=== PATIENT | male | born 1940 | race Caucasian/White ===

== ENCOUNTER 2019-11-19 06:51 | Outpatient (CLI) | payer MEDICARE, SELFPAY ==
--- NOTE | ~2019-11-19 | NM_ITS ---
EXAMINATION: NM hepatobiliary w pharm DATE: 11/19/2019 09:06 INDICATION: Right upper quadrant abdominal pain. COMPARISON: Hepatobiliary scintigraphy 11/27/2017, ultrasound 11/06/2019 TECHNIQUE: 5.5 mCi Tc-99m mebrofenin (Choletec) was administered intravenously. Scintigraphic images of the abdomen were obtained for one hour. Then, 2.6 mcg sincalide (Kinevac) IV was administered, an d imaging was continued for 30 minutes. FINDINGS: There is normal clearance of radiotracer from the blood pool. There is homogeneous tracer u ptake by the liver. Activity progresses to the bowel and gallbladder. Gallbladder ejection fraction (GBEF) was 30%. Note that most patients with gallbladder dysfunction have GBEF < 35%, which overlaps with the broad normal range of 10-90%. IMPRESSION: 1. Gallbladder ejection fraction in the lower range of normal. Note that this value overlaps with th e range of values that may be seen with gallbladder dysfunction and/or chronic cholecystitis if there is appropriate clinical correlation. Reviewed, dictated and finalized at location A. GAGE BRANCH MANAGER IMPRESSION: 1. Gallbladder ejection fraction in the lower range of normal. Note that this value overlaps with the range of values that may be seen with gallbladder dysfu nction and/or chronic cholecystitis if there is appropriate clinical correlatio nVenkatesh
== END 2019-11-19 06:52 | disposition home or self-care (01) ==
LOC: ANHIMG 06:52
PROVIDERS: PCP Family Medicine; Visit Provider Internal Medicine Gastroenterology
DX: R10.11 Right upper quadrant pain (principal)
CPT/HCPCS: 78227; A9537; J2805

== ENCOUNTER 2019-11-27 01:28 | Day surgery (SDC) | payer MEDICARE, SELFPAY ==
[2019-11-24 14:09] VITALS: BMI 33.5
[2019-11-27] MEDS: LACTATED RINGERS 1,000 ML 150 ML IV CONT (07:48)
[2019-11-27 07:50] LABS: INR 1.1; Prothrombin Time 13.5 Seconds (11.1-14.7)
[2019-11-27 07:53] VITALS: BP 163/87; PULSE 100; RESP 16; TEMP 36.3; O2SAT 98
--- NOTE | 2019-11-27 07:53 | WPDGICN ---
Assessment and Plan Additional Plan This is an 79-year-old white male patient I am asked to see because of abdominal pain. Patient has a prior history of colon polyps. Patient states bloating gas and nausea began in late September 2019. Patient states abdominal bloating is improved after eating. He describes regular bowel movements with no blood in his stools. Does have a history of colon polyps identified by endoscopy in 2014. Past medical history is significant for atrial fibrillation. He has a history of right inguinal hernia followed by Dr. Meadows. Current medications include warfarin. Aspirin. Atorvastatin. Finasteride. Metoprolol. Fish oil. Pantoprazole Patient reports an allergy to tetanus injection. Family history is noncontributory. Physical exam reveals him to be alert. Oriented x3. HEENT exam unremarkable. Lungs are clear to auscultation and percussion. Heart is without murmur or extra sounds. Abdominal exam bowel sounds are present soft nontender with no organomegaly. He has a right inguinal hernia. Ultrasound of the abdomen is unremarkable. Impression 1. Gas and diffuse abdominal pain. 2. Personal history of colon polyps. 3. Right inguinal hernia. Followed by Dr. Meadows. Plan is for high-fiber diet. Gas-X will be tried to alleviate his excess gas. HIDA scan to evaluate for gallbladder dysfunction is in progress. Colonoscopy will be performed because of colon polyps and abdominal discomfort. GI Consult Note Consult date/time: 11/27/19 07:53 HPI: Antony Reveles is a 79 year old male [facility] Past Medical History Medical History A-fib GERD (gastroesophageal reflux disease) High cholesterol History of blood transfusion HTN (hypertension) DOMINICK on CPAP RUQ abdominal pain Surgical History Surgical History GI bleed S/P arthroscopy of right knee S/P carpal tunnel release S/P cataract surgery Family History Family History Father Family history of respiratory disorder Pneumonia Sibling Acute myocardial infarction Heart attack Mother Patient's mother is , Onset Age: 85 Sibling Heart disease Other Family history of cardiovascular disease Hypertension Social History Social History Smoking status: Current every day smoker Alcohol intake: current Substance use: never Gender identity (if verbalized by the patient): Male Meds Home Medications and Allergies Home Medications Medication Instructions Recorded Confirmed Type aspirin 81 mg chewable tablet 81 mg PO DAILY 11/02/19 11/24/19 History atorvastatin 20 mg tablet 20 mg PO DAILY 11/02/19 11/24/19 History azelastine 137 mcg (0.1 %) nasal 2 spray NASAL Q12H ml 11/02/19 11/24/19 History spray aerosol finasteride 5 mg tablet 5 mg PO DAILY 11/02/19 11/24/19 History metoprolol succinate 25 mg 25 mg PO DAILY 11/02/19 11/24/19 History tablet,extended release 24 hr omega-3 fatty acids 1,000 mg 1,000 mg PO DAILY 11/02/19 11/24/19 History capsule pantoprazole 40 mg tablet,delayed 40 mg PO QAM 11/02/19 11/24/19 History release quinapril 5 mg tablet 5 mg PO DAILY 11/02/19 11/24/19 History sotalol 80 mg tablet 80 mg PO .COMPLEX 11/02/19 11/24/19 History umeclidinium 62.5 mcg-vilanterol 1 inhalation INHALATION DAILY 11/02/19 11/24/19 History 25 mcg/actuation powdr for inhalation warfarin 4 mg tablet 4 mg PO .COMPLEX 11/02/19 11/24/19 History Allergies Allergy/AdvReac Type Severity Reaction Status Date / Time tetanus immune globulin Allergy Mild SORE Verified 11/27/19 07:17 ARM-REDDENED INTO SHOULDER tetanus toxoid, adsorbed Allergy Unknown sore arm Verified 11/27/19 07:17 reddened into shoulder Tetanus Vaccines and Toxoi
--- NOTE | 2019-11-27 07:54 | WPDANESEPPF ---
Anes - Initial Pre Proc Eval Procedure: Operation Date: 11/27/19 08:30 Proposed Procedures p Screening Colonoscopy - Kendall Garcia MD Date/Time: 11/27/19 07:54 Surgeon: Kendall Garcia MD Pre Op Diagnosis: Hx of Colon Polyps Patient Data Age: 79 Gender: M Height: 6 ft 4 in Weight: 125 kg Allergies Allergy/AdvReac Type Severity Reaction Status Date / Time tetanus immune globulin Allergy Mild SORE Verified 11/27/19 07:17 ARM-REDDENED INTO SHOULDER tetanus toxoid, adsorbed Allergy Unknown sore arm Verified 11/27/19 07:17 reddened into shoulder Tetanus Vaccines and Toxoid Allergy Unknown sore Verified 11/27/19 07:17 arm-reddened into shoulder Home Medications Medication Instructions Recorded Confirmed Type aspirin 81 mg chewable tablet 81 mg PO DAILY 11/02/19 11/24/19 History atorvastatin 20 mg tablet 20 mg PO DAILY 11/02/19 11/24/19 History azelastine 137 mcg (0.1 %) nasal 2 spray NASAL Q12H ml 11/02/19 11/24/19 History spray aerosol finasteride 5 mg tablet 5 mg PO DAILY 11/02/19 11/24/19 History metoprolol succinate 25 mg 25 mg PO DAILY 11/02/19 11/24/19 History tablet,extended release 24 hr omega-3 fatty acids 1,000 mg 1,000 mg PO DAILY 11/02/19 11/24/19 History capsule pantoprazole 40 mg tablet,delayed 40 mg PO QAM 11/02/19 11/24/19 History release quinapril 5 mg tablet 5 mg PO DAILY 11/02/19 11/24/19 History sotalol 80 mg tablet 80 mg PO .COMPLEX 11/02/19 11/24/19 History umeclidinium 62.5 mcg-vilanterol 1 inhalation INHALATION DAILY 11/02/19 11/24/19 History 25 mcg/actuation powdr for inhalation warfarin 4 mg tablet 4 mg PO .COMPLEX 11/02/19 11/24/19 History Laboratory Tests 11/27/19 07:29 PT 13.5 Seconds Seconds (11.1-14.7) INR 1.1 Patient hx anesthesia problems: none Family hx anesthesia problems: none PMFSH Past Medical History Medical History A-fib GERD (gastroesophageal reflux disease) High cholesterol History of blood transfusion HTN (hypertension) DOMINICK on CPAP RUQ abdominal pain Surgical History Surgical History GI bleed S/P arthroscopy of right knee S/P carpal tunnel release S/P cataract surgery Family History Family History Father Family history of respiratory disorder Pneumonia Sibling Acute myocardial infarction Heart attack Mother Patient's mother is , Onset Age: 85 Sibling Heart disease Other Family history of cardiovascular disease Hypertension Social History Social History Smoking status: Current every day smoker Alcohol intake: current Substance use: never Gender identity (if verbalized by the patient): Male Anes - Eval Final PreProcedure Day of Procedure 11/27/19 07:54 Patient weight: obese Heart: regular rate and rhythm Lungs: clear to auscultation Airway: Mallampati scale class II Neurological: alert and oriented Last oral intake: >/= 8 hours ASA classification: IV Anesthetic plan: proceed Anesthesia type and monitoring: general GIVS and standard monitoring Informed Consent: The patient's anesthetic plan and its attendant risks and benefits were discussed with the patient/family/POA. Questions were solicited and answers provided to the satisfaction of the patient/family/POA.
[2019-11-27 08:58] VITALS: BP 97/60; PULSE 75; RESP 20; O2SAT 94
[2019-11-27 09:08] VITALS: BP 98/56; PULSE 70; RESP 17; O2SAT 100
[2019-11-27 09:18] VITALS: BP 120/81; PULSE 72; RESP 18; O2SAT 100
[2019-11-27 09:28] VITALS: BP 124/78; PULSE 73; RESP 15; O2SAT 100
== END 2019-11-27 10:04 | disposition home or self-care (01) ==
PROVIDERS: PCP Family Medicine; Visit Provider Internal Medicine Gastroenterology
PROC: 0DJD8ZZ Inspection of Lower Intestinal Tract, Via Natural or Artificial Opening Endoscopic (ICD-10-PCS; CPT 45378; principal; 2019-11-27 08:30)
DX: Z12.11 Encounter for screening for malignant neoplasm of colon (principal); K64.8 Other hemorrhoids; Z86.010 Personal history of colon polyps; I48.91 Unspecified atrial fibrillation; I10 Essential (primary) hypertension; E78.00 Pure hypercholesterolemia, unspecified; K21.9 Gastro-esophageal reflux disease without esophagitis; G47.33 Obstructive sleep apnea (adult) (pediatric); F17.210 Nicotine dependence, cigarettes, uncomplicated; Z79.82 Long term (current) use of aspirin; Z79.01 Long term (current) use of anticoagulants
CPT/HCPCS: G0105; 36415; 85610; J2704; J7120

== ENCOUNTER 2020-03-17 14:18 | Outpatient (CLI) | payer MEDICARE, SELFPAY ==
--- NOTE | 2020-03-17 14:23 | ECG_ITS ---
Measurements Intervals [place] Rate: 74 P: 150 AK: 199 QRS: -64 QRSD: 118 T: 3 QT: 386 QTc: 430 Interpretive Statements ELECTRONIC ATRIAL PACEMAKER LEFT ANTERIOR FASCICULAR BLOCK BORDERLINE T WAVE ABNORMALITY- INFERIOR LEADS ABNORMAL ECG Electronically Signed On 03-17-2020 15:02:49 CDT by Virgilio Grullon D.O.
[2020-03-17 14:45] LABS: Hematocrit 46.8 % (42.0-52.0); Hemoglobin 15.3 g/dL (14.0-18.0); Mean Corpuscular HGB Conc 32.7 g/dl (32-36); Mean Corpuscular Hemoglobin 28.6 pg (26-34); Mean Corpuscular Volume 87.5 fl (80-100); Mean Platelet Volume 10.6 fl (7.4-10.4); Platelet Count Result 211 k/mm3 (150-375); Red Blood Count 5.35 M/mm3 (4.6-6.20); Red Cell Distribution Width 15.1 % (11.5-14.5); White Blood Count 10.9 K/mm3 (4.5-10.0)
[2020-03-17 14:56] LABS: Alanine Aminotransferase 18 U/L (4-50); Albumin Level 4.1 g/dL (3.5-5.1); Alkaline Phosphatase 93 U/L (38-126); Aspartate Amino Transferase 22 U/L (17-59); Bilirubin,Total 0.5 mg/dL (0.2-1.3); Blood Urea Nitrogen 17 mg/dL (9-20); Calcium 8.9 mg/dL (8.4-10.2); Carbon Dioxide 28 mmol/L (22-30); Chloride 104 mmol/L (98-107); Estimated Glomerular Filt Rate > 60; Glucose 95 mg/dL (75-110); Potassium 4.2 mmol/L (3.4-5.0); Sodium 138 mmol/L (137-145)
[2020-03-17 15:58] LABS: INR 2.2; Prothrombin Time 24.1 Seconds (11.1-14.7)
[2020-03-17 16:00] LABS: Partial Thromboplastin Time 36.9 SECONDS (22.3-36.8)
== END 2020-03-17 14:19 | disposition home or self-care (01) ==
LOC: ANHSURGERY 14:20
PROVIDERS: Anesthesiology; PCP Family Medicine; Visit Provider Surgery
DX: Z01.818 Encounter for other preprocedural examination (principal); I10 Essential (primary) hypertension; K40.90 Unilateral inguinal hernia, without obstruction or gangrene, not specified as recurrent; Z51.81 Encounter for therapeutic drug level monitoring
CPT/HCPCS: 36415; 80053; 85027; 85610; 85730; 93005

== ENCOUNTER 2020-03-18 00:03 | Outpatient (CLI) | payer MEDICARE, SELFPAY ==
[2020-03-18 15:54] LABS: SARS-CoV-2 RNA PCR Negative
== END 2020-03-18 00:04 | disposition home or self-care (01) ==
LOC: ANHCOVIDDT 00:04
PROVIDERS: PCP Family Medicine; Visit Provider Surgery
DX: Z01.818 Encounter for other preprocedural examination (principal); Z11.59 Encounter for screening for other viral diseases
CPT/HCPCS: 87635; C9803; U0003

== ENCOUNTER 2020-03-21 03:38 | Day surgery (SDC) | payer MEDICARE, SELFPAY ==
[2020-03-16 14:37] VITALS: BMI 33.2
[2020-03-21] VITALS (11 sets, daily range): BP systolic 95–146; BP diastolic 57–91; PULSE 82–96; RESP 16–24; TEMP 36.1; O2SAT 95–100
--- NOTE | 2020-03-21 07:39 | PM.HPGS ---
History of Present Illness History of Present Illness Consent: Risks, benefits, and alternatives have been discussed and questions answered. Patient agrees to proceed with procedure. Chief complaint: Right Inguinal Hernia Narrative: Antony Reveles is a 79 year old male who was seen several months go in the office and at that time first diagnosed with a right inguinal hernia. Antony returns to re-evaluate a right groin bulge. He states the bulge reduces after laying down for an hour or so. He reports the bulge is painful at times but especially when he coughs. He reports the bulge comes and goes and appears to be out more when standing vs when sitting or laying down. He did have a cold months ago where he was coughing a lot. He had a colonoscopy a couple of months ago which showed hemorrhoids. Review of Systems Constitutional: Constitutional: Reports no additional constitutional complaints and Denies frequent falls Eyes: Eyes: Reports as per HPI ENT: Reports Normal hearing present, Denies dizziness and Reports other (Mucous membranes moist.) Cardiovascular: Cardiovascular: Denies chest pain, Denies palpitations, Denies dyspnea and Denies dyspnea on exertion Respiratory: Respiratory: Denies hemoptysis, Denies dyspnea, Denies dyspnea on exertion and Denies wheezing Gastrointestinal: Gastrointestinal: Reports no additional gastrointestinal complaints, Reports bloating and Reports other Comments: Occasional bulging in the right groin which is more discomfort a with cough Genitourinary: Genitourinary: Denies hematuria, Denies nocturia and Denies urinary frequency Musculoskeletal: Musculoskeletal: Denies deformity and Reports other ( no clubbing,cyanosis, or edema) Integumentary/Breasts: Skin/Breast: Denies new lesions, Denies rash and Denies unusual bruising Neurologic: Reports Normal hearing present, Denies dizziness, Denies frequent falls, Denies memory loss and Denies seizure-like activity Psychiatric: Psychiatric: Denies memory loss and Reports other ( normal mood and mental status) Endocrine: Endocrine: Denies cold intolerance and Denies palpitations Hematologic/Lymphatic: Hematologic/Lymphatic: Denies easy bleeding and Denies easy bruising Allergic/Immunologic: Allergic/Immunologic: Denies wheezing and Reports other ( no lymphadenopathy) [facility] Social History Social History Smoking status: Current every day smoker Alcohol intake: current Substance use: never Gender identity (if verbalized by the patient): Male Meds Home Medications and Allergies Home Medications Medication Instructions Recorded Confirmed Type aspirin 81 mg chewable tablet 81 mg PO DAILY 11/02/19 03/16/20 History atorvastatin 20 mg tablet 20 mg PO DAILY 11/02/19 03/16/20 History finasteride 5 mg tablet 5 mg PO DAILY 11/02/19 03/16/20 History metoprolol succinate 25 mg 25 mg PO DAILY 11/02/19 03/16/20 History tablet,extended release 24 hr omega-3 fatty acids 1,000 mg 1,000 mg PO DAILY 11/02/19 03/16/20 History capsule pantoprazole 40 mg tablet,delayed 40 mg PO QAM 11/02/19 03/16/20 History release quinapril 5 mg tablet 5 mg PO DAILY 11/02/19 03/16/20 History sotalol 80 mg tablet 80 mg PO BID 11/02/19 03/16/20 History umeclidinium 62.5 mcg-vilanterol 1 inhalation INHALATION QPM 11/02/19 03/16/20 History 25 mcg/actuation powdr for inhalation warfarin 4 mg tablet 4 mg PO .COMPLEX 11/02/19 03/16/20 History fluticasone propionate 1 spray INTRANASAL BID 03/16/20 03/16/20 History Allergies Allergy/AdvReac Type Severity Reaction Status Date / Time tetanus immune globulin Allergy Mild SORE Verified 03/16/20 14:33 ARM-REDDENED INTO SHOULDER tetanus toxoid, adsorbed Allergy Unknown sore arm Verified 03/16/20 14:33 reddened into shoulder Tetanus Vaccines and Toxoid Allergy Unknown sore Verified 03/16/20 14:33 arm-reddened into
--- NOTE | 2020-03-21 09:32 | P.PNAN_ITS ---
Anes - Initial Pre Proc Eval Procedure: Operation Date: 03/21/20 11:00 Proposed Procedures p Open Right Inguinal Hernia Repair - Sky Meadows MD Date/Time: 03/21/20 09:32 Surgeon: Sky Meadows MD Pre Op Diagnosis: Right Inguinal Hernia Patient Data Age: 79 Gender: M Height: 6 ft 4 in Weight: 123.5 kg Last Vital Signs Temp 96.9 F L 03/21/20 09:03 Pulse 87 03/21/20 09:03 Resp 20 03/21/20 09:03 BP 144/85 H 03/21/20 09:03 Pulse Ox 100 03/21/20 09:03 Allergies Allergy/AdvReac Type Severity Reaction Status Date / Time tetanus immune globulin Allergy Mild SORE Verified 03/16/20 14:33 ARM-REDDENED INTO SHOULDER tetanus toxoid, adsorbed Allergy Unknown sore arm Verified 03/16/20 14:33 reddened into shoulder Tetanus Vaccines and Toxoid Allergy Unknown sore Verified 03/16/20 14:33 arm-reddened into shoulder Home Medications Medication Instructions Recorded Confirmed Type aspirin 81 mg chewable tablet 81 mg PO DAILY 11/02/19 03/16/20 History atorvastatin 20 mg tablet 20 mg PO DAILY 11/02/19 03/16/20 History finasteride 5 mg tablet 5 mg PO DAILY 11/02/19 03/16/20 History metoprolol succinate 25 mg 25 mg PO DAILY 11/02/19 03/16/20 History tablet,extended release 24 hr omega-3 fatty acids 1,000 mg 1,000 mg PO DAILY 11/02/19 03/16/20 History capsule pantoprazole 40 mg tablet,delayed 40 mg PO QAM 11/02/19 03/16/20 History release quinapril 5 mg tablet 5 mg PO DAILY 11/02/19 03/16/20 History sotalol 80 mg tablet 80 mg PO BID 11/02/19 03/16/20 History umeclidinium 62.5 mcg-vilanterol 1 inhalation INHALATION QPM 11/02/19 03/16/20 History 25 mcg/actuation powdr for inhalation warfarin 4 mg tablet 4 mg PO .COMPLEX 11/02/19 03/16/20 History fluticasone propionate 1 spray INTRANASAL BID 03/16/20 03/16/20 History Patient hx anesthesia problems: none Family hx anesthesia problems: none [facility] Social History Social History Smoking status: Current every day smoker Alcohol intake: current Substance use: never Gender identity (if verbalized by the patient): Male Anes - Eval Final PreProcedure Day of Procedure 03/21/20 09:32 Patient weight: obese Heart: regular rate and rhythm Lungs: clear to auscultation Airway: Mallampati scale class II Neurological: alert and oriented Last oral intake: >/= 8 hours Emergent: no Anesthetic plan: proceed Anesthesia type and monitoring: general (may use LMA if needed) GIVS and standard monitoring Informed Consent: The patient's anesthetic plan and its attendant risks and benefits were discussed with the patient/family/POA. Questions were solicited and answers provided to the satisfaction of the patient/family/POA.
[2020-03-21] MEDS: LACTATED RINGERS 1,000 ML 30 ML IV CONT ×3 (09:35→13:18)
[2020-03-21 09:56] LABS: INR 1.1; Prothrombin Time 13.9 Seconds (11.1-14.7)
[2020-03-21 09:57] LABS: Partial Thromboplastin Time 28.6 SECONDS (22.3-36.8)
[2020-03-21] MEDS: ceFAZolin 3 GM/D5W 100 ML 100 ML IVPB (10:06)
--- NOTE | 2020-03-21 13:36 | PM.PROC ---
Procedure Note - Detailed Date of procedure: 03/21/20 Pre-op diagnosis: Right Inguinal Hernia Rt. Inguinal hernia Post-op diagnosis: other (Direct and large indirect Right inguinal hernia) Procedure performed: Open Rt.inguinal hernia repair with mesh Description of procedure: The patient was placed in the supine position on the operating room table. After induction of adequate GIVS with an LMA anesthesia by [facility] Anesthesia staff, we carefully prepped the entire abdomen and scrotum with chlorhexidine. One sterile towel was placed underneath the scrotum. Four towels were placed around the right lower quadrant. Following this, a time-out was performed with the surgical team and the patient's surgical procedure and site was confirmed. We then carefully outlined a curvilinear incision in the right groin area and a curvilinear incision was made after introducing a mixture of local anesthetic, using 0.5% Marcaine with epinephrine and 1% Xylocaine plain as both an ilioinguinal nerve block and at the incision site with a 25 gauge needle. Following this, I carefully made the incision, and carried it down through the subcutaneous tissue. Oleg's fascia was incised and then we identified the external oblique aponeurosis and the external ring. Following this, the same mixture of local anesthetic was infiltrated underneath the external oblique aponeurosis and this was split in the direction of it's fibers with a #15 blade initially and then using metzenbaum scissors. I then opened the external oblique through the external ring and incised this somewhat posteriorly and superiorly exposing the the underlying soft tissue. Because of the tissue stretching and the large size of the indirect hernia I never did identify the ilioinguinal nerve. I then surrounded these structures at the level of pubic tubercle and placed a [place] drain around them. At one point there was a tributary to the femoral vein that began bleeding as I dissected along the shelving edge of the inguinal ligament superiorly. This was suture ligated with a double armed 3 0 Prolene suture and nicely achieved hemostasis at that site. I then carefully dissected the hernia sac up and off of the cord tissues, and brought it up and out of the incision. We carefully dissected the layers and cremasteric tissues off the hernia sac and then eventually opened the hernia sac. Holding this up with 4 hemostats, I carefully dissected it off the cord structures, being careful to avoid injury to the Pampiniform plexus veins, the spermatic artery and the vas. Once the hernia sac was carefully dissected back to the level of the internal ring, a suture ligation pursestring suture of 2-0 silk was used to close circumferentially the base of the hernia sac. Following this, a 2 - 0 silk tie was placed just below this, tied tight, and then distally the hernia sac was amputated with scissors. It was then passed off the field for pathologic evaluation. Following this, we took care to recreate an appropriate inguinal canal. This was done by carefully dissecting from the internal ring down to the pubic bone, dissecting away any cremasteric tissue. A running suture of 0 Prolene was placed in the pubic tubercle and run up to the internal ring, approximating the Transversalis fascia to the ilioinguinal ligament. Once this was done, we then opened the rectangular piece of Prolene mesh and it was then cut into a 13 x 5 cm elliptical sheet with a keyhole in it and I then positioned it nicely over Hesselbach's triangle. One suture of 2-0 Ethibond was used to anchor it against the pubic tubercle. Following this, an 0 Prolene was used to suture the lateral edge of this mesh to the edge of the ilioinguinal ligament and the medial edge was sutured on top of the internal oblique aponeurosis. Above, the cord structures came through the keyhole and in doing so the mesh nicely covered the stump of the hernia sac but had al
[2020-03-21] MEDS: ONDANSETRON INJ 4 MG/2 ML VIAL IV PUSH (14:02)
--- NOTE | 2020-03-21 14:37 | SUR.PHASEI ---
1437; PT AWAKE AND ALERT AND ORIENTED. STATES PAIN 01/21. DENIES NEED FOR PAIN MEDICINE AT THIS TIME. READY FOR A DRINK
== END 2020-03-21 16:31 | disposition home or self-care (01) ==
PROVIDERS: Anesthesiology; PCP Family Medicine; Visit Provider Surgery
PROC: (CPT 49505; principal; 2020-03-21 11:00)
DX: K40.90 Unilateral inguinal hernia, without obstruction or gangrene, not specified as recurrent (principal); I71.2 Thoracic aortic aneurysm, without rupture; I11.9 Hypertensive heart disease without heart failure; K21.9 Gastro-esophageal reflux disease without esophagitis; E78.5 Hyperlipidemia, unspecified; G47.33 Obstructive sleep apnea (adult) (pediatric); Z95.0 Presence of cardiac pacemaker; F17.210 Nicotine dependence, cigarettes, uncomplicated; Z79.01 Long term (current) use of anticoagulants; Z79.82 Long term (current) use of aspirin; E66.9 Obesity, unspecified; Z68.33 Body mass index [BMI] 33.0-33.9, adult
CPT/HCPCS: 49505; 36415; 80053; 85027; 85610; 85730; 87635; 88302; 88304; 93005; A9270; C1781; C9803; J0131; J0690; J1100; J2405; J2704; J3010; J7120; U0003

== ENCOUNTER 2020-09-30 11:06 | Outpatient (NON) | payer MEDICARE, SELFPAY ==
[2020-09-30 14:32] LABS: Influenza Control Positive
[2020-10-01 01:18] LABS: SARS-CoV-2 RNA PCR Positive
== END 2020-09-30 11:07 ==
LOC: ANHCOVIDDT 11:07
PROVIDERS: PCP Family Medicine; Visit Provider Family Medicine
DX: R05 Cough (principal); U07.1 COVID-19
CPT/HCPCS: 87635; 87804; C9803; U0003

== ENCOUNTER 2020-11-09 14:11 | Outpatient (CLI) | payer MEDICARE, SELFPAY ==
--- NOTE | ~2020-11-09 | XR_ITS ---
XR lumbar spine 2-3V DATE: 11/09/2020 14:36 INDICATION: Low back pain. No injury. TECHNIQUE: AP, lateral, coned lateral lumbosacral views COMPARISON: 06/12/2005 lumbar spine FINDINGS: There is prominent degenerative spurring of the lower thoracic spine and throughout the lum bar spine. There is moderate loss of interspace height at L3-4 and L4-5, with mild retrolisthesis at L4-5. No fracture or bone destruction is evident. The included lower thoracic and lumbar pedicles are intac t. The sacroiliac joints are intact. There is extensive calcification of the abdominal aorta, without aneurysm. Iliac arterial calcificati ons. IMPRESSION: Multilevel degenerative disc disease, most pronounced at L3-4 and L4-5, with associated m ild retrolisthesis at L4-5 Reviewed, dictated and finalized at location A. NO ASSISTANT MANAGER IMPRESSION: Multilevel degenerative disc disease, most pronounced at L3-4 and L 4-5, with associated mild retrolisthesis at L4-5
== END 2020-11-09 14:12 | disposition home or self-care (01) ==
LOC: ANHIMG 14:19
PROVIDERS: PCP Family Medicine; Visit Provider Family Medicine
DX: M51.36 Other intervertebral disc degeneration, lumbar region (principal)
CPT/HCPCS: 72100

== ENCOUNTER → 2020-12-27 09:16 | Outpatient (CLI) | payer MEDICARE, SELFPAY ==
--- NOTE | ~2020-12-27 | CT_ITS ---
EXAMINATION: CT lumbar spine wo [facility] EXAM DATE: 12/27/2020 09:31 INDICATION: M51.36 - Other intervertebral disc degeneration, lumbar region . Low back pain. Bilateral leg weakness. TECHNIQUE: Spiral CT of the lumbar spine was performed without contrast. Axial, coronal and sagittal images were reviewed. The dose-length product (DLP) for this examination was 987.22 mGy-cm. The e xposure was tailored according to patient size (auto mA exposure control), and iterative reconstructi on (ASIR) was used as additional dose reduction technique. There is no prior study for comparison. FINDINGS: There are no acute fractures identified. There is no spondylolysis. There is 2-3 mm retroli sthesis L4 on L5. Straightening of normal lumbar curvature. Small to moderate size endplate osteophyt es. Moderate disc disease at L3-4 and L4-5, mild to moderate at L2-3 and L5-S1. Sacroiliac joints are intact, no evidence of sacral fracture. Level by level evaluation: T12-L1: There is a mild diffuse disc bulge. Facet arthropathy: Mild. Neural foraminal stenosis: No stenosis. Central canal stenosis: No stenosis. L1-L2: There is a mild to moderate diffuse disc bulge. Facet arthropathy: Mild to moderate. Neural foraminal stenosis: Mild bilateral. Central canal stenosis: Mild to moderate. L2-L3: There is a moderate diffuse disc bulge. Facet arthropathy: Moderate. Neural foraminal stenosis: Mild to moderate bilateral. Central canal stenosis: Moderate. L3-L4: There is a large diffuse disc bulge. Facet arthropathy: Moderate to severe. Neural foraminal stenosis: Moderate bilateral. Central canal stenosis: Severe. L4-L5: There is a large diffuse disc bulge. Facet arthropathy: Moderate to severe. Neural foraminal stenosis: Moderate to severe bilateral. Central canal stenosis: Severe. L5-S1: There is a moderate diffuse disc bulge. Facet arthropathy: Severe. Neural foraminal stenosis: Moderate to severe right, moderate left. Central canal stenosis: Mild to moderate. IMPRESSION: 1. 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 2. No acute findings. Reviewed, dictated and finalized at location A.
== END ==
PROVIDERS: PCP Family Medicine; Visit Provider Nurse Practitioner Family
DX: M51.36 Other intervertebral disc degeneration, lumbar region (principal)
CPT/HCPCS: 72131

== ENCOUNTER 2021-07-31 09:25 | Outpatient (CLI) | payer MEDICARE, SELFPAY ==
--- NOTE | 2021-07-31 15:30 | WPDPFTINT ---
PFT Procedure Performed PFT Procedure Performed Plethysmography (Lung Vol) Diffusing Cap (DLCO) Flow Vol Loop Spirometry w/o Bronchodil PFT Interpretation This is a pulmonary function test with spirometry, plethysmography and diffusing capacity. The test was performed and results interpreted in accordance with the 2019 and 2005 ATS/ERS Task Force guidelines respectively using the Global Lung Function Initiative-2012 reference equations. Patient demonstrated good effort and cooperation. Reproducibility criteria were met. The quality of the spirometry maneuver was Grade A. Findings: Spirometry: The contour the inspiratory and expiratory flow tracing are normal. The FVC is 4.01 L, 86% predicted. The FEV1 is 2.91 L, 86% predicted. The FEV1: FVC ratio 73%. Plethysmography: The total lung capacity is 7.68 L, 93% predicted. The functional residual capacity is 4.64 L, 102% predicted. The residual volume is 3.42 L, 113% predicted. Diffusing capacity: The absolute diffusion capacity is 11.8, 45% predicted. The diffusing capacity corrected for alveolar volume is 2.13, 66% predicted. Impression: The spirometry is normal without evidence of an obstructive abnormality. The lung volumes are normal. The absolute diffusing capacity is moderately decreased and normalizes when corrected for alveolar volume. There are no prior studies for comparison
== END 2021-07-31 09:26 | disposition home or self-care (01) ==
LOC: ANHPFT 09:27
PROVIDERS: PCP Family Medicine
DX: I48.0 Paroxysmal atrial fibrillation (principal); I35.0 Nonrheumatic aortic (valve) stenosis; I71.2 Thoracic aortic aneurysm, without rupture; Z95.0 Presence of cardiac pacemaker
CPT/HCPCS: 94375; 94726; 94729

== ENCOUNTER 2021-12-14 15:25 | Emergency (ER) | payer MEDICARE, SELFPAY ==
[2021-12-14] VITALS (11 sets, daily range): BP systolic 121–180; BP diastolic 78–104; PULSE 70–95; RESP 12–20; TEMP 36.6; O2SAT 98–100
--- NOTE | ~2021-12-14 | CT_ITS ---
EXAMINATION: CT brain wo con DATE: 12/14/2021 16:14 INDICATION: Dizziness, nausea and shortness of breath TECHNIQUE: Computed tomography (CT) of the head was performed without intravenous contrast. The dose- length product was 681.00 mGy-cm. Automated exposure control and iterative reconstruction technique w ere employed. COMPARISON: None FINDINGS: No acute intracranial hemorrhage, infarction, mass or mass effect. No ventriculomegaly or m idline shift. Basilar cisterns are patent. Mild generalized atrophy. There are scattered mild periven tricular and subcortical white matter changes, most likely related to small vessel ischemic disease ( microangiopathy). There is mild mucosal thickening of the ethmoid air cells. Mastoids are pneumatized . No depressed skull fractures. There is intracranial atherosclerosis. IMPRESSION: 1. No acute intracranial abnormality. 2: Chronic age-related findings. Reviewed, dictated and finalized at location A. ENING UNIT REGISTERED NURSE
--- NOTE | 2021-12-14 15:35 | ECG_ITS ---
Measurements Intervals [place] Rate: 90 P: 133 MS: 221 QRS: -48 QRSD: 116 T: 65 QT: 358 QTc: 439 Interpretive Statements ELECTRONIC ATRIAL PACEMAKER ELECTRONIC VENTRICULAR PACEMAKER ATYPICAL ECG COMPARED TO ECG 03/17/2020 14:51:28 NO SIGNIFICANT CHANGES Electronically Signed On 12-15-2021 10:21:07 [employer] S[employer]OL NURSE by Deep Mcgee M.D.
[2021-12-14 15:42] LABS: Basophils Absolute Auto 0.1 K/mm3 (0.0-0.1); Basophils Percent Auto 0.9 % (0.2-1.2); Eosinophils Absolute Auto 0.2 K/mm3 (0-0.3); Eosinophils Percent Auto 2.1 % (0-4.4); Hematocrit 47.7 % (42.0-52.0); Hemoglobin 15.8 g/dL (14.0-18.0); Immature Granulocyte Absolute 0.03 K/mm3 (0.00-0.031); Immature Granulocyte Percent A 0.3 % (0-0.5); Lymphocytes Absolute Auto 2.81 K/mm3 (0.9-3.2); Lymphocytes Percent Auto 26.7 % (18.3-44.2); Mean Corpuscular HGB Conc 33.1 g/dl (32-36); Mean Corpuscular Volume 90.7 fl (80-100); Mean Platelet Volume 10.6 fl (7.4-10.4); Monocytes Absolute Auto 0.7 K/mm3 (0.1-0.6); Monocytes Percent Auto 6.3 % (2.6-8.5); Neutrophils Absolute Auto 6.7 K/mm3 (1.3-6.7); Neutrophils Percent Auto 63.7 % (45.5-73.1); Platelet Count Result 195 k/mm3 (150-375); Red Blood Count 5.26 M/mm3 (4.6-6.20); Red Cell Distribution Width 14.6 % (11.5-14.5); White Blood Count 10.5 K/mm3 (4.5-10.0)
--- NOTE | 2021-12-14 15:42 | PC.NURSE ---
Spoke to patient's son, Shaggy, to give update per patient's request.
[2021-12-14 15:54] LABS: Alanine Aminotransferase 20 U/L (4-50); Albumin Level 4.2 g/dL (3.5-5.1); Alkaline Phosphatase 88 U/L (38-126); Anion Gap 5 mmol/L (8-16); Aspartate Amino Transferase 24 U/L (17-59); Bilirubin,Total 0.8 mg/dL (0.2-1.3); Blood Urea Nitrogen 16 mg/dL (9-20); Calcium 8.9 mg/dL (8.4-10.2); Carbon Dioxide 27 mmol/L (22-30); Chloride 106 mmol/L (98-107); Estimated CRCL calculation 77 ml/min; Estimated Glomerular Filt Rate > 60; Glucose 113 mg/dL (65-110); Sodium 138 mmol/L (137-145)
[2021-12-14] MEDS: ONDANSETRON HCL ODT 4 MG TABLET PO (16:28)
[2021-12-14] MEDS: MECLIZINE HCL 25 MG TABLET PO (16:28)
[2021-12-14] MEDS: diazePAM (*CRX) 5 MG TABLET 2.5 MG PO (16:28)
--- NOTE | 2021-12-14 16:29 | PC.NURSE ---
Per JAZMIN Mckinney, no orthostatic blood pressures needed.
--- NOTE | 2021-12-14 17:02 | ED.DIZZY ---
HPI - Dizziness General Chief Complaint: Dizziness Stated Complaint: dizzy Time Seen by Provider: 12/14/21 15:29 Source: patient and EMS Mode of arrival: EMS Limitations: no limitations History of Present Illness HPI Narrative: Patient is 81 years old white male lives alone, woke up this morning feeling a little bit woozy, then started moving around subsequently developed dizziness, spinning, the whole ceiling going around on the ground. Associated with nausea. Patient had similar symptoms years ago secondary to vertigo. Patient denies any focal neuro deficit. Also denies any fever, chills, nausea, vomiting, chest pain, shortness of breath, headache. patient also complaining of itching of the ear canals for months, he can stop using Q-tips. He denies any discharge Related Data Home Medications Medication Instructions Recorded Confirmed aspirin 81 mg chewable tablet 81 mg PO DAILY 11/02/19 11/14/21 atorvastatin 20 mg tablet 20 mg PO DAILY 11/02/19 11/14/21 finasteride 5 mg tablet 5 mg PO DAILY 11/02/19 11/14/21 metoprolol succinate 25 mg 25 mg PO DAILY 11/02/19 11/14/21 tablet,extended release 24 hr omega-3 fatty acids 1,000 mg 1,000 mg PO DAILY 11/02/19 11/14/21 capsule quinapril 5 mg tablet 5 mg PO DAILY 11/02/19 11/14/21 sotalol 80 mg tablet 80 mg PO BID 11/02/19 11/14/21 warfarin 4 mg tablet 4 mg PO .COMPLEX 09/06/20 11/14/21 gabapentin 100 mg capsule 100 mg PO BID 07/04/21 11/14/21 Allergies Allergy/AdvReac Type Severity Reaction Status Date / Time Tetanus Vaccines and Toxoid Allergy Severe DIFFICULTY Verified 12/14/21 15:34 BREATHING/REDNESS/EXTREME SWELLING OF ARM Review of Systems Review of Systems: CONSTITUTIONAL: Denies fever, chills, or sweats. EYES: Denies visual changes, redness, or discharge. ENT: Denies rhinorrhea, congestion, sore throat, or otalgia. CARDIOVASCULAR: Denies chest pain, palpitations, or edema. RESPIRATORY: Denies cough or dyspnea. GASTROINTESTINAL: Denies abdominal pain, nausea, vomiting, or diarrhea. GENITOURINARY: Denies dysuria or hematuria. SKIN: Denies rash or itching. MUSCULOSKELETAL: Denies back pain, joint pain, or myalgia. NEUROLOGIC: Denies headache, numbness, or weakness. PSYCHIATRIC: Denies anxiety or depression. 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 (current) use of anticoagulants Lumbar spinal stenosis DOMINICK on CPAP RUQ abdominal pain Surgical History Surgical History GI bleed H/O hernia repair S/P arthroscopy of right knee S/P carpal tunnel release S/P cataract surgery Family History Family History Father Family history of respiratory disorder Pneumonia Sibling Acute myocardial infarction Heart attack Mother Patient's mother is , Onset Age: 85 Sibling Heart disease Other Family history of cardiovascular disease Hypertension Social History Social History Smoking packs per day: 0.75 Smoking cigarettes per day: 15.0 Years smoked: 65 Smoking pack-years: 48.75 Smoking status: Current every day smoker Tobacco type: cigarettes Second hand tobacco smoke exposure: No Alcohol intake: current Alcohol use details: rare Substance use: never Substance use type: does not use Gender identity (if verbalized by the patient): Male Sexual Orientation (if Verbalized by the Patient): Straight or Heterosexual Exam Narrative: General appearance: Well-developed, well-nourished Skin: Normal color Head: Normocephalic, nontraumatic Eyes: Clear conjunctiva ENT: Oropharynx normal, dry skin of the ear canal bilaterally, slightly erythematous , nose normal N
--- NOTE | 2021-12-14 17:07 | PC.NURSE ---
Patient able to ambulate with walker with no difficulty. Patient denied feeling dizzy while walking.
== END 2021-12-14 18:28 | disposition home or self-care (01) ==
PROVIDERS: Emergency Provider Emergency Medicine; PCP Family Medicine
DX: H81.10 Benign paroxysmal vertigo, unspecified ear (principal); H60.93 Unspecified otitis externa, bilateral; I48.91 Unspecified atrial fibrillation; E78.00 Pure hypercholesterolemia, unspecified; I10 Essential (primary) hypertension; K21.9 Gastro-esophageal reflux disease without esophagitis; G47.33 Obstructive sleep apnea (adult) (pediatric); Z79.01 Long term (current) use of anticoagulants; Z79.82 Long term (current) use of aspirin; Z98.49 Cataract extraction status, unspecified eye; F17.210 Nicotine dependence, cigarettes, uncomplicated; Z95.0 Presence of cardiac pacemaker
CPT/HCPCS: 36415; 70450; 80053; 85025; 93005; 99284; A9270

== ENCOUNTER 2022-05-01 07:18 | Outpatient (CLI) | payer MEDICARE, SELFPAY ==
--- NOTE | 2022-05-15 13:20 | WPDHOMESLEEP ---
Sleep Study - Home Unattended Date of Study: 05/01/22 Ordering Provider: BENEDICTO Shah Interpreting Provider: Justine Freeman, DO Home Sleep Study Type: Apnea Link Air Height: 1.93 m Weight: 114.759 kg Body Mass Index: 30.8 Neck Circumference (inches): 17 [place]: 5 Reason for Sleep Study Patient is currently on CPAP. Wants to switch DME companies but they require an updated study. Sleep History The patient is an 81-year-old male with hypertension, hyperlipidemia, GERD, interstitial lung disease, atrial fibrillation, pacemaker, lumbar spinal stenosis, thoracic aorta aneurysm, tobacco use disorder and known DOMINICK that had a sleep study ordered by the pulmonary office. the patient is currently retired. The patient occasionally awakens from sleep short of breath. He frequently awakens at night with heartburn, belching or cough. He occasionally has trouble sleeping when he has a cold. He rarely wakes up gasping for air throughout the night. He rarely has breathing problems at night observed by himself or others. He rarely sweats excessively at night. He rarely has heart palpitations or irregular heartbeats during the night. He will take naps occasionally throughout the day. He denies falling asleep while driving. He rarely experiences loss of muscle tone when extremely emotional. He denies sleep paralysis and hypnagogic/ hypnopompic hallucinations. He denies having trouble at school or work due to sleepiness. He denies having nightmares. He rarely remembers his dreams. He frequently has thoughts racing through his mind. He denies feeling sad or depressed. He occasionally has anxiety. He rarely has muscular tension. He rarely notices parts of his body jerk. He rarely kicks during the night. He occasionally has crawling and aching feelings in his legs and frequently has leg pain during the night. He denies grinding his teeth during sleep and denies awakening with morning jaw pain. He is constantly bothered by pain during the day and frequently awakened by pain during the night. He frequently wakes up feeling stiff in the morning. He frequently wakes up with sore or achy muscles. He constantly wakes up with pain in the neck, spine or other joints. He goes to bed between 830-9 p.m. on both weekdays and weekends. It takes him 15-20 minutes to fall asleep. He wakes up 4-5 times throughout the night to urinate. He is able to fall back asleep within 3-4 minutes. He wakes up between 5-530 a.m. on both weekdays and weekends. He typically gets 7-10 hours of sleep per night. He will stay in bed for a few minutes after waking up in the morning. He currently lives alone. He does not consume any caffeinated beverages within 2 hours of bedtime. He does not engage in physical exercise before bedtime. He will watch television before falling asleep. He will take naps during the afternoon or the evening but they are not refreshing. He currently smokes 3/4 of a pack of cigarettes per day. He denies caffeine, alcohol and recreational drug use. 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
[2022-05-15 13:51] VITALS: BMI 30.8
== END 2022-05-02 11:54 | disposition home or self-care (01) ==
PROVIDERS: PCP Family Medicine; Visit Provider Physician Assistant
DX: G47.33 Obstructive sleep apnea (adult) (pediatric) (principal)
CPT/HCPCS: 95806

== ENCOUNTER 2022-05-25 07:34 | Outpatient (CLI) | payer MEDICARE, SELFPAY ==
--- NOTE | 2022-06-25 11:17 | WPDSLEEPSTUD ---
Sleep Study Date of Study: 05/25/22 Ordering Provider: BENEDICTO Shah Interpreting Physician: Justine Freeman DO Sleep Study Type: CPAP Titration Height: 1.93 m Weight: 113.852 kg Body Mass Index: 30.5 Neck Circumference (inches): 19 [place]: 5 Reason for Sleep Study The patient had a home sleep test on 05/01/2022 that showed an overall AHI of 13.8 with desaturation down to 88%. He had 45 minutes of probable Jorge-Nguyen respirations. Sleep History The patient is an 81-year-old male with hypertension, hyperlipidemia, GERD, interstitial lung disease, atrial fibrillation, pacemaker, lumbar spinal stenosis, thoracic aorta aneurysm, tobacco use disorder and known DOMINICK that had a sleep study ordered by the pulmonary office. the patient is currently retired.? The patient occasionally awakens from sleep short of breath.? He frequently awakens at night with heartburn, belching or cough.? He occasionally has trouble sleeping when he has a cold.? He rarely wakes up gasping for air throughout the night.? He rarely has breathing problems at night observed by himself or others.? He rarely sweats excessively at night.? He rarely has heart palpitations or irregular heartbeats during the night.? He will take naps occasionally throughout the day.? He denies falling asleep while driving.? He rarely experiences loss of muscle tone when extremely emotional.? He denies sleep paralysis and hypnagogic/ hypnopompic hallucinations.? He denies having trouble at school or work due to sleepiness.? He denies having nightmares.? He rarely remembers his dreams.? He frequently has thoughts racing through his mind.? He denies feeling sad or depressed.? He occasionally has anxiety.? He rarely has muscular tension.? He rarely notices parts of his body jerk.? He rarely kicks during the night.? He occasionally has crawling and aching feelings in his legs and frequently has leg pain during the night.? He denies grinding his teeth during sleep and denies awakening with morning jaw pain.? He is constantly bothered by pain during the day and frequently awakened by pain during the night.? He frequently wakes up feeling stiff in the morning.? He frequently wakes up with sore or achy muscles.? He constantly wakes up with pain in the neck, spine or other joints.? He goes to bed between 830-9 p.m. on both weekdays and weekends.? It takes him 15-20 minutes to fall asleep.? He wakes up 4-5 times throughout the night to urinate.? He is able to fall back asleep within 3-4 minutes.? He wakes up between 5-530 a.m. on both weekdays and weekends.? He typically gets 7-10 hours of sleep per night.? He will stay in bed for a few minutes after waking up in the morning.? He currently lives alone.? He does not consume any caffeinated beverages within 2 hours of bedtime.? He does not engage in physical exercise before bedtime.? He will watch television before falling asleep.? He will take naps during the afternoon or the evening but they are not refreshing.? He currently smokes 3/4 of a pack of cigarettes per day.? He denies caffeine, alcohol and recreational drug use. [facility] Past Medical History Medical History A-fib GERD (gastroesophageal reflux disease) High cholesterol History of blood transfusion HTN (hypertension) intermediate (current) use of anticoagulants Lumbar spinal stenosis DOMINICK on CPAP RUQ abdominal pain Surgical History Surgical History GI bleed H/O hernia repair S/P arthroscopy of right knee S/P carpal tunnel release S/P cataract surgery Family History Family History Father Family history of respiratory disorder Pneumonia Sibling Acute myocardial infarction Heart attack Mother Patient's mother is , Onset Age: 85 Sibling Heart disease Other Family history of cardiovascu
[2022-06-25 14:09] VITALS: BMI 30.5
== END 2022-05-26 07:00 | disposition home or self-care (01) ==
LOC: ANHCSM 05-28 07:34
PROVIDERS: PCP Family Medicine; Visit Provider Physician Assistant
DX: G47.33 Obstructive sleep apnea (adult) (pediatric) (principal); G47.61 Periodic limb movement disorder
CPT/HCPCS: 95811

== ENCOUNTER → 2022-09-13 10:39 | Outpatient (CLI) | payer MEDICARE, SELFPAY ==
--- NOTE | ~2022-09-13 | XR_ITS ---
XR shoulder LT min 2V DATE: 09/13/2022 10:50 INDICATION: Limited range of motion for 5 days. Pain. No known injury. TECHNIQUE: 4 views COMPARISON: 04/04/2016 left shoulder FINDINGS: There is prominent joint space narrowing and spurring at the left glenohumeral joint consis tent with prominent osteoarthritis. There is mild inferior glenohumeral subluxation. There is degenerative spurring of the left acromioclavicular joint. Subtle calcification is noted in the region of the rotator cuff suggesting calcific tendinitis. No fracture or dislocation, periosteal reaction or bone destruction. Osteopenia. Left-sided pacemaker device. Status post sternotomy. Aortic arch calcification, descending thoracic a ortic calcification. IMPRESSION: Severe left glenohumeral osteoarthritis and mild inferior subluxation of the humeral head at the glenohumeral joint Degenerative change at the left acromion clavicular joint Subtle calcification of rotator cuff suggesting calcific tendinitis Reviewed, dictated and finalized at location B. GATHERER IMPRESSION: Severe left glenohumeral osteoarthritis and mild inferior subluxati on of the humeral head at the glenohumeral joint Degenerative change at the left acromion clavicular joint Subtle calcification of rotator cuff suggesting calcific tendinitis
== END ==
PROVIDERS: PCP Family Medicine; Visit Provider Physician Assistant
DX: M19.012 Primary osteoarthritis, left shoulder (principal)
CPT/HCPCS: 73030

== ENCOUNTER → 2022-11-20 09:42 | Outpatient (CLI) | payer MEDICARE, SELFPAY ==
--- NOTE | ~2022-11-20 | XR_ITS ---
Clinical Indication: Hemoptysis PA and lateral views of the chest: Comparison: 02/12/2018 Findings: The lungs are clear, without evidence of focal consolidation or pleural effusion. Cardiome diastinal silhouette is stable, status post median sternotomy with pacemaker device. Bones and soft t issues are unremarkable. Impression: Clear lungs. Reviewed, dictated and finalized at location . NATAL COORDINATOR Impression: Clear lungs.
== END ==
PROVIDERS: PCP Family Medicine; Visit Provider Family Medicine
DX: R04.2 Hemoptysis (principal)
CPT/HCPCS: 71046

== ENCOUNTER → 2023-05-14 09:24 | Outpatient (CLI) | payer MEDICARE, SELFPAY ==
--- NOTE | ~2023-05-14 | XR_ITS ---
EXAMINATION: XR lumbar spine 2-3V DATE: 05/14/2023 09:45 INDICATION: Low back pain. TECHNIQUE: 3 views of lumbar spine were obtained. COMPARISON: Lumbar spine radiograph 11/09/2020, CT lumbar spine 12/27/2020 FINDINGS: There is 4 mm retrolisthesis of L4 on L5 and 3 mm retrolisthesis of L3 on L4. There is mild chronic anterior wedging of L1 and L2 vertebral bodies. There is moderately decreased disc height at L3-L4, severely decreased disc height at L4-L5, and moderately decreased disc height at L5-S1. There is multilevel severe facet joint osteoarthritis. IMPRESSION: 1. Severe lumbar spondylosis, stable from 12/27/2020. Reviewed, dictated and finalized at location A.
== END ==
PROVIDERS: PCP Nurse Practitioner Family; Visit Provider Nurse Practitioner Family
DX: M47.896 Other spondylosis, lumbar region (principal)
CPT/HCPCS: 72100

== ENCOUNTER 2023-09-21 15:31 | Emergency (ER) | payer MEDICARE, SELFPAY ==
[2023-09-21] VITALS (7 sets, daily range): BP systolic 130–152; BP diastolic 73–105; PULSE 46–86; RESP 16–21; TEMP 36.8; O2SAT 98–100
--- NOTE | ~2023-09-21 | XR_ITS ---
EXAMINATION: XR chest 2V Exam Date/Time: 09/21/2023 16:20 SENIOR CONTROLLER HISTORY: shortness of breath Comparison: 11/20/2022. RESULT: Lines, tubes, and devices: Left chest pacer with intact leads. Fractured sternotomy wire, in stable position. Lungs and pleura: Moderate diffuse reticular opacities. Streaky bibasilar opacities. Mild bilateral costophrenic angle blunting. Cardiomediastinal silhouette: Stable. Other: No acute osseous or upper abdominal finding. IMPRESSION: Moderate interstitial edema. Small bilateral effusions. Reviewed, dictated and finalized at location K. OR CONTROLLER
--- NOTE | 2023-09-21 15:38 | ECG_ITS ---
Measurements Intervals [place] Rate: 79 P: 115 TN: 174 QRS: 41 QRSD: 201 T: 55 QT: 471 QTc: 542 Interpretive Statements ELECTRONIC ATRIAL PACEMAKER ELECTRONIC VENTRICULAR PACEMAKER Electronically Signed On 09-22-2023 10:25:21 ENVELOPE PATTERNMAKER by Shashi Arechiga M.D.
[2023-09-21 16:02] LABS: Basophils Absolute Auto 0.1 K/mm3 (0.0-0.1); Basophils Percent Auto 0.8 % (0.2-1.2); Eosinophils Absolute Auto 0.2 K/mm3 (0-0.3); Eosinophils Percent Auto 1.5 % (0-4.4); Hematocrit 50.6 % (42.0-52.0); Hemoglobin 16.1 g/dL (14.0-18.0); Immature Granulocyte Absolute 0.03 K/mm3 (0.00-0.031); Immature Granulocyte Percent A 0.3 % (0-0.5); Lymphocytes Absolute Auto 2.67 K/mm3 (0.9-3.2); Lymphocytes Percent Auto 25.5 % (18.3-44.2); Mean Corpuscular HGB Conc 31.8 g/dl (32-36); Mean Corpuscular Hemoglobin 29.7 pg (26-34); Mean Corpuscular Volume 93.2 fl (80-100); Mean Platelet Volume 10.9 fl (7.4-10.4); Monocytes Absolute Auto 0.7 K/mm3 (0.1-0.6); Monocytes Percent Auto 7.1 % (2.6-8.5); Neutrophils Absolute Auto 6.8 K/mm3 (1.3-6.7); Neutrophils Percent Auto 64.8 % (45.5-73.1); Platelet Count Result 187 k/mm3 (150-375); Red Blood Count 5.43 M/mm3 (4.6-6.20); Red Cell Distribution Width 14.7 % (11.5-14.5); White Blood Count 10.5 K/mm3 (4.5-10.0)
--- NOTE | 2023-09-21 16:05 | ED.SOB ---
HPI - SOB/Dyspnea General Chief Complaint: Shortness of Breath/Dyspnea Stated Complaint: SOB, Irregular heartbeat Time Seen by Provider: 09/21/23 16:04 History of Present Illness HPI Narrative: Patient is an 83-year-old male with history of HTN, pacemaker placement, thoracic aorta aneurysm, here with multiple symptoms including fatigue, lightheadedness, shortness of breath and nausea. he notes that the symptoms seem to have begun 2 days ago and are progressively worsening. He denies any fever or chills. He has had a cough which has been nonproductive. He has been checking his blood pressures at home and he has been getting many error messages which has been concerning for him. He also notes that he has had erratic heart rates which include low heart rates and high heart rates at home. He does have a pacemaker in place, he did transmit a report to the company but has not heard back about this. he notes that his current pacemaker battery is set to in the next 6 months. All of his symptoms feel very similar to when he had his pacemaker battery has run out in the past. 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. He has had no chest pain. Related Data Home Medications Medication Instructions Recorded Confirmed atorvastatin 20 mg tablet 20 mg PO HS 11/02/19 09/18/23 finasteride 5 mg tablet (Proscar) 5 mg PO HS 11/02/19 09/18/23 metoprolol succinate 25 mg 25 mg PO QAM 11/02/19 09/18/23 tablet,extended release 24 hr omega-3 fatty acids 1,000 mg 1,000 mg PO DAILY 11/02/19 09/18/23 capsule (Fish Oil Concentrate) sotalol 80 mg tablet 80 mg PO BID 11/02/19 09/18/23 warfarin 4 mg tablet (Coumadin) 4 mg PO .COMPLEX 09/06/20 09/18/23 gabapentin 100 mg capsule 100 mg PO BID 07/04/21 09/18/23 aspirin 81 mg tablet 81 mg PO DAILY 01/03/23 09/18/23 lisinopril 5 mg tablet 5 mg PO QAM 01/03/23 09/18/23 omeprazole 40 mg capsule,delayed 40 mg PO DAILY 09/18/23 09/18/23 release Allergies Allergy/AdvReac Type Severity Reaction Status Date / Time Tetanus Vaccines and Toxoid Allergy Severe DIFFICULTY Verified 09/18/23 13:04 BREATHING/REDNESS/EXTREME SWELLING OF ARM Review of Systems Review of Systems: All systems reviewed & are unremarkable except as noted in HPI and below PMFSH Past Medical History Medical History A-fib Biliary dyskinesia Enteritis GERD (gastroesophageal reflux disease) High cholesterol History of blood transfusion HTN (hypertension) 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 (current) use of anticoagulants Lumbar spinal stenosis DOMINICK on CPAP RUQ abdominal pain Surgical History Surgical History GI bleed H/O hernia repair S/P arthroscopy of right knee S/P carpal tunnel release S/P cataract surgery Family History Family History Father Family history of respiratory disorder Pneumonia Sibling Acute myocardial infarction Heart attack Mother Patient's mother is , Onset Age: 85 Sibling Heart disease Other Family history of cardiovascular disease Hypertension Social History Social History Smoking packs per day: 1 Smoking cigarettes per day: 20.0 Years smoked: 65 Smoking pack-years: 65.00 Smoking status: Current every day smoker Tobacco type: cigarettes Second hand tobacco smoke exposure: Yes Alcohol intake: current Alcohol use details: rare Substance use: never Substance use type: does not use Living arrangements: alone Occupation/Education: retired Gender identity (if verbalized by the patient): Male Sexual Orientation (if Verbalized by the Patient): Straight or Heterosexual Spiritual care concerns: No Exam Narrative: GENERAL: Well-appearing, well-nourished, and in no acute
[2023-09-21 16:13] LABS: Alanine Aminotransferase 27 U/L (6-50); Albumin Level 4.2 g/dL (3.5-5.1); Alkaline Phosphatase 100 U/L (38-126); Anion Gap 9 mmol/L (8-16); Aspartate Amino Transferase 29 U/L (17-59); Bilirubin,Total 1.2 mg/dL (0.2-1.3); Blood Urea Nitrogen 19 mg/dL (9-20); Calcium 9.3 mg/dL (8.4-10.2); Carbon Dioxide 24 mmol/L (22-30); Chloride 106 mmol/L (98-107); Estimated CRCL calculation 55 ml/min; Estimated Glomerular Filt Rate > 60; Glucose 112 mg/dL (65-110); Potassium 4.3 mmol/L (3.4-5.0); Sodium 139 mmol/L (137-145)
[2023-09-21 16:52] LABS: Influenza A QL RT-PCR Negative (Negative); Influenza B QL RT-PCR Negative (Negative); RSV RNA, RT-PCR Negative (Negative); SARS-CoV-2 RNA PCR Negative (Negative)
[2023-09-21 17:10] LABS: NT Pro B Type Natriuretic Pept 2290 pg/mL (19.9-100); Troponin I 0.018 ng/mL (0.000-0.034)
[2023-09-21] MEDS: SODIUM CHLORIDE 0.9% IV 500 ML 999 ML IV CONT (17:20)
--- NOTE | 2023-09-21 19:24 | PC.NURSE ---
This RN assumed care of patient. This RN took patient report from NERI [place].
--- NOTE | 2023-09-21 20:07 | ECG_ITS ---
Measurements Intervals [place] Rate: 71 P: 0 HI: 243 QRS: 61 QRSD: 203 T: 18 QT: 445 QTc: 484 Interpretive Statements ELECTRONIC ATRIAL PACEMAKER ELECTRONIC VENTRICULAR PACEMAKER Electronically Signed On 09-22-2023 10:27:48 BLOW MOLD MACHINE OPERATOR by Shashi Arechiga M.D.
[2023-09-21 20:17] LABS: Troponin I 0.017 ng/mL (0.000-0.034)
[2023-09-21] MEDS: FUROSEMIDE INJ 40 MG/4 ML VIAL IV PUSH (20:26)
== END 2023-09-21 20:57 | disposition home or self-care (01) ==
PROVIDERS: Preventive Medicine Aerospace Medicine; Emergency Provider Student in an Organized Health Care Education/Training Program; PCP Family Medicine
DX: R79.89 Other specified abnormal findings of blood chemistry (principal); T82.9XXA Unspecified complication of cardiac and vascular prosthetic device, implant and graft, initial encounter; J81.0 Acute pulmonary edema; I10 Essential (primary) hypertension; I48.91 Unspecified atrial fibrillation; F17.210 Nicotine dependence, cigarettes, uncomplicated; Z79.01 Long term (current) use of anticoagulants; Z20.822 Contact with and (suspected) exposure to COVID-19
CPT/HCPCS: 36415; 71046; 80053; 83735; 83880; 84484; 85025; 87637; 93005; 96361; 96374; 99284; J1940; J7040

== ENCOUNTER 2023-10-10 13:31 | Outpatient (CLI) | payer MEDICARE, SELFPAY ==
--- NOTE | ~2023-10-10 | CT_ITS ---
EXAMINATION: CT chest high resolution wo co DATE: 10/10/2023 13:48 INDICATION: Interstitial lung disease TECHNIQUE: Computed tomography (CT) of the chest was performed without intravenous contrast. The dose -length product (DLP) was 613.71 mGy-cm. Automated exposure control and iterative reconstruction tech edoque were employed. COMPARISON: 05/16/2018 FINDINGS: There are small pleural effusions. Stable right upper lobe nodules measure up to 5 mm. Ther e is mild smooth interlobular septal thickening. 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 Calcified pulmonary nodules and calcified right hilar and mediastinal lymph nodes are consistent with old granulomatous disease. There are chronic subpleural groundglass opacities with a lower lung zone predominance. There is no pneumothorax. No pathologically enlarged t horacic lymph nodes are identified. The heart size is normal. Calcified coronary artery atheroscleros is is noted. There is a stable 4.4 cm fusiform aneurysm of the ascending aorta. Cholelithiasis is not ed. There is mild wall thickening of the gallbladder. 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 IMPRESSION: 1. Mild pulmonary edema. 2. Chronic interstitial lung disease in a pattern of nonspecific interstitial pneumonia (NSIP). 3. Small pleural effusions. 4. Stable fusiform aneurysm of the ascending aorta. 5. Cholelithiasis and gallbladder wall thickening, consistent with acute versus chronic cholecystitis . Recommend correlation for right upper quadrant pain. Reviewed, dictated and finalized at location B. TAL WATCH ASSEMBLER IMPRESSION: 1. Mild pulmonary edema. 2. Chronic interstitial lung disease in a pattern of nonspecific interstitial p neumonia (NSIP). 3. Small pleural effusions. 4. Stable fusiform aneurysm of the ascending aorta. 5. Cholelithiasis and gallbladder wall thickening, consistent with acute versus chronic cholecystitis. Recommend correlation for right upper quadrant pain.
== END 2023-10-10 13:32 | disposition home or self-care (01) ==
PROVIDERS: PCP Family Medicine; Visit Provider Physician Assistant
DX: J84.9 Interstitial pulmonary disease, unspecified (principal); I71.40 Abdominal aortic aneurysm, without rupture, unspecified
CPT/HCPCS: 71250

== ENCOUNTER 2023-12-03 08:59 | Outpatient (CLI) | payer MEDICARE, SELFPAY ==
--- NOTE | ~2023-12-03 | US_ITS ---
Limited Abdominal Sonogram: Real-time sonographic imaging of the right upper quadrant was performed. Clinical History: Gallbladder wall thickening Findings: The liver appears normal with no evidence of mass lesion or bile duct dilatation. Main por duong vein demonstrates normal direction of flow. The gallbladder is well distended, with probable gall stone. No definite gallbladder wall thickening. The common bile duct measures 5 mm. The visualized p ancreas, aorta, and IVC are unremarkable. Impression: Cholelithiasis. No definite gallbladder wall thickening. Reviewed, dictated and finalized at location M. LAYER MACHINE OPERATOR Impression: Cholelithiasis. No definite gallbladder wall thickening.
== END 2023-12-03 09:00 | disposition home or self-care (01) ==
PROVIDERS: PCP Family Medicine; Visit Provider Nurse Practitioner
DX: K82.8 Other specified diseases of gallbladder (principal)
CPT/HCPCS: 76705

== ENCOUNTER → 2024-04-20 10:03 | Outpatient (REF) | payer MEDICARE, SELFPAY | LOC: ANHLAB 10:03 | PROVIDERS: PCP Family Medicine; Visit Provider Plastic Surgery | DX: C44.92 Squamous cell carcinoma of skin, unspecified (principal) | CPT/HCPCS: 88305 ==

== ENCOUNTER → 2024-05-05 09:37 | Outpatient (REF) | payer MEDICARE, SELFPAY | LOC: ANHLAB 09:37 | PROVIDERS: PCP Family Medicine; Visit Provider Plastic Surgery | DX: C44.92 Squamous cell carcinoma of skin, unspecified (principal) | CPT/HCPCS: 88305 ==

== ENCOUNTER 2024-05-27 08:06 | Outpatient (CLI) | payer MEDICARE, SELFPAY ==
--- NOTE | ~2024-05-27 | XR_ITS ---
EXAMINATION: XR UGI wo kub DATE: 05/27/2024 08:58 INDICATION: Gastroesophageal reflux disease without esophagitis. TECHNIQUE: The patient drank thick barium and thin barium. Fluoroscopy of the esophagus, stomach, and proximal small bowel was performed. Fluoroscopy exposure time was 0.8 minutes. The total number of i mages was 281. Total dose-area product was 4.606 Gy-cm^2. COMPARISON: Chest CT 10/10/2023 FINDINGS: Sensitivity is decreased by the patient's poor mobility. There is no mass or stricture of t he esophagus. There is an aberrant right subclavian artery. Esophageal motility is normal. There is n o hiatal hernia. The stomach and proximal small bowel show normal folding patterns. Median sternotomy wires are noted. Pacer wires are noted. IMPRESSION: 1. Normal upper gastrointestinal series. Reviewed, dictated and finalized at location A.
== END 2024-05-27 08:07 | disposition home or self-care (01) ==
PROVIDERS: PCP Family Medicine; Visit Provider Nurse Practitioner
DX: K21.9 Gastro-esophageal reflux disease without esophagitis (principal)
CPT/HCPCS: 74240

== ENCOUNTER 2024-06-02 09:00 | Outpatient (CLI) | payer MEDICARE, SELFPAY ==
[2024-06-03 13:32] LABS: H pylori Ag Stool RESULT: Not Detected
== END 2024-06-02 09:01 | disposition home or self-care (01) ==
LOC: ANHLAB 09:03
PROVIDERS: PCP Family Medicine; Visit Provider Nurse Practitioner
DX: K21.9 Gastro-esophageal reflux disease without esophagitis (principal)
CPT/HCPCS: 87338

== ENCOUNTER 2024-10-26 13:34 | Outpatient (CLI) | payer MEDICARE, SELFPAY ==
--- NOTE | ~2024-10-26 | CT_ITS ---
CT Scan of the Chest without Contrast: Clinical Indication: Interstitial pulmonary disease Technique: Contiguous sections were acquired throughout the chest without intravenous contrast. Dose reduction technique was used on this scan by utilizing automated exposure control and iterative recon struction technique. The dose-length product (DLP) was 387.79 mGy-cm. COMPARISON: 10/10/2023 Findings: There is no evidence of any significant mediastinal, hilar or axillary lymphadenopathy. Aberrant righ t subclavian artery noted. There are atherosclerotic calcifications of the aorta and coronary arterie s. Status post aortic valve replacement. Ascending aorta measures 4.8 cm in diameter. There is no evidence of pleural or pericardial effusion. Calcified pleural plaque at the anterior upper lobe is present. Stable subcentimeter right upper lobe pulmonary nodules (axial images 40 and 49). Stable additional 4 mm right upper lobe pulmonary nodule more inferiorly (axial image 69). There is mild peripheral chronic interstitial change of the lung b ases with interstitial thickening and subpleural reticulation. Minimal emphysema. Images through the upper abdomen reveal no abnormalities. Impression: Mild bibasilar chronic interstitial disease. Stable subcentimeter pulmonary nodules, as above. 4.8 cm ascending aortic aneurysm. Calcified pleural plaque. Mild emphysema. Reviewed, dictated and finalized at location . 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 Stable subcentimeter pulmonary nodules, as above. 4.8 cm ascending aortic aneurysm. Calcified pleural plaque. Mild emphysema.
== END 2024-10-26 13:35 | disposition home or self-care (01) ==
PROVIDERS: PCP Family Medicine; Visit Provider Physician Assistant
DX: J84.9 Interstitial pulmonary disease, unspecified (principal); I71.40 Abdominal aortic aneurysm, without rupture, unspecified; R91.8 Other nonspecific abnormal finding of lung field; J43.9 Emphysema, unspecified
CPT/HCPCS: 71250

== ENCOUNTER 2025-01-04 13:15 | Outpatient (RCR) | payer MEDICARE, SELFPAY | END 2025-01-04 23:59 | disposition home or self-care (01) | LOC: ANHCPREHAB 13:15 | PROVIDERS: PCP Family Medicine | DX: Z95.2 Presence of prosthetic heart valve (principal) | CPT/HCPCS: 93798 ==

== ENCOUNTER 2025-07-06 11:15 | Outpatient (CLI) | payer MEDICARE, SELFPAY ==
--- NOTE | ~2025-07-06 | XR_ITS ---
EXAMINATION: XR_KNEE1-2VRT_CR, 07/06/2025 11:37 CDT HISTORY: Right/left knee pain COMPARISON: No comparisons available. Findings: No acute fracture or malalignment. Moderate to severe tricompartmental degenerative changes with small effusion Soft tissues unremarkable. Impression: No acute fracture or malalignment. Reviewed, dictated and finalized at location A. Impression: No acute fracture or malalignment.
--- NOTE | ~2025-07-06 | CT_ITS ---
EXAMINATION: CT lumbar spine wo con COMPARISON: None HISTORY: Lumbar radiculopathy TECHNIQUE: Axial images were obtained through the spine without IV contrast. Coronal, sagittal reconstruction images were obtained from the axial views. CT scan performed using dose optimization techniques including the following automated exposure control; adjustment of mA and/or kV; use of iterative reconstruction technique. Automatic exposure control was used to reduce radiation dose. Permanent radiation dose record is archived to PACS. FINDINGS: Moderate loss of vertebral height throughout with grade 1 retrolisthesis of L3 on L4 and L4 on L5, no acute fracture is identified. There is severe loss of disc height at L3-4, L4-5 and L5-S1 with disc osteophyte complex and facet hypertrophy producing severe canal and foraminal stenosis. Soft tissues unremarkable. Impression: 1. Severe degenerative changes. MRI suggested to further evaluate Reviewed, dictated and finalized at location A. Impression: 1. Severe degenerative changes. MRI suggested to further evaluate
--- NOTE | ~2025-07-06 | XR_ITS ---
EXAMINATION: XR_KNEE1-2VLT_CR, 07/06/2025 11:37 CDT HISTORY: Right/left knee pain COMPARISON: No comparisons available. Findings: No acute fracture or malalignment. Moderate to severe tricompartmental degenerative changes, small effusion Soft tissues unremarkable. Impression: No acute fracture or malalignment. Reviewed, dictated and finalized at location A. Impression: No acute fracture or malalignment.
== END 2025-07-06 11:16 | disposition home or self-care (01) ==
PROVIDERS: PCP Family Medicine; Visit Provider Nurse Practitioner Family
DX: M25.561 Pain in right knee (principal); M25.562 Pain in left knee; M51.369 Other intervertebral disc degeneration, lumbar region without mention of lumbar back pain or lower extremity pain
CPT/HCPCS: 72131; 73560

== ENCOUNTER 2025-07-13 16:38 | Inpatient (IN) | payer MEDICARE, SELFPAY ==
[2025-07-13] VITALS (27 sets, daily range): BP systolic 102–146; BP diastolic 40–102; PULSE 67–87; RESP 11–23; TEMP 36.3–36.6; O2SAT 94–100
--- NOTE | ~2025-07-13 | CT_ITS ---
EXAMINATION: CTA brain carotid DATE: 07/13/2025 20:23 INDICATION: Left foot drop. TECHNIQUE: Computed tomographic angiography (CTA) of the head was performed with 100 mL Omnipaque-350 intravenous contrast. CTA of the neck was performed with intravenous contrast. Automated exposure control and iterative reconstruction technique were employed. The dose-length product was 1262.76 mGy-cm. Maximum intensity projection and volume rendered 3D-reconstructions were created by the technologist on a separate workstation. COMPARISON: Head CT 07/13/2025 FINDINGS: HEAD CTA: There are scattered areas of low attenuation in the cerebral white matter. There is no intracranial hemorrhage, acute infarction, or abnormal intracranial mass lesion. The ventricles are normal in size. There is mild mucosal thickening in the ethmoid sinuses. There are likely changes of ocular lens replacement surgeries. The mastoid air cells are normal. Left vertebral artery is dominant. There is no significant stenosis of basilar artery or the posterior cerebral arteries. The posterior communicating arteries are normal. There is no significant stenosis of the intracranial internal carotid arteries or anterior or middle cerebral arteries. Anterior communicating artery is normal. There is no aneurysm. NECK CTA: There is mild emphysema. There is a 4 mm nodule in right upper lobe, likely benign. There are no dilated loops of bowel. There is an aberrant right subclavian artery. There is moderate stenosis of proximal left vertebral artery. There is plaque in the proximal internal carotid arteries. There is 0% stenosis of the proximal right internal carotid artery relative to normal distal artery lumen diameter (NASCET criteria). There is 27% stenosis of the proximal left internal carotid artery relative to normal distal artery lumen diameter. There is severe cervical spondylosis. IMPRESSION: 1. Mild nonspecific cerebral white matter disease, which likely represents chronic small vessel ischemic disease. 2. No aneurysm or significant intracranial internal stenosis. 3. 0% stenosis of the proximal right internal carotid artery relative to normal distal artery lumen diameter (NASCET criteria). 4. 27% stenosis of the proximal left internal carotid artery relative to normal distal artery lumen diameter. 5. Moderate stenosis of proximal left vertebral artery. Reviewed, dictated and finalized at location E. IMPRESSION: 1. Mild nonspecific cerebral white matter disease, which likely represents chromium plater leslie small vessel ischemic disease. 2. No aneurysm or significant intracranial internal stenosis. 3. 0% stenosis of the proximal right internal carotid artery relative to normal distal artery lumen diameter (NASCET criteria). 4. 27% stenosis of the proximal left internal carotid artery relative to normal distal artery lumen diameter. 5. Moderate stenosis of proximal left vertebral artery.
--- NOTE | ~2025-07-13 | CT_ITS ---
EXAMINATION: CT lumbar spine wo con COMPARISON: None HISTORY: LLE numbness/tingling TECHNIQUE: Axial images were obtained through the spine without IV contrast. Coronal, sagittal reconstruction images were obtained from the axial views. CT scan performed using dose optimization techniques including the following automated exposure control; adjustment of mA and/or kV; use of iterative reconstruction technique. Automatic exposure control was used to reduce radiation dose. Permanent radiation dose record is archived to PACS. FINDINGS: Grade 1 retrolisthesis of L2 on L3 L3 on L4 and L4 on L5, no fracture. Severe loss of disc height at L3-4, L4-5 and L5-S1 with severe canal and foraminal stenosis, outpatient MRI is recommended Soft tissues unremarkable. Impression: No acute abnormality. Reviewed, dictated and finalized at location P. Impression: No acute abnormality.
--- NOTE | ~2025-07-13 | CT_ITS ---
EXAMINATION: CT brain wo con DATE: 07/13/2025 17:38 INDICATION: Left lower extremity numbness and tingling. TECHNIQUE: Computed tomography (CT) of the head was performed without intravenous contrast. The dose-length product was 1603.46 mGy-cm. COMPARISON: None FINDINGS: No acute intracranial hemorrhage. No mass effect. No midline shift. No hydrocephalus. No skull fracture. Visualized mastoid air cells are clear. Minimal opacification of the paranasal sinuses. There are several low density regions scattered throughout the periventricular and deep white matter which are favored to represent chronic ischemic white matter change. IMPRESSION: 1. No acute intracranial hemorrhage. No mass effect. 2. Probable chronic ischemic white matter change. Reviewed, dictated and finalized at location Q.
--- NOTE | ~2025-07-13 | US_ITS ---
EXAMINATION: US venous doppler LE LT, 07/13/2025 17:00 CDT HISTORY: L LE swelling, pain Comparison: None Technique: [place]ipton-scale and color Doppler images were attempted of the lower saphenofemoral junction, common femoral vein,superficial femoral vein, proximal deep femoral vein, proximal deep femoral vein, popliteal vein and posterior tibial veins. Findings: Deep Venous System:Normal flow, augmentation and compressibility. No echogenic thrombus identified. The contralateral saphenofemoral junction appears unremarkable. Superficial Venous SystemNo superficial thrombophlebitis. Soft tissues: Soft tissues are unremarkable. Impression: Negative for DVT. Reviewed, dictated and finalized at location P. Impression: Negative for DVT.
--- NOTE | ~2025-07-13 | CT_ITS ---
CT abdomen pelvis w con Clinical History: downtrending H/H, asses for bleed . Comparison: None Technique: Axial images lung bases to symphysis pubis IV contrast information not listed in PACS Coronal, sagittal reformats CT images acquired with automatic exposure control for dose reduction DLP: 1060 mGy-cm Findings: Lung bases: Mild fibrosis and/or interstitial lung disease. Visualized heart and pericardium: Mild cardiomegaly. Liver: A few tiny hypodense foci too small to characterize. Gallbladder: Stone. Spleen: Unremarkable. Pancreas: Unremarkable. Adrenal glands: Unremarkable. Kidneys: Right kidney- No hydronephrosis. No renal stones. Small cyst. Left kidney- No hydronephrosis. No renal stones. A few cysts Distal esophagus/stomach: Unremarkable. Small bowel loops: Normal caliber and wall thickness. Colon: Normal caliber and wall thickness. Normal RLQ appendix. Nodes: No enlarged nodes. Peritoneum: No ascites. No free air. Urinary bladder: Distended. Prostate: Unremarkable. Bones: No acute bony abnormality. Soft tissues: Unremarkable. Aorta: No aneurysm or dissection. Atherosclerotic disease. IVC: Unremarkable. Main portal vein/SMV/splenic vein: Patent. IMPRESSION: 1. No acute findings. Reviewed, dictated and finalized at location R. IMPRESSION: 1. No acute findings.
--- NOTE | ~2025-07-13 | XR_ITS ---
EXAMINATION: XR knee LT min 4V, 07/13/2025 17:36 CDT HISTORY: L knee pain, swelling COMPARISON: No comparisons available. Findings: No acute fracture or malalignment. Severe tricompartmental degenerative changes with chondrocalcinosis and small effusion Soft tissues unremarkable. Impression: No acute fracture or malalignment. Reviewed, dictated and finalized at location P. Impression: No acute fracture or malalignment.
--- OUTSIDE RECORDS SUMMARY | 2025-07-13 16:41 | XMS_ITS | Encounter Summary ---
Author Organization [facility] Address [address] [place] [address] Care Team Providers Care Transportation Refrigeration Technician Name Role Phone Jose Eduardo Baugh MD Primary Care Provider [phone] Encounter Details Date Type Department Care Team (Late st Contact Info) Description 07/12/2025 Anti-coag visit [facility] At [address] [place] [phone] Maribel Araujo MD [address] [place] [address] [address] [place], [place] [id number] Social History Tobacco Use Types Packs/Day Years Used Date Smoking Tobacco: Every Day Cigarettes 1 55 Smokeless Tobacco: Never Alcohol Use Standard Drinks/Week Comments No 0 (1 standard drink = 0.6 oz pur e alcohol) Feeling Safe Answer Date Recorded Are you in a relationship wi th someone who hurts you emotionally and/or physically? No 08/04/2024 Food Insecurity Answer Date Recorded Patient needs follow up regardin 02/08/2025 Transportation Needs Answer Date Record ed Patient needs follow up regardin 02/08/2025 Housing Stability Answer Date Recorded Social/Environmental Concerns No concerns Utility Needs Answer Date Recorded Patient needs follow up regardin 02/08/2025 Sex and Gender Information Value Date Recorded Sex Assigned at Not on file Legal Sex Male 5:[address] RUNNER Gender Identity Not on file Sexual Orientation Not on file documented as of this encounter Progress Notes * Modesta Dominguez RN - 07/12/2025 11:57 AM CDT INR 2.1. Continue Warfarin 2mg Saturday , Saturday, Saturday and 4mg all other days of the week. Recheck INR 2 weeks. Modesta 07/12/25. documented in this encounter Plan of Treatment Upcoming Encounters Date Type Department Care Team (Late st Contact Info) Description 07/15/2025 7:00 AM CDT Procedure visit [facility] AT [address] [place] [address] 08/06/2025 11:00 AM CDT Office Visit [facility] At [address] [place] [address] Yuval Hsieh MD [address] [place] [address] [address] [place] [address] 11/08/2025 9:[address] Office Visit [facility] - [facility] [address] [address] [facility] [address] [place] [phone] Maribel rAaujo MD [address] [place] [address] [address] [place] [address] 04/12/2026 10:30 AM CDT Procedure visit [facility] AT [address] [place] [address] 04/12/2026 11:00 AM CDT Office Visit [facility] AT [address] [place] [address] Anhsul Guerrier DNP [address] [place] [address] [address] [place] [address] documented as of this encounter Procedures Procedure Name Priority Date/Time Associated Diagnosis Comments POC PROTIME/INR Routine 07/12/2025 9:52 AM CDT documented in this encounter Results * POC PROTIME/INR (07/12/2025 9:52 AM CDT) ABSTRACTED INR 2.1 Blood, capillary 07/12/2025 9:52 AM CDT us Historical Provider POINT OF CARE TESTING Final Result documented in this encounter Visit Diagnoses Not on filedocumented in this encounter Care Teams Transportation Refrigeration Technician Relationship Specialty Start Date End Date Jose Eduardo Baugh MD PCP - General Family Practice 11/10/15 documented as of this encounter
--- OUTSIDE RECORDS SUMMARY | 2025-07-13 16:41 | XMS_ITS | Encounter Summary ---
Author Organization [facility] Address [address] [facility] [place] [address] Care Team Providers Care Filenet Admin Name Role Phone Jose D Wyatt MD Primary Care Provider Encounter Details Date Type Department Care Team (Late st Contact Info) Description 08/26/2023 Lab Requisition [facility] - DermPath Lab [address] [facility] [place] [phone] Edward Gaming MD [address] [place] [address] Social History Tobacco Use Types Packs/Day Years Used Date Smoking Tobacco: Never Assessed Sex and Gender Information Value Date Recorded Sex Assigned at Not on file 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 Gender Identity Not on file Sexual Orientation Not on file documented as of this encounter Plan of Treatment Not on file documented as of this encounter Procedures Procedure Name Priority Date/Time Associated Diagnosis Comments DERMATOPATHOLOGY Routine 08/21/2023 12:0 0 AM BULK COOLERS INSTALLER documented in this encounter Results * DERMATOPATHOLOGY (08/21/2023 12:00 AM BULK COOLERS INSTALLER) Case Report Dermatopathology Report Case: [id number] Authorizing Provider: dEward Gaming MD Collected: 08/21/2023 12:00 AM Ordering Location: [facility] DermPath Lab Received: 08/26/2023 10:45 AM Pathologist: Ralph Jackson MD Specimen: Skin, dorsal left ulnar hand 3 3:58 PM [facility] DERMATOPATHOLOGY LABORATORY Final Diagnosis Specimen A. SKIN, dorsal left ulnar hand: NEUROFIBROMA (D36.10) 3 3:58 PM [facility] DERMATOPATHOLOGY LABORATORY at 1558 BULK COOLERS INSTALLER Clinical History R/O BCC vs. Nevus 3 3:58 PM [facility] DERMATOPATHOLOGY LABORATORY Gross Description Specimen A: Received is one formalin filled container labeled with the patient's name and designated dorsal left ulnar hand. The specimen consists of a shave biopsy measuring 7x6x1 mm. Jar 0. 3 3:58 PM [facility] DERMATOPATHOLOGY LABORATORY Microscopic Description Specimen A. SKIN, dorsal left ulnar hand: Sections show a proliferation of spindled and S-shaped cells within the dermis. The stromal collagen is delicate and pale. 3 3:58 PM [facility] DERMATOPATHOLOGY LABORATORY Disclaimer An external and internal positive and negative controls are appropriate for the histochemical, immunohistochemical and immunofluorescence stain(s) in this case (if any), except where stated explicitly. The performance characteristics of the stain(s) cited in this report were developed and its performance characteristic determined by the Dermatopathology Laboratory at [facility], directed by Dr. Malik Jackson. These tests need not be, and therefore are not, approved by the [place] Food and Drug Administration. The tests are used for clinical purposes. Billing Codes Specimen Charges Stain Charges 55046 1 3 3:58 PM [facility] DERMATOPATHOLOGY LABORATORY Embedded Images 3 3:58 PM [facility] DERMATOPATHOLOGY LABORATORY Pathology/Cytolog y TISSUE SPECIMEN FROM SKIN / Unknown 08/21/2023 08/26/2023 10:45 AM BULK COOLERS INSTALLER Edward Gaming MD LAB - PATHOLOGY/CYTOLOGY ORD ERABLES Final Result DERMATOPATHOLOGY LABORATORY [facility] - Department of Dermatology [facility] Medicine [address] [place] [address], [address] [place] [address], [facility] [phone] documented in this encounter Visit Diagnoses Not on filedocumented in this encounter Care Teams Filenet Admin Relationship Specialty Start Date End Date Jose D Wyatt MD [address] [place] [address] PCP - General 06/27/18 documented as of this encounter
--- OUTSIDE RECORDS SUMMARY | 2025-07-13 16:41 | XMS_ITS | Encounter Summary ---
Author Organization [facility] Address [address] [facility] [place] [address] Care Team Providers Care Hammerer Name Role Phone Jose D Wyatt MD Primary Care Provider Encounter Details Date Type Department Care Team (Late st Contact Info) Description 06/27/2018 Lab Requisition [facility] Care DermPath Lab [address] [facility] [place] [phone] Edward Gaming MD [address] [place] [address] Social History Tobacco Use Types Packs/Day Years Used Date Smoking Tobacco: Never Assessed Sex and Gender Information Value Date Recorded Sex Assigned at Not on file 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 Gender Identity Not on file Sexual Orientation Not on file documented as of this encounter Plan of Treatment Not on file documented as of this encounter Procedures Procedure Name Priority Date/Time Associated Diagnosis Comments DERMATOPATHOLOGY Routine 06/26/2018 12:0 0 AM CDT documented in this encounter Results * DERMATOPATHOLOGY (06/26/2018 12:00 AM CDT) Case Report Dermatopathology Report Case: [id number] Authorizing Provider: Edward Gaming MD Collected: 06/26/2018 12:00 AM Pathologist: Jayashree Maher MD Received: 06/27/2018 11:57 AM Specimen: Skin, right mid extensor forearm 8 3:52 PM CDT DERMATOPATHOLOGY LABORATORY Final Diagnosis Specimen A. SKIN, right mid extensor forearm: LICHEN PLANUS-LIKE KERATOSIS (BENIGN LICHENOID KERATOSIS) (L82.1) 8 3:52 PM CDT DERMATOPATHOLOGY LABORATORY at 1552 CDT Clinical History R/O SCC, BCC, ISK. 3:52 PM CDT DERMATOPATHOLOGY LABORATORY Gross Description Specimen A: Received is one formalin filled container labeled with the patient's name and designated right mid extensor forearm. The specimen consists of a shave biopsy measuring [id number]. Jar 0. 3:52 PM CDT DERMATOPATHOLOGY LABORATORY Microscopic Description Specimen A. SKIN, right mid extensor forearm: The epidermis is mildly acanthotic. There is a lichenoid infiltrate with vacuolar changes of basilar keratinocytes and scattered necrotic keratinocytes. 3:52 PM CDT DERMATOPATHOLOGY LABORATORY Disclaimer An external and internal positive and negative controls are appropriate for the histochemical, immunohistochemical and immunofluorescence stain(s) in this case (if any), except where stated explicitly. The performance characteristics of the stain(s) cited in this report were developed and its performance characteristic determined by the Dermatopathology Laboratory at [facility]. These tests need not be, and therefore are not, approved by the [place] Food and Drug Administration. The tests are used for clinical purposes. Billing Codes Specimen Charges Stain Charges 81803 1 3:52 PM CDT DERMATOPATHOLOGY LABORATORY Embedded Images 3:52 PM CDT DERMATOPATHOLOGY LABORATORY Pathology/Cytolog y TISSUE SPECIMEN FROM SKIN / Unknown 06/26/2018 06/27/2018 11:57 AM CDT us Edward Gaming MD LAB - PATHOLOGY/CYTOLOGY ORD ERABLES Final Result DERMATOPATHOLOGY LABORATORY [facility] - Department of Dermatology [address] [facility], 5th [place] [address], [facility] [phone] documented in this encounter Visit Diagnoses Not on filedocumented in this encounter Care Teams Hammerer Relationship Specialty Start Date End Date Jose D Wyatt MD [address] [place] [address] PCP - General 06/27/18 documented as of this encounter
--- OUTSIDE RECORDS SUMMARY | 2025-07-13 16:41 | XMS_ITS | Clinical Summary ---
Author Organization [facility] Address [address] [facility] [place] [address] Care Team Providers Care Sexual Health Physician Name Role Phone Jose D Wyatt MD Primary Care Provider Source Comments [facility],non-[facility] Affiliates and Associated Physician Practices is amultiple site organization consisting of ambulatory clinics and hospital sitesin [place], [place], [place] and [place]. This disclosure is being madepursuant to the Care Everywhere program and may not contain all information available regarding this patient. Last updated 18.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 Gender Identity Not on file Sexual Orientation Not on file Plan of Treatment Health Maintenance Due Date Last Done Comments DTAP/TDAP/TD VACCINES (1 - Tdap) 1958 PNEUMOCOCCAL VACCINE 50+ (1 of 1 - PCV) 1989 ZOSTER VACCINE (1 of 2) 1989 Respiratory Syncytial Virus (RSV) Vaccine Pt: or over 60 yrs (1 - 1-dose 75+ series) 2014 DEPRESSION SCREENING 10/14/2024 MEDICARE AWV CALENDAR YEAR 2024 COVID-19 VACCINE (1 - 2023-2 5 season) 2025 INFLUENZA VACCINE (#1) 2025 HEPATITIS B VACCINE Aged Out No longe r eligible based on patient's age to complete this topic HIB VACCINE Aged Out No longer eligi ble based on patient's age to complete this topic HPV VACCINE Aged Out No longer eligi ble based on patient's age to complete this topic MENINGOCOCCAL (Group B) VACC INE SHARED DECISION-MAKING Aged Out No longer eligibl e based on patient's age to complete this topic MENINGOCOCCAL GROUPS A/C/Y/W VACCINE Aged Out No longer eligible b ased on patient's age to complete this topic Insurance MANAGED MEDICARE ADV MANAGED MEDICARE ADV * Guarantor: SCARLETT REVELES Account Type Relation to Patient Date of Phone Billing Address Personal/Family [address] [place] [address] SELF PAY NO INSURANCE Member Subscriber Plan / Payer (Ef fective for All Dates) Name:Scarlett Reveles Member ID:Not on file Relation to Subscriber:Not on file Name:SCARLETT REVELES Subscriber ID:Not on file (Home) Address: [address] [place] [address] Payer ID:Not on file Group ID:Not on file Type:Self Pay Address: [facility] MANAGED MEDICARE ADV * Guarantor: SCARLETT REVELES Account Type Relation to Patient Date of Phone Billing Address Personal/Family [address] [place] [address] SELF PAY NO INSURANCE Member Subscriber Plan / Payer (Ef fective for All Dates) Name:Scarlett Reveles Member ID:Not on file Relation to Subscriber:Not on file Name:SCARLETT REVELES Subscriber ID:Not on file (Home) Address: [address] [place] [address] Payer ID:Not on file Group ID:Not on file Type:Self Pay Address: [facility] MANAGED MEDICARE ADV * Guarantor: SCARLETT REVELES Account Type Relation to Patient Date of Phone Billing Address Personal/Family [address] [place] [address] SELF PAY NO INSURANCE Member Subscriber Plan / Payer (Ef fective for All Dates) Name:Scarlett Reveles Member ID:Not on file Relation to Subscriber:Not on file Name:SCARLETT REVELES Subscriber ID:Not on file (Home) Address: [address] [place] [address] Payer ID:Not on file Group ID:Not on file Type:Self Pay Address: [facility] MANAGED MEDICARE ADV Member Subscriber Plan / Payer (Ef fective 2024-Present) Name:Scarlett Reveles Relation to Subscriber:Self Name:Scarlett Reveles Payer ID:[id number] (NAIC) Type:Medicare-Managed Care Address: [address] * Guarantor: SCARLETT REVELES Account Type Relation to Patient Date of Phone Billing Address Personal/Family [address] [place] [address] SELF PAY NO INSURANCE Member Subscriber Plan / Payer (Ef fective for All Dates) Name:Scarlett Reveles Member ID:Not on file Relation to Subscriber:Not on file Name:SCARLETT REVELES Subscriber ID:Not on file (Home) Address: [address] [place] [address] Payer ID:Not on file Group ID:Not on file Type:Self Pay Address: [facility] MANAGED MEDICARE ADV Member Subscriber Plan / Payer (Ef fective 2024-Present) Name:Scarlett Reveles Relation to Subscriber:Self Name:Scarlett Reveles Payer ID:[id number] (NAIC) Type:Medicare-Managed Care Address: [address] * Guarantor: SCARLETT REVELES Account Type Relation to Patient Date of Phone Billing Address Personal/Family [address] [place] [address] SELF PAY NO INSURANCE Member Subscriber Plan / Payer (Ef fective for All Dates) Name:Scarlett Reveles Member ID:Not on file Relation to Subscriber:Not on file Name:SCARLETT REVELES Subscriber ID:Not on file (Home) Address: [address] [place] [address] Payer ID:Not on file Group ID:Not on file Type:Self Pay Address: [facility] MANAGED MEDICARE ADV * Guarantor: SCARLETT REVELES Account Type Relation to Patient Date of Phone Billing Address Personal/Family [address] [place] [address] SELF PAY NO INSURANCE Member Subscriber Plan / Payer (Ef fective for All Dates) Name:Scarlett Reveles Member ID:Not on file Relation to Subscriber:Not on file Name:SCARLETT REVELES Subscriber ID:Not on file (Home) Address: [address] [place] [address] Payer ID:Not on file Group ID:Not on file Type:Self Pay Address: [facility] MANAGED MEDICARE ADV Care Teams Sexual Health Physician Relationship Specialty Start Date End Date Jose D Wyatt MD [address] [place] [address] PCP - General 06/27/18
--- OUTSIDE RECORDS SUMMARY | 2025-07-13 16:41 | XMS_ITS | Encounter Summary ---
Author Organization [facility] Address [address] [facility] [place] [address] Care Team Providers Care Fire Safety Director Name Role Phone Jose D Wyatt MD Primary Care Provider [phone] Encounter Details Date Type Department Care Team (Late st Contact Info) Description 06/17/2024 Lab Requisition [facility] - DermPath Lab [address] [facility] [place] [id number] Edward Gaming MD [address] [place] [address] Social History Tobacco Use Types Packs/Day Years Used Date Smoking Tobacco: Never Assessed Sex and Gender Information Value Date Recorded Sex Assigned at Not on file 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 Gender Identity Not on file Sexual Orientation Not on file documented as of this encounter Plan of Treatment Not on file documented as of this encounter Procedures Procedure Name Priority Date/Time Associated Diagnosis Comments DERMATOPATHOLOGY Routine 06/16/2024 12:0 0 AM CDT documented in this encounter Results * DERMATOPATHOLOGY (06/16/2024 12:00 AM CDT) Case Report Dermatopathology Report Case: [id number] Authorizing Provider: Edward Gaming MD Collected: 06/16/2024 12:00 AM Ordering Location: [facility] - Received: 06/18/2024 06:43 AM DermPath Lab Pathologist: Siri Buenrostro MD Specimen: Skin, left mid upper lateral arm 4:00 PM T DERMATOPATHOLOGY LABORATORY Final Diagnosis Specimen A. 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 The specimen consists of a non-oriented ellipse of skin measuring 8x8x8 mm. The epidermal surface is unremarkable. The margin is inked green. The 12 o'clock and 6 o'clock tips are submitted in cassette 1. The remainder of the ellipse is serially sectioned and submitted in cassette 2. Jar 0. 4:00 PM T DERMATOPATHOLOGY LABORATORY Microscopic Description Specimen A. SKIN, left mid upper lateral arm: The epidermis shows parakeratosis, full thickness disorderly maturation of keratinocytes, mitoses at different levels, and dyskeratotic cells. This lesion is not present at the margin of the specimen. 4:00 PM T DERMATOPATHOLOGY LABORATORY Disclaimer An external and internal positive and negative controls are appropriate for the histochemical, immunohistochemical and immunofluorescence stain(s) in this case (if any), except where stated explicitly. The performance characteristics of the stain(s) cited in this report were developed and its performance characteristic determined by the Dermatopathology Laboratory at [facility], directed by Dr. Malik Jackson. These tests need not be, and therefore are not, approved by the [place] Food and Drug Administration. The tests are used for clinical purposes. Billing Codes Specimen Charges Stain Charges 63128 1 4:00 PM CDT DERMATOPATHOLOGY LABORATORY Embedded Images 4:00 PM CDT DERMATOPATHOLOGY LABORATORY Pathology/Cytolog y TISSUE SPECIMEN FROM SKIN / Unknown 06/16/2024 06/18/2024 6:43 AM CDT Edward Gaming MD LAB - PATHOLOGY/CYTOLOGY ORD ERABLES Final Result DERMATOPATHOLOGY LABORATORY [facility] - Department of Dermatology [facility] Medicine [address] [place] [address], [address] [phone] documented in this encounter Visit Diagnoses Not on filedocumented in this encounter Care Teams Fire Safety Director Relationship Specialty Start Date End Date Jose D Wyatt MD [address] [id number] PCP - General 06/27/18 documented as of this encounter
--- OUTSIDE RECORDS SUMMARY | 2025-07-13 16:41 | XMS_ITS | Encounter Summary ---
Author Organization [facility] Address [address] [place] [address] Care Team Providers Care Printing Press Operator Apprentice Name Role Phone Jose D Wyatt MD Primary Care Provider Encounter Details Date Type Department Care Team (Late st Contact Info) Description 03/16/2024 Lab Requisition [facility] - DermPath Lab [address] [place] [phone] Edward Gaming MD [address] [place] [address] Social History Tobacco Use Types Packs/Day Years Used Date Smoking Tobacco: Never Assessed Sex and Gender Information Value Date Recorded Sex Assigned at Not on file Legal Sex Male 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 Gender Identity Not on file Sexual Orientation Not on file documented as of this encounter Plan of Treatment Not on file documented as of this encounter Procedures Procedure Name Priority Date/Time Associated Diagnosis Comments DERMATOPATHOLOGY Routine 03/11/2024 3:33 AM CDT documented in this encounter Results * DERMATOPATHOLOGY (03/11/2024 3:33 AM CDT) Case Report Dermatopathology Report Case: [id number] Authorizing Provider: Edward Gaming MD Collected: 03/11/2024 03:33 AM Ordering Location: [facility] - Received: 03/16/2024 10:06 AM DermPath Lab Pathologist: Hina Buenrostro MD Specimens: A) - Skin, right proximal radial forearm B) - Skin, right ear helix mid rim C) - Skin, left radial distal forearm 1:51 PM CDT DERMATOPATHOLOGY LABORATORY Final Diagnosis Specimen A. SKIN, right proximal radial forearm: SQUAMOUS CELL CARCINOMA, WELL DIFFERENTIATED (C44.622) Specimen B. SKIN, right ear helix mid rim: ACTINIC KERATOSIS (L57.0) EPIDERMAL NECROSIS SUGGESTIVE OF EXCORIATION (L98.499) Specimen C. 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 KA B: r/o HAK vs. SCC C: r/o HAK vs. SCC 1:51 PM CDT DERMATOPATHOLOGY LABORATORY Gross Description Specimen A: Received is one formalin filled container labeled with the patient's name and designated right proximal radial forearm. The specimen consists of a curettage and desiccation biopsy measuring [id number] mm. Jar 0. Specimen B: Received is one formalin filled container labeled with the patient's name and designated right ear helix mid rim. The specimen consists of a shave biopsy measuring 8x7x2 mm. Jar 0. Specimen C: Received is one formalin filled container labeled with the patient's name and designated left radial distal forearm. The specimen consists of a shave biopsy measuring [id number] mm. Jar 0. 1:51 PM CDT DERMATOPATHOLOGY LABORATORY Microscopic Description Specimen A. SKIN, right proximal radial forearm: Arising in the epidermis and extending into the dermis there are irregularly shaped aggregates of keratinocytes showing evidence of premature cornification. Specimen B. SKIN, right ear helix mid rim: There is focal parakeratosis. The lower half of the epidermis shows disorderly maturation of keratinocytes with nuclear pleomorphism. The epidermis is focally necrotic and covered with a scale-crust. There is fibrin at the base. Specimen C. SKIN, left radial distal forearm: The epidermis shows parakeratosis, full thickness disorderly maturation of keratinocytes, mitoses at different levels, and dyskeratotic cells. 1:51 PM CDT DERMATOPATHOLOGY LABORATORY Disclaimer An external and internal positive and negative controls are appropriate for the histochemical, immunohistochemical and immunofluorescence stain(s) in this case (if any), except where stated explicitly. The performance characteristics of the stain(s) cited in this report were developed and its performance characteristic determined by the Dermatopathology Laboratory at [facility], directed by Dr. Malik Jackson. These tests need not be, and therefore are not, approved by the [place] Food and Drug Administration. The tests are used for clinical purposes. Billing Codes Specimen Charges Stain Charges 41376 89547 29516 1 1 1 4 1:51 PM CDT DERMATOPATHOLOGY LABORATORY Embedded Images 4 1:51 PM CDT DERMATOPATHOLOGY LABORATORY Pathology/Cytology TISSUE SPECIMEN FROM SKIN / Unknown 03/11/2024 3:33 AM CDT 03/16/2024 10:06 AM CDT Miscellaneous samples (specimen) TISSUE SPECIMEN FROM SKIN / Unknown 03/11/2024 3:33 AM CDT 03/16/2024 10:06 AM CDT Miscellaneous samples (specimen) TISSUE SPECIMEN FROM SKIN / Unknown 03/11/2024 3:33 AM CDT 03/16/2024 10:06 AM CDT Edward Gaming MD LAB - PATHOLOGY/CYTOLOGY ORD ERABLES Final Result DERMATOPATHOLOGY LABORATORY [facility] - Department of Dermatology [facility] Medicine [address] [place] [address], [address] [phone] documented in this encounter Visit Diagnoses Not on filedocumented in this encounter Care Teams Printing Press Operator Apprentice Relationship Specialty Start Date End Date Jose D Wyatt MD [address] [place] [address] PCP - General 06/27/18 documented as of this encounter
--- OUTSIDE RECORDS SUMMARY | 2025-07-13 16:42 | XMS_ITS | Clinical Summary ---
Author Organization [facility] [address] Address [address] [place] [address] Care Team Providers Care Take Out Waiter/Waitress Name Role Phone Jose Eduardo Baugh MD Primary Care Provider Allergies Active Allergy Reactions Criticality Noted Date Comments Tetanus Vaccines And Toxoid Swelling Medium 01/31/20 12 Medications aspirin 81 mg enteric coated tablet Take 81 mg by mouth daily Active atorvastatin (LIPITOR) 20 mg tablet 08/10/2022 Active FeroSuL 325 mg (65 mg iron) tablet Take 1 tablet by mouth daily 10/08/2022 Active finasteride (PROSCAR) 5 mg tablet 08/10/2022 Active fluticasone propionate (FLONASE) 50 mcg/actuation nasal spray 08/16/2022 Active gabapentin (NEURONTIN) 100 mg capsule Take 100 mg by mouth 2 (two) times a day 07/30/2022 Active levothyroxine (SYNTHROID) 50 mcg tablet Take 50 mcg by mouth daily 10/08/2022 Active metoprolol XL (TOPROL-XL) 25 mg extended release tablet 08/10/[address] (PROTONIX) 40 mg EC tablet 10/12/2022 Active quinapriL (ACCUPRIL) 5 mg tablet 08/10/2022 Active sotaloL (BETAPACE) 80 mg tablet 08/10/2022 Active warfarin (COUMADIN) 4 mg tablet 08/16/2022 Active warfarin (COUMADIN) 5 mg tablet Take 5 mg by mouth 04/21/2020 Active Active Problems No known active problems Surgical History Surgery Date Site/Laterality Comments HERNIA REPAIR CARDIAC PACEMAKER PLACEMENT BOWEL RESECTION Medical History Medical History Date Comments Hypertension Hypercholesteremia GERD (gastroesophageal reflux disease) Osteoarthritis Family History Medical History Relation Name Comments Hypertension Other Lung disease Other Relation Name Status Comments Other Social History Tobacco Use Types Packs/Day Years Used Date Smoking Tobacco: Every Day Cigarettes Tobacco Cessation:Ready to Q uit: Not Asked; Counseling Given: Not Answered Personal Safety Answer Date Recorded Getting School Help Needed Not on file 10/16 Sex and Gender Information Value Date Recorded Sex Assigned at Not on file 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 Gender Identity Not on file Sexual Orientation Not on file Obstetrics History Last Filed Vital Signs Vital Sign Reading Time Taken Comments Blood Pressure 123/80 10/17/2022 11:06 AM 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 Pulse 95 10/17/2022 11:06 AM 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 Temperature - - Respiratory Rate - - Oxygen Saturation - - Inhaled Oxygen Concentration - - Weight 120.7 kg (266 lb) 10/17/2022 11:06 AM 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 Height - - Body Mass Index - - Plan of Treatment Health Maintenance Due Date Last Done Comments Depression Screening 1940 Fall Risk Assessment 1940 DTaP/Tdap/Td Vaccine (1 - Tdap) 1950 Hepatitis B Screening 1958 Well Visit 65+ 2004 Pneumococcal vaccine 65+ (2 of 2 - PPSV23, PCV20, or PCV21) 10/18/2015 08/23/2015, 07/31/2007 Zoster Vaccine (3 of 3) 08/26/2020 07/01/2020, 05/31 Covid-19 Vaccine (4 - 2024-2 6 season) 2025 07/05/2022, 02/08/2022, 07/14/2021 Influenza Vaccine (#1) 2025 2, 06/21/2021, 06/17/2020, Additional history exists Insurance [facility] MEDICARE ADVANTAGE Care Teams Take Out Waiter/Waitress Relationship Specialty Start Date End Date Jose Eduardo Baugh MD [address] [facility] [address] [place] [address] PCP - General Family Medicine 09/25/22
--- OUTSIDE RECORDS SUMMARY | 2025-07-13 16:42 | XMS_ITS | Clinical Summary ---
Author Organization [facility] Address [address] [place] [address] Phone Care Team Providers Care Cryptologic Technician Technical Name Role Phone Jose Eduardo Baugh MD Primary Care Provider [phone] Allergies Active Allergy Reactions Criticality Noted Date Comments Tetanus Vaccines And Toxoid Swelling Low 01/31/20 12 Medications finasteride (PROSCAR) 5 mg tablet Take 5 mg by mouth daily. Caution: When administering finasteride, women should not handle crushed or bro Active aspirin (JUSTIN) 81 mg Oral Tab Take 81 mg by mouth daily Took 4 tabs this am 01/09. Active OMEGA-3 FATTY ACIDS (FISH OIL PO) Take by mouth. Activ e gabapentin (NEURONTIN) 100 mg capsule Take 1 Capsule by mouth 2 times daily. 1 Active levothyroxine 50 mcg tablet Take 50 mcg by mouth daily. 2 Active esomeprazole (NexIUM) 20 mg Capsule, Delayed Release(E.C.) Take 40 mg by mouth daily before breakfast. Active potassium chloride (KLOR-CON M20) 20 mEq Extended Release tablet Take 1 Tablet (20 mEq) by mouth daily. 90 Tablet 3 4 Active amoxicillin (AMOXIL) 500 mg Tablet TAKE 4 TABLETS BY MOUTH 1 HOUR BEFORE PROCEDURE 4 Active warfarin (COUMADIN) 4 mg tablet TAKE ONE-HALF TABLET BY MOUTH ONE DAY A WEEK AND 1 TABLET SIX DAYS A WEEK OR DIRECTED 85 Tablet 3 4 Active sotaloL (BETAPACE) 80 mg tablet TAKE 1 TABLET BY MOUTH TWICE DAILY 180 Tablet 3 5 Active metoprolol succinate (TOPROL XL) 25 mg Extended Release 24 hour tablet TAKE 1 TABLET BY MOUTH ONCE DAILY 90 Tablet 3 5 Active atorvastatin (LIPITOR) 20 mg tablet TAKE 1 TABLET BY MOUTH DAILY AT BEDTIME 90 Tablet 3 5 Active lisinopriL (PRINIVIL) 5 mg tablet TAKE 1 TABLET BY MOUTH DAILY 90 Tablet 3 5 Active furosemide (LASIX) 20 mg tablet TAKE 1 TABLET BY MOUTH TWICE DAILY 180 Tablet 3 5 Active dilTIAZem (CARDIZEM CD, CARTIA XT) 120 mg Controlled Delivery 24 hour capsule TAKE 1 CAPSULE BY MOUTH DAILY 90 Capsule 3 5 Active Active Problems Patient Care Coordination No te Formatting of this note migh t be different from the original. Plumbing Inspector - Dr. Maribel Araujo ([facility]) Yuval Hsieh MD--Plumbing Inspector ([facility] ) [facility]ses [employer] in [place] [phone] Problem Noted Date Diagnosed Date Acute on chronic diastolic heart failure 024 Acute CHF 10/13/2023 COPD (chronic obstructive pulmonary disease) Pacemaker lead failure, initial encounter 2022 Congestive heart failure 10/13/2023 Pulse generator of cardiac p kiaramaker has elective replacement indication 10/13/2023 Fractured atrial pacemaker lead wire 10/13/2023 Nonrheumatic aortic valve stenosis 06/27/2020 History of sick sinus syndrome 11/21/2017 Tobacco use 11/10/2015 Ascending aortic aneurysm 11/04/2014 High triglycerides 07/19/2011 HTN (hypertension) 11/28/2009 Sleep apnea 11/28/2009 Lower GI bleeding 11/28/2009 Pacemaker 11/28/2009 Overview (01/10/2011): Medtronic DDD Adapta pacemaker implanted 12/29/2010, leads chronic from 11/21/2005 for SSS, RV lead revised s/p perforation 12/06/2005 SSS (sick sinus syndrome) 11/28/2009 Paroxysmal atrial fibrillation 08/11/2009 Resolved Problems Problem Noted Date Diagnosed Date Resolved Date Class 2 severe obesity due t o excess calories with serious comorbidity and body mass index (BMI) of 35.0 to 35.9 in adult 11/21/2017 0 Encounters Date Type Department Care Team Description 07/12/2025 Anti-coag visit [facility] [address] [place] [address] Maribel Araujo MD 07/05/2025 Anti-coag visit [facility] [address] [place] [address] Maribel Araujo MD 06/28/2025 Anti-coag visit [facility] [address] [place] [address] Maribel Araujo MD 06/15/2025 Anti-coag visit [facility] At [address] [place] [address] Maribel Araujo MD 06/07/2025 Anti-coag visit [facility] [address] [place] [address] Maribel Araujo MD 06/02/2025 Results Follow-Up [facility] [address] [place] [address] Ying Lynn RN ECHO COMPLETE - CONTRAST AND STRAIN IF INDICATED 06/01/2025 8:41 AM CDT - 06/01/2025 11:59 PM CDT Hospital Encounter [facility] Jaden [place] [address] [place] [address] Maribel Araujo MD Discharge Disposition: Home or Self Care 05/31/2025 Anti-coag visit [facility] [address] [place] [address] Maribel Araujo MD 05/24/2025 Anti-coag visit [facility] At [address] [place] [address] Maribel Araujo MD 05/17/2025 Anti-coag visit [facility] At [address] [place] [address] Maribel Araujo MD 05/10/2025 Anti-coag visit [facility] At [address] [place] [address] Maribel Araujo MD 05/04/2025 Anti-coag visit [facility] At [address] [place] [address] Maribel Araujo MD 05/03/2025 9:15 AM CDT Office Visit [facility] - [facility] [phone] [address] [address] [address] [place] [phone] Maribel Araujo MD Chronic diastolic congestive heart failure (CMS/HCC) (Primary Dx); S/P TAVR (transcatheter aortic valve replacement); Paroxysmal atrial fibrillation (CMS/HCC); Pacemaker; Benign hypertension; Aneurysm of ascending aorta without rupture 04/26/2025 Anti-coag visit [facility] At [address] [place] [address] Maribel Araujo MD 04/20/2025 Anti-coag visit [facility] At [address] [place] [address] Maribel Araujo MD 04/12/2025 Anti-coag visit [facility] At [address] [place] [address] Maribel Araujo MD from Last 3 Months Immunizations Immunization Administration Dates Next Due Influenza Seasonal Unspecified Formulation IM Pneumococcal conjugate, unspecified formulation 07/31/2007 Zoster Vaccine Live SQ 05/31/2010 Family History Medical History Relation Name Comments Heart Disease Sister 2 Relation Name Status Comments Brother (Age 56) Father (Age 76) Mother Sister 1 Sister 2 Social History Tobacco Use Types Packs/Day Years [...] on file Legal Sex 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 Gender Identity Not on file Sexual Orientation Not on file Last Filed Vital Signs Vital Sign Reading Time Taken Comments Blood Pressure 140/80 05/03/2025 9:06 AM CDT Pulse 70 05/03/2025 9:06 AM CDT Temperature 36.7 C (98.1 F) 08/05/2024 4:55 AM CDT Respiratory Rate 15 08/05/2024 9:30 AM CDT Oxygen Saturation 100% 05/03/2025 9:06 AM CDT Inhaled Oxygen Concentration - - Weight 107 kg (236 lb) 05/03/2025 9:06 AM CDT Height 193 cm (6' 4) 05/03/2025 9:06 AM CDT Body Mass Index 28.73 05/03/2025 9:06 AM CDT Plan of Treatment Upcoming Encounters Date Type Department Care Team (Late st Contact Info) Description 07/15/2025 7:00 AM CDT Procedure visit [facility] AT [address] [place] [address] 08/06/2025 11:00 AM CDT Office Visit [facility] At [address] [place] [address] Yuval Hsieh MD [address] [place] [address] [address] [place] [address] 11/08/2025 9:00 AM 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 Office Visit [facility] - [place] [address] [place] [phone] Maribel Araujo MD [address] [address] [place] [address] 04/12/2026 10:30 AM CDT Procedure visit [facility] AT [address] [place] [address] 04/12/2026 11:00 AM CDT Office Visit [facility] AT [address] [place] [address] Anshul Guerrier DNP [address] [place] [address] Health Maintenance Due Date Last Done Comments DTAP/TDAP/TD VACCINES (1 - Tdap) 1959 PNEUMOCOCCAL VACCINE 50+ YEARS (1 of 2 - PCV) 07/28/19 58 07/31/2007 ZOSTER VACCINE (2 of 3) 07/26/2010 05/31/2010 RSV VACCINE (60+ or ) (1 - 1-dose 75+ series) 2014 INFLUENZA VACCINE (#1) 2025 07/31/2010 COLORECTAL SCREENING Discontinued 11/24/2014 Colorectal Cancer Screening Discontinued FIT-DNA Q 3 years Discontinued FIT/FOBT Q 1 year Discontinued Flex Sig/CT Colonography Q 5 years Discontinued Medical Devices Implanted Type Area Inspector Returned Materials Device Identifier Shelf Expiration Date Model / Serial / Lot Closure Perclose Prostyle Sut Mediate 24017-59 - [id number] Implanted:Qty: 1 on 08/04/2024 by Yuval Hsieh MD at [facility] Closure Device N/A: Groin KEE- VASC DEVICE [id number] 05/13/2026 [id number] / / [id number] Sealant Mynx Vasc Closure 5fr Vcd [id number] - [id number] Implanted:Qty: 1 on 08/04/2024 by Yuval Hsieh MD at [facility] Closure Device N/A: Steven ALEXANDER [id number] 06/26/2026 [id number] / / [id number] Lead Capsurefix Novus Mri 52cm Endocardial Pacing 5076-52 - [id number] Implanted:Qty: 1 on 10/16/2023 at [facility] Lead Right: Heart [employer]- CRM - BULK BUY 06/07/2025 5076-52 / [id number] / Dev Solara Mri Crtp [id number] - [id number] Implanted:Qty: 1 on 10/16/2023 at [facility] Pacemaker Left: Chest [employer]- CRM - BULK BUY 01/25/2025 [id number] / [id number] 1S / [id number] Aortic Thv 29mm [id number] - [id number] Implanted:Qty: 1 on 08/04/2024 by Yuval Hsieh MD at [facility] Valve N/A: Heart [employer] [id number] 02/04/2027 [id number] / [id number] / Procedures Procedure Name Priority Date/Time Associated Diagnosis Comments POC PROTIME/INR Routine 07/12/2025 9:52 AM CDT POC PROTIME/INR Routine 07/05/2025 10:36 AM CDT PROTIME-INR Routine 06/28/2025 PROTIME-INR Routine 06/15/2025 PROTIME-INR Routine 06/07/2025 ECHO COMPLETE Routine 06/01/2025 9:44 AM CDT Chronic diastolic congestive heart failure (CMS/HCC) S/P TAVR (transcatheter aortic valve replacement) Paroxysmal atrial fibrillation (CMS/HCC) Pacemaker Benign hypertension Aneurysm of ascending aorta without rupture PROTIME-INR Routine 05/31/2025 PROTIME-INR Routine 05/24/2025 PROTIME-INR Routine 05/17/2025 PROTIME-INR Routine 05/10/2025 PROTIME-INR Routine 05/03/2025 PROTIME-INR Routine 04/26/2025 PROTIME-INR Routine 04/19/2025 PROTIME-INR Routine 04/12/2025 from Last 3 Months Results * POC PROTIME/INR (07/12/2025 9:52 AM CDT) Only the most recent of2 resultswithin the time period is included. ABSTRACTED INR 2.1 Blood, capillary 07/12/2025 9:52 AM CDT Historical Provider POINT OF CARE TESTING Final Result * PROTIME-INR (06/28/2025) Only the most recent of11 resultswithin the time period is included. ABSTRACTED PROTIME EXTERNAL LAB ABSTRACTED INR 2.1 EXTERNAL LAB Blood 06/28/2025 Historical Provider HEMATOLOGY ORDERABLES Final Result EXTERNAL LAB * ECHO COMPLETE - CONTRAST AND STRAIN IF INDICATED (06/01/2025 9:44 AM CDT) EJECTION FRACTION 60 INTERFACE SYSTEM 06/01/2025 9:03 AM CDT Narrative INTERFACE SYSTEM - 06/01/2025 4:21 PM CDT [address] [place] [address] [email or web address] Transthoracic Echocardiogram Patient: Antony Reveles Study ID: [id number] Gender: M : 1940 Age: 84 Race: [facility] Height 193cm Study Date: 06/01/2025 Weight: 107kg Access. #: [id number] BP: *Referring Physician:* Maribel Araujo Denise L *Ordering Physician:* Maribel Araujo precision machining instructor: Nurse: STUDY CONCLUSIONS: SUMMARY: - Left ventricle: The cavity size was normal. Wall thickness was increased in a pattern of mild LVH. Global systolic function is normal. For Epic reporting: the left ventricular ejection fraction is 60% . Left ventricular diastolic function is indeterminate. - Aortic valve: A bioprosthetic valve is present and functioning normally. Mild regurgitation. The mean systolic gradient is 7mm Hg. - Left atrium: The atrium is dilated. - Right ventricle: The cavity size is normal. Systolic function is normal. - Right atrium: The atrium was dilated. - Pulmonary arteries: Systolic pressure was within the normal range. Cardiac Anatomy: LEFT VENTRICLE: The cavity size was normal. Wall thickness was increased in a pattern of mild LVH. Global systolic function is normal. For Epic reporting: the left ventricular ejection fraction is 60% . Although no diagnostic regional wall motion abnormality is identified, this possibility cannot be completely excluded on the basis of this study. Left ventricular diastolic function is indeterminate. AORTIC VALVE: A bioprosthetic valve is present and functioning normally. Mild regurgitation. The mean systolic gradient is 7mm Hg. The peak systolic gradient is 11mm Hg. The LVOT to aortic valve VTI ratio is 0.58. The valve area is 2.4cm^2. The ratio of LVOT to aortic valve peak velocity is 0.47. AORTA: Aortic root: The root is normal-sized. MITRAL VALVE: Structurally normal valve. There is no evidence for stenosis. Trace regurgitation. The mean diastolic gradient is 3mm Hg. The peak diastolic gradient is 7mm Hg. LEFT ATRIUM: The atrium is dilated. RIGHT VENTRICLE: The cavity size is normal. Systolic function is normal. PULMONIC VALVE: Structurally normal valve. No significant regurgitation. TRICUSPID VALVE: Structurally normal valve. Mild regurgitation. PULMONARY ARTERY: Systolic pressure was within the normal range. RIGHT ATRIUM: The atrium was dilated. SYSTEMIC VEINS: Inferior vena cava: The IVC is normal-sized. PERICARDIUM: There is no pericardial effusion. Measurements Left ventricle Value Ref 08/05/2024 IVS, ED, LAX (H) 1.2 cm 0.6 - 1.0 GINGER, LAX (L) 3.7 cm 4.2 - 5.8 GINGER/bsa, LAX (L) 1.6 cm/m^2 2.2 - 3.0 GINGER, LAX chord (N) 5.5 cm 4.2 - 5.8 ESD, LAX chord (N) 3.7 cm 2.5 - 4.0 GINGER/bsa, LAX chord (N) 2.3 cm/m^2 2.2 - 3.0 ESD/bsa, LAX chord (N) 1.6 cm/m^2 1.3 - 2.1 FS, LAX chord (N) 33 % 25 - 43 IVS, ED (H) 1.2 cm 0.6 - 1.0 PW, ED (H) 1.2 cm 0.6 - 1.0 EDV, 2-p (N) 80 ml 62 - 150 ESV, 2-p (N) 32 ml 21 - 61 EF, 2-p (N) 60 % 52 - 72 SV, 2-p 48 ml --------- SV/bsa, 2-p 20.2 ml/m^2 --------- E', lat zafar, TDI (N) 18.3 cm/sec >=10.0 E/e', lat zafar, TDI (N) 6 <=13 E', med zafar, TDI (N) 9.9 cm/sec >=7.0 E/e', med zafar, TDI 12 --------- E', avg, TDI 14.1 cm/sec --------- E/e', avg, TDI (N) 8 <=14 LVOT Value Ref 08/05/2024 Diam, S 2.3 cm --------- 2.0 Area 4.2 cm^2 --------- 3.1 Peak rea, S 0.8 m/sec --------- 0.96 VTI, S 19.4 cm --------- 21.2 Right ventricle Value Ref 08/05/2024 Pressure, S 37 mm Hg --------- Left atrium Value Ref 08/05/2024 AP dim, ES (H) 4.6 cm 3.0 - 4.0 AP dim index, ES (N) 1.9 cm/m^2 1.5 - 2.3 SI dim, A4C 7.0 cm --------- Area ES, A4C (H) 31 cm^2 <=20 Area/bsa ES, A4C 12.94 cm^2/m^2 --------- SI dim, A2C 5.0 cm --------- SI dim, shorter 5.0 cm --------- Vol, ES, 1-p A2C (H) 64 ml 18 - 58 Vol/bsa, ES, 1-p A2C (N) 27 ml/m^2 11 - 43 LA/Ao root ratio 1.21 --------- Aortic valve Value Ref 08/05/2024 Peak v, S 1.7 m/sec --------- 1.8 Mean v, S 1.21 m/sec --------- 1.19 VTI, S 33.7 cm --------- 37.7 Mean grad, S 7 mm Hg --------- 7 Peak grad, S 11 mm Hg --------- 13 LVOT/AV, VTI ratio 0.58 --------- 0.56 GOLDEN, VTI 2.4 cm^2 --------- 1.8 GOLDEN/bsa, VTI 1 cm^2/m^2 --------- 0.75 LVOT/AV, Vpeak ratio 0.47 --------- 0.53 GOLDEN, Vmax 2.0 cm^2 --------- 1.7 GOLDEN/bsa, Vmax 0.82 cm^2/m^2 --------- 0.7 Mitral valve Value Ref 08/05/2024 Mean v, D 0.75 m/sec --------- Peak E 1.15 m/sec --------- Peak A 0.79 m/sec --------- Decel time 320 ms --------- Mean grad, D 3 mm Hg --------- Peak grad, D 7 mm Hg --------- Peak E/A ratio 1.5 --------- A-VTI 40.6 cm --------- Max MR v 2.08 m/sec --------- Peak LV-LA grad S 17 mm Hg --------- Pulmonic valve Value Ref 08/05/2024 Peak v, S 0.98 m/sec --------- Peak grad, S 4 mm Hg --------- Tricuspid valve Value Ref 08/05/2024 TR peak v (N) 2.8 m/sec <=2.8 Peak RV-RA grad, S 32 mm Hg --------- Aortic root Value Ref 08/05/2024 Root diam, 3.8 cm --------- Pulmonary artery Value Ref 08/05/2024 Pressure, S 33 mm Hg --------- Systemic veins Value Ref 08/05/2024 Estimated RA pressure 5 mm Hg --------- Legend: (L) and (H) monica values outside specified reference range. (N) zamora values inside specified reference range. Procedure data: Procedure information: A transthoracic echocardiogram was performed. Scanning was performed from the parasternal, apical, and subcostal acoustic windows. Transthoracic echocardiogram. Complete 2D, complete spectral Doppler, and color Doppler. Birthdate: Patient birthdate: 1940. Age: Patient is 84year(s) old. Sex: gender: male. Height: 193cm. 76in. Weight: 107kg. 236lb. Body mass index: 28.7kg/m^2. Body surface area: 2.38m^2. Study date: Study date: 06/01/2025. Study time: 09:03 AM. Prepared and Electronically Authenticated Tony Boo MD [id number]:21:24 Procedure Note Tony Boo MD - 06/01/[address] [address] [email or web address] Transthoracic Echocardiogram Patient: Antony Reveles Study ID: [id number] Gender: M : 1940 Age: 84 Race: BEBO Height 193cm Study Date: 06/01/2025 Weight: 107kg Access. #: [id number] BP: *Referring Physician:* Maribel Araujo Denise L *Ordering Physician:* Maribel Araujo precision machining instructor: Nurse: STUDY CONCLUSIONS: SUMMARY: - Left ventricle: The cavity size was normal. Wall thickness was increasedin a pattern of mild LVH. Global systolic function is normal. For Epic reporting: the left ventricular ejection fraction is 60% . Leftventricular diastolic function is indeterminate. - Aortic valve: A bioprosthetic valve is present and functioningnormally. Mild regurgitation. The mean systolic gradient is 7mm Hg. - Left atrium: The atrium is dilated. - Right ventricle: The cavity size is normal. Systolic function isnormal. - Right atrium: The atrium was dilated. - Pulmonary arteries: Systolic pressure was within the normal range. Cardiac Anatomy: LEFT VENTRICLE: The cavity size was normal. Wall thickness was increasedin a pattern of mild LVH. Global systolic function is normal. For Epicreporting: the left ventricular ejection fraction is 60% . Although no diagnostic regional wall motion abnormality is identified, this possibility cannotbe completely excluded on the basis of this study. Left ventriculardiastolic function is indeterminate. AORTIC VALVE: A bioprosthetic valve is present and functioningnormally. Mild regurgitation. The mean systolic gradient is 7mm Hg. The peaksystolic gradient is 11mm Hg. The LVOT to aortic valve VTI ratio is 0.58. Thevalve area is 2.4cm^2. The ratio of LVOT to aortic valve peak velocity is0.47. AORTA: Aortic root: The root is normal-sized. MITRAL VALVE: Structurally normal valve. There is no evidence for stenosis. Trace regurgitation. The mean diastolic gradient is 3mm Hg.The peak diastolic gradient is 7mm Hg. LEFT ATRIUM: The atrium is dilated. RIGHT VENTRICLE: The cavity size is normal. Systolic function isnormal. PULMONIC VALVE: Structurally normal valve. No significantregurgitation. TRICUSPID VALVE: Structurally normal valve. Mild regurgitation. PULMONARY ARTERY: Systolic pressure was within the normal range. RIGHT ATRIUM: The atrium was dilated. SYSTEMIC VEINS: Inferior vena cava: The IVC is normal-sized. PERICARDIUM: There is no pericardial effusion. Measurements Left ventricle Value Ref 08/05/2024 IVS, ED, LAX (H) 1.2 cm 0.6 - 1.0 GINGER, LAX (L) 3.7 cm 4.2 - 5.8 GINGER/bsa, LAX (L) 1.6 cm/m^2 2.2 - 3.0 GINGER, LAX chord (N) 5.5 cm 4.2 - 5.8 ESD, LAX chord (N) 3.7 cm 2.5 - 4.0 GINGER/bsa, LAX chord (N) 2.3 cm/m^2 2.2 - 3.0 ESD/bsa, LAX chord (N) 1.6 cm/m^2 1.3 - 2.1 FS, LAX chord (N) 33 % 25 - 43 IVS, ED (H) 1.2 cm 0.6 - 1.0 PW, ED (H) 1.2 cm 0.6 - 1.0 EDV, 2-p (N) 80 ml 62 - 150 ESV, 2-p (N) 32 ml 21 - 61 EF, 2-p (N) 60 % 52 - 72 SV, 2-p 48 ml --------- SV/bsa, 2-p 20.2 ml/m^2 --------- E', lat zafar, TDI (N) 18.3 cm/sec >=10.0 E/e', lat zafar, TDI (N) 6 <=13 E', med zafar, TDI (N) 9.9 cm/sec >=7.0 E/e', med zafar, TDI 12 --------- E', avg, TDI 14.1 cm/sec --------- E/e', avg, TDI (N) 8 <=14 LVOT Value Ref 08/05/2024 Diam, S 2.3 cm --------- 2.0 Area 4.2 cm^2 --------- 3.1 Peak rea, S 0.8 m/sec --------- 0.96 VTI, S 19.4 cm --------- 21.2 Right ventricle Value Ref 08/05/2024 Pressure, S 37 mm Hg --------- Left atrium Value Ref 08/05/2024 AP dim, ES (H) 4.6 cm 3.0 - 4.0 AP dim index, ES (N) 1.9 cm/m^2 1.5 - 2.3 SI dim, A4C 7.0 cm --------- Area ES, A4C (H) 31 cm^2 <=20 Area/bsa ES, A4C 12.94 cm^2/m^2 --------- SI dim, A2C 5.0 cm --------- SI dim, shorter 5.0 cm --------- Vol, ES, 1-p A2C (H) 64 ml 18 - 58 Vol/bsa, ES, 1-p A2C (N) 27 ml/m^2 11 - 43 LA/Ao root ratio 1.21 --------- Aortic valve Value Ref 08/05/2024 Peak v, S 1.7 m/sec --------- 1.8 Mean v, S 1.21 m/sec --------- 1.19 VTI, S 33.7 cm --------- 37.7 Mean grad, S 7 mm Hg --------- 7 Peak grad, S 11 mm Hg --------- 13 LVOT/AV, VTI ratio 0.58 --------- 0.56 GOLDEN, VTI 2.4 cm^2 --------- 1.8 GOLDEN/bsa, VTI 1 cm^2/m^2 --------- 0.75 LVOT/AV, Vpeak ratio 0.47 --------- 0.53 GOLDEN, Vmax 2.0 cm^2 --------- 1.7 GOLDEN/bsa, Vmax 0.82 cm^2/m^2 --------- 0.7 Mitral valve Value Ref 08/05/2024 Mean v, D 0.75 m/sec --------- Peak E 1.15 m/sec --------- Peak A 0.79 m/sec --------- Decel time 320 ms --------- Mean grad, D 3 mm Hg --------- Peak grad, D 7 mm Hg --------- Peak E/A ratio 1.5 --------- A-VTI 40.6 cm --------- Max MR v 2.08 m/sec --------- Peak LV-LA grad S 17 mm Hg --------- Pulmonic valve Value Ref 08/05/2024 Peak v, S 0.98 m/sec --------- Peak grad, S 4 mm Hg --------- Tricuspid valve Value Ref 08/05/2024 TR peak v (N) 2.8 m/sec <=2.8 Peak RV-RA grad, S 32 mm Hg --------- Aortic root Value Ref 08/05/2024 Root diam, 3.8 cm --------- Pulmonary artery Value Ref 08/05/2024 Pressure, S 33 mm Hg --------- Systemic veins Value Ref 08/05/2024 Estimated RA pressure 5 mm Hg --------- Legend: (L) and (H) monica values outside specified reference range. (N) zamora values inside specified reference range. Procedure data: Procedure information: A transthoracic echocardiogram was performed.Scanning was performed from the parasternal, apical, and subcostal acousticwindows. Transthoracic echocardiogram. Complete 2D, complete spectralDoppler, and color Doppler. Birthdate: Patient birthdate: 1940. Age:Patient is 84year(s) old. Sex: gender: male. Height: 193cm. 76in.Weight: 107kg. 236lb. Body mass index: 28.7kg/m^2. Body surface area:2.38m^2. Study date: Study date: 06/01/2025. Study time: 09:03 AM. Preparedand Electronically Authenticated Tony Boo MD [id number]:21:24 us Maribel Araujo MD US ORDERABLES Final Result INTERFACE SYSTEM Refer to clinic/hospital department from Last 3 Months Insurance [facility] [id number] Advance Directives For more information, please contact: [phone] Documents on File Type Date Recorded Patient [employer]ified [employer] Specialist Expl anation Advance Directive Living Will 08/04/2024 7:51 AM * Full Code (Latest Code Status on File) Date Activated Date Inactivated Comments 10/13/2023 10:52 AM 10/17/2023 6:18 PM * Full Code Date Activated Date Inactivated Comments 04/23/2023 12:28 PM 04/23/2023 9:16 PM * Full Code Date Activated Date Inactivated Comments 01/09/2019 7:41 AM 01/09/2019 4:18 PM * Full Code Date Activated Date Inactivated Comments 12/29/2010 3:24 PM 12/29/2010 8:39 PM * Full Code Date Activated Date Inactivated Comments 12/29/2010 11:55 AM 12/29/2010 3:24 PM Care Teams Cryptologic Technician Technical Relationship Specialty Start Date End Date Jose Eduardo Baugh MD PCP - General Family Practice 11/10/15
--- NOTE | 2025-07-13 16:54 | ED.WEAKNESS ---
HPI - Weakness General Chief complaint: Weakness <Sofi Womack APRN - Last Filed: 07/13/25 16:56> Stated complaint: L leg weakness started 1300 <Sofi Womack APRN - Last Filed: 07/13/25 16:56> Time Seen by Provider: 07/13/25 16:54 <Sofi Womack APRN - Last Filed: 07/13/25 16:56> Focused HPI: Patient is an 84-year-old male presents to the ER with complaints of left lower extremity numbness. He reports he laid down for a nap around 11:20, woke up around 11:50 and noticed feelings of weakness his left lower extremity, although he reports he was dragging his foot with ambulation earlier in the day. Patient endorses left knee pain, which has been a chronic problem, but reports the numbness goes down from there. He endorses a history of an aortic valve repair, hernia repair, pacemaker, atrial fibrillation, and is on Coumadin. Patient denies any recent fevers, calf pain, or injury to the site. GENERAL: Well-appearing, well-nourished, and in no acute distress. HEAD: Normocephalic, atraumatic. CHEST: Clear to auscultation. ?No respiratory distress. HEART: Regular rate and rhythm.? NEURO: ?Alert and oriented x3. Patient screened in triage and initial orders placed.? ?Additional care and disposition to be based upon?diagnostic testing and treatment. <Sofi Womack APRN - Last Filed: 07/13/25 16:56> History of Present Illness HPI Narrative: Agree with HPI <Jasbir Novoa MD - Last Filed: 07/13/25 22:49> Related Data Home medications: Home Medications ?Medication ?Instructions ?Recorded ?Confirmed ?Last Taken ?Type atorvastatin 20 mg tablet 20 mg PO HS 11/02/19 07/13/25 03/20/20 History finasteride 5 mg tablet (Proscar) 5 mg PO HS 11/02/19 07/13/25 03/20/20 History metoprolol succinate 25 mg 12.5 mg PO [facility] 11/02/19 07/13/25 03/21/20 06:00 History tablet,extended release 24 hr omega-3 fatty acids 1,000 mg 1,000 mg PO DAILY 11/02/19 07/13/25 03/17/20 History capsule (Fish Oil Concentrate) sotalol 80 mg tablet 80 mg PO BID 11/02/19 07/13/25 11/27/19 06:00 History warfarin 4 mg tablet (Coumadin) 4 mg PO .COMPLEX 09/06/20 07/13/25 Unknown History gabapentin 100 mg capsule 100 mg PO TID 07/04/21 07/13/25 Unknown History aspirin 81 mg tablet 81 mg PO DAILY 01/03/23 07/13/25 Unknown History lisinopril 5 mg tablet 5 mg PO QAM 01/03/23 07/13/25 Unknown History diltiazem HCl 120 mg capsule,24 120 mg PO HS 11/26/23 07/13/25 Unknown History hr,extended release furosemide 20 mg tablet (Lasix) 20 mg PO DAILY 11/26/23 07/13/25 Unknown History potassium chloride 20 mEq 20 meq PO DAILY 11/26/23 07/13/25 Unknown History tablet,extended release <Sofi Womack [employer] - Last Filed: 07/13/25 16:56> Allergies/Adverse reactions: Allergies Allergy/AdvReac Type Severity Reaction Status Date / Time Tetanus Vaccines and Toxoid Allergy Severe DIFFICULTY Verified 07/13/25 21:15 BREATHING/REDNESS/EXTREME SWELLING OF ARM <Sofi Womack, [employer]GER - Last Filed: 07/13/25 16:56> Review of Systems Review of Systems: Gen.: Denies fevers or chills Eyes: Denies eye pain or visual change ENT: Denies congestion Respiratory: Denies shortness of breath or cough CV: Denies chest pain or palpitations GI: Denies abdominal pain nausea, emesis or diarrhea denies burning, urgency, frequency or hematuria Musculoskeletal: Denies back pain or muscle pain Neuro: Denies numbness, tingling, weakness or focal weakness Skin: Denies rash Except as documented, all other systems reviewed and negative <Jasbir Novoa MD - Last Filed: 07/13/25 22:49> [facility] Past Medical History Medical History: Medical History Aortic stenosis Skin cancer Cholelithiasis Thickening of wall of gallbladder Biliary dyskinesia Enteritis Lumbar spinal stenosis group home (current) use of anticoagulants GERD (gastroesophageal reflux disease) HTN (hypertension) High cholesterol DOMINICK on CPAP A-fib History of blood transfusion RUQ abdominal pain <Sofi Womack APRN - Last Filed: 07/13/25 16:56> Surgical History Surgical History: Surgical History History of transcatheter aortic valve replacement (TAVR) Status post surgical removal of malignant neoplasm of skin H/O hernia repair GI bleed S/P carpal tunnel release S/P cataract surgery S/P arthroscopy of right knee <Sofi Womack, [employer] - Last Filed: 07/13/25 16:56> Family History Family History: Family History Father Family history of respiratory disorder Pneumonia Black lung disease Sibling Acute myocardial infarction Heart attack Mother Patient's mother is , Onset Age: 85 Sibling Heart disease Other Family history of cardiovascular disease Hypertension <Sofi Womack, [employer]GER - Last Filed: 07/13/25 16:56> Social History Social History: Social History Smoking packs per day: 1 Smoking cigarettes per day: 20.0 Years smoked: 70 Smoking pack-years: 70.00 Smoking status: Current every day smoker Tobacco type: cigarettes Second hand tobacco smoke exposure: Yes Alcohol intake: current Alcohol use details: rare Substance use: never Substance use type: does not use Living arrangements: alone Occupation/Education: retired Gender identity (if verbalized by the patient): Male Sexual Orientation (if Verbalized by the Patient): Straight or Heterosexual Spiritual care concerns: No <Sofi Womack APRN - Last Filed: 07/13/25 16:56> Exam Narrative: APPEARANCE: No acute distress, nontoxic, resting in bed EYES: EOMI HEENT: Normocephalic, atraumatic, OMM RESPIRATORY: No respiratory distress Clear to auscultation bilaterally with no rhonchi wheezing or rales. CARDIOVASCULAR: Regular rate and rhythm without murmurs rubs or gallops. Pacemaker in place. ABDOMINAL: Soft, nontender, nondistended, no rebound or guarding MUSCULOSKELETAl: 1+ pitting edema to the bilateral lower extremities up to the ankles. 1/5 strength to plantar flexion of the left foot. 5/5 strength to remaining extremities NEURO: Awake and alert. Following commands, speech normal, no focal deficits SKIN:: Warm, dry. No rashes lesions or abrasions PSYCHIATRIC: Normal affect/mood, <Jasbir Novoa MD - Last Filed: 07/13/25 22:49> Course Vital Signs Vital signs: Vital Signs Temperature 97.4 F L 07/13/25 16:53 Pulse Rate 70 07/13/25 16:53 Respiratory Rate 20 07/13/25 16:53 Blood Pressure 125/56 L 07/13/25 16:53 Pulse Oximetry 100 07/13/25 16:53 Oxygen Delivery Room Air 07/13/25 16:53 Temperature 97.4 F L 07/13/25 16:53 Pulse Rate 70 07/13/25 21:01 Respiratory Rate 18 07/13/25 21:01 Blood Pressure 133/65 07/13/25 21:01 Pulse Oximetry 97 07/13/25 21:01 Oxygen Delivery Room Air 07/13/25 16:53 <Sofi Womack APRN - Last Filed: 07/13/25 16:56> Vital Signs Temperature 97.4 F L 07/13/25 16:53 Pulse Rate 70 07/13/25 16:53 Respiratory Rate 20 07/13/25 16:53 Blood Pressure 125/56 L 07/13/25 16:53 Pulse Oximetry 100 07/13/25 16:53 Oxygen Delivery Room Air 07/13/25 16:53 Temperature 97.4 F L 07/13/25 16:53 Pulse Rate 70 07/13/25 21:01 Respiratory Rate 18 07/13/25 21:01 Blood Pressure 133/65 07/13/25 21:01 Pulse Oximetry 97 07/13/25 21:01 Oxygen Delivery Room Air 07/13/25 16:53 <Jasbir Novoa MD - Last Filed: 07/13/25 22:49> MDM - Weakness MDM Narrative Medical decision making narrative: 84-year-old male presenting for left leg weakness. On initial evaluation, patient was in no acute distress, afebrile, hemodynamically stable. He did noted weakness to left foot dorsiflexion which was new for patient. He was anemic to 8.4 from baseline of 14 last in November. INR 1.8 which was subtherapeutic. CMP without significant abnormalities. UA clear. CT head showed chronic ischemic changes. CTA head/neck showed no acute changes. Lumbar CT showed no acute abnormalities. Venous Doppler of left lower extremity showed no evidence of DVT. 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 I discussed the case with Neurology, Dr. Orr, will see the patient as consult. Patient does have a pacemaker in place, I discussed with radiology who report that they are unable to perform an MRI. I discussed the risks and benefits of admission here versus transfer her she is discharged home, family and patient do wish to be admitted here for further evaluation and are okay with foregoing the MRI at this time. I discussed the case with hospitalist who will admit the patient. <Jasbir Novoa MD - Last Filed: 07/13/25 22:49> Differential Diagnosis Differential diagnosis: Likely other (CVA, anemia, electrolyte abnormality, compressive neuropathy) <Jasbir Novoa MD - Last Filed: 07/13/25 22:49> Medical Records Attestation: I reviewed the patient's medical records. <Jasbir Novoa MD - Last Filed: 07/13/25 22:49> Lab Data Attestation: I reviewed the patient's lab results. <Jasbir Novoa MD - Last Filed: 07/13/25 22:49> Result diagrams: 07/13/25 17:03 07/13/25 17:03 <Sofi Womack APRN - Last Filed: 07/13/25 16:56> Labs: Lab Results 07/13/25 07/13/25 Range/Units 17:03 19:24 WBC 9.4 (4.5-10.0) K/mm3 RBC 3.79 L (4.6-6.20) M/mm3 Hgb 8.4 L D (14.0-18.0) g/dL Hct 29.7 L (42.0-52.0) % MCV 78.4 L (80-100) fl MCH 22.2 L (26-34) pg MCHC 28.3 L (32-36) g/dl RDW 17.0 H (11.5-14.5) % Plt Count 236 (150-375) k/mm3 MPV 10.9 H (7.4-10.4) fl Immature Gran % (Auto) 0.7 H (0-0.5) % Neut % (Auto) 66.9 (45.5-73.1) % Lymph % (Auto) 21.9 (18.3-44.2) % Nelson % (Auto) 7.9 (2.6-8.5) % Eos % (Auto) 1.7 (0-4.4) % Baso % (Auto) 0.9 (0.2-1.2) % Lymph # (Auto) 2.05 (0.9-3.2) K/mm3 Nelson # (Auto) 0.7 H (0.1-0.6) K/mm3 Eos # (Auto) 0.2 (0-0.3) K/mm3 Baso # (Auto) 0.1 (0.0-0.1) K/mm3 Abs Immat Gran (auto) 0.07 H (0.00-0.031) K/mm3 Absolute Neuts (auto) 6.3 (1.3-6.7) K/mm3 Absolute Nucleated RBC 0.000 (0.0-0.012) K/mm3 Band Neutrophils % Not Reportable Nucleated RBC % 0.0 (0.0-0.2) % Platelet Estimate Adequate (Adequate) Hypochromasia 1+ Poikilocytosis Occasional Anisocytosis 1+ Ovalocytes 1+ Schistocytes None seen PT 20.7 H (11.1-14.7) Seconds INR 1.8 APTT 35.5 (22.3-36.8) Seconds Sodium 135 L (137-145) mmol/L Potassium 4.5 (3.4-5.0) mmol/L Chloride 105 (98-107) mmol/L Carbon Dioxide 22 (22-30) mmol/L Anion Gap 8 (4-12) mmol/L BUN 21 H (9-20) mg/dL Creatinine 1.11 (0.7-1.3) mg/dL Estim Creat Clear Calc 53 ml/min Estimated GFR > 60 (59 - ) Glucose 117 H (65-110) mg/dL Calcium 8.9 (8.4-10.2) mg/dL Total Bilirubin 0.5 (0.2-1.3) mg/dL AST 24 (17-59) U/L ALT 15 (6-50) U/L Alkaline Phosphatase 76 (38-126) U/L Total Protein 7.4 (6.3-8.2) g/dL Albumin 4.2 (3.5-5.1) g/dL Urine Color Yellow (Yellow) Urine Appearance Clear (Clear) Urine pH 5.5 (5.0-9.0) Ur Specific Ding[place] 1.007 (1.001-1.035) Urine Protein Negative (Negative) mg/dL Urine Glucose (UA) Negative (Negative) mg/dL Urine Ketones Negative (Negative) mg/dL Ur Blood (Man) Negative (Negative) Urine Nitrate Negative (Negative) Urine Bilirubin Negative (Negative) Urine Urobilinogen 0.2 (<2.0) mg/dL Leukocyte Esterase Rfl Negative (Negative) BURAK/UL <Sofi Womack, [employer] - Last Filed: 07/13/25 16:56> Lab Results 07/13/25 07/13/25 Range/Units 17:03 19:24 WBC 9.4 (4.5-10.0) K/mm3 RBC 3.79 L (4.6-6.20) M/mm3 Hgb 8.4 L D (14.0-18.0) g/dL Hct 29.7 L (42.0-52.0) % MCV 78.4 L (80-100) fl MCH 22.2 L (26-34) pg MCHC 28.3 L (32-36) g/dl RDW 17.0 H (11.5-14.5) % Plt Count 236 (150-375) k/mm3 MPV 10.9 H (7.4-10.4) fl Immature Gran % (Auto) 0.7 H (0-0.5) % Neut % (Auto) 66.9 (45.5-73.1) % Lymph % (Auto) 21.9 (18.3-44.2) % Nelson % (Auto) 7.9 (2.6-8.5) % Eos % (Auto) 1.7 (0-4.4) % Baso % (Auto) 0.9 (0.2-1.2) % Lymph # (Auto) 2.05 (0.9-3.2) K/mm3 Nelson # (Auto) 0.7 H (0.1-0.6) K/mm3 Eos # (Auto) 0.2 (0-0.3) K/mm3 Baso # (Auto) 0.1 (0.0-0.1) K/mm3 Abs Immat Gran (auto) 0.07 H (0.00-0.031) K/mm3 Absolute Neuts (auto) 6.3 (1.3-6.7) K/mm3 Absolute Nucleated RBC 0.000 (0.0-0.012) K/mm3 Band Neutrophils % Not Reportable Nucleated RBC % 0.0 (0.0-0.2) % Platelet Estimate Adequate (Adequate) Hypochromasia 1+ Poikilocytosis Occasional Anisocytosis 1+ Ovalocytes 1+ Schistocytes None seen PT 20.7 H (11.1-14.7) Seconds INR 1.8 APTT 35.5 (22.3-36.8) Seconds Sodium 135 L (137-145) mmol/L Potassium 4.5 (3.4-5.0) mmol/L Chloride 105 (98-107) mmol/L Carbon Dioxide 22 (22-30) mmol/L Anion Gap 8 (4-12) mmol/L BUN 21 H (9-20) mg/dL Creatinine 1.11 (0.7-1.3) mg/dL Estim Creat Clear Calc 53 ml/min Estimated GFR > 60 (59 - ) Glucose 117 H (65-110) mg/dL Calcium 8.9 (8.4-10.2) mg/dL Total Bilirubin 0.5 (0.2-1.3) mg/dL AST 24 (17-59) U/L ALT 15 (6-50) U/L Alkaline Phosphatase 76 (38-126) U/L Total Protein 7.4 (6.3-8.2) g/dL Albumin 4.2 (3.5-5.1) g/dL Urine Color Yellow (Yellow) Urine Appearance Clear (Clear) Urine pH 5.5 (5.0-9.0) Ur Specific Ding[place] 1.007 (1.001-1.035) Urine Protein Negative (Negative) mg/dL Urine Glucose (UA) Negative (Negative) mg/dL Urine Ketones Negative (Negative) mg/dL Ur Blood (Man) Negative (Negative) Urine Nitrate Negative (Negative) Urine Bilirubin Negative (Negative) Urine Urobilinogen 0.2 (<2.0) mg/dL Leukocyte Esterase Rfl Negative (Negative) BURAK/UL <Jasbir Novoa MD - Last Filed: 07/13/25 22:49> Imaging Data Attestation: I personally reviewed and interpreted this imaging study as follows: <Jasbir Novoa MD - Last Filed: 07/13/25 22:49> Radiologist's impression: Impressions Venous Doppler Study 07/13/25 17:31 Impression: Negative for DVT. Head CT 07/13/25 17:39 IMPRESSION: 1. No acute intracranial hemorrhage. No mass effect. 2. Probable chronic ischemic white matter change. Lumbar Spine CT 07/13/25 17:46 Impression: No acute abnormality. Knee X-Ray 07/13/25 17:48 Impression: No acute fracture or malalignment. Head/Neck CTA 07/13/25 20:27 IMPRESSION: 1. Mild nonspecific cerebral white matter disease, which likely represents chronic small vessel ischemic disease. 2. No aneurysm or significant intracranial internal stenosis. 3. 0% stenosis of the proximal right internal carotid artery relative to normal distal artery lumen diameter (NASCET criteria). 4. 27% stenosis of the proximal left internal carotid artery relative to normal distal artery lumen diameter. 5. Moderate stenosis of proximal left vertebral artery. <Jasbir Novoa MD - Last Filed: 07/13/25 22:49> Discharge Plan Discharge Clinical Impression: Acquired left foot drop, Tobacco dependence due to cigarettes, Warfarin anticoagulation Anemia Qualifiers: Anemia type: unspecified type Qualified Code(s): D64.9 - Anemia, unspecified <Sofi Womack APRN - Last Filed: 07/13/25 16:56> Patient Disposition: Still a Patient <Sofi Womack APRN - Last Filed: 07/13/25 16:56> Condition: Stable <Sofi Womack APRN - Last Filed: 07/13/25 16:56> Patient Language: Tajik <Sofi Womack APRN - Last Filed: 07/13/25 16:56> Prescriptions: No Action furosemide [Lasix] 20 mg tablet 20 mg PO DAILY diltiazem HCl 120 mg capsule,extended release 24 hr 120 mg PO HS potassium chloride 20 mEq tablet extended release 20 meq PO DAILY sotalol 80 mg tablet 80 mg PO BID Rx Instructions: 80 mg PO take 1 tab by oral route 2 times every day; finasteride [Proscar] 5 mg tablet 5 mg PO HS metoprolol succinate 25 mg tablet extended release 24 hr 12.5 mg PO QAM omega-3 fatty acids [Fish Oil Concentrate] 1,000 mg capsule 1,000 mg PO DAILY atorvastatin 20 mg tablet 20 mg PO HS warfarin [Coumadin] 4 mg tablet 4 mg PO .COMPLEX Rx Instructions: 4 mg PO 5 DAYS/WEEK, and an additional 2mg 3 days per week(Saturday, Saturday, Saturday) gabapentin 100 mg capsule 100 mg PO TID esomeprazole magnesium 40 mg capsule,delayed release(DR/EC) 40 mg PO BID 90 Days Qty: 180 3RF aspirin [Adult Aspirin] 81 mg Tablet 81 mg PO DAILY lisinopril 5 mg tablet 5 mg PO QAM levothyroxine 75 mcg tablet 75 mcg PO DAILY Qty: 90 0RF <Sofi Womack APRN - Last Filed: 07/13/25 16:56> Follow-up/Referrals: Jose Eduardo Baugh MD [Primary Care Provider, Family Practice] <Sofi Womack APRN - Last Filed: 07/13/25 16:56>
[2025-07-13 17:13] LABS: Hematocrit 29.7 % (42.0-52.0); Hemoglobin 8.4 g/dL (14.0-18.0); Immature Granulocyte Percent A 0.7 % (0-0.5); Lymphocytes Absolute Auto 2.05 K/mm3 (0.9-3.2); Mean Corpuscular HGB Conc 28.3 g/dl (32-36); Mean Corpuscular Hemoglobin 22.2 pg (26-34); Mean Corpuscular Volume 78.4 fl (80-100); Nucleated Red Blood Cells Absolute Auto 0.000 K/mm3 (0.0-0.012); Nucleated Red Blood Cells Perc 0.0 % (0.0-0.2); Platelet Count Result 236 k/mm3 (150-375); Red Blood Count 3.79 M/mm3 (4.6-6.20); White Blood Count 9.4 K/mm3 (4.5-10.0)
[2025-07-13 17:25] LABS: Alanine Aminotransferase 15 U/L (6-50); Albumin Level 4.2 g/dL (3.5-5.1); Alkaline Phosphatase 76 U/L (38-126); Anion Gap 8 mmol/L (4-12); Aspartate Amino Transferase 24 U/L (17-59); Bilirubin,Total 0.5 mg/dL (0.2-1.3); Blood Urea Nitrogen 21 mg/dL (9-20); Calcium 8.9 mg/dL (8.4-10.2); Carbon Dioxide 22 mmol/L (22-30); Chloride 105 mmol/L (98-107); Estimated CRCL calculation 53 ml/min; Estimated Glomerular Filt Rate > 60; Glucose 117 mg/dL (65-110); Potassium 4.5 mmol/L (3.4-5.0); Sodium 135 mmol/L (137-145); Total Protein 7.4 g/dL (6.3-8.2)
[2025-07-13 17:27] LABS: INR 1.8; Prothrombin Time 20.7 Seconds (11.1-14.7)
[2025-07-13 17:28] LABS: Partial Thromboplastin Time 35.5 Seconds (22.3-36.8)
[2025-07-13 17:34] LABS: Anisocytosis 1+; Hypochromasia 1+; Schistocytes None Seen
[2025-07-13 17:36] LABS: Ovalocytes 1+
[2025-07-13 17:37] LABS: Poikilocytosis Occasional
[2025-07-13 19:32] LABS: Add Urine Microscopic? NO; Appearance Urine Clear (Clear); Glucose Urine UA Negative (Negative); Leukocyte Esterase Ur Negative LEU/UL (Negative); Nitrate Urine Negative (Negative); Specific Grav Ur 1.007 (1.001-1.035)
--- NOTE | 2025-07-13 20:17 | PC.NURSE ---
Per Radiology - if pacemaker card says mri safe, pt allowed to be scanned here.
--- NOTE | 2025-07-13 21:36 | PC.NURSE ---
radiology notified this rn/md [facility] that they do not do pacemaker MRI here per policy tech.
--- NOTE | 2025-07-13 22:16 | PC.NURSE ---
karyn crockett pt to have a sandwich and take home night time medications.
--- NOTE | 2025-07-13 23:23 | PC.NURSE ---
pt on home cpap machine
--- NOTE | 2025-07-13 23:23 | PC.NURSE ---
Daughter In Law
[2025-07-13 23:38] LABS: Hematocrit 27.8 % (42.0-52.0); Hemoglobin 8.0 g/dL (14.0-18.0)
[2025-07-14] VITALS (13 sets, daily range): BP systolic 102–132; BP diastolic 50–66; PULSE 68–75; RESP 16–18; TEMP 36.2–36.9; O2SAT 94–100; BMI 28.8
--- NOTE | 2025-07-14 | ECHO_ITS ---
Patient Info Name: Antony Reveles Age: 84 years : 1940 Gender: Male Ht: 76 in Wt: 236 lbs BSA: 2.41 m2 HR: 70 bpm BP: 125 / 66 mmHg Technical Quality: Good Exam Date: 07/14/2025 11:43 AM Patient Status: I Admit Date: 07/13/2025 Exam Type: CA echo doppler w bubble study Complete two-dimensional, color flow and Doppler transthoracic echocardiogram is performed with agitated saline. Staff Referring Physician: Asya Faust NP Insecticide Supervisor: Lidia Patterson Attending Provider: Jas Hobbs Contrast/Agitated Saline Contrast/Ag. Saline: Agitated Saline Amount: 20.00 ml Summary 1. Left ventricular chamber dimension is normal. 2. Left ventricular systolic function is normal, estimated at 60-65. 3. There is mild concentric increased left ventricular wall thickness. 4. The left ventricular diastolic function is grade III diastolic dysfunction. 5. E/e' 15 is elevated. 6. Left atrial chamber dimension is moderately enlarged. 7. Right atrial chamber dimension is moderately enlarged. 8. The aortic valve is not well visualized. Cannot determine number of aortic valve leaflets. 9. There is mild aortic valve regurgitation. 10. The mitral valve has a mildly calcified annulus. 11. There is mild mitral valve regurgitation. 12. There is severe tricuspid valve regurgitation. 13. Severe pulmonary hypertension, estimated pulmonary arterial systolic pressure is 64 mmHg. 14. There is trace pulmonic regurgitation. Left Ventricle Left ventricular chamber dimension is normal. Left ventricular systolic function is normal, estimated at 60-65. There is mild concentric increased left ventricular wall thickness. The left ventricular diastolic function is grade III diastolic dysfunction. E/e' 15 is elevated. Right Ventricle Right ventricular chamber dimension is normal. Right ventricular systolic function is normal and with normal TAPSE 2.2 cm. Left Atria Left atrial chamber dimension is moderately enlarged. Right Atria Right atrial chamber dimension is moderately enlarged. Atrial Septum Intact interatrial septum visualized by 2D and agitated saline imaging. Agitated saline injection with and without valsalva maneuver opacified right side cardiac chambers without shunt to left side cardiac chambers. Aortic Valve The aortic valve is not well visualized. Cannot determine number of aortic valve leaflets. There is no aortic valve stenosis. There is mild aortic valve regurgitation. Pulmonic Valve There is trace pulmonic regurgitation. Mitral Valve The mitral valve has a mildly calcified annulus. There is no mitral valve stenosis. There is mild mitral valve regurgitation. Tricuspid Valve There is severe tricuspid valve regurgitation. Severe pulmonary hypertension, estimated pulmonary arterial systolic pressure is 64 mmHg. Pericardium/Pleural There is no pericardial effusion. Inferior Vena Cava Normal inferior vena cava with >50% collapse upon inspiration consistent with normal right atrial pressure, 5 mmHg. Aorta The aortic root size at the sinus of Valsalva is normal. Left Ventricular Outflow Tract Name Value Normal LVOT 2D LVOT Diameter 2.0 cm LVOT Doppler LVOT Peak Velocity 124 cm/s LVOT Peak Gradient 6 mmHg LVOT Mean Gradient 4 mmHg LVOT VTI 31 cm LVOT Stroke Volume 99 ml LVOT CO 6.9 l/min LVOT CI 2.9 l/min/m2 Pulmonic Valve Name Value Normal RVOT Doppler RVOT Peak Velocity 76 cm/s RVOT Peak Gradient 2 mmHg PV Doppler PV Peak Velocity 98 cm/s PV Peak Gradient 4 mmHg Mitral Valve Name Value Normal MV Diastolic Function MV E Peak Velocity 134 cm/s MV A Peak Velocity 63 cm/s MV E/A 2.1 MV Decel Time (PW) 188 ms MV Annular TDI MV E/e' (Septal) 21.5 MV E/e' (Lateral) 12.1 MV E/e' (Average) 16.8 Tricuspid Valve Name Value Normal TV Regurgitation Doppler TR Peak Velocity 385 cm/s TR Peak Gradient 52 mmHg Estimated PAP/RSVP RA Pressure 5 mmHg <=5 PA Systolic Pressure 64 mmHg <36 RV Systolic Pressure 64 mmHg <36 Aortic Valve Name Value Normal AV Regurgitation 2D LVOT Area 3.2 cm2 Ventricles Name Value Normal LV Dimensions 2D/MM IVS Diastolic Thickness (2D) 1.1 cm 0.6-1.0 LVID Diastole (2D) 5.1 cm 4.2-5.8 LVIW Diastolic Thickness (2D) 1.3 cm 0.6-1.0 LVID Systole (2D) 3.1 cm 2.5-4.0 LVOT Diameter 2.0 cm LV Mass (2D Cubed) 239.80 g 88.00-224.00 LV Mass Index (2D Cubed) 99 g/m2 49-115 Relative Wall Thickness (2D) 0.53 <=0.42 LV Fractional Shortening/Ejection Fraction 2D/MM LV Fractional Shortening (2D) 38 % 25-43 LV EF (2D Teichholz) 68 % LV Diastolic Volume (4C MOD) 152 ml LV EF (4C MOD) 61 % LV Diastolic Volume (2C MOD) 103 ml LV EF (2C MOD) 64 % LV Diastolic Volume (BP MOD) 128 ml 62-150 LV Diastolic Volume Index (BP MOD) 53 ml/m2 34-74 LV Systolic Volume (BP MOD) 50 ml 21-61 LV Systolic Volume Index (BP MOD) 21 ml/m2 11-31 LV EF (BP MOD) 61 % 52-72 LV Diastolic Length (4C) 8.2 cm LV Systolic Length (4C) 7.8 cm LV Stroke Volume (4C MOD) 93 ml Atria Name Value Normal LA Dimensions LA Volume (4C A-L) 50 ml LA Volume (BP A-L) 48 ml RA Dimensions RA Systolic [place] Length (4C) 6.6 cm 2.1-2.7 RA Area (4C) 24.9 cm2 <=18.0 Report Signatures
--- NOTE | 2025-07-14 00:17 | ADMGEN ---
This patient, Antony Reveles, was admitted to Medical Room 343-01. Patient/family oriented to hospital policies and general routines including ID bracelet, bed and alarms, visiting hours, pain management, procedures, bathroom and other care routines, personal items, smoking policy, room service/diet, and visiting hours. Information on how to activate the Rapid Response Team has been discussed. Patient/Family are encouraged to report perceived risks to care and to ask questions if they do not understand what they are told or what they should do.
--- NOTE | 2025-07-14 05:37 | PM.IMHP ---
H&P: HPI History of Present Illness Date/Time: 07/14/25 05:37 Chief Complaint: Weakness Narrative: This is an 84-year-old male patient who has a history of hyperlipidemia, aortic valve repair, hernia repair, pacemaker, atrial fibrillation (on chronic anticoagulation) And obstructive sleep apnea. The patient is been complaining of left knee pain. Patient stated that he took a nap around 11 20 yesterday and he woke up around 11 15 he noticed that he had some weakness in the left lower extremity. The patient was dragging his foot with ambulation earlier that day. The patient has no upper extremity weakness. His H&H is 8.4 and 29.7 with a previous normal. head and neck cta MPRESSION: 1. Mild nonspecific cerebral white matter disease, which likely represents chronic small vessel ischemic disease. 2. No aneurysm or significant intracranial internal stenosis. 3. 0% stenosis of the proximal right internal carotid artery relative to normal distal artery lumen diameter (NASCET criteria). 4. 27% stenosis of the proximal left internal carotid artery relative to normal distal artery lumen diameter. 5. Moderate stenosis of proximal left vertebral artery. THE PATIENT IS BEING ADMITTED TO INPATIENT STATUS ON THE DATE OF SERVICE OF 07/14/2025. Review of Systems Constitutional: Constitutional: Reports as per HPI and Reports no additional constitutional complaints Eyes: Eyes: Reports as per HPI and Reports no additional eye complaints ENT: Reports system reviewed and no additional complaints, except as documented and Reports Normal hearing present Cardiovascular: Cardiovascular: Reports no additional cardiovascular complaints Respiratory: Respiratory: Reports as per HPI and Reports no additional respiratory complaints Gastrointestinal: Gastrointestinal: Reports as per HPI and Reports no additional gastrointestinal complaints Musculoskeletal: Musculoskeletal: Reports no additional musculoskeletal complaints Integumentary/Breasts: Skin/Breast: Reports system reviewed and no additional complaints, except as docu Neurologic: Reports system reviewed and no additional complaints, except as documented and Reports Normal hearing present Psychiatric: Psychiatric: Reports no additional psychiatric complaints and Reports as per HPI Hematologic/Lymphatic: Hematologic/Lymphatic: Reports no additional hematologic/lymphatic complaints Allergic/Immunologic: Allergic/Immunologic: Reports no additional allergic/immunologic complaints [facility] Past Medical History Medical History Aortic stenosis Skin cancer Cholelithiasis Thickening of wall of gallbladder Biliary dyskinesia Enteritis 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 GERD (gastroesophageal reflux disease) HTN (hypertension) High cholesterol DOMINICK on CPAP A-fib History of blood transfusion RUQ abdominal pain Surgical History Surgical History History of transcatheter aortic valve replacement (TAVR) Status post surgical removal of malignant neoplasm of skin H/O hernia repair GI bleed S/P carpal tunnel release S/P cataract surgery S/P arthroscopy of right knee Family History Family History Father Family history of respiratory disorder Pneumonia Black lung disease Sibling Acute myocardial infarction Heart attack Mother Patient's mother is , Onset Age: 85 Sibling Heart disease Other Family history of cardiovascular disease Hypertension Social History Social History Smoking packs per day: 1 Smoking cigarettes per day: 20.0 Years smoked: 70 Smoking pack-years: 70.00 Smoking status: Current every day smoker Tobacco type: cigarettes Second hand tobacco smoke exposure: Yes Alcohol intake: current Alcohol use details: rare Substance use: never Substance use type: does not use Lack of Transportation: No Lack of Food: Never True Current Housing: I Have Housing Concerned About Future Housing: No Difficulty Paying Gas/Electric Bills: No Difficulty Paying for Meds: No Currently Unemployed: No Education: High School Diploma/GED Difficulty w/ Childcare or Family Care: No Living arrangements: alone Occupation/Education: retired Gender identity (if verbalized by the patient): Male Sexual Orientation (if Verbalized by the Patient): Straight or Heterosexual Spiritual care concerns: No Meds Home Medications and Allergies Home Medications ?Medication ?Instructions ?Recorded ?Confirmed ?Type atorvastatin 20 mg tablet 20 mg PO HS 11/02/19 07/13/25 History finasteride 5 mg tablet (Proscar) 5 mg PO HS 11/02/19 07/13/25 History metoprolol succinate 25 mg 12.5 mg PO QAM 11/02/19 07/13/25 History tablet,extended release 24 hr omega-3 fatty acids 1,000 mg 1,000 mg PO DAILY 11/02/19 07/13/25 History capsule (Fish Oil Concentrate) sotalol 80 mg tablet 80 mg PO BID 11/02/19 07/13/25 History warfarin 4 mg tablet (Coumadin) 4 mg PO .COMPLEX 09/06/20 07/13/25 History gabapentin 100 mg capsule 100 mg PO TID 07/04/21 07/13/25 History aspirin 81 mg tablet 81 mg PO DAILY 01/03/23 07/13/25 History lisinopril 5 mg tablet 5 mg PO QAM 01/03/23 07/13/25 History diltiazem HCl 120 mg capsule,24 120 mg PO HS 11/26/23 07/13/25 History hr,extended release furosemide 20 mg tablet (Lasix) 20 mg PO DAILY 11/26/23 07/13/25 History potassium chloride 20 mEq 20 meq PO DAILY 11/26/23 07/13/25 History tablet,extended release esomeprazole magnesium 40 mg 40 mg PO BID 90 days #180 caps 09/17/24 07/13/25 Rx capsule,delayed release levothyroxine 75 mcg tablet 75 mcg PO DAILY #90 tabs 04/15/25 07/13/25 Rx Allergies Allergy/AdvReac Type Severity Reaction Status Date / Time Tetanus Vaccines and Toxoid Allergy Severe DIFFICULTY Verified 07/13/25 21:15 BREATHING/REDNESS/EXTREME SWELLING OF ARM Vital Signs Vital Signs - 24 hr 07/13/25 16:53 07/13/25 19:21 07/13/25 19:22 Temperature 97.4 F L Pulse Rate 70 70 70 Respiratory Rate 20 23 H 12 Blood Pressure 125/56 L 128/60 Pulse Oximetry 100 Oxygen Delivery Room Air 07/13/25 19:30 07/13/25 19:31 07/13/25 19:45 Temperature Pulse Rate 70 70 70 Respiratory Rate 23 H 18 19 Blood Pressure 102/68 Pulse Oximetry Oxygen Delivery 07/13/25 19:46 07/13/25 20:00 07/13/25 20:01 Temperature Pulse Rate 70 70 70 Respiratory Rate 15 15 16 Blood Pressure 122/55 L 120/67 Pulse Oximetry Oxygen Delivery 07/13/25 20:23 07/13/25 20:24 07/13/25 20:58 Temperature Pulse Rate 70 70 70 Respiratory Rate 20 16 Blood Pressure 146/74 H Pulse Oximetry 100 Oxygen Delivery 07/13/25 21:00 07/13/25 21:01 07/13/25 21:02 Temperature Pulse Rate 70 70 70 Respiratory Rate 16 18 18 Blood Pressure 133/65 Pulse Oximetry 97 97 94 Oxygen Delivery 07/13/25 21:15 07/13/25 21:16 07/13/25 21:30 Temperature Pulse Rate 70 70 70 Respiratory Rate 16 11 L 21 H Blood Pressure 144/91 H Pulse Oximetry 100 100 Oxygen Delivery 07/13/25 21:31 07/13/25 21:45 07/13/25 21:46 Temperature Pulse Rate 70 70 70 Respiratory Rate 15 16 20 Blood Pressure 124/57 L 140/102 H Pulse Oximetry 100 100 Oxygen Delivery 07/13/25 22:00 07/13/25 22:02 07/13/25 22:15 Temperature Pulse Rate 70 87 70 Respiratory Rate 18 20 18 Blood Pressure 115/40 L Pulse Oximetry 100 97 Oxygen Delivery 07/13/25 22:16 07/13/25 22:30 07/13/25 23:45 Temperature 97.9 F Pulse Rate 70 70 67 Respiratory Rate 22 H 14 16 Blood Pressure 120/57 L Pulse Oximetry 98 Oxygen Delivery 07/14/25 00:15 07/14/25 01:30 07/14/25 03:56 Temperature 97.2 F L Pulse Rate 69 71 70 Respiratory Rate 17 Blood Pressure 132/61 Pulse Oximetry 100 97 94 Oxygen Delivery Autopap Autopap 07/14/25 05:20 Temperature 97.2 F L Pulse Rate 70 Respiratory Rate 16 Blood Pressure 125/66 Pulse Oximetry 100 Oxygen Delivery Exam Const: General: cooperative, healthy appearing, comfortable, no acute distress, well developed, awake, Physically active, average body habitus and well nourished Nutritional Appearance: average body habitus and well nourished Orientation/consciousness: oriented to person, oriented to place, oriented to time and patient oriented x3 Limitations: no limitations HENMT: Head: normal to inspection Ears: hearing grossly impaired Face/Nose/Sinus: Normal external nose present Eyes: General: appearance normal, both eyes and all related structures Alignment and Position: alignment normal Periorbital: periorbital findings normal Eyelids: eyelids normal Conjunctivae: conjunctivae normal Sclera: sclerae normal Cornea: corneas normal Pupils: Equal, round and reactive pupils present and Pupil accommodation reflex normal EOM: EOMs intact bilaterally Neck: Neck: normal visual inspection, full ROM, no lymphadenopathy, trachea midline and supple Chest: Chest palpation & inspection: normal inspection of the chest Resp: Effort & Inspection: normal respiratory effort Auscultation: clear to auscultation bilaterally Cardio: Palpation: normal PMI Rate: regular rate Rhythm: regular rhythm Heart sounds: S1 normal heart sound present and S2 normal heart sound present Peripheral pulses: Peripheral pulses 2+ throughout GI: Inspection: normal to inspection Percussion: Yes normal to percussion Auscultation: normal bowel sounds Rectal Exam: deferred Back/Spine/Pelvis: Back: no CVA tenderness Cervical Spine: cervical ROM normal Skin: General skin exam: normal color Lesions: no lesions Rashes: no rashes Trauma: no lacerations or abrasions Wounds: no wounds Hair: normal Nails: normal Neuro: General: oriented to person, oriented to place, oriented to time and patient oriented x3 Cranial nerves: Yes Equal, round and reactive pupils present and Yes Normal hearing present Cognition (Neuro): normal cognition Speech: normal speech Motor exam (neuro): Pronator motor function not present, No tremor noted, Motor fasciculations not present, Abnormal motor strength present and Other motor observations present (WEAK PEDAL PUSHES TO THE LEFT FOOT) Sensory Exam: normal sensation Extrem: General: normal to inspection Right upper extremity: normal to inspection and shoulder/upper arm Left upper extremity: normal to inspection and shoulder/upper arm Right lower extremity: normal to inspection Other: FOOTDROP TO LEFT FOOT Psych: Appearance: grossly normal Mental Status: mental status grossly normal Speech and movement: Normal speech and movement present Affect: normal affect Attitude: cooperative Thought process: Normal thought process present Thought content: Yes Normal thought content present Insight: Good insight present (Psych) Judgement: Good judgement present (Psych) H&P: Results Labs Labs: Short CBC 07/13/25 07/13/25 Range/Units 17:03 23:33 WBC 9.4 (4.5-10.0) K/mm3 Hgb 8.4 L D 8.0 L (14.0-18.0) g/dL Hct 29.7 L 27.8 L (42.0-52.0) % Plt Count 236 (150-375) k/mm3 BMP 07/13/25 17:03 Sodium 135 L Potassium 4.5 Chloride 105 Carbon Dioxide 22 BUN 21 H Creatinine 1.11 Glucose 117 H Calcium 8.9 Liver Function 07/13/25 Range/Units 17:03 Total Bilirubin 0.5 (0.2-1.3) mg/dL AST 24 (17-59) U/L ALT 15 (6-50) U/L Alkaline Phosphatase 76 (38-126) U/L Albumin 4.2 (3.5-5.1) g/dL Urine 07/13/25 Range/Units 19:24 Urine Color Yellow (Yellow) Urine Appearance Clear (Clear) Urine pH 5.5 (5.0-9.0) Ur Specific [place] 1.007 (1.001-1.035) Urine Protein Negative (Negative) mg/dL Urine Glucose (UA) Negative (Negative) mg/dL Imaging CT scan - head: Radiologist's impression: Impressions Venous Doppler Study 07/13/25 17:31 Impression: Negative for DVT. Head CT 07/13/25 17:39 IMPRESSION: 1. No acute intracranial hemorrhage. No mass effect. 2. Probable chronic ischemic white matter change. Lumbar Spine CT 07/13/25 17:46 Impression: No acute abnormality. Knee X-Ray 07/13/25 17:48 Impression: No acute fracture or malalignment. Head/Neck CTA 07/13/25 20:27 IMPRESSION: 1. Mild nonspecific cerebral white matter disease, which likely represents chronic small vessel ischemic disease. 2. No aneurysm or significant intracranial internal stenosis. 3. 0% stenosis of the proximal right internal carotid artery relative to normal distal artery lumen diameter (NASCET criteria). 4. 27% stenosis of the proximal left internal carotid artery relative to normal distal artery lumen diameter. 5. Moderate stenosis of proximal left vertebral artery. Assessment and Plan Assessment and plan (1) Footdrop: Code(s): M21.379 - Foot drop, unspecified foot Status: Acute Assessment and Plan: -CT of the brain. 1. No acute intracranial hemorrhage. No mass effect. 2. Probable chronic ischemic white matter change. -CTA -1. Mild nonspecific cerebral white matter disease, which likely represents chronic small vessel ischemic disease. 2. No aneurysm or significant intracranial internal stenosis. 3. 0% stenosis of the proximal right internal carotid artery relative to normal distal artery lumen diameter (NASCET criteria). 4. 27% stenosis of the proximal left internal carotid artery relative to normal distal artery lumen diameter. 5. Moderate stenosis of proximal left vertebral artery. -neurology to consult for further evaluation. -MRI of the brain if tolerable. -PT OT evaluation would be greatly appreciate -the patient has weak pedal pushes to the left foot -the patient also complained of left knee pain therefore get an x-ray of the left knee as well. -venous Dopplers have been ordered as well. -check magnesium level -check B12 level -telemetry monitoring -patient is on aspirin -continue atorvastatin (2) PAF (paroxysmal atrial fibrillation): Code(s): I48.0 - Paroxysmal atrial fibrillation Status: Acute Assessment and Plan: -continue with Cardizem. -continue with current Coumadin if INR is within normal limits. 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 (5) Hypothyroidism: Code(s): E03.9 - Hypothyroidism, unspecified Status: Acute Assessment and Plan: -check thyroid level -continue with levothyroxine (6) DOMINICK (obstructive sleep apnea): Code(s): G47.33 - Obstructive sleep apnea (adult) (pediatric) Status: Acute Assessment and Plan: Continue with home settings for CPAP. (7) Hypertensive heart disease without congestive heart failure: Code(s): I11.9 - Hypertensive heart disease without heart failure Status: Acute Assessment and Plan: -continue with sotalol if blood pressure allows. Blood pressure 125/66. -continue lisinopril -continue with Lasix. (8) Anemia: Qualifiers: Anemia type: unspecified type Qualified Code(s): D64.9 - Anemia, unspecified Code(s): D64.9 - Anemia, unspecified Status: Acute Assessment and Plan: -H and H is 7.7 and 27.2. His baseline hemoglobin on 12/09/2024 was normal. Check H&H every 6 hours and stool for occult blood. May consult GI. Anemia panel Plan BPH continue with finasteride Quality VTE Prophylaxis VTE prophylaxis: pharmacologic ordered
[2025-07-14 05:44] LABS: Hematocrit 27.2 % (42.0-52.0); Hemoglobin 7.7 g/dL (14.0-18.0)
[2025-07-14 06:35] LABS: INR 1.9; Prothrombin Time 20.9 Seconds (11.1-14.7)
[2025-07-14] MEDS: LEVOTHYROXINE SODIUM 75 MCG TABLET PO (06:43)
[2025-07-14 08:13] LABS: Bilirubin,Total 0.5 mg/dL (0.2-1.3); Magnesium 2.1 mg/dL (1.6-2.3)
[2025-07-14 08:13] LABS: Immature Reticulocyte Fraction 38.9 % (3.0-15.9); Reticulocyte Hemoglobin Conten 21.3 pg (28.2-36.6); Reticulocytes Absolute 0.06 10^6/uL (0.02-0.10)
[2025-07-14 08:14] LABS: Iron 20 ug/dL (49-181)
[2025-07-14 08:21] LABS: Transferrin 261 mg/dL (206-381)
[2025-07-14 08:24] LABS: Percent Iron Saturation 5 % (20-50)
[2025-07-14] MEDS: OMEGA 3 POLYUNSAT FATTY ACIDS 1 GM CAP PO (08:33)
[2025-07-14] MEDS: POTASSIUM CHLORIDE 20 MEQ ER TABLET PO (08:33)
[2025-07-14] MEDS: SOTALOL HCL 80 MG TABLET PO ×2 (08:34→20:31)
[2025-07-14] MEDS: NICOTINE (*PBKC) 21 MG PATCH 1 PATCH TRANSDERM (08:34)
[2025-07-14] MEDS: METOPROLOL SUCCINATE EXT REL 12.5 MG TABCR PO (08:34)
[2025-07-14] MEDS: PANTOPRAZOLE 40 MG TABLET PO (08:34)
[2025-07-14] MEDS: ASPIRIN 81 MG ENTERIC TABLET PO (08:34)
[2025-07-14] MEDS: FUROSEMIDE 20 MG TABLET PO (08:34)
[2025-07-14] MEDS: GABAPENTIN 100 MG CAPSULE PO ×3 (08:34→16:37)
[2025-07-14 08:51] LABS: Thyroid Stimulating Hormone Reflex 2.490 uIU/mL (0.465-4.68)
[2025-07-14 08:55] LABS: Ferritin 5.87 ng/mL (11.1-264)
--- NOTE | 2025-07-14 09:00 | P.PNIM_ITS ---
Progress Note: A&P Assessment and Plan (1) Footdrop: Code(s): M21.379 - Foot drop, unspecified foot Status: Acute Assessment and Plan: Patient notes he has been having ongoing left knee pain for 20-30 years. States pain has worsened and he has developed foot drop which prompted him to come to the hospital. He states he has been having increased sciatica flares which have caused foot drop in the past. Patient reports he was seen by [facility] and a surgeon in [place] for surgical intervention few years ago and decided not to proceed - Mag and B12 WNL - Head CT: no acute intracranial hemorrhage, mass effect. probable chronic ischemic white matter change - Head/neck CTA: Mild nonspecific cerebral white matter disease, which likely represents chronic small vessel ischemic disease. No aneurysm or significant intracranial internal stenosis. No significant stenosis to the bilateral ICAs. Moderate stenosis of proximal left vertebral artery. - MRI unable to be obtained as patient has a pacemaker - Given complaints of knee pain and foot drop obtained doppler, lumbar spine ct, and knee xr, all were unremarkable again unable to get further imaging with MRI to evaluate foot drop given pacemaker - Echo: LVEF 60-65% with grade III diastolic dysfunction, severe tricuspid regurg and severe pulmonary HTN possible tricuspid regurg secondary to pulmonary htn patient to follow up with primary assistant hall director as not currently in acute exacerbation - Increased atorvastatin dose to 40 mg daily - Continue aspirin 81 mg - Monitor CBC, CMP, magnesium, troponin, and lipid profile - Monitor blood pressure - Telemetry monitoring - PT/OT eval and treat - Neurology consulted, appreciate assistance and recommendations (2) Anemia: Qualifiers: Anemia type: unspecified type Qualified Code(s): D64.9 - Anemia, unspecified Code(s): D64.9 - Anemia, unspecified Status: Acute Assessment and Plan: H and H is 7.7/ 27.2 on admission, hemoglobin on 12/09/2024 was normal. Check H&H every 6 hours Obtain stool for occult blood Denies bloody bowel movements Iron panel: Iron 20, TIBC 378, % sat 5. Ferritin 5.87. Consistent with iron deficiency. IV iron 200 mg x3 doses, then start oral supplementation B12 and folate WNL (3) PAF (paroxysmal atrial fibrillation): Code(s): I48.0 - Paroxysmal atrial fibrillation Status: Acute Assessment and Plan: Chronic, continue home medications s/p pacemaker - diltiazem 120 mg daily - sotalol 80mg BID - metoprolol 12.5 mg daily - continue with current Coumadin if INR is within normal limits. (4) Hypertensive heart disease without congestive heart failure: Code(s): I11.9 - Hypertensive heart disease without heart failure Status: Acute Assessment and Plan: Chronic continue home medications - diltiazem 120 mg daily - sotalol 80mg BID - lisinopril 5 mg daily - metoprolol 12.5 mg daily - Lasix 20 mg daily - blood pressures reviwed and remain stable, continue to monitor (5) Pure hypercholesterolemia: Code(s): E78.00 - Pure hypercholesterolemia, unspecified Status: Acute Assessment and Plan: -continue with atorvastatin (6) Hypothyroidism: Code(s): E03.9 - Hypothyroidism, unspecified Status: Acute Assessment and Plan: - TSH WNL -continue with levothyroxine 75 mcg daily (7) DOMINICK (obstructive sleep apnea): Code(s): G47.33 - Obstructive sleep apnea (adult) (pediatric) Status: Acute Assessment and Plan: Continue with home settings for CPAP. Time Spent With Patient Time with patient: 25 - 35 minutes Subjective Date/time seen: 07/14/25 09:00 Interval history: 84 year old male with past medical history of aortic stenosis, skin cancer, lumbar spinal stenosis, gerd, htn, hyperlipidemia, dominick on cpap, and afib presents to the hospital for lower extremity pain and weakness. Patient is pleasant sitting up comfortably in bed. Patient notes he has been hav ing ongoing left knee pain for 20-30 years. States pain has worsened and he has developed foot drop which prompted him to come to the hospital. He states he has been having increased sciatica flares which have caused foot drop in the past. Patient reports he was seen by [facility] and a surgeon in [place] for surgical intervention years ago and decided not to proceed. He denies any tingling/numbness or shooting pain to the lower extremity today. Patient has no other complaints denying chest pain, shortness a breath, palpitations, nausea/vomiting abdominal pain, dizziness/lightheadedness, slurred speech and weakness/numbness to the extremities. Review of Systems Review of Systems: All systems reviewed & are unremarkable except as noted in HPI and below Exam Narrative: AF HR 69 RR 16 Spo2 97 BP 102/50 General: male in no acute respiratory distress who is nontoxic appearing, lying semi recumbent in bed. HEENT: Normocephalic. Atraumatic. Extraocular movement intact. Sclera clear and anicteric. No facial asymmetry. Chest: Lungs are clear to auscultation bilaterally. No wheezes or crackles. CV: Heart was regular rate and rhythm. Abd: Abdomen was soft. Nontender. Nondistended. Positive bowel sounds. Ext: No clubbing, cyanosis, or edema. DP pulses bilaterally. Neuro: Patient is alert and oriented x4. Strength is 5/5 in both upper extremities. Decreased plantar/dorsal flexion and extension to left foot. Unable to curl left toes. Cranial nerves 2-12 are intact. Speech is clear. Objective Data Vital Signs Vital Signs: Vital Signs - 24 hr 07/13/25 16:53 07/13/25 19:21 07/13/25 19:22 Temperature 97.4 F L Pulse Rate 70 70 70 Respiratory Rate 20 23 H 12 Blood Pressure 125/56 L 128/60 Pulse Oximetry 100 Oxygen Delivery Room Air 07/13/25 19:30 07/13/25 19:31 07/13/25 19:45 Temperature Pulse Rate 70 70 70 Respiratory Rate 23 H 18 19 Blood Pressure 102/68 Pulse Oximetry Oxygen Delivery 07/13/25 19:46 07/13/25 20:00 07/13/25 20:01 Temperature Pulse Rate 70 70 70 Respiratory Rate 15 15 16 Blood Pressure 122/55 L 120/67 Pulse Oximetry Oxygen Delivery 07/13/25 20:23 07/13/25 20:24 07/13/25 20:58 Temperature Pulse Rate 70 70 70 Respiratory Rate 20 16 Blood Pressure 146/74 H Pulse Oximetry 100 Oxygen Delivery 07/13/25 21:00 07/13/25 21:01 07/13/25 21:02 Temperature Pulse Rate 70 70 70 Respiratory Rate 16 18 18 Blood Pressure 133/65 Pulse Oximetry 97 97 94 Oxygen Delivery 07/13/25 21:15 07/13/25 21:16 07/13/25 21:30 Temperature Pulse Rate 70 70 70 Respiratory Rate 16 11 L 21 H Blood Pressure 144/91 H Pulse Oximetry 100 100 Oxygen Delivery 07/13/25 21:31 07/13/25 21:45 07/13/25 21:46 Temperature Pulse Rate 70 70 70 Respiratory Rate 15 16 20 Blood Pressure 124/57 L 140/102 H Pulse Oximetry 100 100 Oxygen Delivery 07/13/25 22:00 07/13/25 22:02 07/13/25 22:15 Temperature Pulse Rate 70 87 70 Respiratory Rate 18 20 18 Blood Pressure 115/40 L Pulse Oximetry 100 97 Oxygen Delivery 07/13/25 22:16 07/13/25 22:30 07/13/25 23:45 Temperature 97.9 F Pulse Rate 70 70 67 Respiratory Rate 22 H 14 16 Blood Pressure 120/57 L Pulse Oximetry 98 Oxygen Delivery 07/14/25 00:15 07/14/25 01:30 07/14/25 03:56 Temperature 97.2 F L Pulse Rate 69 71 70 Respiratory Rate 17 Blood Pressure 132/61 Pulse Oximetry 100 97 94 Oxygen Delivery Autopap Autopap 07/14/25 04:00 07/14/25 05:20 07/14/25 08:34 Temperature 97.2 F L Pulse Rate 70 70 70 Respiratory Rate 16 Blood Pressure 125/66 Pulse Oximetry 100 Oxygen Delivery 07/14/25 08:34 Temperature Pulse Rate 70 Respiratory Rate Blood Pressure Pulse Oximetry Oxygen Delivery Intake/Output Intake/Output: Intake & Output 07/11/25 07/12/25 07/13/25 07/14/25 23:59 23:59 23:59 23:59 Intake Total 540 Output Total 300 400 Balance -300 140 Meds/Results Medications: Active Medications Generic Name Dose Route Start Last Admin Trade Name Freq PRN Reason Stop Dose Admin Aspirin 81 mg 07/14/25 09:00 07/14/25 08:34 Aspirin 81 Mg Enteric Tablet PO 81 mg QAM CARL Administration Atorvastatin Calcium 20 mg 07/14/25 21:00 Atorvastatin 20 Mg Tablet PO HS CARL Diltiazem HCl 120 mg 07/14/25 21:00 Diltiazem Hcl Cd 120 Mg Cap.24hr PO HS CARL Finasteride 5 mg 07/14/25 21:00 Finasteride 5 Mg Tablet PO HS CARL Fish Oil 1 gm 07/14/25 09:00 07/14/25 08:33 [place] 3 Polyunsat Fatty Acids 1 Gm Cap PO 1 gm DAILY CARL Administration Furosemide 20 mg 07/14/25 09:00 07/14/25 08:34 Furosemide 20 Mg Tablet PO 20 mg DAILY CARL Administration Gabapentin 100 mg 07/14/25 09:00 07/14/25 08:34 Gabapentin 100 Mg Capsule PO 100 mg TID [facility] Administration Levothyroxine Sodium 75 mcg 07/14/25 06:30 07/14/25 06:43 Levothyroxine Sodium 75 Mcg Tablet PO 75 mcg DAILY@0630 [facility] Administration Lisinopril 5 mg 07/14/25 09:00 07/14/25 08:36 Lisinopril 5 Mg Tablet PO 5 mg QAM [facility] Administration Metoprolol Succinate 12.5 mg 07/14/25 09:00 07/14/25 08:34 Metoprolol Succinate Ext Rel 12.5 Mg Tabcr PO 12.5 mg QAM [facility] Administration Nicotine 1 patch 07/14/25 09:00 07/14/25 08:34 Nicotine (*Pbkc) 21 Mg Patch TRANSDERM 1 patch DAILY [facility] Administration Pantoprazole Sodium 40 mg 07/14/25 09:00 07/14/25 08:34 Pantoprazole 40 Mg Tablet PO 40 mg QAM [facility] Administration Potassium Chloride 20 meq 07/14/25 09:00 07/14/25 08:33 Potassium Chloride 20 Meq Er Tablet PO 20 meq DAILY [facility] Administration Sotalol HCl 80 mg 07/14/25 09:00 07/14/25 08:34 Sotalol Hcl 80 Mg Tablet PO 80 mg Q12HR [facility] Administration Warfarin Sodium 4 mg 07/15/25 17:00 Warfarin (*Pbkc) 4 Mg Tablet PO SuTuThSa@1700 CARL Warfarin Sodium 6 mg 07/14/25 17:00 Warfarin (*Pbkc) 3 Mg Tablet PO MoWeFr@1700 [facility] Radiology Results: ITS Impressions Venous Doppler Study 07/13/25 17:31 Impression: Negative for DVT. ADDENDUM: 07/14/2515 There is a small thrombus within the left posterior tibial vein with diminished flow and compression Head CT 07/13/25 17:39 IMPRESSION: 1. No acute intracranial hemorrhage. No mass effect. 2. Probable chronic ischemic white matter change. Lumbar Spine CT 07/13/25 17:46 Impression: No acute abnormality. Knee X-Ray 07/13/25 17:48 Impression: No acute fracture or malalignment. Head/Neck CTA 07/13/25 20:27 IMPRESSION: 1. Mild nonspecific cerebral white matter disease, which likely represents chronic small vessel ischemic disease. 2. No aneurysm or significant intracranial internal stenosis. 3. 0% stenosis of the proximal right internal carotid artery relative to normal distal artery lumen diameter (NASCET criteria). 4. 27% stenosis of the proximal left internal carotid artery relative to normal distal artery lumen diameter. 5. Moderate stenosis of proximal left vertebral artery. Labs Labs: Laboratory Results - last 24 hr 07/13/25 07/13/25 07/13/25 17:03 19:24 23:33 WBC 9.4 RBC 3.79 L Hgb 8.4 L D 8.0 L Hct 29.7 L 27.8 L MCV 78.4 L MCH 22.2 L MCHC 28.3 L RDW 17.0 H Plt Count 236 MPV 10.9 H Immature Gran % (Auto) 0.7 H Neut % (Auto) 66.9 Lymph % (Auto) 21.9 Howard % (Auto) 7.9 Eos % (Auto) 1.7 Baso % (Auto) 0.9 Lymph # (Auto) 2.05 Howard # (Auto) 0.7 H Eos # (Auto) 0.2 Baso # (Auto) 0.1 Abs Immat Gran (auto) 0.07 H Absolute Neuts (auto) 6.3 Absolute Nucleated RBC 0.000 Band Neutrophils % Not Reportable Nucleated RBC % 0.0 Platelet Estimate Adequate Hypochromasia 1+ Poikilocytosis Occasional Anisocytosis 1+ Ovalocytes 1+ Schistocytes None seen Absolute Retic Percent Retic Immature Retic Fraction Retic Hgb Content PT 20.7 H INR 1.8 APTT 35.5 Sodium 135 L Potassium 4.5 Chloride 105 Carbon Dioxide 22 Anion Gap 8 BUN 21 H Creatinine 1.11 Estim Creat Clear Calc 53 Estimated GFR > 60 Glucose 117 H Calcium 8.9 Magnesium Iron TIBC % Saturation Transferrin Ferritin Total Bilirubin 0.5 Direct Bilirubin AST 24 ALT 15 Alkaline Phosphatase 76 Lactate Dehydrogenase Total Protein 7.4 Albumin 4.2 TSH (Reflex) Urine Color Yellow Urine Appearance Clear Urine pH 5.5 Ur Specific [place] 1.007 Urine Protein Negative Urine Glucose (UA) Negative Urine Ketones Negative Ur Blood (Man) Negative Urine Nitrate Negative Urine Bilirubin Negative Urine Urobilinogen 0.2 Leukocyte Esterase Rfl Negative 07/14/25 07/14/25 07/14/25 05:26 05:28 06:18 WBC RBC Hgb 7.7 L Hct 27.2 L MCV MCH MCHC RDW Plt Count MPV Immature Gran % (Auto) Neut % (Auto) Lymph % (Auto) Howard % (Auto) Eos % (Auto) Baso % (Auto) Lymph # (Auto) Howard # (Auto) Eos # (Auto) Baso # (Auto) Abs Immat Gran (auto) Absolute Neuts (auto) Absolute Nucleated RBC Band Neutrophils % Nucleated RBC % Platelet Estimate Hypochromasia Poikilocytosis Anisocytosis Ovalocytes Schistocytes Absolute Retic 0.06 Percent Retic 1.64 Immature Retic Fraction 38.9 H Retic Hgb Content 21.3 L PT 20.9 H INR 1.9 APTT Sodium Potassium Chloride Carbon Dioxide Anion Gap BUN Creatinine Estim Creat Clear Calc Estimated GFR Glucose Calcium Magnesium 2.1 Iron 20 L TIBC 378 % Saturation 5 L Transferrin 261 Ferritin 5.87 L Total Bilirubin 0.5 Direct Bilirubin 0.0 AST ALT Alkaline Phosphatase Lactate Dehydrogenase 202 Total Protein Albumin TSH (Reflex) 2.490 Urine Color Urine Appearance Urine pH Ur Specific [place] Urine Protein Urine Glucose (UA) Urine Ketones Ur Blood (Man) Urine Nitrate Urine Bilirubin Urine Urobilinogen Leukocyte Esterase Rfl Quality VTE Prophylaxis VTE prophylaxis: pharmacologic ordered
[2025-07-14 09:25] LABS: Vitamin B12 669.0 pg/mL (239-931)
--- NOTE | 2025-07-14 09:54 | WPDNEURCNPN ---
Assessment and Plan Assessment and plan (1) Footdrop: Code(s): M21.379 - Foot drop, unspecified foot Status: Acute (2) Warfarin anticoagulation: Code(s): Z79.01 - skilled nursing (current) use of anticoagulants Status: Acute Plan Number complaint of left lower extremity numbness with negative CTA in the emergency room except the 27% stenosis of the proximal left internal carotid artery and negative x-rays of the knee except the severe tricompartmental degenerative changes with chondrocalcinosis and small effusion and also history of dragging left foot raising the possibility of the peronei and neuropathy for which patient can have the EMG nerve conduction study at later date as an outpatient And MRI of the brain if can be done during this hospitalization the rule out the possibility of a stroke superimposed on the pre-existing problem. His echocardiogram as noted is abnormal and he is receiving the aspirin 81mg daily in addition to Coumadin. He does have questionable positive Babinski in addition to history of aortic valve repair we can consider the MRI of his spine if can be done with all the pre-existing conditions, in the meantime medications can be continued as such Consult date: 07/14/25 HPI: Antony Reveles is a 84 year old male Admitted to the hospital through the emergency room for the complaints of left lower extremity numbness with the information that he was dragging his foot ambulation earlier in the day. Additionally complained of left knee pain but that problem is chronic in nature at the same time he mentioned numbness goes down from the knee to his foot, He does have ongoing history of 1. Aortic valve repair 2. Atrial fibrillation with pacemaker 3. Ongoing anticoagulation therapy. He is allergic to tetanus vaccine and toxoid. His medications include atorvastatin, finasteride, metoprolol, sotalol, Coumadin 4mg daily, gabapentin, aspirin 81mg daily, lisinopril 5mg daily, diltiazem 120mg daily, furosemide 20mg daily, and potassium chloride supplement 20mEq daily. As mentioned above he does have ongoing history of aortic stenosis, lumbar spinal stenosis, and has undergone transcatheter aortic valve replacement, in addition to the carpal tunnel release, cataract surgery, and arthroscopy of the right knee. He has history of years smokes 70, currently everyday smoker, and currently alcohol intaker though it is rare. Initial evaluation in the emergency room revealed normal vital signs, head and neck CTA without aneurysm or intracranial arterial involvement but 27% stenosis of the proximal left internal carotid artery and moderate stenosis of the proximal left vertebral artery as well. Review of Systems Review of Systems: All systems reviewed & are unremarkable except as noted in HPI and below [facility] Past Medical History Medical History Aortic stenosis Skin cancer Cholelithiasis Thickening of wall of gallbladder Biliary dyskinesia Enteritis Lumbar spinal stenosis skilled nursing (current) use of anticoagulants GERD (gastroesophageal reflux disease) HTN (hypertension) High cholesterol DOMINICK on CPAP A-fib History of blood transfusion RUQ abdominal pain Surgical History Surgical History History of transcatheter aortic valve replacement (TAVR) Status post surgical removal of malignant neoplasm of skin H/O hernia repair GI bleed S/P carpal tunnel release S/P cataract surgery S/P arthroscopy of right knee Family History Family History Father Family history of respiratory disorder Pneumonia Black lung disease Sibling Acute myocardial infarction Heart attack Mother Patient's mother is , Onset Age: 85 Sibling Heart disease Other Family history of cardiovascular disease Hypertension Social History Social History Smoking packs per day: 1 Smoking cigarettes per day: 20.0 Years smoked: 70 Smoking pack-years: 70.00 Smoking status: Current every day smoker Tobacco type: cigarettes Second hand tobacco smoke exposure: Yes Alcohol intake: current Alcohol use details: rare Substance use: never Substance use type: does not use Lack of Transportation: No Lack of Food: Never True Current Housing: I Have Housing Concerned About Future Housing: No Difficulty Paying Gas/Electric Bills: No Difficulty Paying for Meds: No Currently Unemployed: No Education: High School Diploma/GED Difficulty w/ Childcare or Family Care: No Living arrangements: alone Occupation/Education: retired Gender identity (if verbalized by the patient): Male Sexual Orientation (if Verbalized by the Patient): Straight or Heterosexual Spiritual care concerns: No Meds Home Medications and Allergies Home Medications ?Medication ?Instructions ?Recorded ?Confirmed ?Type atorvastatin 20 mg tablet 20 mg PO HS 11/02/19 07/13/25 History finasteride 5 mg tablet (Proscar) 5 mg PO HS 11/02/19 07/13/25 History metoprolol succinate 25 mg 12.5 mg PO QAM 11/02/19 07/13/25 History tablet,extended release 24 hr omega-3 fatty acids 1,000 mg 1,000 mg PO DAILY 11/02/19 07/13/25 History capsule (Fish Oil Concentrate) sotalol 80 mg tablet 80 mg PO BID 11/02/19 07/13/25 History warfarin 4 mg tablet (Coumadin) 4 mg PO .COMPLEX 09/06/20 07/13/25 History gabapentin 100 mg capsule 100 mg PO TID 07/04/21 07/13/25 History aspirin 81 mg tablet 81 mg PO DAILY 01/03/23 07/13/25 History lisinopril 5 mg tablet 5 mg PO QAM 01/03/23 07/13/25 History diltiazem HCl 120 mg capsule,24 120 mg PO HS 11/26/23 07/13/25 History hr,extended release furosemide 20 mg tablet (Lasix) 20 mg PO DAILY 11/26/23 07/13/25 History potassium chloride 20 mEq 20 meq PO DAILY 11/26/23 07/13/25 History tablet,extended release esomeprazole magnesium 40 mg 40 mg PO BID 90 days #180 caps 09/17/24 07/13/25 Rx capsule,delayed release levothyroxine 75 mcg tablet 75 mcg PO DAILY #90 tabs 04/15/25 07/13/25 Rx Allergies Allergy/AdvReac Type Severity Reaction Status Date / Time Tetanus Vaccines and Toxoid Allergy Severe DIFFICULTY Verified 07/13/25 21:15 BREATHING/REDNESS/EXTREME SWELLING OF ARM Vital Signs Vital Signs - 24 hr 07/13/25 16:53 07/13/25 19:21 07/13/25 19:22 Temperature 36.3 C L Pulse Rate 70 70 70 Respiratory Rate 20 23 H 12 Blood Pressure 125/56 L 128/60 Pulse Oximetry 100 Oxygen Delivery Room Air 07/13/25 19:30 07/13/25 19:31 07/13/25 19:45 Temperature Pulse Rate 70 70 70 Respiratory Rate 23 H 18 19 Blood Pressure 102/68 Pulse Oximetry Oxygen Delivery 07/13/25 19:46 07/13/25 20:00 07/13/25 20:01 Temperature Pulse Rate 70 70 70 Respiratory Rate 15 15 16 Blood Pressure 122/55 L 120/67 Pulse Oximetry Oxygen Delivery 07/13/25 20:23 07/13/25 20:24 07/13/25 20:58 Temperature Pulse Rate 70 70 70 Respiratory Rate 20 16 Blood Pressure 146/74 H Pulse Oximetry 100 Oxygen Delivery 07/13/25 21:00 07/13/25 21:01 07/13/25 21:02 Temperature Pulse Rate 70 70 70 Respiratory Rate 16 18 18 Blood Pressure 133/65 Pulse Oximetry 97 97 94 Oxygen Delivery 07/13/25 21:15 07/13/25 21:16 07/13/25 21:30 Temperature Pulse Rate 70 70 70 Respiratory Rate 16 11 L 21 H Blood Pressure 144/91 H Pulse Oximetry 100 100 Oxygen Delivery 07/13/25 21:31 07/13/25 21:45 07/13/25 21:46 Temperature Pulse Rate 70 70 70 Respiratory Rate 15 16 20 Blood Pressure 124/57 L 140/102 H Pulse Oximetry 100 100 Oxygen Delivery 07/13/25 22:00 07/13/25 22:02 07/13/25 22:15 Temperature Pulse Rate 70 87 70 Respiratory Rate 18 20 18 Blood Pressure 115/40 L Pulse Oximetry 100 97 Oxygen Delivery 07/13/25 22:16 07/13/25 22:30 07/13/25 23:45 Temperature 36.6 C Pulse Rate 70 70 67 Respiratory Rate 22 H 14 16 Blood Pressure 120/57 L Pulse Oximetry 98 Oxygen Delivery 07/14/25 00:15 07/14/25 01:30 07/14/25 03:56 Temperature 36.2 C L Pulse Rate 69 71 70 Respiratory Rate 17 Blood Pressure 132/61 Pulse Oximetry 100 97 94 Oxygen Delivery Autopap Autopap 07/14/25 04:00 07/14/25 05:20 07/14/25 08:34 Temperature 36.2 C L Pulse Rate 70 70 70 Respiratory Rate 16 Blood Pressure 125/66 Pulse Oximetry 100 Oxygen Delivery 07/14/25 08:34 Temperature Pulse Rate 70 Respiratory Rate Blood Pressure Pulse Oximetry Oxygen Delivery Exam Narrative: today revealed him to be awake alert cooperative in no obvious acute distress, head normocephalic with no cranial bruit neck supple with no cervical bruit, no thyromegaly no lymphadenopathy, heart regular with no murmur, lungs clear to auscultation with no rhonchi or crepitations, abdomen is soft nontender with normal bowel sounds, neurologically he was awake alert knew that he was in the hospital and was able to follow instructions very well without any dysphasic or dysarthric speech, pupils were round regular reacting to light equally, extraocular movements are full with no nystagmus, facial sensation intact face symmetrical , tongue was in the oral cavity with no fasciculation uvula in midline, motor examination revealed him to have no drift of the upper extremities against gravity with eyes closed, motor examination of the lower extremity revealed him to have decreased strength in the right foot dorsiflexion and right plantar response was only questionable though the left plantar responses were downgoing, there was no evidence of ataxia or dysmetria on [id number]. Results Labs 07/14/25 11:08 07/14/25 11:08 Labs: Short CBC 07/13/25 07/13/25 07/14/25 Range/Units 17:03 23:33 05:28 WBC 9.4 (4.5-10.0) K/mm3 Hgb 8.4 L D 8.0 L 7.7 L (14.0-18.0) g/dL Hct 29.7 L 27.8 L 27.2 L (42.0-52.0) % Plt Count 236 (150-375) k/mm3 BMP 07/13/25 17:03 Sodium 135 L Potassium 4.5 Chloride 105 Carbon Dioxide 22 BUN 21 H Creatinine 1.11 Glucose 117 H Calcium 8.9 Liver Function 07/13/25 07/14/25 Range/Units 17:03 05:26 Total Bilirubin 0.5 0.5 (0.2-1.3) mg/dL Direct Bilirubin 0.0 (0-0.3) mg/dL AST 24 (17-59) U/L ALT 15 (6-50) U/L Alkaline Phosphatase 76 (38-126) U/L Albumin 4.2 (3.5-5.1) g/dL Urine 07/13/25 Range/Units 19:24 Urine Color Yellow (Yellow) Urine Appearance Clear (Clear) Urine pH 5.5 (5.0-9.0) Ur Specific [place] 1.007 (1.001-1.035) Urine Protein Negative (Negative) mg/dL Urine Glucose (UA) Negative (Negative) mg/dL
[2025-07-14 11:12] LABS: Hematocrit 27.3 % (42.0-52.0); Hemoglobin 7.8 g/dL (14.0-18.0)
[2025-07-14 11:34] LABS: Alanine Aminotransferase 13 U/L (6-50); Albumin Level 3.6 g/dL (3.5-5.1); Alkaline Phosphatase 68 U/L (38-126); Anion Gap 5 mmol/L (4-12); Aspartate Amino Transferase 18 U/L (17-59); Bilirubin,Total 0.6 mg/dL (0.2-1.3); Blood Urea Nitrogen 20 mg/dL (9-20); Calcium 8.8 mg/dL (8.4-10.2); Carbon Dioxide 27 mmol/L (22-30); Chloride 104 mmol/L (98-107); Estimated CRCL calculation 53 ml/min; Estimated Glomerular Filt Rate > 60; Glucose 111 mg/dL (65-110); Potassium 4.2 mmol/L (3.4-5.0); Sodium 136 mmol/L (137-145); Total Protein 6.4 g/dL (6.3-8.2)
[2025-07-14] MEDS: IRON SUCROSE COMPLEX 200 MG in SODIUM CHLORIDE 0.9% IV 100 ML 220 MG IVPB (12:17)
[2025-07-14] MEDS: PROMETHAZINE HCL 6.25 MG TABLET PO (16:11)
[2025-07-14] MEDS: ACETAMINOPHEN 325 MG TABLET 650 MG PO ×2 (16:37→22:33)
[2025-07-14] MEDS: WARFARIN (*PBKC) 3 MG TABLET 6 MG PO (16:41)
[2025-07-14 17:23] LABS: Hematocrit 28.6 % (42.0-52.0); Hemoglobin 8.2 g/dL (14.0-18.0)
[2025-07-14] MEDS: ATORVASTATIN 40 MG TABLET PO (20:31)
[2025-07-14] MEDS: FINASTERIDE 5 MG TABLET PO (20:32)
[2025-07-14] MEDS: dilTIAZem HCL CD 120 MG CAP.24HR PO (20:33)
[2025-07-14 23:36] LABS: Hematocrit 24.4 % (42.0-52.0); Hemoglobin 7.2 g/dL (14.0-18.0)
[2025-07-15] VITALS (12 sets, daily range): BP systolic 90–112; BP diastolic 40–54; PULSE 68–72; RESP 18–20; TEMP 36.3–36.8; O2SAT 93–98
[2025-07-15 05:36] LABS: Hematocrit 25.4 % (42.0-52.0); Hemoglobin 7.1 g/dL (14.0-18.0); Immature Granulocyte Percent A 0.5 % (0-0.5); Lymphocytes Absolute Auto 1.65 K/mm3 (0.9-3.2); Mean Corpuscular HGB Conc 28.0 g/dl (32-36); Mean Corpuscular Hemoglobin 22.8 pg (26-34); Mean Corpuscular Volume 81.4 fl (80-100); Nucleated Red Blood Cells Absolute Auto 0.000 K/mm3 (0.0-0.012); Nucleated Red Blood Cells Perc 0.0 % (0.0-0.2); Platelet Count Result 211 k/mm3 (150-375); Red Blood Count 3.12 M/mm3 (4.6-6.20); White Blood Count 11.3 K/mm3 (4.5-10.0)
[2025-07-15] MEDS: LEVOTHYROXINE SODIUM 75 MCG TABLET PO (05:47)
[2025-07-15 06:03] LABS: Alanine Aminotransferase 15 U/L (6-50); Albumin Level 3.5 g/dL (3.5-5.1); Alkaline Phosphatase 59 U/L (38-126); Anion Gap 5 mmol/L (4-12); Aspartate Amino Transferase 24 U/L (17-59); Bilirubin,Total 1.0 mg/dL (0.2-1.3); Blood Urea Nitrogen 26 mg/dL (9-20); Calcium 8.2 mg/dL (8.4-10.2); Carbon Dioxide 24 mmol/L (22-30); Chloride 104 mmol/L (98-107); Estimated CRCL calculation 40 ml/min; Estimated Glomerular Filt Rate 44; Glucose 109 mg/dL (65-110); Potassium 4.2 mmol/L (3.4-5.0); Sodium 133 mmol/L (137-145); Total Protein 6.2 g/dL (6.3-8.2)
[2025-07-15 06:53] LABS: Anisocytosis 1+; Burr Cells 1+; Hypochromasia 1+; Ovalocytes 1+; Polychromasia 1+; Schistocytes None Seen; Target Cells Occasional
--- NOTE | 2025-07-15 08:22 | P.PNIM_ITS ---
Progress Note: A&P Assessment and Plan (1) Footdrop: Code(s): M21.379 - Foot drop, unspecified foot Status: Acute Assessment and Plan: Patient notes he has been having ongoing left knee pain for 20-30 years. States pain has worsened and he has developed foot drop which prompted him to come to the hospital. He states he has been having increased sciatica flares which have caused foot drop in the past. Patient reports he was seen by [facility] and a surgeon in [place] for surgical intervention few years ago and decided not to proceed - Mag and B12 WNL - Head CT: no acute intracranial hemorrhage, mass effect. probable chronic ischemic white matter change - Head/neck CTA: Mild nonspecific cerebral white matter disease, which likely represents chronic small vessel ischemic disease. No aneurysm or significant intracranial internal stenosis. No significant stenosis to the bilateral ICAs. Moderate stenosis of proximal left vertebral artery. - MRI unable to be obtained as patient has a pacemaker - Given complaints of knee pain and foot drop obtained doppler, lumbar spine ct, and knee xr, all were unremarkable again unable to get further imaging with MRI to evaluate foot drop given pacemaker - Echo: LVEF 60-65% with grade III diastolic dysfunction, severe tricuspid regurg and severe pulmonary HTN possible tricuspid regurg secondary to pulmonary htn patient to follow up with primary registered pharmacy technician as not currently in acute exacerbation - Increased atorvastatin dose to 40 mg daily and Continue aspirin 81 mg - Telemetry monitoring - PT/OT eval and treat - Neurology consulted, appreciate assistance and recommendations EMG nerve conduction study as an outpatient MRI of the brain and spine, unable to obtain during hospitalization 2/2 pacemaker. Can be obtained outpatient. Patient states knee pain has significantly improved today. (2) Anemia: Qualifiers: Anemia type: unspecified type Qualified Code(s): D64.9 - Anemia, unspecified Code(s): D64.9 - Anemia, unspecified Status: Acute Assessment and Plan: H and H is 7.7/ 27.2 on admission, hemoglobin on 12/09/2024 was normal. EGD and colonoscopy in 2018 were normal. H/H remains low but stable. Obtain stool for occult blood Denies bloody bowel movements Iron panel: Iron 20, TIBC 378, % sat 5. Ferritin 5.87. Consistent with iron deficiency. IV iron 200 mg x3 doses, then start oral supplementation B12 and folate WNL GI consulted EGD tomorrow If EGD is unremarkable consider outpatient colonoscopy plus or minus capsule endoscopy to further evaluate for GI source of blood loss (3) PAF (paroxysmal atrial fibrillation): Code(s): I48.0 - Paroxysmal atrial fibrillation Status: Acute Assessment and Plan: Chronic, continue home medications s/p pacemaker - diltiazem 120 mg daily - sotalol 80mg BID - metoprolol 12.5 mg daily - continue with current Coumadin as patient has no signs of active GI bleeding (4) Hypertensive heart disease without congestive heart failure: Code(s): I11.9 - Hypertensive heart disease without heart failure Status: Acute Assessment and Plan: Chronic continue home medications - diltiazem 120 mg daily - sotalol 80mg BID - lisinopril 5 mg daily - metoprolol 12.5 mg daily - Lasix 20 mg daily - blood pressures reviwed and remain stable, continue to monitor (5) Pure hypercholesterolemia: Code(s): E78.00 - Pure hypercholesterolemia, unspecified Status: Acute Assessment and Plan: -continue with atorvastatin and monitor liver enzymes (6) Hypothyroidism: Code(s): E03.9 - Hypothyroidism, unspecified Status: Acute Assessment and Plan: - TSH WNL -continue with levothyroxine 75 mcg daily (7) DOMINICK (obstructive sleep apnea): Code(s): G47.33 - Obstructive sleep apnea (adult) (pediatric) Status: Acute Assessment and Plan: Continue with home settings for CPAP. Time Spent With Patient Time with patient: 25 - 35 minutes Subjective Date/time seen: 07/15/25 08:22 Interval history: 84 year old male with past medical history of aortic stenosis, skin cancer, lumbar spinal stenosis, gerd, htn, hyperlipidemia, dominick on cpap, and afib presents to the hospital for lower extremity pain and weakness. Patient is pleasant lying comfortably in bed with family at bedside. She states his knee pain is greatly improved today. He denies any tingling/numbness to the extremities. He has no other complaints denying chest pain, palpitations, shortness of breath, nauesa/vomiting and abdominal pain. Patient has not had a BM since admission but denies any dark/tarry stools or bloody stools prior to hospitlization. Review of Systems Review of Systems: All systems reviewed & are unremarkable except as noted in HPI and below Exam Narrative: AF HR 68 RR 18 SpO2 93 BP 100/54 General: male in no acute respiratory distress who is nontoxic appearing, lying semi recumbent in bed. HEENT: Normocephalic. Atraumatic. Extraocular movement intact. Sclera clear and anicteric. No facial asymmetry. Chest: Lungs are clear to auscultation bilaterally. No wheezes or crackles. CV: Heart was regular rate and rhythm. Abd: Abdomen was soft. Nontender. Nondistended. Positive bowel sounds. Ext: No clubbing, cyanosis, or edema. DP pulses bilaterally. Neuro: Patient is alert and oriented x4. Strength is 5/5 in both upper extremi ties. Decreased plantar/dorsal flexion and extension to left foot. Unable to curl left toes. Cranial nerves 2-12 are intact. Speech is clear. Objective Data Vital Signs Vital Signs: Vital Signs - 24 hr 07/14/25 08:34 07/14/25 08:34 07/14/25 11:23 Temperature 98.4 F Pulse Rate 70 70 69 Respiratory Rate 16 Blood Pressure 102/50 L Pulse Oximetry 97 Oxygen Delivery 07/14/25 12:06 07/14/25 16:00 07/14/25 16:00 Temperature 98.2 F Pulse Rate 70 68 70 Respiratory Rate 18 Blood Pressure 125/63 Pulse Oximetry 99 Oxygen Delivery 07/14/25 20:00 07/14/25 20:00 07/14/25 20:31 Temperature 98 F Pulse Rate 70 70 70 Respiratory Rate 18 Blood Pressure 102/55 L Pulse Oximetry 100 Oxygen Delivery 07/14/25 23:05 07/15/25 00:00 07/15/25 01:45 Temperature Pulse Rate 75 70 72 Respiratory Rate Blood Pressure Pulse Oximetry 96 95 Oxygen Delivery Autopap Autopap 07/15/25 06:05 Temperature 98.2 F Pulse Rate 68 Respiratory Rate 18 Blood Pressure 100/54 L Pulse Oximetry 93 Oxygen Delivery Intake/Output Intake/Output: Intake & Output 07/12/25 07/13/25 07/14/25 07/15/25 23:59 23:59 23:59 23:59 Intake Total 870 250 Output Total 300 1450 150 Balance -300 -580 100 Meds/Results Medications: Active Medications Generic Name Dose Route Start Last Admin Trade Name Freq PRN Reason Stop Dose Admin Acetaminophen 650 mg 07/14/25 16:13 07/14/25 22:33 Acetaminophen 325 Mg Tablet PO 650 mg Q6H PRN Administration Mild Pain (1-3) or Fever Aspirin 81 mg 07/14/25 09:00 07/14/25 08:34 Aspirin 81 Mg Enteric Tablet PO 81 mg QAM CARL Administration Atorvastatin Calcium 40 mg 07/14/25 21:00 07/14/25 20:31 Atorvastatin 40 Mg Tablet PO 40 mg HS CARL Administration Diltiazem HCl 120 mg 07/14/25 21:00 07/14/25 20:33 Diltiazem Hcl Cd 120 Mg Cap.24hr PO 120 mg HS CARL Administration Ferrous Sulfate 325 mg 07/17/25 09:00 Ferrous Sulfate 325 Mg Tablet PO BID CARL Finasteride 5 mg 07/14/25 21:00 07/14/25 20:32 Finasteride 5 Mg Tablet PO 5 mg HS CARL Administration Fish Oil 1 gm 07/14/25 09:00 07/14/25 08:33 [place] 3 Polyunsat Fatty Acids 1 Gm Cap PO 1 gm DAILY CARL Administration Furosemide 20 mg 07/14/25 09:00 07/14/25 08:34 Furosemide 20 Mg Tablet PO 20 mg DAILY CARL Administration Gabapentin 100 mg 07/14/25 09:00 07/14/25 16:37 Gabapentin 100 Mg Capsule PO 100 mg TID CARL Administration Iron Sucrose 200 mg/ Sodium 110 mls @ 220 mls/hr 07/14/25 09:30 07/14/25 12:17 Chloride IVPB 07/16/25 09:29 220 mls/hr DAILY CARL Administration Levothyroxine Sodium 75 mcg 07/14/25 06:30 07/15/25 05:47 Levothyroxine Sodium 75 Mcg Tablet PO 75 mcg DAILY@0630 CARL Administration Lisinopril 5 mg 07/14/25 09:00 07/14/25 08:36 Lisinopril 5 Mg Tablet PO 5 mg QAM CARL Administration Metoprolol Succinate 12.5 mg 07/14/25 09:00 07/14/25 08:34 Metoprolol Succinate Ext Rel 12.5 Mg Tabcr PO 12.5 mg QAM CARL Administration Nicotine 1 patch 07/14/25 09:00 07/14/25 08:34 Nicotine (*Pbkc) 21 Mg Patch TRANSDERM 1 patch DAILY CARL Administration Pantoprazole Sodium 40 mg 07/14/25 09:00 07/14/25 08:34 Pantoprazole 40 Mg Tablet PO 40 mg QAM CARL Administration Perflutren Lipid Microsphere 0 ml 07/14/25 09:22 Perflutren Lipid Microspheres 1.5 Ml Vial Diluted To 10 Ml Total Volume IV PUSH 07/17/25 09:22 ONCE PRN adequate visualization Protocol Potassium Chloride 20 meq 07/14/25 09:00 07/14/25 08:33 Potassium Chloride 20 Meq Er Tablet PO 20 meq DAILY CARL Administration Promethazine HCl 6.25 mg 07/14/25 15:38 07/14/25 16:11 Promethazine Hcl 6.25 Mg Tablet PO 6.25 mg Q4H PRN Administration Nausea And Vomiting Sotalol HCl 80 mg 07/14/25 09:00 07/14/25 20:31 Sotalol Hcl 80 Mg Tablet PO 80 mg Q12HR CARL Administration Warfarin Sodium 4 mg 07/15/25 17:00 Warfarin (*Pbkc) 4 Mg Tablet PO [id number]@1700 CARL Warfarin Sodium 6 mg 07/14/25 17:00 07/14/25 16:41 Warfarin (*Pbkc) 3 Mg Tablet PO 6 mg [id number]@1700 [facility] Administration Radiology Results: ITS Impressions Venous Doppler Study 07/13/25 17:31 Impression: Negative for DVT. ADDENDUM: 07/14/25 0815 There is a small thrombus within the left posterior tibial vein with diminished flow and compression Head CT 07/13/25 17:39 IMPRESSION: 1. No acute intracranial hemorrhage. No mass effect. 2. Probable chronic ischemic white matter change. Lumbar Spine CT 07/13/25 17:46 Impression: No acute abnormality. Knee X-Ray 07/13/25 17:48 Impression: No acute fracture or malalignment. Head/Neck CTA 07/13/25 20:27 IMPRESSION: 1. Mild nonspecific cerebral white matter disease, which likely represents chronic small vessel ischemic disease. 2. No aneurysm or significant intracranial internal stenosis. 3. 0% stenosis of the proximal right internal carotid artery relative to normal distal artery lumen diameter (NASCET criteria). 4. 27% stenosis of the proximal left internal carotid artery relative to normal distal artery lumen diameter. 5. Moderate stenosis of proximal left vertebral artery. Labs Labs: Laboratory Results - last 24 hr 07/14/25 07/14/25 07/14/25 05:26 11:08 17:15 WBC RBC Hgb 7.8 L 8.2 L Hct 27.3 L 28.6 L MCV MCH MCHC RDW Plt Count MPV Immature Gran % (Auto) Neut % (Auto) Lymph % (Auto) [place] % (Auto) Eos % (Auto) Baso % (Auto) Lymph # (Auto) [place] # (Auto) Eos # (Auto) Baso # (Auto) Abs Immat Gran (auto) Absolute Neuts (auto) Absolute Nucleated RBC Band Neutrophils % Nucleated RBC % Platelet Estimate Polychromasia Hypochromasia Anisocytosis Target Cells Ovalocytes [place] Cells Schistocytes Sodium 136 L Potassium 4.2 Chloride 104 Carbon Dioxide 27 Anion Gap 5 BUN 20 Creatinine 1.11 Estim Creat Clear Calc 53 Estimated GFR > 60 Glucose 111 H Calcium 8.8 TIBC 378 % Saturation 5 L Ferritin 5.87 L Total Bilirubin 0.6 AST 18 ALT 13 Alkaline Phosphatase 68 Total Protein 6.4 Albumin 3.6 Vitamin B12 669.0 Folate 12.7 TSH (Reflex) 2.490 LOLIS, IgG Interpret Negative LOLIS, Poly Interpret Neg Indirect Antiglob Test Negative 07/14/25 07/15/25 23:18 05:22 WBC 11.3 H RBC 3.12 L Hgb 7.2 L 7.1 L Hct 24.4 L 25.4 L MCV 81.4 MCH 22.8 L MCHC 28.0 L RDW 17.6 H Plt Count 211 MPV 11.6 H Immature Gran % (Auto) 0.5 Neut % (Auto) 68.1 Lymph % (Auto) 14.6 L [place] % (Auto) 15.5 H Eos % (Auto) 0.4 Baso % (Auto) 0.9 Lymph # (Auto) 1.65 [place] # (Auto) 1.8 H Eos # (Auto) 0.0 Baso # (Auto) 0.1 Abs Immat Gran (auto) 0.06 H Absolute Neuts (auto) 7.7 H Absolute Nucleated RBC 0.000 Band Neutrophils % Not Reportable Nucleated RBC % 0.0 Platelet Estimate Adequate Polychromasia 1+ Hypochromasia 1+ Anisocytosis 1+ Target Cells Occasional Ovalocytes 1+ [place] Cells 1+ Schistocytes None seen Sodium 133 L Potassium 4.2 Chloride 104 Carbon Dioxide 24 Anion Gap 5 BUN 26 H Creatinine 1.51 H Estim Creat Clear Calc 40 Estimated GFR 44 L Glucose 109 Calcium 8.2 L TIBC % Saturation Ferritin Total Bilirubin 1.0 AST 24 ALT 15 Alkaline Phosphatase 59 Total Protein 6.2 L Albumin 3.5 Vitamin B12 Folate TSH (Reflex) LOLIS, IgG Interpret LOLIS, Poly Interpret Indirect Antiglob Test Quality VTE Prophylaxis VTE prophylaxis: pharmacologic ordered
[2025-07-15] MEDS: OMEGA 3 POLYUNSAT FATTY ACIDS 1 GM CAP PO (08:26)
[2025-07-15] MEDS: METOPROLOL SUCCINATE EXT REL 12.5 MG TABCR PO (08:26)
[2025-07-15] MEDS: ACETAMINOPHEN 325 MG TABLET 650 MG PO ×3 (08:27→17:36)
[2025-07-15] MEDS: SOTALOL HCL 80 MG TABLET PO (08:28)
[2025-07-15] MEDS: PANTOPRAZOLE 40 MG TABLET PO (08:28)
[2025-07-15] MEDS: IRON SUCROSE COMPLEX 200 MG in SODIUM CHLORIDE 0.9% IV 100 ML 220 MG IVPB (08:28)
[2025-07-15] MEDS: NICOTINE (*PBKC) 21 MG PATCH 1 PATCH TRANSDERM (08:28)
[2025-07-15] MEDS: GABAPENTIN 100 MG CAPSULE PO ×3 (08:28→17:36)
[2025-07-15] MEDS: FUROSEMIDE 20 MG TABLET PO (08:28)
[2025-07-15] MEDS: ASPIRIN 81 MG ENTERIC TABLET PO (08:28)
[2025-07-15] MEDS: POTASSIUM CHLORIDE 20 MEQ ER TABLET PO (08:28)
[2025-07-15 08:58] LABS: INR 2.1; Prothrombin Time 23.2 Seconds (11.1-14.7)
--- NOTE | 2025-07-15 09:40 | P.CONGI_ITS ---
Assessment and Plan Assessment and plan (1) TANIYA (iron deficiency anemia): Qualifiers: Iron deficiency anemia type: unspecified iron deficiency Q ualified Code(s): D50.9 - Iron deficiency anemia, unspecified <Gabrielle D. Darcie LAWN CARE SPECIALIST - Last Filed: 07/15/25 12:30> Code(s): D50.9 - Iron deficiency anemia, unspecified <Gabrielle D. Darcie LAWN CARE SPECIALIST - Last Filed: 07/15/25 12:30> Status: Acute <Gabrielle D. Darcie LAWN CARE SPECIALIST - Last Filed: 07/15/25 12:30> (2) Chronic GERD: Code(s): K21.9 - Gastro-esophageal reflux disease without esophagitis <Gabrielle D. Cecitita LAWN CARE SPECIALIST - Last Filed: 07/15/25 12:30> Status: Acute <Gabrielle DVenkatesh Sprague LAWN CARE SPECIALIST - Last Filed: 07/15/25 12:30> (3) Dysphagia: Qualifiers: Dysphagia type: esophageal phase Qualified Code(s): R13.19 - Other dysphagia <Gabrielle Munguia. Darcie LAWN CARE SPECIALIST - Last Filed: 07/15/25 12:30> Code(s): R13.10 - Dysphagia, unspecified <Gabrielle Munguia. Cecitita LAWN CARE SPECIALIST - Last Filed: 07/15/25 12:30> Status: Acute <Gabrielle D. Darcie LAWN CARE SPECIALIST - Last Filed: 07/15/25 12:30> (4) Constipation: Qualifiers: Constipation type: unspecified constipation type Qualified Code(s): K59.00 - Constipation, unspecified <Gabrielle D. Darcie LAWN CARE SPECIALIST - Last Filed: 07/15/25 12:30> Code(s): K59.00 - Constipation, unspecified <Gabrielle D. Kristachuck LAWN CARE SPECIALIST - Last Filed: 07/15/25 12:30> Status: Acute <Gabrielle D. Darcie, LAWN CARE SPECIALIST - Last Filed: 07/15/25 12:30> (5) Personal history of colon polyps, unspecified: Code(s): Z86.0100 - Personal history of colon polyps, unspecified <Gabrielle D. Cecitita LAWN CARE SPECIALIST - Last Filed: 07/15/25 12:30> Status: Acute <Gabrielle Sprague APRN - Last Filed: 07/15/25 12:30> Assessment and Plan: 1. TANIYA: EGD and colonoscopy in 2018 were normal. In November 2024 patient had a normal H&H with HGB at 14 but since admission his blood counts have remained between 8 and 7. Patient with history of aortic valve replacement, pacemaker and AFib on Coumadin. There is no signs of active GI bleeding. He has received 2 iron infusions along oral iron supplement. We discussed EGD and colonoscopy evaluate possible GI source of blood loss, but given the patient's numbness and weakness in his legs he does not feel comfortable performing a bowel prep and would like to hold off on colonoscopy. Patient is agreeable to EGD. * EGD tomorrow * Primary care team to continue monitoring H&H and transfuse as needed to keep HGB > 7 2. Dysphagia/globus sensation/nausea/GERD: Patient admits to occasional episodes dysphagia with solid foods along with occasional globus sensation. He denies any difficulty swallowing pills or liquids. He admits to occasional nausea and vomiting. He states that his reflux has been more frequent and problematic recently and has been taking Tums ?a lot?. According to his med list at some point he was on esomeprazole 40 mg b.i.d., patient unable to verify if he has been taking this. * Patient currently on pantoprazole 40 mg daily, continue * Will schedule EGD with possible dilation * If EGD is unremarkable may consider outpatient colonoscopy plus or minus capsule endoscopy to further evaluate for GI source of blood loss * Further recommendations to follow endoscopy 3. Constipation/personal Hx of colon polyps: Last colonoscopy in 2018 was normal. He has a prior history of colon polyps removed. Patient states that he typically has a bowel movement every 2-3 days that varies from normal in color to very light brown. Stools are typically softer liquid he admits to occasional constipation and states that currently it has been 4 days since his last bowel movement. * Start MiraLax once daily and we can a dose dosing frequency according to symptoms and response Thank you very much for allowing me to share in the care of this very nice patient. This report may have been done utilizing a voice recognition system. Attempts have been made to correct errors. However, there may be uncorrected grammatical, spelling, and recognition errors present. <Gabrielle Sprague APRN - Last Filed: 07/15/25 12:30> GI Consult Note Consult date/time: 07/15/25 09:40 <Gabrielle Sprague APRN - Last Filed: 07/15/25 12:30> Reason for consult: TANIYA <Gabrielle Sprague APRN - Last Filed: 07/15/25 12:30> HPI: Antony Reveles is a 84 year old male with past medical surgical history of aortic valve replacement, hernia repair, pacemaker, AFib on Coumadin, GERD, HTN, DOMINICK, and history of GI bleed. He presented to the ER 07/13/2025 with complaints of lower leg numbness and foot drop. GI has been consulted for iron deficiency and worsening anemia. Patient was seen with his son/SAMUEL Coon throughout the entire visit. Patient's initial symptoms that prompted his ER visit were leg numbness and footdrop of the left foot. He was noted to have anemia and iron deficiency that has not improved after 2 IV iron infusions. His labs in November of this year showed a normal HGB at 14 and today HGB 7. He denies any signs of active GI bleeding to include hematochezia, hematemesis or melena. He admits to occasional nausea and vomiting that is typically self-limited. He has occasional episodes swallowing difficulty with solid foods and occasional globus sensation. He denies any difficulty swallowing liquids or pills. He has been experiencing more frequent reflux and has been taking Tums ?a lot?. According to the patient's chart he was previously prescribed Nexium 40 mg b.i.d. but patient was unable to say if he has been taking this. Patient has had explained weight loss over the past 7 years with diet and exercise. Patient states that he is having bowel movement every 2-3 days that varies from soft to liquid and varies from normal stool color to very light brown. She denies abdominal pain, bloating, odynophagia, regurgitation, early satiety, appetite loss. He states that his last bowel movement was 4 days ago. Patient smokes 1 pack per day but denies alcohol or marijuana use. Family history negative for CRC or IBD. ENDOSCOPY HISTORY: EGD: 01/02/[address] Garcia for nausea and epigastric pain Findings: The esophagus was examined no abnormalities were seen The GE junction was located 40 cm from the incisors. Stomach was normal Duodenum normal COLONOSCOPY: 11/24/[address] Garcia for history of colon polyps Findings: Colonoscopy was normal other than a few small size uncomplicated internal hemorrhoids seen that were not actively bleeding Five year repeat colonoscopy recommended LABS AND STOOL STUDIES: Labs 07/15/2025: WBC 11, Hgb 7, Hct 25, MCV 81, platelets 211, INR 2.1 Sodium 133, potassium 4.2, BUN 26, creatinine 1.51, GFR 44, calcium 8.2 Total bilirubin 1.0, AST 24, ALT 15, Alkaline Phos 59, albumin 3.5 Labs 07/14/2025: HGB 8, HCT 27, Percent retic 1.64, immature retic 38.9, INR 1.9 Total iron 20, TIBC 378, iron saturation 5%, ferritin 5.87 LD 202, B12 669, folate 12.7, TSH 2.490 Labs 07/13/2025: WBC 9, Hgb 8, Hct 30, MCV 78, platelets 236, INR 1.8 Sodium 135, potassium 4.5, BUN 21, creatinine 1.11, GFR >60, calcium 8.9 Total bilirubin 0.5, AST 24, ALT 15, Alkaline Phos 76, albumin 4.2 IMAGING: *No GI imaging this admission* Upper GI series 05/27/2024: Impression: Normal upper gastrointestinal series Abdominal Ultrasound 12/03/2023: Impression: Cholelithiasis. No definite gallbladder wall thickening. <Gabrielle Sprague APRN - Last Filed: 07/15/25 12:30> Review of Systems 2 Constitutional: Constitutional: Reports as per HPI <Gabrielle Sprague APRN - Last Filed: 07/15/25 12:30> ENT: Reports as per HPI <Gabrielle Sprague APRN - Last Filed: 07/15/25 12:30> Cardiovascular: Cardiovascular: Reports as per HPI, Denies chest pain and Denies dyspnea <Gabriellenick Sprague APRN - Last Filed: 07/15/25 12:30> Respiratory: Respiratory: Denies cough and Denies dyspnea <Gabrielle Aureliano Sprague APRN Last Filed: 07/15/25 12:30> Gastrointestinal: Gastrointestinal: Reports as per HPI <Gabriellenick Sprague APRN Last Filed: 07/15/25 12:30> Musculoskeletal: Musculoskeletal: Reports as per HPI <Gabriellenick Sprague APRN - Last Filed: 07/15/25 12:30> Integumentary/Breasts: Skin/Breast: Reports as per HPI <Gabrielle Aureliano Sprague APRN - Last Filed: 07/15/25 12:30> Neurologic: Reports abnormal gait and Reports numbness <Gabriellenick Sprague APRN Last Filed: 07/15/25 12:30> Comments: left foot drop <Gabriellenick Sprague APRN Last Filed: 07/15/25 12:30> Psychiatric: Psychiatric: Reports as per HPI <Gabriellenick Sprague APRN Last Filed: 07/15/25 12:30> Endocrine: Endocrine: Reports no additional endocrine complaints <Gabrielle Aureliano Sprague APRN Last Filed: 07/15/25 12:30> Hematologic/Lymphatic: Hematologic/Lymphatic: Reports no additional hematologic/lymphatic complaints <Gabriellenick Sprague APRN Last Filed: 07/15/25 12:30> [facility] Past Medical History Medical History: Medical History Aortic stenosis Skin cancer Cholelithiasis Thickening of wall of gallbladder Biliary dyskinesia Enteritis 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 GERD (gastroesophageal reflux disease) HTN (hypertension) High cholesterol DOMINICK on CPAP A-fib History of blood transfusion RUQ abdominal pain <Gabriellenick Sprague APRN Last Filed: 07/15/25 12:30> Surgical History Surgical History: Surgical History History of transcatheter aortic valve replacement (TAVR) Status post surgical removal of malignant neoplasm of skin H/O hernia repair GI bleed S/P carpal tunnel release S/P cataract surgery S/P arthroscopy of right knee <Gabrielle Sprague APRN - Last Filed: 07/15/25 12:30> Family History Family History: Family History Father Family history of respiratory disorder Pneumonia Black lung disease Sibling Acute myocardial infarction Heart attack Mother Patient's mother is , Onset Age: 85 Sibling Heart disease Other Family history of cardiovascular disease Hypertension <Gabrielle Sprague APRN - Last Filed: 07/15/25 12:30> Social History Social History: Social History Smoking packs per day: 1 Smoking cigarettes per day: 20.0 Years smoked: 70 Smoking pack-years: 70.00 Smoking status: Current every day smoker Tobacco type: cigarettes Second hand tobacco smoke exposure: Yes Alcohol intake: current Alcohol use details: rare Substance use: never Substance use type: does not use Lack of Transportation: No Lack of Food: Never True Current Housing: I Have Housing Concerned About Future Housing: No Difficulty Paying Gas/Electric Bills: No Difficulty Paying for Meds: No Currently Unemployed: No Education: High School Diploma/GED Difficulty w/ Childcare or Family Care: No Living arrangements: alone Occupation/Education: retired Gender identity (if verbalized by the patient): Male Sexual Orientation (if Verbalized by the Patient): Straight or Heterosexual Spiritual care concerns: No <Gabrielle Sprague APRN - Last Filed: 07/15/25 12:30> Meds Home Medications and Allergies Home medications: Home Medications ?Medication ?Instructions ?Recorded ?Confirmed ?Type atorvastatin 20 mg tablet 20 mg PO HS 11/02/19 5 History finasteride 5 mg tablet (Proscar) 5 mg PO HS 11/02/19 07/13/25 History metoprolol succinate 25 mg 12.5 mg PO QAM 11/02/19 History tablet,extended release 24 hr omega-3 fatty acids 1,000 mg 1,000 mg PO DAILY 0 07/13/25 History capsule (Fish Oil Concentrate) sotalol 80 mg tablet 80 mg PO BID 11/02/19 History warfarin 4 mg tablet (Coumadin) 4 mg PO .COMPLEX 09/0607/15/25 History gabapentin 100 mg capsule 100 mg PO TID 07/04/2107/13 History aspirin 81 mg tablet 81 mg PO DAILY 01/03/23 09/ History lisinopril 5 mg tablet 5 mg PO QAM 01/03/23 5 History diltiazem HCl 120 mg capsule,24 120 mg PO HS 11/26/23 07/13/25 History hr,extended release furosemide 20 mg tablet (Lasix) 20 mg PO DAILY 4 07/13/25 History potassium chloride 20 mEq 20 meq PO DAILY 11/26/23 History tablet,extended release esomeprazole magnesium 40 mg 40 mg PO BID 90 days #180 caps 09/17/24 07/13/25 Rx capsule,delayed release levothyroxine 75 mcg tablet 75 mcg PO DAILY #90 tabs 0 04/15/25 07/13/25 Rx <Gabrielle Sprague APRN - Last Filed: 07/15/25 12:30> Allergies/Adverse reactions: Allergies Allergy/AdvReac Type Severity Reaction Status Date / Time Tetanus Vaccines and Toxoid Allergy Severe DIFFICULTY Verified 07/13/25 21:15 BREATHING/REDNESS/EXTREME SWELLING OF ARM <Gabrielle Sprague APRN - Last Filed: 07/15/25 12:30> Vital Signs Vital Signs - 24 hr 07/14/25 11:23 07/14/25 12:06 07/14/25 16:00 Temperature 98.4 F 98.2 F Pulse Rate 69 70 68 Respiratory Rate 16 18 Blood Pressure 102/50 L 125/63 Pulse Oximetry 97 99 Oxygen Delivery 07/14/25 16:00 07/14/25 20:00 07/14/25 20:00 Temperature 98 F Pulse Rate 70 70 70 Respiratory Rate 18 Blood Pressure 102/55 L Pulse Oximetry 100 Oxygen Delivery 07/14/25 20:31 07/14/25 23:05 07/15/25 00:00 Temperature Pulse Rate 70 75 70 Respiratory Rate Blood Pressure Pulse Oximetry 96 Oxygen Delivery Autopap 07/15/25 01:45 07/15/25 06:05 07/15/25 08:26 Temperature 98.2 F Pulse Rate 72 68 70 Respiratory Rate 18 Blood Pressure 100/54 L Pulse Oximetry 95 93 Oxygen Delivery Autopap 07/15/25 08:28 Temperature Pulse Rate 70 Respiratory Rate Blood Pressure Pulse Oximetry Oxygen Delivery <Gabrielle Sprague APRN - Last Filed: 07/15/25 12:30> Exam 2 Const: General: cooperative, healthy appearing, comfortable, no acute distress and well developed <Gabrielle Sprague APRN - Last Filed: 07/15/25 12:30> Orientation/consciousness: oriented to person, oriented to place, oriented to time and patient oriented x3 <Gabrielle Sprague APRN - Last Filed: 07/15/25 12:30> HENMT: Head: normal to inspection, normocephalic and atraumatic <Gabrielle Sprague APRN - Last Filed: 07/15/25 12:30> Mouth: Yes Normal oral and palatal mucosa present and Yes moist mucous membranes <Gabrielle Sprague APRN - Last Filed: 07/15/25 12:30> Eyes: General: appearance normal, both eyes and all related structures < Gabriellenick Sprague APRN - Last Filed: 07/15/25 12:30> Conjunctivae: conjunctivae normal <Gabrielle Sprague APRN - Last Filed: 07/15/25 12:30> Sclera: sclerae normal <Gabrielle Sprague APRN - Last Filed: 07/15/25 12:30> Pupils: Equal, round and reactive pupils present <Gabrielle Sprague APRN - Last Filed: 07/15/25 12:30> Neck: Neck: normal visual inspection <Gabrielle Sprague APRN - Last Filed: 07/15/25 12:30> Chest: Chest palpation & inspection: normal inspection of the chest < Gabrielle Sprague APRN - Last Filed: 07/15/25 12:30> Resp: Effort & Inspection: normal respiratory effort and able to speak in complete sentences <Gabrielle Sprague APRN - Last Filed: 07/15/25 12:30> Auscultation: clear to auscultation bilaterally <Gabrielle Ornelastita LAWN CARE SPECIALIST Last Filed: 07/15/25 12:30> Cardio: Jugular venous distension: no JVD <Gabrielle OrnelastitaDURANN Last Filed: 07/15/25 12:30> Rate: regular rate <Gabrielle VelascochuckDURANN Last Filed: 07/15/25 12:30> Rhythm: regular rhythm <Gabrielle OrnelastitaDURANFormerly [facility] Last Filed: 07/15/25 12:30> Heart sounds: S1 normal heart sound present and S2 normal heart sound present <Gabrielle Sprague APRFormerly [facility] Last Filed: 07/15/25 12:30> GI: Inspection: normal to inspection <Gabrielle OrnelastitaDURANN Last Filed: 07/15/25 12:30> GI Palp: Yes Soft to palpation and Yes No hepatosplenomegaly present <Gabrielle Ornelastita LAWN CARE SPECIALIST Last Filed: 07/15/25 12:30> Auscultation: normal bowel sounds <Gabrielle Sprague APRN Last Filed: 07/15/25 12:30> Rectal Exam: deferred <Gabrielle Ornelastita LAWN CARE SPECIALIST Last Filed: 07/15/25 12:30> Skin: General skin exam: normal color and no rashes or lesions noted < Gabrielle Ornelastita LAWN CARE SPECIALIST Last Filed: 07/15/25 12:30> Neuro: General: oriented to person, oriented to place, oriented to time and patient oriented x3 <Gabrielle Ornelastita LAWN CARE SPECIALIST Last Filed: 07/15/25 12:30> Cranial nerves: Yes Equal, round and reactive pupils present <Gabrielle OrnelasFE rivers Last Filed: 07/15/25 12:30> Speech: normal speech <Gabrielle Ornelastita LAWN CARE SPECIALIST Last Filed: 07/15/25 12:30> Extrem: General: no clubbing, cyanosis or edema <Gabrielle Bedoya FE Sprague Last Filed: 07/15/25 12:30> Other: left foot drop and mild numbness to bilateral legs <Gabriellenick Sprague APRN - Last Filed: 07/15/25 12:30> Psych: Appearance: grossly normal and well kempt <Gabrielle Sprague APRN - Last Filed: 07/15/25 12:30> Affect: normal affect <Gabrielle Sprague APRN - Last Filed: 07/15/25 12:30> Results Labs CBC & Chem 7: 07/15/25 05:22 07/15/25 05:22 <Garbielle Sprague APRN - Last Filed: 07/15/25 12:30> Labs: Short CBC 07/14/25 07/14/25 07/14/25 Range/Units 11:08 17:15 23:18 WBC (4.5-10.0) K/mm3 Hgb 7.8 L 8.2 L 7.2 L (14.0-18.0) g/dL Hct 27.3 L 28.6 L 24.4 L (42.0-52.0) % Plt Count (150-375) k/mm3 07/15/25 Range/Units 05:22 WBC 11.3 H (4.5-10.0) K/mm3 Hgb 7.1 L (14.0-18.0) g/dL Hct 25.4 L (42.0-52.0) % Plt Count 211 (150-375) k/mm3 BMP 07/14/25 07/15/25 11:08 05:22 Sodium 136 L 133 L Potassium 4.2 4.2 Chloride 104 104 Carbon Dioxide 27 24 BUN 20 26 H Creatinine 1.11 1.51 H Glucose 111 H 109 Calcium 8.8 8.2 L Liver Function 07/14/25 07/15/25 Range/Units 11:08 05:22 Total Bilirubin 0.6 1.0 (0.2-1.3) mg/dL AST 18 24 (17-59) U/L ALT 13 15 (6-50) U/L Alkaline Phosphatase 68 59 (38-126) U/L Albumin 3.6 3.5 (3.5-5.1) g/dL <Gabrielle Sprague APRN - Last Filed: 07/15/25 12:30> Attestation Supervising Provider Attestation I, Tre Quintero MD, have provided a substantive portion of the care of this patient and discussed the patient with my Nurse Practitioner. I have reviewed any new relevant radiographic and laboratory results including medications. I agree with her documentation as noted below.?I personally performed the medical decision making and much of the history and exam for this encounter. briefly, he has afib still taking coumadin, admitted for left foot drop but also noted anemia with low iron, given iron infusion. He has some dysphagia and chronic constipation, last colonoscopy 2014. egd 2018. He is agreeable to have both scopes however he is still on coumadin with inr 2.1, I spoke with hospitalist and we would like to have inr ~ 1.5 before we can do elective procedure, this is not urgent or evidence of active bleeding for which coumadin always can be reversed with ffp +/- vit K. If he stays over weekend possibility is to do scopes Saturday as long as coumadin is on hold or the other option as outpatient. <Tre Quintero MD - Last Filed: 07/15/25 16:17>
--- NOTE | 2025-07-15 17:05 | P.PNNEUR_ITS ---
Progress Note: A&P Assessment and Plan (1) Acquired left foot drop: Code(s): M21.372 - Foot drop, left foot Status: Acute (2) Warfarin anticoagulation: Code(s): Z79.01 - [facility] (current) use of anticoagulants Status: Acute (3) Lumbar degenerative disc disease: Code(s): M51.36 - Other intervertebral disc degeneration, lumbar region Status: Acute (4) Pacemaker: Code(s): Z95.0 - Presence of cardiac pacemaker Status: Acute (5) PAF (paroxysmal atrial fibrillation): Code(s): I48.0 - Paroxysmal atrial fibrillation Status: Acute (6) Anemia: Qualifiers: Anemia type: unspecified type Qualified Code(s): D64.9 - Anemia, unspecified Code(s): D64.9 - Anemia, unspecified Status: Acute Plan I advised the patient to avoid crossing his left leg gone to the right side. He has lost some weight in the last year since he had aortic valve repair. In this setting footdrop can occur due to common peroneal neuropathy however the differential diagnosis will include possibly L5 radiculopathy. EMG nerve can study in 3-4 weeks time may be helpful to make a firm diagnosis and in the meanwhile a should be given an ankle-foot arthrosis or AFO to prevent a fall. His [id number] is a nurse practitioner she voices understanding of discussion. She will help assist in the care. I also spoke to the nursing staff on the floor and placed an order for OT to see if they can help with the AFO. Subjective Date/time seen: 07/15/25 17:05 Interval history: The patient 84-year-old white male with history of weakness of the left foot. Patient states that this has happened gradually. He has lost about 10 12 lb in weight over the past year adjusted to cross his left leg onto the right side. He has had some pain in the lower back per at this time he is not having any problem. No pain in the buttock area. He denies any symptoms in the upper limb. I noted that he has had a CT scan of brain and CT angiogram head and neck which did not show any significant abnormality. He is unable to undergo MRI because of pacemaker. His daughter is a nurse practitioner she was present the time. His son is also present the time of this evaluation. No difficulties with speech or swallowing. Patient has history of aortic valve repair and atrial fibrillation and is on chronic anticoagulation. Review of Systems Review of Systems: All systems reviewed & are unremarkable except as noted in HPI and below Exam Narrative: Examination mental status memory and speech were within normal limits. Cranial nerves you testing intact. Visual fry were normal to confrontation. No facial asymmetry. Tongue was midline. Motor system normal power in both upper and right lower limb. He has weakness of dorsiflexion and eversion of the left foot. The could be possible weakness of inversion however does difficult to than from however plantar flexion appears to be fair on both sides. No weakness in the right foot. Some sensory loss noted on the lateral side of the left foot. No other significant findings were noted. Deep tendon reflexes the decreased at both knee and ankle at this time. Some arthritic swelling of the left knee was noted. Objective Data Vital Signs Vital Signs: Vital Signs - 24 hr 07/14/25 20:00 07/14/25 20:00 07/14/25 20:31 Temperature 98 F Pulse Rate 70 70 70 Respiratory Rate 18 Blood Pressure 102/55 L Pulse Oximetry 100 Oxygen Delivery 07/14/25 23:05 07/15/25 00:00 07/15/25 01:45 Temperature Pulse Rate 75 70 72 Respiratory Rate Blood Pressure Pulse Oximetry 96 95 Oxygen Delivery Autopap Autopap 07/15/25 06:05 07/15/25 08:05 07/15/25 08:26 Temperature 98.2 F Pulse Rate 68 70 70 Respiratory Rate 18 Blood Pressure 100/54 L Pulse Oximetry 93 Oxygen Delivery 07/15/25 08:28 07/15/25 10:48 07/15/25 11:20 Temperature Pulse Rate 70 Respiratory Rate Blood Pressure Pulse Oximetry Oxygen Delivery Room Air Room Air 07/15/25 12:06 07/15/25 15:28 Temperature 97.3 F L Pulse Rate 70 70 Respiratory Rate 20 Blood Pressure 93/49 L Pulse Oximetry 98 Oxygen Delivery Intake/Output Intake/Output: Intake & Output 07/12/25 07/13/25 07/14/25 07/15/25 23:59 23:59 23:59 23:59 Intake Total 980 730 Output Total 300 1450 550 Balance -300 -470 180 Meds/Results Medications: Active Medications Generic Name Dose Route Start Last Admin Trade Name Freq PRN Reason Stop Dose Admin Acetaminophen 650 mg 07/15/25 11:13 07/15/25 12:48 Acetaminophen 325 Mg Tablet PO 650 mg Q4HR PRN Administration Pain or Fever Aspirin 81 mg 07/14/25 09:00 07/15/25 08:28 Aspirin 81 Mg Enteric Tablet PO 81 mg QAM CARL Administration Atorvastatin Calcium 40 mg 07/14/25 21:00 07/14/25 20:31 Atorvastatin 40 Mg Tablet PO 40 mg HS CARL Administration Diltiazem HCl 120 mg 07/14/25 21:00 07/14/25 20:33 Diltiazem Hcl Cd 120 Mg Cap.24hr PO 120 mg HS CARL Administration Ferrous Sulfate 325 mg 07/17/25 09:00 Ferrous Sulfate 325 Mg Tablet PO BID CARL Finasteride 5 mg 07/14/25 21:00 07/14/25 20:32 Finasteride 5 Mg Tablet PO 5 mg HS CARL Administration Fish Oil 1 gm 07/14/25 09:00 07/15/25 08:26 [place] 3 Polyunsat Fatty Acids 1 Gm Cap PO 1 gm DAILY CARL Administration Furosemide 20 mg 07/14/25 09:00 07/15/25 08:28 Furosemide 20 Mg Tablet PO 20 mg DAILY CARL Administration Gabapentin 100 mg 07/14/25 09:00 07/15/25 12:47 Gabapentin 100 Mg Capsule PO 100 mg TID CARL Administration Iron Sucrose 200 mg/ Sodium 110 mls @ 220 mls/hr 07/14/25 09:30 07/15/25 08:28 Chloride IVPB 07/16/25 09:29 220 mls/hr DAILY CARL Administration Levothyroxine Sodium 75 mcg 07/14/25 06:30 07/15/25 05:47 Levothyroxine Sodium 75 Mcg Tablet PO 75 mcg DAILY@0630 CARL Administration Lisinopril 5 mg 07/14/25 09:00 07/15/25 08:28 Lisinopril 5 Mg Tablet PO 5 mg QAM CARL Administration Metoprolol Succinate 12.5 mg 07/14/25 09:00 07/15/25 08:26 Metoprolol Succinate Ext Rel 12.5 Mg Tabcr PO 12.5 mg QAM CARL Administration Nicotine 1 patch 07/14/25 09:00 07/15/25 08:28 Nicotine (*Pbkc) 21 Mg Patch TRANSDERM 1 patch DAILY CARL Administration Pantoprazole Sodium 40 mg 07/14/25 09:00 07/15/25 08:28 Pantoprazole 40 Mg Tablet PO 40 mg QAM CARL Administration Perflutren Lipid Microsphere 0 ml 07/14/25 09:22 Perflutren Lipid Microspheres 1.5 Ml Vial Diluted To 10 Ml Total Volume IV PUSH 07/17/25 09:22 ONCE PRN adequate visualization Protocol Polyethylene Glycol 17 gm 07/16/25 09:00 Polyethylene Glycol 3350 17 Gm Powd.Pack PO QAM CARL Potassium Chloride 20 meq 07/14/25 09:00 07/15/25 08:28 Potassium Chloride 20 Meq Er Tablet PO 20 meq DAILY CARL Administration Promethazine HCl 6.25 mg 07/14/25 15:38 07/14/25 16:11 Promethazine Hcl 6.25 Mg Tablet PO 6.25 mg Q4H PRN Administration Nausea And Vomiting Sotalol HCl 80 mg 07/14/25 09:00 07/15/25 08:28 Sotalol Hcl 80 Mg Tablet PO 80 mg Q12HR CARL Administration Warfarin Sodium 4 mg 07/15/25 17:00 Warfarin (*Pbkc) 4 Mg Tablet PO SuTuThSa@1700 [facility] Warfarin Sodium 2 mg 07/16/25 17:00 Warfarin (*Pbkc) 2 Mg Tablet PO MoWeFr@1700 [facility] Radiology Results: ITS Impressions Venous Doppler Study 07/13/25 17:31 Impression: Negative for DVT. ADDENDUM: 07/14/25 0815 There is a small thrombus within the left posterior tibial vein with diminished flow and compression Head CT 07/13/25 17:39 IMPRESSION: 1. No acute intracranial hemorrhage. No mass effect. 2. Probable chronic ischemic white matter change. Lumbar Spine CT 07/13/25 17:46 Impression: No acute abnormality. Knee X-Ray 07/13/25 17:48 Impression: No acute fracture or malalignment. Head/Neck CTA 07/13/25 20:27 IMPRESSION: 1. Mild nonspecific cerebral white matter disease, which likely represents chronic small vessel ischemic disease. 2. No aneurysm or significant intracranial internal stenosis. 3. 0% stenosis of the proximal right internal carotid artery relative to normal distal artery lumen diameter (NASCET criteria). 4. 27% stenosis of the proximal left internal carotid artery relative to normal distal artery lumen diameter. 5. Moderate stenosis of proximal left vertebral artery. Labs Labs: Laboratory Results - last 24 hr 07/14/25 07/14/25 07/14/25 11:08 17:15 23:18 WBC RBC Hgb 8.2 L 7.2 L Hct 28.6 L 24.4 L MCV MCH MCHC RDW Plt Count MPV Immature Gran % (Auto) Neut % (Auto) Lymph % (Auto) [place] % (Auto) Eos % (Auto) Baso % (Auto) Lymph # (Auto) [place] # (Auto) Eos # (Auto) Baso # (Auto) Abs Immat Gran (auto) Absolute Neuts (auto) Absolute Nucleated RBC Band Neutrophils % Nucleated RBC % Platelet Estimate Polychromasia Hypochromasia Anisocytosis Target Cells Ovalocytes [place] Cells Schistocytes Haptoglobin 212 PT INR Sodium Potassium Chloride Carbon Dioxide Anion Gap BUN Creatinine Estim Creat Clear Calc Estimated GFR Glucose Calcium Total Bilirubin AST ALT Alkaline Phosphatase Total Protein Albumin 07/15/25 07/15/25 05:22 08:39 WBC 11.3 H RBC 3.12 L Hgb 7.1 L Hct 25.4 L MCV 81.4 MCH 22.8 L MCHC 28.0 L RDW 17.6 H Plt Count 211 MPV 11.6 H Immature Gran % (Auto) 0.5 Neut % (Auto) 68.1 Lymph % (Auto) 14.6 L [place] % (Auto) 15.5 H Eos % (Auto) 0.4 Baso % (Auto) 0.9 Lymph # (Auto) 1.65 [place] # (Auto) 1.8 H Eos # (Auto) 0.0 Baso # (Auto) 0.1 Abs Immat Gran (auto) 0.06 H Absolute Neuts (auto) 7.7 H Absolute Nucleated RBC 0.000 Band Neutrophils % Not Reportable Nucleated RBC % 0.0 Platelet Estimate Adequate Polychromasia 1+ Hypochromasia 1+ Anisocytosis 1+ Target Cells Occasional Ovalocytes 1+ [place] Cells 1+ Schistocytes None seen Haptoglobin PT 23.2 H INR 2.1 Sodium 133 L Potassium 4.2 Chloride 104 Carbon Dioxide 24 Anion Gap 5 BUN 26 H Creatinine 1.51 H Estim Creat Clear Calc 40 Estimated GFR 44 L Glucose 109 Calcium 8.2 L Total Bilirubin 1.0 AST 24 ALT 15 Alkaline Phosphatase 59 Total Protein 6.2 L Albumin 3.5
[2025-07-15] MEDS: WARFARIN (*PBKC) 4 MG TABLET PO (17:39)
[2025-07-15] MEDS: FINASTERIDE 5 MG TABLET PO (20:40)
[2025-07-15] MEDS: ATORVASTATIN 40 MG TABLET PO (20:40)
--- NOTE | 2025-07-15 23:42 | PC.NURSE ---
Notified Asya Faust of soft BPs of 90/40s. We held his sotalol and cardizem
[2025-07-16] VITALS (10 sets, daily range): BP systolic 100–110; BP diastolic 53–62; PULSE 64–72; RESP 16–20; TEMP 36.1–36.8; O2SAT 98–100
[2025-07-16] MEDS: LEVOTHYROXINE SODIUM 75 MCG TABLET PO (05:18)
[2025-07-16 05:25] LABS: Hematocrit 24.5 % (42.0-52.0); Hemoglobin 7.1 g/dL (14.0-18.0); Mean Corpuscular HGB Conc 29.0 g/dl (32-36); Mean Corpuscular Hemoglobin 22.3 pg (26-34); Mean Corpuscular Volume 76.8 fl (80-100); Platelet Count Result 182 k/mm3 (150-375); Red Blood Count 3.19 M/mm3 (4.6-6.20); White Blood Count 8.9 K/mm3 (4.5-10.0)
[2025-07-16 05:36] LABS: INR 2.7; Prothrombin Time 27.9 Seconds (11.1-14.7)
[2025-07-16 05:39] LABS: Alanine Aminotransferase 13 U/L (6-50); Albumin Level 3.3 g/dL (3.5-5.1); Alkaline Phosphatase 67 U/L (38-126); Anion Gap 6 mmol/L (4-12); Aspartate Amino Transferase 23 U/L (17-59); Bilirubin,Total 0.5 mg/dL (0.2-1.3); Blood Urea Nitrogen 23 mg/dL (9-20); Calcium 8.6 mg/dL (8.4-10.2); Carbon Dioxide 25 mmol/L (22-30); Chloride 105 mmol/L (98-107); Estimated CRCL calculation 43 ml/min; Estimated Glomerular Filt Rate 49; Glucose 98 mg/dL (65-110); Potassium 3.8 mmol/L (3.4-5.0); Sodium 136 mmol/L (137-145); Total Protein 6.3 g/dL (6.3-8.2)
--- NOTE | 2025-07-16 08:09 | P.PNIM_ITS ---
Progress Note: A&P Assessment and Plan (1) Footdrop: Code(s): M21.379 - Foot drop, unspecified foot Status: Acute Assessment and Plan: Patient notes he has been having ongoing left knee pain for 20-30 years. States pain has worsened and he has developed foot drop which prompted him to come to the hospital. He states he has been having increased sciatica flares which have caused foot drop in the past. Patient reports he was seen by [facility] and a surgeon in [place] for surgical intervention few years ago and decided not to proceed - Mag and B12 WNL - Head CT: no acute intracranial hemorrhage, mass effect. probable chronic ischemic white matter change - Head/neck CTA: Mild nonspecific cerebral white matter disease, which likely represents chronic small vessel ischemic disease. No aneurysm or significant intracranial internal stenosis. No significant stenosis to the bilateral ICAs. Moderate stenosis of proximal left vertebral artery. - MRI unable to be obtained as patient has a pacemaker - Given complaints of knee pain and foot drop obtained doppler, lumbar spine ct, and knee xr, all were unremarkable again unable to get further imaging with MRI to evaluate foot drop given pacemaker Ordered ankle-foot arthrosis to prevent a fall - Echo: LVEF 60-65% with grade III diastolic dysfunction, severe tricuspid regurg and severe pulmonary HTN possible tricuspid regurg secondary to pulmonary htn patient to follow up with primary mobile health vehicle operator as not currently in acute exacerbation - Increased atorvastatin dose to 40 mg daily and Continue aspirin 81 mg - Telemetry monitoring - PT/OT eval and treat - Neurology consulted, appreciate assistance and recommendations EMG nerve conduction study as an outpatient MRI of the brain and spine, unable to obtain during hospitalization 2/2 pacemaker. Can be obtained outpatient. (2) Anemia: Qualifiers: Anemia type: unspecified type Qualified Code(s): D64.9 - Anemia, unspecified Code(s): D64.9 - Anemia, unspecified Status: Acute Assessment and Plan: H and H is 7.7/ 27.2 on admission, hemoglobin on 12/09/2024 was normal. EGD and colonoscopy in 2018 were normal. H/H remains low but stable. Obtain stool for occult blood Denies bloody bowel movements Iron panel: Iron 20, TIBC 378, % sat 5. Ferritin 5.87. Consistent with iron deficiency. IV iron 200 mg x3 doses, then start oral supplementation B12 and folate WNL GI consulted Discussed patient with GI Dr. Unger. Since patient is on warfarin unable to obtain scopes during this admission as INR will need to be around 1.5 which can take several days. Per Dr. Unger the scopes can be performed outpatient and the patient can hold the warfarin a few days prior. Discussed patient with Dr. Moreno. H/H remains stable but significantly lower than baseline. Currently 7.1 on am labs. Will hold warfarin at this time as patient is currently in sinus rhythm and concern for possible bleed. Will reassess H/H in the am. He remains on iron infusions and will be transitioned to oral iron supplements tomorrow. CT abdomen/pelvis obtained to assess for other causes of anemia, unremarkable. Discussed patient with his mobile health vehicle operator Dr. Covarrubias nurse at [facility]. Per the RN Dr. Levin is aware we are holding the warfarin at this time given on going anemia and is in agreement with this plan. (3) PAF (paroxysmal atrial fibrillation): Code(s): I48.0 - Paroxysmal atrial fibrillation Status: Acute Assessment and Plan: Chronic, continue home medications s/p pacemaker - diltiazem 120 mg daily - sotalol 80mg BID - metoprolol 12.5 mg daily - holding Coumadin given ongoing anemia, patients primary mobile health vehicle operator Dr. Araujo aware (4) Dysphagia: Qualifiers: Dysphagia type: esophageal phase Qualified Code(s): R13.19 - Other dysphagia Code(s): R13.10 - Dysphagia, unspecified Status: Acute Assessment and Plan: Patient endorses intermittent nausea. Per family he has been having chronic nausea, belching and been unable to lay back after meals. Likely GERD. Continue protonix Patient to get outpatient egd per gi which will further assess (5) Hypertensive heart disease without congestive heart failure: Code(s): I11.9 - Hypertensive heart disease without heart failure Status: Acute Assessment and Plan: Chronic continue home medications - diltiazem 120 mg daily - sotalol 80mg BID - lisinopril 5 mg daily - metoprolol 12.5 mg daily - Lasix 20 mg daily (6) Pure hypercholesterolemia: Code(s): E78.00 - Pure hypercholesterolemia, unspecified Status: Acute Assessment and Plan: -continue with atorvastatin and monitor liver enzymes (7) Hypothyroidism: Code(s): E03.9 - Hypothyroidism, unspecified Status: Acute Assessment and Plan: - TSH WNL -continue with levothyroxine 75 mcg daily (8) DOMINICK (obstructive sleep apnea): Code(s): G47.33 - Obstructive sleep apnea (adult) (pediatric) Status: Acute Assessment and Plan: Continue with home settings for CPAP. Time Spent With Patient Time with patient: 25 - 35 minutes Subjective Date/time seen: 07/16/25 08:09 Interval history: 84 year old male with past medical history of aortic stenosis, skin cancer, lumbar spinal stenosis, gerd, htn, hyperlipidemia, dominick on cpap, and afib presents to the hospital for lower extremity pain and weakness. Patient is pleasant sitting up comfortably in his chair with family at bedside. Patient continues to states that his knee pain is improving. He denies any tingling/numbness at this time notes that the plantar and dorsal flexion have improved slightly since admission. He has no other complaints denying chest pain, shortness a breath, palpitations, nausea/vomiting, and abdominal pain. Discussed patient's ongoing anemia and that we are holding his warfarin at this time. Patient was quite hesitant to hold his warfarin as he has been on this for his AFib per his mobile health vehicle operator. Updated patient that this was discussed with his mobile health vehicle operator. Review of Systems Review of Systems: All systems reviewed & are unremarkable except as noted in HPI and below Exam Narrative: AF HR General: male in no acute respiratory distress who is nontoxic appearing, lying semi recumbent in bed. HEENT: Normocephalic. Atraumatic. Extraocular movement intact. Sclera clear and anicteric. No facial asymmetry. Chest: Lungs are clear to auscultation bilaterally. No wheezes or crackles. CV: Heart was regular rate and rhythm. Abd: Abdomen was soft. Nontender. Nondistended. Positive bowel sounds. Ext: No clubbing, cyanosis, or edema. DP pulses bilaterally. Neuro: Patient is alert and oriented x4. Strength is 5/5 in both upper extrem ities. Decreased plantar/dorsal flexion and extension to left foot. Unable to curl left toes. Cranial nerves 2-12 are intact. Speech is clear. Objective Data Vital Signs Vital Signs: Vital Signs - 24 hr 07/15/25 08:26 07/15/25 08:28 07/15/25 10:48 Temperature Pulse Rate 70 70 Respiratory Rate Blood Pressure Pulse Oximetry Oxygen Delivery Room Air 07/15/25 11:20 07/15/25 12:06 07/15/25 15:28 Temperature 97.3 F L Pulse Rate 70 70 Respiratory Rate 20 Blood Pressure 93/49 L Pulse Oximetry 98 Oxygen Delivery Room Air 07/15/25 16:05 07/15/25 20:00 07/15/25 20:00 Temperature 97.7 F Pulse Rate 70 70 70 Respiratory Rate 20 Blood Pressure 90/54 L Pulse Oximetry 97 Oxygen Delivery 07/15/25 22:54 07/15/25 23:50 07/16/25 00:00 Temperature 97.6 F Pulse Rate 69 70 Respiratory Rate 20 Blood Pressure 90/40 L 112/53 L Pulse Oximetry 94 Oxygen Delivery 07/16/25 04:00 07/16/25 04:00 Temperature 97.6 F Pulse Rate 72 70 Respiratory Rate 20 Blood Pressure 109/61 Pulse Oximetry 100 Oxygen Delivery Intake/Output Intake/Output: Intake & Output 07/13/25 07/14/25 07/15/25 07/16/25 23:59 23:59 23:59 23:59 Intake Total 980 1400 290 Output Total 300 1450 1750 200 Balance -300 -470 -350 90 Meds/Results Medications: Active Medications Generic Name Dose Route Start Last Admin Trade Name Asael PRN Reason Stop Dose Admin Acetaminophen 650 mg 07/15/25 11:13 07/15/25 17:36 Acetaminophen 325 Mg Tablet PO 650 mg Q4HR PRN Administration Pain or Fever Aspirin 81 mg 07/14/25 09:00 07/15/25 08:28 Aspirin 81 Mg Enteric Tablet PO 81 mg QAM CARL Administration Atorvastatin Calcium 40 mg 07/14/25 21:00 07/15/25 20:40 Atorvastatin 40 Mg Tablet PO 40 mg HS CARL Administration Diltiazem HCl 120 mg 07/14/25 21:00 07/15/25 23:42 Diltiazem Hcl Cd 120 Mg Cap.24hr PO Not Given HS CARL Ferrous Sulfate 325 mg 07/17/25 09:00 Ferrous Sulfate 325 Mg Tablet PO BID CARL Finasteride 5 mg 07/14/25 21:00 07/15/25 20:40 Finasteride 5 Mg Tablet PO 5 mg HS CARL Administration Fish Oil 1 gm 07/14/25 09:00 07/15/25 08:26 [place] 3 Polyunsat Fatty Acids 1 Gm Cap PO 1 gm DAILY CARL Administration Furosemide 20 mg 07/14/25 09:00 07/15/25 08:28 Furosemide 20 Mg Tablet PO 20 mg DAILY CARL Administration Gabapentin 100 mg 07/14/25 09:00 07/15/25 17:36 Gabapentin 100 Mg Capsule PO 100 mg TID CARL Administration Iron Sucrose 200 mg/ Sodium 110 mls @ 220 mls/hr 07/14/25 09:30 07/15/25 08:28 Chloride IVPB 07/16/25 09:29 220 mls/hr DAILY CARL Administration Levothyroxine Sodium 75 mcg 07/14/25 06:30 07/16/25 05:18 Levothyroxine Sodium 75 Mcg Tablet PO 75 mcg DAILY@0630 CARL Administration Lisinopril 5 mg 07/14/25 09:00 07/15/25 08:28 Lisinopril 5 Mg Tablet PO 5 mg QAM CARL Administration Metoprolol Succinate 12.5 mg 07/14/25 09:00 07/15/25 08:26 Metoprolol Succinate Ext Rel 12.5 Mg Tabcr PO 12.5 mg QAM CARL Administration Nicotine 1 patch 07/14/25 09:00 07/15/25 08:28 Nicotine (*Pbkc) 21 Mg Patch TRANSDERM 1 patch DAILY CARL Administration Pantoprazole Sodium 40 mg 07/14/25 09:00 07/15/25 08:28 Pantoprazole 40 Mg Tablet PO 40 mg QAM CARL Administration Perflutren Lipid Microsphere 0 ml 07/14/25 09:22 Perflutren Lipid Microspheres 1.5 Ml Vial Diluted To 10 Ml Total Volume IV PUSH 07/17/25 09:22 ONCE PRN adequate visualization Protocol Polyethylene Glycol 17 gm 07/16/25 09:00 Polyethylene Glycol 3350 17 Gm Powd.Pack PO QAM CARL Potassium Chloride 20 meq 07/14/25 09:00 07/15/25 08:28 Potassium Chloride 20 Meq Er Tablet PO 20 meq DAILY CARL Administration Promethazine HCl 6.25 mg 07/14/25 15:38 07/14/25 16:11 Promethazine Hcl 6.25 Mg Tablet PO 6.25 mg Q4H PRN Administration Nausea And Vomiting Sotalol HCl 80 mg 07/14/25 09:00 07/15/25 23:42 Sotalol Hcl 80 Mg Tablet PO Not Given Q12HR CARL Warfarin Sodium 4 mg 07/15/25 17:00 07/15/25 17:39 Warfarin (*Pbkc) 4 Mg Tablet PO 4 mg SuTuThSa@1700 [facility] Administration Warfarin Sodium 2 mg 07/16/25 17:00 Warfarin (*Pbkc) 2 Mg Tablet PO MoWeFr@1700 [facility] Radiology Results: ITS Impressions Venous Doppler Study 07/13/25 17:31 Impression: Negative for DVT. ADDENDUM: 07/14/25 0815 There is a small thrombus within the left posterior tibial vein with diminished flow and compression Head CT 07/13/25 17:39 IMPRESSION: 1. No acute intracranial hemorrhage. No mass effect. 2. Probable chronic ischemic white matter change. Lumbar Spine CT 07/13/25 17:46 Impression: No acute abnormality. Knee X-Ray 07/13/25 17:48 Impression: No acute fracture or malalignment. Head/Neck CTA 07/13/25 20:27 IMPRESSION: 1. Mild nonspecific cerebral white matter disease, which likely represents chronic small vessel ischemic disease. 2. No aneurysm or significant intracranial internal stenosis. 3. 0% stenosis of the proximal right internal carotid artery relative to normal distal artery lumen diameter (NASCET criteria). 4. 27% stenosis of the proximal left internal carotid artery relative to normal distal artery lumen diameter. 5. Moderate stenosis of proximal left vertebral artery. Labs Labs: Laboratory Results - last 24 hr 07/14/25 07/15/25 07/16/25 11:08 08:39 05:15 WBC 8.9 RBC 3.19 L Hgb 7.1 L Hct 24.5 L MCV 76.8 L D MCH 22.3 L MCHC 29.0 L RDW 17.3 H Plt Count 182 MPV 10.4 Haptoglobin 212 PT 23.2 H 27.9 H D INR 2.1 2.7 Sodium 136 L Potassium 3.8 Chloride 105 Carbon Dioxide 25 Anion Gap 6 BUN 23 H Creatinine 1.39 H Estim Creat Clear Calc 43 Estimated GFR 49 L Glucose 98 Calcium 8.6 Total Bilirubin 0.5 AST 23 ALT 13 Alkaline Phosphatase 67 Total Protein 6.3 Albumin 3.3 L Quality VTE Prophylaxis VTE prophylaxis: pharmacologic ordered
[2025-07-16] MEDS: ASPIRIN 81 MG ENTERIC TABLET PO (10:04)
[2025-07-16] MEDS: ACETAMINOPHEN 325 MG TABLET 650 MG PO ×2 (10:04→14:04)
[2025-07-16] MEDS: POTASSIUM CHLORIDE 20 MEQ ER TABLET PO (10:04)
[2025-07-16] MEDS: FUROSEMIDE 20 MG TABLET PO (10:05)
[2025-07-16] MEDS: PANTOPRAZOLE 40 MG TABLET PO (10:05)
[2025-07-16] MEDS: NICOTINE (*PBKC) 21 MG PATCH 1 PATCH TRANSDERM (10:05)
[2025-07-16] MEDS: SOTALOL HCL 80 MG TABLET PO (10:05)
[2025-07-16] MEDS: GABAPENTIN 100 MG CAPSULE PO ×3 (10:05→17:03)
[2025-07-16] MEDS: OMEGA 3 POLYUNSAT FATTY ACIDS 1 GM CAP PO (10:05)
[2025-07-16] MEDS: IRON SUCROSE COMPLEX 200 MG in SODIUM CHLORIDE 0.9% IV 100 ML 220 MG IVPB (10:06)
--- NOTE | 2025-07-16 17:27 | P.PNGI_ITS ---
Progress Note: A&P Assessment and Plan (1) TANIYA (iron deficiency anemia): Qualifiers: Iron deficiency anemia type: unspecified iron deficiency Qualified Code(s): D50.9 - Iron deficiency anemia, unspecified Code(s): D50.9 - Iron deficiency anemia, unspecified Status: Acute Assessment and Plan: we can not perform scopes until inr<1.5, will take probably another 5 days or so plan is to do egd/colonoscopy as outpatient after safely to hold coumadin to allow inr <1.5, will set up for him no overt gib will follow only as needed (2) PAF (paroxysmal atrial fibrillation): Code(s): I48.0 - Paroxysmal atrial fibrillation Status: Acute (3) Warfarin anticoagulation: Code(s): Z79.01 - half-way (current) use of anticoagulants Status: Acute (4) Dysphagia: Qualifiers: Dysphagia type: esophageal phase Qualified Code(s): R13.19 - Other dysphagia Code(s): R13.10 - Dysphagia, unspecified Status: Acute Assessment and Plan: he is eating, no major issue (5) Footdrop: Code(s): M21.379 - Foot drop, unspecified foot Status: Acute Subjective Date/time seen: 07/16/25 17:27 Interval history: comfortable, he is eating, no overt gib he had coumadin yesterday Review of Systems Review of Systems: All systems reviewed & are unremarkable except as noted in HPI and below Exam Const: General: cooperative, comfortable, no acute distress and well developed Orientation/consciousness: patient oriented x3 HENMT: Head: normal to inspection, normocephalic and atraumatic Eyes: General: appearance normal, both eyes and all related structures Sclera: sclerae normal Neck: Neck: normal visual inspection Chest: Chest palpation & inspection: normal inspection of the chest Resp: Effort & Inspection: normal respiratory effort and able to speak in complete sentences Auscultation: clear to auscultation bilaterally Cardio: Rate: regular rate Rhythm: regular rhythm GI: Inspection: normal to inspection GI Palp: Yes Soft to palpation Skin: General skin exam: normal color Neuro: General: oriented to person, oriented to place, oriented to time and patient oriented x3 Cranial nerves: Yes Equal, round and reactive pupils present Speech: normal speech Extrem: General: no clubbing, cyanosis or edema Other: left foot drop and mild numbness to bilateral legs Psych: Appearance: grossly normal and well kempt Affect: normal affect Objective Data Vital Signs Vital Signs: Vital Signs - 24 hr 07/15/25 20:00 07/15/25 20:00 07/15/25 22:54 Temperature 97.7 F Pulse Rate 70 70 Respiratory Rate 20 Blood Pressure 90/54 L 90/40 L Pulse Oximetry 97 07/15/25 23:50 07/16/25 00:00 07/16/25 04:00 Temperature 97.6 F 97.6 F Pulse Rate 69 70 72 Respiratory Rate 20 20 Blood Pressure 112/53 L 109/61 Pulse Oximetry 94 100 07/16/25 04:00 07/16/25 08:00 07/16/25 08:05 Temperature 97.9 F Pulse Rate 70 70 70 Respiratory Rate 18 Blood Pressure 103/54 L Pulse Oximetry 100 07/16/25 10:05 07/16/25 12:00 07/16/25 12:06 Temperature 98.2 F Pulse Rate 70 64 70 Respiratory Rate 16 Blood Pressure 110/62 Pulse Oximetry 98 07/16/25 16:05 Temperature Pulse Rate 70 Respiratory Rate Blood Pressure Pulse Oximetry Intake/Output Intake/Output: Intake & Output 07/13/25 07/14/25 07/15/25 07/16/25 23:59 23:59 23:59 23:59 Intake Total 980 1510 770 Output Total 300 1450 1750 200 Balance -300 -470 -240 570 Meds/Results Medications: Active Medications Generic Name Dose Route Start Last Admin Trade Name Freq PRN Reason Stop Dose Admin Acetaminophen 650 mg 07/15/25 11:13 07/16/25 14:04 Acetaminophen 325 Mg Tablet PO 650 mg Q4HR PRN Administration Pain or Fever Aspirin 81 mg 07/14/25 09:00 07/16/25 10:04 Aspirin 81 Mg Enteric Tablet PO 81 mg QAM CARL Administration Atorvastatin Calcium 40 mg 07/14/25 21:00 07/15/25 20:40 Atorvastatin 40 Mg Tablet PO 40 mg HS CARL Administration Diltiazem HCl 120 mg 07/14/25 21:00 07/15/25 23:42 Diltiazem Hcl Cd 120 Mg Cap.24hr PO Not Given HS CARL Ferrous Sulfate 325 mg 07/17/25 09:00 Ferrous Sulfate 325 Mg Tablet PO BID CARL Finasteride 5 mg 07/14/25 21:00 07/15/25 20:40 Finasteride 5 Mg Tablet PO 5 mg HS CARL Administration Fish Oil 1 gm 07/14/25 09:00 07/16/25 10:05 [place] 3 Polyunsat Fatty Acids 1 Gm Cap PO 1 gm DAILY CARL Administration Furosemide 20 mg 07/14/25 09:00 07/16/25 10:05 Furosemide 20 Mg Tablet PO 20 mg DAILY CARL Administration Gabapentin 100 mg 07/14/25 09:00 07/16/25 17:03 Gabapentin 100 Mg Capsule PO 100 mg TID CARL Administration Levothyroxine Sodium 75 mcg 07/14/25 06:30 07/16/25 05:18 Levothyroxine Sodium 75 Mcg Tablet PO 75 mcg DAILY@0630 CARL Administration Lisinopril 5 mg 07/14/25 09:00 07/16/25 10:05 Lisinopril 5 Mg Tablet PO 5 mg QAM CARL Administration Metoprolol Succinate 12.5 mg 07/14/25 09:00 07/16/25 08:32 Metoprolol Succinate Ext Rel 12.5 Mg Tabcr PO Not Given QAM CARL Nicotine 1 patch 07/14/25 09:00 07/16/25 10:05 Nicotine (*Pbkc) 21 Mg Patch TRANSDERM 1 patch DAILY CARL Administration Pantoprazole Sodium 40 mg 07/14/25 09:00 07/16/25 10:05 Pantoprazole 40 Mg Tablet PO 40 mg QAM CARL Administration Perflutren Lipid Microsphere 0 ml 07/14/25 09:22 Perflutren Lipid Microspheres 1.5 Ml Vial Diluted To 10 Ml Total Volume IV PUSH 07/17/25 09:22 ONCE PRN adequate visualization Protocol Polyethylene Glycol 17 gm 07/16/25 09:00 07/16/25 10:05 Polyethylene Glycol 3350 17 Gm Powd.Pack PO 17 gm QAM CARL Administration Potassium Chloride 20 meq 07/14/25 09:00 07/16/25 10:04 Potassium Chloride 20 Meq Er Tablet PO 20 meq DAILY CARL Administration Promethazine HCl 6.25 mg 07/14/25 15:38 07/14/25 16:11 Promethazine Hcl 6.25 Mg Tablet PO 6.25 mg Q4H PRN Administration Nausea And Vomiting Sotalol HCl 80 mg 07/14/25 09:00 07/16/25 10:05 Sotalol Hcl 80 Mg Tablet PO 80 mg Q12HR [facility] Administration Warfarin Sodium 4 mg 07/15/25 17:00 07/15/25 17:39 Warfarin (*Pbkc) 4 Mg Tablet PO 4 mg On Hold: 07/16/25 08:14 [email or web address] [facility] Administration Warfarin Sodium 2 mg 07/16/25 17:00 07/16/25 17:07 Warfarin (*Pbkc) 2 Mg Tablet PO Not Given On Hold: 07/16/25 17:06 [email or web address] [facility] Radiology Results: ITS Impressions Venous Doppler Study 07/13/25 17:31 Impression: Negative for DVT. ADDENDUM: 07/14/25 0815 There is a small thrombus within the left posterior tibial vein with diminished flow and compression Head CT 07/13/25 17:39 IMPRESSION: 1. No acute intracranial hemorrhage. No mass effect. 2. Probable chronic ischemic white matter change. Lumbar Spine CT 07/13/25 17:46 Impression: No acute abnormality. Knee X-Ray 07/13/25 17:48 Impression: No acute fracture or malalignment. Head/Neck CTA 07/13/25 20:27 IMPRESSION: 1. Mild nonspecific cerebral white matter disease, which likely represents chronic small vessel ischemic disease. 2. No aneurysm or significant intracranial internal stenosis. 3. 0% stenosis of the proximal right internal carotid artery relative to normal distal artery lumen diameter (NASCET criteria). 4. 27% stenosis of the proximal left internal carotid artery relative to normal distal artery lumen diameter. 5. Moderate stenosis of proximal left vertebral artery. Abdomen/Pelvis CT 07/16/25 11:00 IMPRESSION: 1. No acute findings. Labs Labs: Laboratory Results - last 24 hr 07/14/25 07/16/25 11:08 05:15 WBC 8.9 RBC 3.19 L Hgb 7.1 L Hct 24.5 L MCV 76.8 L D MCH 22.3 L MCHC 29.0 L RDW 17.3 H Plt Count 182 MPV 10.4 PT 27.9 H D INR 2.7 Sodium 136 L Potassium 3.8 Chloride 105 Carbon Dioxide 25 Anion Gap 6 BUN 23 H Creatinine 1.39 H Estim Creat Clear Calc 43 Estimated GFR 49 L Glucose 98 Calcium 8.6 Jessica Transferrin Receptr 57.6 H Total Bilirubin 0.5 AST 23 ALT 13 Alkaline Phosphatase 67 Total Protein 6.3 Albumin 3.3 L
[2025-07-16] MEDS: FINASTERIDE 5 MG TABLET PO (21:16)
[2025-07-16] MEDS: ATORVASTATIN 40 MG TABLET PO (21:16)
[2025-07-17] VITALS (13 sets, daily range): BP systolic 98–115; BP diastolic 47–62; PULSE 68–100; RESP 18–20; TEMP 36.3–36.8; O2SAT 95–100
[2025-07-17] MEDS: LEVOTHYROXINE SODIUM 75 MCG TABLET PO (05:19)
[2025-07-17 05:34] LABS: Hematocrit 26.3 % (42.0-52.0); Hemoglobin 7.5 g/dL (14.0-18.0); Mean Corpuscular HGB Conc 28.5 g/dl (32-36); Mean Corpuscular Hemoglobin 22.1 pg (26-34); Mean Corpuscular Volume 77.6 fl (80-100); Platelet Count Result 202 k/mm3 (150-375); Red Blood Count 3.39 M/mm3 (4.6-6.20); White Blood Count 6.7 K/mm3 (4.5-10.0)
[2025-07-17 05:56] LABS: Alanine Aminotransferase 12 U/L (6-50); Albumin Level 3.3 g/dL (3.5-5.1); Alkaline Phosphatase 64 U/L (38-126); Anion Gap 3 mmol/L (4-12); Aspartate Amino Transferase 21 U/L (17-59); Bilirubin,Total 0.5 mg/dL (0.2-1.3); Blood Urea Nitrogen 21 mg/dL (9-20); Calcium 8.8 mg/dL (8.4-10.2); Carbon Dioxide 27 mmol/L (22-30); Chloride 106 mmol/L (98-107); Estimated CRCL calculation 46 ml/min; Estimated Glomerular Filt Rate 53; Glucose 99 mg/dL (65-110); Potassium 4.5 mmol/L (3.4-5.0); Sodium 136 mmol/L (137-145); Total Protein 6.2 g/dL (6.3-8.2)
[2025-07-17 06:06] LABS: INR 2.5; Prothrombin Time 26.1 Seconds (11.1-14.7)
--- NOTE | 2025-07-17 08:45 | P.PNIM_ITS ---
Progress Note: A&P Assessment and Plan (1) Footdrop: Code(s): M21.379 - Foot drop, unspecified foot Status: Acute Assessment and Plan: Patient notes he has been having ongoing left knee pain for 20-30 years. States pain has worsened and he has developed foot drop which prompted him to come to the hospital. He states he has been having increased sciatica flares which have caused foot drop in the past. Patient reports he was seen by [facility] and a surgeon in [place] for surgical intervention few years ago and decided not to proceed - Mag and B12 WNL - Head CT: no acute intracranial hemorrhage, mass effect. probable chronic ischemic white matter change - Head/neck CTA: Mild nonspecific cerebral white matter disease, which likely represents chronic small vessel ischemic disease. No aneurysm or significant intracranial internal stenosis. No significant stenosis to the bilateral ICAs. Moderate stenosis of proximal left vertebral artery. 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 Can be obtained outpatient. Patient endorsing improvement to the left foot mobility. Denies pain to the knee as well as tingling/numbness. (2) Anemia: Qualifiers: Anemia type: unspecified type Qualified Code(s): D64.9 - Anemia, unspecified Code(s): D64.9 - Anemia, unspecified Status: Acute Assessment and Plan: H and H is 7.7/ 27.2 on admission, hemoglobin on 12/09/2024 was normal. EGD and colonoscopy in 2018 were normal. H/H remains low but stable. Obtain stool for occult blood Denies bloody bowel movements Iron panel: Iron 20, TIBC 378, % sat 5. Ferritin 5.87. Consistent with iron deficiency. IV iron 200 mg x3 doses, then start oral supplementation B12 and folate WNL GI consulted Since patient is on warfarin unable to obtain scopes during this admission as INR will need to be around 1.5 which can take several days. Per Dr. Unger the scopes can be performed outpatient and the patient can hold the warfarin a few days prior. H/H remains lower than baseline but stable. H/H 7.5/26.[address] abdomen/pelvis obtained to assess for other causes of anemia, unremarkable. Continue to hold warfarin at this time as patient is currently in sinus rhythm and concern for possible bleed. Patient tnt line supervisor Dr. Covarrubias is aware we are holding the warfarin at this time given on going anemia and is in agreement with this plan. Continue to monitor H/H on am labs. (3) PAF (paroxysmal atrial fibrillation): Code(s): I48.0 - Paroxysmal atrial fibrillation Status: Acute Assessment and Plan: Chronic, continue home medications s/p pacemaker - diltiazem 120 mg daily - sotalol 80mg BID - metoprolol 12.5 mg daily - holding Coumadin given ongoing anemia, patients primary tnt line supervisor Dr. Araujo aware Tele reviewed remains in a paced rhythm. (4) Dysphagia: Qualifiers: Dysphagia type: esophageal phase Qualified Code(s): R13.19 - Other dysphagia Code(s): R13.10 - Dysphagia, unspecified Status: Acute Assessment and Plan: Patient endorses intermittent nausea. Per family he has been having chronic nausea, belching and been unable to lay back after meals. Likely GERD. Continue protonix Patient to get outpatient egd per gi which will further assess (5) Hypertensive heart disease without congestive heart failure: Code(s): I11.9 - Hypertensive heart disease without heart failure Status: Acute Assessment and Plan: Chronic continue home medications - diltiazem 120 mg daily - sotalol 80mg BID - lisinopril 5 mg daily - metoprolol 12.5 mg daily - Lasix 20 mg daily - Blood pressures reviewed and remain stable, continue to monitor. (6) Pure hypercholesterolemia: Code(s): E78.00 - Pure hypercholesterolemia, unspecified Status: Acute Assessment and Plan: -continue with atorvastatin and monitor liver enzymes (7) Hypothyroidism: Code(s): E03.9 - Hypothyroidism, unspecified Status: Acute Assessment and Plan: - TSH WNL -continue with levothyroxine 75 mcg daily (8) DOMINICK (obstructive sleep apnea): Code(s): G47.33 - Obstructive sleep apnea (adult) (pediatric) Status: Acute Assessment and Plan: Continue with home settings for CPAP. Time Spent With Patient Time with patient: 25 - 35 minutes Subjective Date/time seen: 07/17/25 08:45 Interval history: 84 year old male with past medical history of aortic stenosis, skin cancer, lumbar spinal stenosis, gerd, htn, hyperlipidemia, dominick on cpap, and afib presents to the hospital for lower extremity pain and weakness. Patient is pleasant sitting up comfortably in bed. Patient endorsing improvement to the left foot mobility. Denies pain to the knee as well as tingling/numbness. Patient states arthrosis is helping with ambulation. Patient has no other complaints denying chest pain, shortness a breath, palpitations, nausea/vomiting, abdominal pain, and dizziness/lightheadedness. Review of Systems Review of Systems: All systems reviewed & are unremarkable except as noted in HPI and below Exam Narrative: AF HR 72 RR 18 Spo2 98 BP 105/51 General: male in no acute respiratory distress who is nontoxic appearing, sitting up in bed. HEENT: Normocephalic. Atraumatic. Extraocular movement intact. Sclera clear and anicteric. No facial asymmetry. Chest: Lungs are clear to auscultation bilaterally. No wheezes or crackles. CV: Heart was regular rate and rhythm. Abd: Abdomen was soft. Nontender. Nondistended. Positive bowel sounds. Ext: No clubbing, cyanosis, or edema. DP pulses bilaterally. Neuro: Patient is alert. Strength is 5/5 in both upper extremities. Plantar flexion symmetrical bilaterally, weak dorsal flexion to the left. Speech is clear. Objective Data Vital Signs Vital Signs: Vital Signs - 24 hr 07/16/25 10:05 07/16/25 12:00 07/16/25 12:06 Temperature 98.2 F Pulse Rate 70 64 70 Respiratory Rate 16 Blood Pressure 110/62 Pulse Oximetry 98 07/16/25 16:00 07/16/25 16:05 07/16/25 20:00 Temperature 98.1 F 97.0 F L Pulse Rate 68 70 69 Respiratory Rate 20 18 Blood Pressure 110/62 100/53 L Pulse Oximetry 98 100 07/16/25 20:00 07/17/25 00:00 07/17/25 04:00 Temperature Pulse Rate 70 70 70 Respiratory Rate Blood Pressure Pulse Oximetry 07/17/25 06:00 Temperature 97.3 F L Pulse Rate 70 Respiratory Rate 18 Blood Pressure 105/54 L Pulse Oximetry 97 Intake/Output Intake/Output: Intake & Output 07/14/25 07/15/25 07/16/25 07/17/25 23:59 23:59 23:59 23:59 Intake Total 980 1510 2860 500 Output Total 1450 1750 500 900 Balance -470 -240 2360 -400 Meds/Results Medications: Active Medications Generic Name Dose Route Start Last Admin Trade Name Freq PRN Reason Stop Dose Admin Acetaminophen 650 mg 07/15/25 11:13 07/16/25 14:04 Acetaminophen 325 Mg Tablet PO 650 mg Q4HR PRN Administration Pain or Fever Aspirin 81 mg 07/14/25 09:00 07/16/25 10:04 Aspirin 81 Mg Enteric Tablet PO 81 mg QAM CARL Administration Atorvastatin Calcium 40 mg 07/14/25 21:00 07/16/25 21:16 Atorvastatin 40 Mg Tablet PO 40 mg HS CARL Administration Diltiazem HCl 120 mg 07/14/25 21:00 07/16/25 21:17 Diltiazem Hcl Cd 120 Mg Cap.24hr PO Not Given HS CARL Ferrous Sulfate 325 mg 07/17/25 09:00 Ferrous Sulfate 325 Mg Tablet PO BID CARL Finasteride 5 mg 07/14/25 21:00 07/16/25 21:16 Finasteride 5 Mg Tablet PO 5 mg HS CARL Administration Fish Oil 1 gm 07/14/25 09:00 07/16/25 10:05 [place] 3 Polyunsat Fatty Acids 1 Gm Cap PO 1 gm DAILY CARL Administration Furosemide 20 mg 07/14/25 09:00 07/16/25 10:05 Furosemide 20 Mg Tablet PO 20 mg DAILY CARL Administration Gabapentin 100 mg 07/14/25 09:00 07/16/25 17:03 Gabapentin 100 Mg Capsule PO 100 mg TID CARL Administration Levothyroxine Sodium 75 mcg 07/14/25 06:30 07/17/25 05:19 Levothyroxine Sodium 75 Mcg Tablet PO 75 mcg DAILY@0630 CARL Administration Lisinopril 5 mg 07/14/25 09:00 07/16/25 10:05 Lisinopril 5 Mg Tablet PO 5 mg QAM CARL Administration Metoprolol Succinate 12.5 mg 07/14/25 09:00 07/16/25 08:32 Metoprolol Succinate Ext Rel 12.5 Mg Tabcr PO Not Given QAM CARL Nicotine 1 patch 07/14/25 09:00 07/16/25 10:05 Nicotine (*Pbkc) 21 Mg Patch TRANSDERM 1 patch DAILY CARL Administration Pantoprazole Sodium 40 mg 07/14/25 09:00 07/16/25 10:05 Pantoprazole 40 Mg Tablet PO 40 mg QAM CARL Administration Perflutren Lipid Microsphere 0 ml 07/14/25 09:22 Perflutren Lipid Microspheres 1.5 Ml Vial Diluted To 10 Ml Total Volume IV PUSH 07/17/25 09:22 ONCE PRN adequate visualization Protocol Polyethylene Glycol 17 gm 07/16/25 09:00 07/16/25 10:05 Polyethylene Glycol 3350 17 Gm Powd.Pack PO 17 gm QAM [facility] Administration Potassium Chloride 20 meq 07/14/25 09:00 07/16/25 10:04 Potassium Chloride 20 Meq Er Tablet PO 20 meq DAILY [facility] Administration Promethazine HCl 6.25 mg 07/14/25 15:38 07/14/25 16:11 Promethazine Hcl 6.25 Mg Tablet PO 6.25 mg Q4H PRN Administration Nausea And Vomiting Sotalol HCl 80 mg 07/14/25 09:00 07/16/25 21:17 Sotalol Hcl 80 Mg Tablet PO Not Given Q12HR [facility] Warfarin Sodium 4 mg 07/15/25 17:00 07/15/25 17:39 Warfarin (*Pbkc) 4 Mg Tablet PO 4 mg On Hold: 07/16/25 08:14 [email or web address] [facility] Administration Warfarin Sodium 2 mg 07/16/25 17:00 07/16/25 17:07 Warfarin (*Pbkc) 2 Mg Tablet PO Not Given On Hold: 07/16/25 17:06 [email or web address] [facility] Radiology Results: ITS Impressions Venous Doppler Study 07/13/25 17:31 Impression: Negative for DVT. ADDENDUM: 07/14/25 0815 There is a small thrombus within the left posterior tibial vein with diminished flow and compression Head CT 07/13/25 17:39 IMPRESSION: 1. No acute intracranial hemorrhage. No mass effect. 2. Probable chronic ischemic white matter change. Lumbar Spine CT 07/13/25 17:46 Impression: No acute abnormality. Knee X-Ray 07/13/25 17:48 Impression: No acute fracture or malalignment. Head/Neck CTA 07/13/25 20:27 IMPRESSION: 1. Mild nonspecific cerebral white matter disease, which likely represents chronic small vessel ischemic disease. 2. No aneurysm or significant intracranial internal stenosis. 3. 0% stenosis of the proximal right internal carotid artery relative to normal distal artery lumen diameter (NASCET criteria). 4. 27% stenosis of the proximal left internal carotid artery relative to normal distal artery lumen diameter. 5. Moderate stenosis of proximal left vertebral artery. Abdomen/Pelvis CT 07/16/25 11:00 IMPRESSION: 1. No acute findings. Labs Labs: Laboratory Results - last 24 hr 07/17/25 05:11 WBC 6.7 RBC 3.39 L Hgb 7.5 L Hct 26.3 L MCV 77.6 L MCH 22.1 L MCHC 28.5 L RDW 17.5 H Plt Count 202 MPV 11.0 H PT 26.1 H INR 2.5 Sodium 136 L Potassium 4.5 Chloride 106 Carbon Dioxide 27 Anion Gap 3 L BUN 21 H Creatinine 1.28 Estim Creat Clear Calc 46 Estimated GFR 53 L Glucose 99 Calcium 8.8 Total Bilirubin 0.5 AST 21 ALT 12 Alkaline Phosphatase 64 Total Protein 6.2 L Albumin 3.3 L Quality VTE Prophylaxis VTE prophylaxis: pharmacologic ordered
[2025-07-17] MEDS: NICOTINE (*PBKC) 21 MG PATCH 1 PATCH TRANSDERM (09:12)
[2025-07-17] MEDS: OMEGA 3 POLYUNSAT FATTY ACIDS 1 GM CAP PO (09:12)
[2025-07-17] MEDS: GABAPENTIN 100 MG CAPSULE PO ×3 (09:12→17:39)
[2025-07-17] MEDS: ASPIRIN 81 MG ENTERIC TABLET PO (09:12)
[2025-07-17] MEDS: FERROUS SULFATE 325 MG TABLET PO ×2 (09:12→17:39)
[2025-07-17] MEDS: METOPROLOL SUCCINATE EXT REL 12.5 MG TABCR PO (09:12)
[2025-07-17] MEDS: PANTOPRAZOLE 40 MG TABLET PO (09:13)
[2025-07-17] MEDS: FUROSEMIDE 20 MG TABLET PO (09:13)
[2025-07-17] MEDS: PROMETHAZINE HCL 6.25 MG TABLET PO (09:13)
[2025-07-17] MEDS: SOTALOL HCL 80 MG TABLET PO ×2 (09:14→20:35)
[2025-07-17] MEDS: POTASSIUM CHLORIDE 20 MEQ ER TABLET PO (09:14)
[2025-07-17] MEDS: ACETAMINOPHEN 325 MG TABLET 650 MG PO ×2 (09:23→20:36)
[2025-07-17] MEDS: WATER FOR IRRIGATION, STERILE 1,000 ML BOTTLE 1000 ML (17:39)
[2025-07-17] MEDS: ATORVASTATIN 40 MG TABLET PO (20:35)
[2025-07-17] MEDS: FINASTERIDE 5 MG TABLET PO (20:36)
[2025-07-17] MEDS: dilTIAZem HCL CD 120 MG CAP.24HR PO (21:00)
[2025-07-18] VITALS (15 sets, daily range): BP systolic 104–129; BP diastolic 51–67; PULSE 68–85; RESP 18–20; TEMP 36.2–36.8; O2SAT 95–100
[2025-07-18] MEDS: LEVOTHYROXINE SODIUM 75 MCG TABLET PO (05:36)
[2025-07-18 05:50] LABS: Hematocrit 28.1 % (42.0-52.0); Hemoglobin 8.0 g/dL (14.0-18.0); Mean Corpuscular HGB Conc 28.5 g/dl (32-36); Mean Corpuscular Hemoglobin 22.2 pg (26-34); Mean Corpuscular Volume 77.8 fl (80-100); Platelet Count Result 220 k/mm3 (150-375); Red Blood Count 3.61 M/mm3 (4.6-6.20); White Blood Count 7.6 K/mm3 (4.5-10.0)
[2025-07-18 06:04] LABS: INR 2.1; Prothrombin Time 23.1 Seconds (11.1-14.7)
[2025-07-18 06:19] LABS: Alanine Aminotransferase 13 U/L (6-50); Albumin Level 3.4 g/dL (3.5-5.1); Alkaline Phosphatase 67 U/L (38-126); Anion Gap 4 mmol/L (4-12); Aspartate Amino Transferase 22 U/L (17-59); Bilirubin,Total 0.5 mg/dL (0.2-1.3); Blood Urea Nitrogen 17 mg/dL (9-20); Calcium 8.8 mg/dL (8.4-10.2); Carbon Dioxide 25 mmol/L (22-30); Chloride 106 mmol/L (98-107); Estimated CRCL calculation 47 ml/min; Estimated Glomerular Filt Rate 55; Glucose 101 mg/dL (65-110); Potassium 4.3 mmol/L (3.4-5.0); Sodium 135 mmol/L (137-145); Total Protein 6.4 g/dL (6.3-8.2)
--- NOTE | 2025-07-18 08:38 | P.PNIM_ITS ---
Progress Note: A&P Assessment and Plan (1) Footdrop: Code(s): M21.379 - Foot drop, unspecified foot Status: Acute Assessment and Plan: Patient notes he has been having ongoing left knee pain for 20-30 years. States pain has worsened and he has developed foot drop which prompted him to come to the hospital. He states he has been having increased sciatica flares which have caused foot drop in the past. Patient reports he was seen by [facility] and a surgeon in [place] for surgical intervention few years ago and decided not to proceed - Mag and B12 WNL - Head CT: no acute intracranial hemorrhage, mass effect. probable chronic ischemic white matter change - Head/neck CTA: Mild nonspecific cerebral white matter disease, which likely represents chronic small vessel ischemic disease. No aneurysm or significant intracranial internal stenosis. No significant stenosis to the bilateral ICAs. Moderate stenosis of proximal left vertebral artery. - MRI unable to be obtained as patient has a pacemaker - Given complaints of knee pain and foot drop obtained doppler, lumbar spine ct, and knee xr, all were unremarkable again unable to get further imaging with MRI to evaluate foot drop given pacemaker Ordered ankle-foot arthrosis to prevent a fall - Echo: LVEF 60-65% with grade III diastolic dysfunction, severe tricuspid regurg and severe pulmonary HTN possible tricuspid regurg secondary to pulmonary htn patient to follow up with primary gluing machine operator electronic as not currently in acute exacerbation - Increased atorvastatin dose to 40 mg daily and Continue aspirin 81 mg - PT/OT eval and treat, recommending acute inpatient rehab. Care coordination working on placement. - Neurology consulted, appreciate assistance and recommendations EMG nerve conduction study as an outpatient MRI of the brain and spine, unable to obtain during hospitalization 2/2 pacemaker. Can be obtained outpatient. Patient continues to endorse improvement to the left foot mobility. States knee mobility is improving as well. Denies pain/tingling/numbness to the lower extremities. (2) Anemia: Qualifiers: Anemia type: unspecified type Qualified Code(s): D64.9 - Anemia, unspecified Code(s): D64.9 - Anemia, unspecified Status: Acute Assessment and Plan: H and H is 7.7/ 27.2 on admission, hemoglobin on 12/09/2024 was normal. EGD and colonoscopy in 2018 were normal. H/H remains low but stable. Obtain stool for occult blood if possible Iron panel: Iron 20, TIBC 378, % sat 5. Ferritin 5.87. Consistent with iron deficiency. IV iron 200 mg x3 doses completed, remains on oral supplementation B12 and folate WNL GI consulted Since patient is on warfarin unable to obtain scopes during this admission as INR will need to be around 1.5 which can take several days. Per Dr. Unger the scopes can be performed outpatient and the patient can hold the warfarin a few days prior. H/H remains lower than baseline but stable. H/H 8/28.1 on am labs. INR 2.1. CT abdomen/pelvis obtained to assess for other causes of anemia, unremarkable. Continue to hold warfarin at this time as patient is currently in sinus rhythm and concern for possible bleed. Patient gluing machine operator electronic Dr. Covarrubias is aware we are holding the warfarin at this time given on going anemia and is in agreement with this plan. Continue to monitor H/H on am labs. (3) PAF (paroxysmal atrial fibrillation): Code(s): I48.0 - Paroxysmal atrial fibrillation Status: Acute Assessment and Plan: Chronic, continue home medications s/p pacemaker - diltiazem 120 mg daily - sotalol 80mg BID - metoprolol 12.5 mg daily - holding Coumadin given ongoing anemia, patients primary gluing machine operator electronic Dr. Araujo aware. SCD in place for DVT ppx. Tele again reviewed remains in a paced rhythm. (4) Dysphagia: Qualifiers: Dysphagia type: esophageal phase Qualified Code(s): R13.19 - Other dysphagia Code(s): R13.10 - Dysphagia, unspecified Status: Acute Assessment and Plan: Patient endorses intermittent nausea. Per family he has been having chronic nausea, belching and been unable to lay back after meals. Likely GERD. Continue protonix Patient to get outpatient egd per gi which will further assess (5) Hypertensive heart disease without congestive heart failure: Code(s): I11.9 - Hypertensive heart disease without heart failure Status: Acute Assessment and Plan: Chronic continue home medications - diltiazem 120 mg daily - sotalol 80mg BID - lisinopril 5 mg daily - metoprolol 12.5 mg daily - Lasix 20 mg daily - Blood pressures reviewed and remain stable, continue to monitor. (6) Pure hypercholesterolemia: Code(s): E78.00 - Pure hypercholesterolemia, unspecified Status: Acute Assessment and Plan: -continue with atorvastatin and monitor liver enzymes (7) Hypothyroidism: Code(s): E03.9 - Hypothyroidism, unspecified Status: Acute Assessment and Plan: - TSH WNL -continue with levothyroxine 75 mcg daily (8) DOMINICK (obstructive sleep apnea): Code(s): G47.33 - Obstructive sleep apnea (adult) (pediatric) Status: Acute Assessment and Plan: Continue with home settings for CPAP. Time Spent With Patient Time with patient: 25 - 35 minutes Subjective Date/time seen: 07/18/25 08:38 Interval history: 84 year old male with past medical history of aortic stenosis, skin cancer, lumbar spinal stenosis, gerd, htn, hyperlipidemia, dominick on cpap, and afib presents to the hospital for lower extremity pain and weakness. Patient is pleasant sitting up comfortably in bed. He states that he is having trouble with bowel movements since admission noting that they have been very small and hard. He is in no endorsing bloating. He denies any associated nausea/vomiting is still tolerating his diet well. He states that with every day his foot mobility continues to improve as well as the knee mobility. He has no other complaints denying chest pain, shortness a breath, palpitations, and shortness/lightheadedness with ambulation. Review of Systems Review of Systems: All systems reviewed & are unremarkable except as noted in HPI and below Exam Narrative: AF HR 68 RR 20 Spo2 100 BP 110/62 General: male in no acute respiratory distress who is nontoxic appearing, sitting up in bed. HEENT: Normocephalic. Atraumatic. Extraocular movement intact. Sclera clear and anicteric. Chest: Lungs are clear to auscultation bilaterally. CV: Heart was regular rate and rhythm. Abd: Abdomen was soft. Nontender. Nondistended. Positive bowel sounds. Ext: No clubbing, cyanosis, or edema. DP pulses bilaterally. Neuro: Patient is alert. Strength is 5/5 in both upper extremities. Plantar flexion symmetrical bilaterally, weak dorsal flexion to the left. Speech is clear. Objective Data Vital Signs Vital Signs: Vital Signs - 24 hr 07/17/25 09:10 07/17/25 09:10 07/17/25 09:12 Temperature Pulse Rate 72 73 Respiratory Rate Blood Pressure Pulse Oximetry 98 Oxygen Delivery Room Air Fraction of Inspired Oxygen 07/17/25 09:14 07/17/25 12:00 07/17/25 12:00 Temperature 98.2 F Pulse Rate 72 69 71 Respiratory Rate 20 Blood Pressure 98/62 L Pulse Oximetry 100 Oxygen Delivery Fraction of Inspired Oxygen 07/17/25 16:00 07/17/25 16:00 07/17/25 19:59 Temperature 97.9 F Pulse Rate 70 68 75 Respiratory Rate 18 20 Blood Pressure 110/56 L Pulse Oximetry 100 97 Oxygen Delivery Room Air Fraction of Inspired Oxygen 21 07/17/25 20:00 07/17/25 20:35 07/17/25 20:56 Temperature 97.4 F L Pulse Rate 72 72 100 Respiratory Rate 18 Blood Pressure 115/47 L Pulse Oximetry 98 95 Oxygen Delivery Autopap Fraction of Inspired Oxygen 07/18/25 00:00 07/18/25 00:45 07/18/25 04:00 Temperature 97.4 F L Pulse Rate 68 70 72 Respiratory Rate 18 Blood Pressure 110/58 L Pulse Oximetry 98 Oxygen Delivery Fraction of Inspired Oxygen 07/18/25 04:23 07/18/25 06:00 Temperature 97.2 F L Pulse Rate 85 70 Respiratory Rate 18 Blood Pressure 109/55 L Pulse Oximetry 95 99 Oxygen Delivery Autopap Fraction of Inspired Oxygen Intake/Output Intake/Output: Intake & Output 07/15/25 07/16/25 07/17/25 07/18/25 23:59 23:59 23:59 23:59 Intake Total 1510 2860 2800 600 Output Total 8753 161 7413 1400 Balance -240 2360 1597 -800 Meds/Results Medications: Active Medications Generic Name Dose Route Start Last Admin Trade Name Freq PRN Reason Stop Dose Admin Acetaminophen 650 mg 07/15/25 11:13 07/17/25 20:36 Acetaminophen 325 Mg Tablet PO 650 mg Q4HR PRN Administration Pain or Fever Aspirin 81 mg 07/14/25 09:00 07/17/25 09:12 Aspirin 81 Mg Enteric Tablet PO 81 mg QAM CARL Administration Atorvastatin Calcium 40 mg 07/14/25 21:00 07/17/25 20:35 Atorvastatin 40 Mg Tablet PO 40 mg HS CARL Administration Diltiazem HCl 120 mg 07/14/25 21:00 07/17/25 21:00 Diltiazem Hcl Cd 120 Mg Cap.24hr PO 120 mg HS CARL Administration Ferrous Sulfate 325 mg 07/17/25 09:00 07/17/25 17:39 Ferrous Sulfate 325 Mg Tablet PO 325 mg BID CARL Administration Finasteride 5 mg 07/14/25 21:00 07/17/25 20:36 Finasteride 5 Mg Tablet PO 5 mg HS CARL Administration Fish Oil 1 gm 07/14/25 09:00 07/17/25 09:12 [place] 3 Polyunsat Fatty Acids 1 Gm Cap PO 1 gm DAILY CARL Administration Furosemide 20 mg 07/14/25 09:00 07/17/25 09:13 Furosemide 20 Mg Tablet PO 20 mg DAILY CARL Administration Gabapentin 100 mg 07/14/25 09:00 07/17/25 17:39 Gabapentin 100 Mg Capsule PO 100 mg TID CARL Administration Levothyroxine Sodium 75 mcg 07/14/25 06:30 07/18/25 05:36 Levothyroxine Sodium 75 Mcg Tablet PO 75 mcg DAILY@0630 CARL Administration Lisinopril 5 mg 07/14/25 09:00 07/17/25 09:12 Lisinopril 5 Mg Tablet PO 5 mg QAM CARL Administration Metoprolol Succinate 12.5 mg 07/14/25 09:00 07/17/25 09:12 Metoprolol Succinate Ext Rel 12.5 Mg Tabcr PO 12.5 mg QAM CARL Administration Nicotine 1 patch 07/14/25 09:00 07/17/25 09:12 Nicotine (*Pbkc) 21 Mg Patch TRANSDERM 1 patch DAILY CARL Administration Pantoprazole Sodium 40 mg 07/14/25 09:00 07/17/25 09:13 Pantoprazole 40 Mg Tablet PO 40 mg QAM CARL Administration Polyethylene Glycol 17 gm 07/16/25 09:00 07/17/25 09:11 Polyethylene Glycol 3350 17 Gm Powd.Pack PO 17 gm QAM CARL Administration Potassium Chloride 20 meq 07/14/25 09:00 07/17/25 09:14 Potassium Chloride 20 Meq Er Tablet PO 20 meq DAILY CARL Administration Promethazine HCl 6.25 mg 07/14/25 15:38 07/17/25 09:13 Promethazine Hcl 6.25 Mg Tablet PO 6.25 mg Q4H PRN Administration Nausea And Vomiting Sotalol HCl 80 mg 07/14/25 09:00 07/17/25 20:35 Sotalol Hcl 80 Mg Tablet PO 80 mg Q12HR CARL Administration Warfarin Sodium 4 mg 07/15/25 17:00 07/15/25 17:39 Warfarin (*Pbkc) 4 Mg Tablet PO 4 mg On Hold: 07/16/25 08:14 [email or web address] [facility] Administration Warfarin Sodium 2 mg 07/16/25 17:00 07/16/25 17:07 Warfarin (*Pbkc) 2 Mg Tablet PO Not Given On Hold: 07/16/25 17:06 [email or web address] [facility] Radiology Results: ITS Impressions Venous Doppler Study 07/13/25 17:31 Impression: Negative for DVT. ADDENDUM: 07/14/25 0815 There is a small thrombus within the left posterior tibial vein with diminished flow and compression Head CT 07/13/25 17:39 IMPRESSION: 1. No acute intracranial hemorrhage. No mass effect. 2. Probable chronic ischemic white matter change. Lumbar Spine CT 07/13/25 17:46 Impression: No acute abnormality. Knee X-Ray 07/13/25 17:48 Impression: No acute fracture or malalignment. Head/Neck CTA 07/13/25 20:27 IMPRESSION: 1. Mild nonspecific cerebral white matter disease, which likely represents chronic small vessel ischemic disease. 2. No aneurysm or significant intracranial internal stenosis. 3. 0% stenosis of the proximal right internal carotid artery relative to normal distal artery lumen diameter (NASCET criteria). 4. 27% stenosis of the proximal left internal carotid artery relative to normal distal artery lumen diameter. 5. Moderate stenosis of proximal left vertebral artery. Abdomen/Pelvis CT 07/16/25 11:00 IMPRESSION: 1. No acute findings. Labs Labs: Laboratory Results - last 24 hr 07/18/25 05:28 WBC 7.6 RBC 3.61 L Hgb 8.0 L Hct 28.1 L MCV 77.8 L MCH 22.2 L MCHC 28.5 L RDW 17.8 H Plt Count 220 MPV 10.8 H PT 23.1 H INR 2.1 Sodium 135 L Potassium 4.3 Chloride 106 Carbon Dioxide 25 Anion Gap 4 BUN 17 Creatinine 1.25 Estim Creat Clear Calc 47 Estimated GFR 55 L Glucose 101 Calcium 8.8 Total Bilirubin 0.5 AST 22 ALT 13 Alkaline Phosphatase 67 Total Protein 6.4 Albumin 3.4 L Quality VTE Prophylaxis VTE prophylaxis: mechanical ordered
[2025-07-18] MEDS: NICOTINE (*PBKC) 21 MG PATCH 1 PATCH TRANSDERM (09:56)
[2025-07-18] MEDS: FERROUS SULFATE 325 MG TABLET PO ×2 (09:58→17:47)
[2025-07-18] MEDS: OMEGA 3 POLYUNSAT FATTY ACIDS 1 GM CAP PO (09:58)
[2025-07-18] MEDS: ASPIRIN 81 MG ENTERIC TABLET PO (09:58)
[2025-07-18] MEDS: SOTALOL HCL 80 MG TABLET PO ×2 (09:58→20:03)
[2025-07-18] MEDS: METOPROLOL SUCCINATE EXT REL 12.5 MG TABCR PO (09:59)
[2025-07-18] MEDS: PANTOPRAZOLE 40 MG TABLET PO (09:59)
[2025-07-18] MEDS: POTASSIUM CHLORIDE 20 MEQ ER TABLET PO (09:59)
[2025-07-18] MEDS: ACETAMINOPHEN 325 MG TABLET 650 MG PO ×2 (09:59→20:03)
[2025-07-18] MEDS: FUROSEMIDE 20 MG TABLET PO (09:59)
[2025-07-18] MEDS: GABAPENTIN 100 MG CAPSULE PO ×3 (09:59→17:47)
[2025-07-18] MEDS: dilTIAZem HCL CD 120 MG CAP.24HR PO (20:03)
[2025-07-18] MEDS: FINASTERIDE 5 MG TABLET PO (20:03)
[2025-07-18] MEDS: ATORVASTATIN 40 MG TABLET PO (20:04)
[2025-07-19] VITALS (12 sets, daily range): BP systolic 86–118; BP diastolic 54–63; PULSE 69–139; RESP 16–21; TEMP 36.2–36.9; O2SAT 91–100
[2025-07-19] MEDS: LEVOTHYROXINE SODIUM 75 MCG TABLET PO (05:29)
[2025-07-19 05:58] LABS: Hematocrit 28.1 % (42.0-52.0); Hemoglobin 7.9 g/dL (14.0-18.0); Mean Corpuscular HGB Conc 28.1 g/dl (32-36); Mean Corpuscular Hemoglobin 22.3 pg (26-34); Mean Corpuscular Volume 79.4 fl (80-100); Platelet Count Result 218 k/mm3 (150-375); Red Blood Count 3.54 M/mm3 (4.6-6.20); White Blood Count 8.4 K/mm3 (4.5-10.0)
[2025-07-19 06:11] LABS: INR 1.9; Prothrombin Time 21.6 Seconds (11.1-14.7)
[2025-07-19 06:20] LABS: Alanine Aminotransferase 13 U/L (6-50); Albumin Level 3.3 g/dL (3.5-5.1); Alkaline Phosphatase 67 U/L (38-126); Anion Gap 5 mmol/L (4-12); Aspartate Amino Transferase 20 U/L (17-59); Bilirubin,Total 0.6 mg/dL (0.2-1.3); Blood Urea Nitrogen 21 mg/dL (9-20); Calcium 8.6 mg/dL (8.4-10.2); Carbon Dioxide 26 mmol/L (22-30); Chloride 105 mmol/L (98-107); Estimated CRCL calculation 42 ml/min; Estimated Glomerular Filt Rate 47; Glucose 95 mg/dL (65-110); Potassium 4.3 mmol/L (3.4-5.0); Sodium 136 mmol/L (137-145); Total Protein 6.2 g/dL (6.3-8.2)
--- NOTE | 2025-07-19 09:12 | P.PNIM_ITS ---
Progress Note: A&P Assessment and Plan (1) Footdrop: Code(s): M21.379 - Foot drop, unspecified foot Status: Acute Assessment and Plan: Patient notes he has been having ongoing left knee pain for 20-30 years. States pain has worsened and he has developed foot drop which prompted him to come to the hospital. He states he has been having increased sciatica flares which have caused foot drop in the past. Patient reports he was seen by [facility] and a surgeon in [place] for surgical intervention few years ago and decided not to proceed - Mag and B12 WNL - Head CT: no acute intracranial hemorrhage, mass effect. probable chronic ischemic white matter change - Head/neck CTA: Mild nonspecific cerebral white matter disease, which likely represents chronic small vessel ischemic disease. No aneurysm or significant intracranial internal stenosis. No significant stenosis to the bilateral ICAs. Moderate stenosis of proximal left vertebral artery. 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 Care coordination working on placement. - Neurology consulted, appreciate assistance and recommendations EMG nerve conduction study as an outpatient MRI of the brain and spine, unable to obtain during hospitalization 2/2 pacemaker. Can be obtained outpatient. Continues to have weakened dorsal flexion with resistance but continues to have improvement with passive range of motion. Continue arthrosis. Awaiting placement per care coordination. (2) Anemia: Qualifiers: Anemia type: unspecified type Qualified Code(s): D64.9 - Anemia, unspecified Code(s): D64.9 - Anemia, unspecified Status: Acute Assessment and Plan: H and H is 7.7/ 27.2 on admission, hemoglobin on 12/09/2024 was normal. EGD and colonoscopy in 2018 were normal. H/H remains low but stable. Obtain stool for occult blood if possible Iron panel: Iron 20, TIBC 378, % sat 5. Ferritin 5.87. Consistent with iron deficiency. IV iron 200 mg x3 doses completed, remains on oral supplementation B12 and folate WNL GI consulted Since patient is on warfarin unable to obtain scopes during this admission as INR will need to be around 1.5 which can take several days. Per Dr. Unger the scopes can be performed outpatient and the patient can hold the warfarin a few days prior. H/H remains lower than baseline but stable. CT abdomen/pelvis obtained to assess for other causes of anemia, unremarkable. Continue to hold warfarin at this time as patient is currently in sinus rhythm and concern for possible bleed. Patient information assurance engineer Dr. Covarrubias is aware we are holding the warfarin at this time given on going anemia and is in agreement with this plan. Continue to monitor H/H on am labs. No signs of active bleeding. (3) PAF (paroxysmal atrial fibrillation): Code(s): I48.0 - Paroxysmal atrial fibrillation Status: Acute Assessment and Plan: Chronic, continue home medications s/p pacemaker - diltiazem 120 mg daily - sotalol 80mg BID - metoprolol 12.5 mg daily - holding Coumadin given ongoing anemia, patients primary information assurance engineer Dr. Araujo aware. SCD in place for DVT ppx. Tele again reviewed remains in a paced rhythm. (4) Dysphagia: Qualifiers: Dysphagia type: esophageal phase Qualified Code(s): R13.19 - Other dysphagia Code(s): R13.10 - Dysphagia, unspecified Status: Acute Assessment and Plan: Patient endorses intermittent nausea. Per family he has been having chronic nausea, belching and been unable to lay back after meals. Likely GERD. Continue protonix Patient to get outpatient egd per gi which will further assess Patient denies any nausea/vomiting. (5) Hypertensive heart disease without congestive heart failure: Code(s): I11.9 - Hypertensive heart disease without heart failure Status: Acute Assessment and Plan: Chronic continue home medications - diltiazem 120 mg daily - sotalol 80mg BID - lisinopril 5 mg daily - metoprolol 12.5 mg daily - Lasix 20 mg daily - Blood pressures reviewed and remain stable, continue to monitor. (6) Pure hypercholesterolemia: Code(s): E78.00 - Pure hypercholesterolemia, unspecified Status: Acute Assessment and Plan: -continue with atorvastatin and monitor liver enzymes (7) Hypothyroidism: Code(s): E03.9 - Hypothyroidism, unspecified Status: Acute Assessment and Plan: - TSH WNL -continue with levothyroxine 75 mcg daily (8) DOMINICK (obstructive sleep apnea): Code(s): G47.33 - Obstructive sleep apnea (adult) (pediatric) Status: Acute Assessment and Plan: Continue with home settings for CPAP. Time Spent With Patient Time with patient: 25 - 35 minutes Subjective Date/time seen: 07/19/25 09:12 Interval history: 84 year old male with past medical history of aortic stenosis, skin cancer, lumbar spinal stenosis, gerd, htn, hyperlipidemia, dominick on cpap, and afib presents to the hospital for lower extremity pain and weakness. Patient is pleasant sitting up on side of bed working with therapy. He states he had a bowel movement and denies any dark/tarry stools or noted blood. He continues to endorse knee pain but states this improves throughout the day. He notes increased mobility of his left foot. He has no other complaints denying chest pain, palpitations, shortness of breath, nausea/vomiting and abdominal pain. Review of Systems Review of Systems: All systems reviewed & are unremarkable except as noted in HPI and below Exam Narrative: AF HR 69 RR 21 SpO2 100 BP 106/63 General: male in no acute respiratory distress who is nontoxic appearing, sitting up in bed. HEENT: Normocephalic. Atraumatic. Extraocular movement intact. Sclera clear and anicteric. Chest: Lungs are clear to auscultation bilaterally. CV: Heart was regular rate and rhythm. Abd: Abdomen was soft. Nontender. Nondistended. Positive bowel sounds. Ext: No clubbing, cyanosis, or edema. DP pulses bilaterally. Neuro: Patient is alert. Strength is 5/5 in both upper extremities. Plantar flexion symmetrical bilaterally, weak dorsal flexion to the left with resistance. Increased passive dorsal flexion. Speech is clear. Objective Data Vital Signs Vital Signs: Vital Signs - 24 hr 07/18/25 09:58 07/18/25 09:59 07/18/25 10:00 Temperature Pulse Rate 70 78 68 Respiratory Rate 20 Blood Pressure Pulse Oximetry 100 Oxygen Delivery Room Air Fraction of Inspired Oxygen 07/18/25 12:00 07/18/25 12:00 07/18/25 16:00 Temperature 98.2 F Pulse Rate 68 73 70 Respiratory Rate 20 Blood Pressure 110/62 Pulse Oximetry 100 Oxygen Delivery Fraction of Inspired Oxygen 07/18/25 16:00 07/18/25 19:45 07/18/25 20:00 Temperature 97.9 F 97.4 F L Pulse Rate 72 69 Respiratory Rate 20 18 Blood Pressure 104/67 110/51 L Pulse Oximetry 98 97 96 Oxygen Delivery Room Air Fraction of Inspired Oxygen 21 07/18/25 20:00 07/18/25 20:03 07/18/25 21:27 Temperature Pulse Rate 70 70 80 Respiratory Rate Blood Pressure Pulse Oximetry 96 Oxygen Delivery Autopap Fraction of Inspired Oxygen 07/19/25 00:00 07/19/25 00:18 07/19/25 04:00 Temperature 97.2 F L 97.9 F Pulse Rate 70 81 75 Respiratory Rate 18 18 Blood Pressure 118/54 L 118/54 L Pulse Oximetry 99 94 99 Oxygen Delivery Autopap Fraction of Inspired Oxygen 07/19/25 08:00 Temperature 98.0 F Pulse Rate 69 Respiratory Rate 18 Blood Pressure 113/61 Pulse Oximetry 91 Oxygen Delivery Fraction of Inspired Oxygen Intake/Output Intake/Output: Intake & Output 07/16/25 07/17/25 07/18/25 07/19/25 23:59 23:59 23:59 23:59 Intake Total 2860 2800 2820 300 Output Total 500 1203 1400 Balance 2360 1597 1420 300 Meds/Results Medications: Active Medications Generic Name Dose Route Start Last Admin Trade Name Freq PRN Reason Stop Dose Admin Acetaminophen 650 mg 07/15/25 11:13 07/18/25 20:03 Acetaminophen 325 Mg Tablet PO 650 mg Q4HR PRN Administration Pain or Fever Aspirin 81 mg 07/14/25 09:00 07/18/25 09:58 Aspirin 81 Mg Enteric Tablet PO 81 mg QAM CARL Administration Atorvastatin Calcium 40 mg 07/14/25 21:00 07/18/25 20:04 Atorvastatin 40 Mg Tablet PO 40 mg HS CARL Administration Diltiazem HCl 120 mg 07/14/25 21:00 07/18/25 20:03 Diltiazem Hcl Cd 120 Mg Cap.24hr PO 120 mg HS CARL Administration Ferrous Sulfate 325 mg 07/17/25 09:00 07/18/25 17:47 Ferrous Sulfate 325 Mg Tablet PO 325 mg BID CARL Administration Finasteride 5 mg 07/14/25 21:00 07/18/25 20:03 Finasteride 5 Mg Tablet PO 5 mg HS CARL Administration Fish Oil 1 gm 07/14/25 09:00 07/18/25 09:58 [place] 3 Polyunsat Fatty Acids 1 Gm Cap PO 1 gm DAILY CARL Administration Furosemide 20 mg 07/14/25 09:00 07/18/25 09:59 Furosemide 20 Mg Tablet PO 20 mg DAILY CARL Administration Gabapentin 100 mg 07/14/25 09:00 07/18/25 17:47 Gabapentin 100 Mg Capsule PO 100 mg TID CARL Administration Levothyroxine Sodium 75 mcg 07/14/25 06:30 07/19/25 05:29 Levothyroxine Sodium 75 Mcg Tablet PO 75 mcg DAILY@0630 CARL Administration Lisinopril 5 mg 07/14/25 09:00 07/18/25 09:59 Lisinopril 5 Mg Tablet PO 5 mg QAM CARL Administration Metoprolol Succinate 12.5 mg 07/14/25 09:00 07/18/25 09:59 Metoprolol Succinate Ext Rel 12.5 Mg Tabcr PO 12.5 mg QAM CARL Administration Nicotine 1 patch 07/14/25 09:00 07/18/25 09:56 Nicotine (*Pbkc) 21 Mg Patch TRANSDERM 1 patch DAILY CARL Administration Pantoprazole Sodium 40 mg 07/14/25 09:00 07/18/25 09:59 Pantoprazole 40 Mg Tablet PO 40 mg QAM CARL Administration Polyethylene Glycol 17 gm 07/16/25 09:00 07/18/25 09:58 Polyethylene Glycol 3350 17 Gm Powd.Pack PO 17 gm QAM CARL Administration Potassium Chloride 20 meq 07/14/25 09:00 07/18/25 09:59 Potassium Chloride 20 Meq Er Tablet PO 20 meq DAILY CARL Administration Promethazine HCl 6.25 mg 07/14/25 15:38 07/17/25 09:13 Promethazine Hcl 6.25 Mg Tablet PO 6.25 mg Q4H PRN Administration Nausea And Vomiting Sotalol HCl 80 mg 07/14/25 09:00 07/18/25 20:03 Sotalol Hcl 80 Mg Tablet PO 80 mg Q12HR CARL Administration Warfarin Sodium 4 mg 07/15/25 17:00 07/15/25 17:39 Warfarin (*Pbkc) 4 Mg Tablet PO 4 mg On Hold: 07/16/25 08:14 [email or web address] [facility] Administration Warfarin Sodium 2 mg 07/16/25 17:00 07/16/25 17:07 Warfarin (*Pbkc) 2 Mg Tablet PO Not Given On Hold: 07/16/25 17:06 [email or web address] [facility] Radiology Results: ITS Impressions Venous Doppler Study 07/13/25 17:31 Impression: Negative for DVT. ADDENDUM: 07/14/25 0815 There is a small thrombus within the left posterior tibial vein with diminished flow and compression Head CT 07/13/25 17:39 IMPRESSION: 1. No acute intracranial hemorrhage. No mass effect. 2. Probable chronic ischemic white matter change. Lumbar Spine CT 07/13/25 17:46 Impression: No acute abnormality. Knee X-Ray 07/13/25 17:48 Impression: No acute fracture or malalignment. Head/Neck CTA 07/13/25 20:27 IMPRESSION: 1. Mild nonspecific cerebral white matter disease, which likely represents chronic small vessel ischemic disease. 2. No aneurysm or significant intracranial internal stenosis. 3. 0% stenosis of the proximal right internal carotid artery relative to normal distal artery lumen diameter (NASCET criteria). 4. 27% stenosis of the proximal left internal carotid artery relative to normal distal artery lumen diameter. 5. Moderate stenosis of proximal left vertebral artery. Abdomen/Pelvis CT 07/16/25 11:00 IMPRESSION: 1. No acute findings. Labs Labs: Laboratory Results - last 24 hr 07/19/25 05:17 WBC 8.4 RBC 3.54 L Hgb 7.9 L Hct 28.1 L MCV 79.4 L MCH 22.3 L MCHC 28.1 L RDW 19.0 H Plt Count 218 MPV 11.0 H PT 21.6 H INR 1.9 Sodium 136 L Potassium 4.3 Chloride 105 Carbon Dioxide 26 Anion Gap 5 BUN 21 H Creatinine 1.42 H Estim Creat Clear Calc 42 Estimated GFR 47 L Glucose 95 Calcium 8.6 Total Bilirubin 0.6 AST 20 ALT 13 Alkaline Phosphatase 67 Total Protein 6.2 L Albumin 3.3 L Quality VTE Prophylaxis VTE prophylaxis: mechanical ordered
[2025-07-19] MEDS: ACETAMINOPHEN 325 MG TABLET 650 MG PO ×2 (09:31→20:37)
[2025-07-19] MEDS: METOPROLOL SUCCINATE EXT REL 12.5 MG TABCR PO (09:32)
[2025-07-19] MEDS: FERROUS SULFATE 325 MG TABLET PO ×2 (09:32→17:45)
[2025-07-19] MEDS: OMEGA 3 POLYUNSAT FATTY ACIDS 1 GM CAP PO (09:32)
[2025-07-19] MEDS: SOTALOL HCL 80 MG TABLET PO ×2 (09:33→20:37)
[2025-07-19] MEDS: PANTOPRAZOLE 40 MG TABLET PO (09:33)
[2025-07-19] MEDS: FUROSEMIDE 20 MG TABLET PO (09:33)
[2025-07-19] MEDS: POTASSIUM CHLORIDE 20 MEQ ER TABLET PO (09:33)
[2025-07-19] MEDS: GABAPENTIN 100 MG CAPSULE PO ×3 (09:33→17:45)
[2025-07-19] MEDS: ASPIRIN 81 MG ENTERIC TABLET PO (09:33)
[2025-07-19] MEDS: NICOTINE (*PBKC) 21 MG PATCH 1 PATCH TRANSDERM (09:34)
[2025-07-19] MEDS: FINASTERIDE 5 MG TABLET PO (20:37)
[2025-07-19] MEDS: ATORVASTATIN 40 MG TABLET PO (20:37)
[2025-07-19] MEDS: dilTIAZem HCL CD 120 MG CAP.24HR PO (20:42)
[2025-07-20] VITALS (12 sets, daily range): BP systolic 100–110; BP diastolic 49–64; PULSE 69–72; RESP 17–18; TEMP 36.3–36.6; O2SAT 95–100
[2025-07-20] MEDS: LEVOTHYROXINE SODIUM 75 MCG TABLET PO (05:38)
[2025-07-20 06:08] LABS: INR 1.5; Prothrombin Time 17.9 Seconds (11.1-14.7)
--- NOTE | 2025-07-20 07:21 | PM.IMPN ---
Progress Note: A&P Assessment and Plan (1) Footdrop: Code(s): M21.379 - Foot drop, unspecified foot Status: Acute Assessment and Plan: Patient notes he has been having ongoing left knee pain for 20-30 years. States pain has worsened and he has developed foot drop which prompted him to come to the hospital. He states he has been having increased sciatica flares which have caused foot drop in the past. Patient reports he was seen by [facility] and a surgeon in [place] for surgical intervention few years ago and decided not to proceed - Mag and B12 WNL - Head CT: no acute intracranial hemorrhage, mass effect. probable chronic ischemic white matter change - Head/neck CTA: Mild nonspecific cerebral white matter disease, which likely represents chronic small vessel ischemic disease. No aneurysm or significant intracranial internal stenosis. No significant stenosis to the bilateral ICAs. Moderate stenosis of proximal left vertebral artery. 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 Care coordination working on placement. - Neurology consulted, appreciate assistance and recommendations EMG nerve conduction study as an outpatient MRI of the brain and spine, unable to obtain during hospitalization 2/2 pacemaker. Can be obtained outpatient. Continues to have weakened dorsal flexion with resistance but continues to have improvement with passive range of motion. Continue arthrosis. Awaiting placement per care coordination. (2) Anemia: Qualifiers: Anemia type: unspecified type Qualified Code(s): D64.9 - Anemia, unspecified Code(s): D64.9 - Anemia, unspecified Status: Acute Assessment and Plan: H and H is 7.7/ 27.2 on admission, hemoglobin on 12/09/2024 was normal. EGD and colonoscopy in 2018 were normal. H/H remains low but stable. Obtain stool for occult blood if possible Iron panel: Iron 20, TIBC 378, % sat 5. Ferritin 5.87. Consistent with iron deficiency. IV iron 200 mg x3 doses completed, remains on oral supplementation B12 and folate WNL GI consulted Discussed patient with GI Dr. Garcia who states that though INR has downtrended they will still plan for outpatient scopes. H/H remains lower than baseline but stable and uptrending. INR 1.5. CT abdomen/pelvis obtained to assess for other causes of anemia, unremarkable. Continue to hold warfarin at this time as patient is currently in sinus rhythm and concern for possible bleed. Patient sash sticker Dr. Covarrubias is aware we are holding the warfarin at this time given on going anemia and is in agreement with this plan. Continue to monitor H/H on am labs. No signs of active bleeding. (3) PAF (paroxysmal atrial fibrillation): Code(s): I48.0 - Paroxysmal atrial fibrillation Status: Acute Assessment and Plan: Chronic, continue home medications s/p pacemaker - diltiazem 120 mg daily - sotalol 80mg BID - metoprolol 12.5 mg daily - holding Coumadin given ongoing anemia, patients primary sash sticker Dr. Araujo aware. SCD in place for DVT ppx. Tele again reviewed remains in a paced rhythm. Denies any chest pain/palpitations. (4) Dysphagia: Qualifiers: Dysphagia type: esophageal phase Qualified Code(s): R13.19 - Other dysphagia Code(s): R13.10 - Dysphagia, unspecified Status: Acute Assessment and Plan: Patient endorses intermittent nausea. Per family he has been having chronic nausea, belching and been unable to lay back after meals. Likely GERD. Continue protonix Patient to get outpatient egd per gi which will further assess Patient denies any nausea/vomiting. (5) Hypertensive heart disease without congestive heart failure: Code(s): I11.9 - Hypertensive heart disease without heart failure Status: Acute Assessment and Plan: Chronic continue home medications - diltiazem 120 mg daily - sotalol 80mg BID - lisinopril 5 mg daily - metoprolol 12.5 mg daily - Lasix 20 mg daily - Blood pressures again reviewed and remain stable, continue to monitor. (6) Pure hypercholesterolemia: Code(s): E78.00 - Pure hypercholesterolemia, unspecified Status: Acute Assessment and Plan: -continue with atorvastatin and monitor liver enzymes (7) Hypothyroidism: Code(s): E03.9 - Hypothyroidism, unspecified Status: Acute Assessment and Plan: - TSH WNL -continue with levothyroxine 75 mcg daily (8) DOMINICK (obstructive sleep apnea): Code(s): G47.33 - Obstructive sleep apnea (adult) (pediatric) Status: Acute Assessment and Plan: Continue with home settings for CPAP. Time Spent With Patient Time with patient: 25 - 35 minutes Subjective Date/time seen: 07/20/25 07:21 Interval history: 84 year old male with past medical history of aortic stenosis, skin cancer, lumbar spinal stenosis, gerd, htn, hyperlipidemia, dominick on cpap, and afib presents to the hospital for lower extremity pain and weakness. Patient is pleasant sitting up comfortably in his chair. He states that he still has not had a bowel movement but is passing flatus and tolerating his diet denying any associated nausea/vomiting. He endorses slight bloating. He has no other compalints denying chest pain, palpitations, shortness of breath. Review of Systems Review of Systems: All systems reviewed & are unremarkable except as noted in HPI and below Exam Narrative: AF HR 70 RR 18 SpO2 97 BP 103/55 General: male in no acute respiratory distress who is nontoxic appearing, sitting up in chair HEENT: Normocephalic. Atraumatic. Extraocular movement intact. Sclera clear and anicteric. Chest: Lungs are clear to auscultation bilaterally. CV: Heart was regular rate and rhythm. Abd: Abdomen was soft. Nontender. Nondistended. Positive bowel sounds. Ext: No clubbing, cyanosis, or edema. DP pulses bilaterally. Neuro: Patient is alert. Plantar flexion symmetrical bilaterally, weak dorsal flexion to the left with resistance. Passive dorsal flexion continues to improve. Speech is clear. Objective Data Vital Signs Vital Signs: Vital Signs - 24 hr 07/19/25 08:00 07/19/25 08:00 07/19/25 09:30 Temperature 98.0 F Pulse Rate 69 74 74 Respiratory Rate 18 Blood Pressure 113/61 Pulse Oximetry 91 98 Oxygen Delivery Room Air 07/19/25 09:32 07/19/25 09:33 07/19/25 12:00 Temperature 98.4 F Pulse Rate 70 73 139 H Respiratory Rate 21 H Blood Pressure 86/54 L Pulse Oximetry 100 Oxygen Delivery 07/19/25 12:00 07/19/25 12:20 07/19/25 16:00 Temperature 98.2 F Pulse Rate 70 69 74 Respiratory Rate 16 Blood Pressure 106/63 112/62 Pulse Oximetry 98 Oxygen Delivery 07/19/25 20:00 07/19/25 20:00 07/19/25 20:37 Temperature 97.2 F L Pulse Rate 70 70 70 Respiratory Rate 18 Blood Pressure 101/55 L Pulse Oximetry 96 Oxygen Delivery 07/19/25 23:16 07/20/25 00:00 07/20/25 00:45 Temperature 97.4 F L Pulse Rate 70 70 Respiratory Rate 18 Blood Pressure 107/49 L Pulse Oximetry 100 Oxygen Delivery Autopap 07/20/25 04:00 Temperature Pulse Rate 71 Respiratory Rate Blood Pressure Pulse Oximetry Oxygen Delivery Intake/Output Intake/Output: Intake & Output 07/17/25 07/18/25 07/19/25 07/20/25 23:59 23:59 23:59 23:59 Intake Total 2800 2820 1590 Output Total 1203 1400 Balance 1597 1420 1590 Meds/Results Medications: Active Medications Generic Name Dose Route Start Last Admin Trade Name Freq PRN Reason Stop Dose Admin Acetaminophen 650 mg 07/15/25 11:13 07/19/25 20:37 Acetaminophen 325 Mg Tablet PO 650 mg Q4HR PRN Administration Pain or Fever Aspirin 81 mg 07/14/25 09:00 07/19/25 09:33 Aspirin 81 Mg Enteric Tablet PO 81 mg QAM CARL Administration Atorvastatin Calcium 40 mg 07/14/25 21:00 07/19/25 20:37 Atorvastatin 40 Mg Tablet PO 40 mg HS CARL Administration Diltiazem HCl 120 mg 07/14/25 21:00 07/19/25 20:42 Diltiazem Hcl Cd 120 Mg Cap.24hr PO 120 mg HS CARL Administration Ferrous Sulfate 325 mg 07/17/25 09:00 07/19/25 17:45 Ferrous Sulfate 325 Mg Tablet PO 325 mg BID CARL Administration Finasteride 5 mg 07/14/25 21:00 07/19/25 20:37 Finasteride 5 Mg Tablet PO 5 mg HS CARL Administration Fish Oil 1 gm 07/14/25 09:00 07/19/25 09:32 [place] 3 Polyunsat Fatty Acids 1 Gm Cap PO 1 gm DAILY CARL Administration Furosemide 20 mg 07/14/25 09:00 07/19/25 09:33 Furosemide 20 Mg Tablet PO 20 mg DAILY CARL Administration Gabapentin 100 mg 07/14/25 09:00 07/19/25 17:45 Gabapentin 100 Mg Capsule PO 100 mg TID [facility] Administration Levothyroxine Sodium 75 mcg 07/14/25 06:30 07/20/25 05:38 Levothyroxine Sodium 75 Mcg Tablet PO 75 mcg DAILY@0630 [facility] Administration Lisinopril 5 mg 07/14/25 09:00 07/19/25 09:34 Lisinopril 5 Mg Tablet PO 5 mg QAM [facility] Administration Metoprolol Succinate 12.5 mg 07/14/25 09:00 07/19/25 09:32 Metoprolol Succinate Ext Rel 12.5 Mg Tabcr PO 12.5 mg QAM [facility] Administration Nicotine 1 patch 07/14/25 09:00 07/19/25 09:34 Nicotine (*Pbkc) 21 Mg Patch TRANSDERM 1 patch DAILY [facility] Administration Pantoprazole Sodium 40 mg 07/14/25 09:00 07/19/25 09:33 Pantoprazole 40 Mg Tablet PO 40 mg QAM [facility] Administration Polyethylene Glycol 17 gm 07/16/25 09:00 07/19/25 09:32 Polyethylene Glycol 3350 17 Gm Powd.Pack PO 17 gm QAM [facility] Administration Potassium Chloride 20 meq 07/14/25 09:00 07/19/25 09:33 Potassium Chloride 20 Meq Er Tablet PO 20 meq DAILY [facility] Administration Promethazine HCl 6.25 mg 07/14/25 15:38 07/17/25 09:13 Promethazine Hcl 6.25 Mg Tablet PO 6.25 mg Q4H PRN Administration Nausea And Vomiting Sotalol HCl 80 mg 07/14/25 09:00 07/19/25 20:37 Sotalol Hcl 80 Mg Tablet PO 80 mg Q12HR [facility] Administration Warfarin Sodium 4 mg 07/15/25 17:00 07/15/25 17:39 Warfarin (*Pbkc) 4 Mg Tablet PO 4 mg On Hold: 07/16/25 08:14 [email or web address] [facility] Administration Warfarin Sodium 2 mg 07/16/25 17:00 07/16/25 17:07 Warfarin (*Pbkc) 2 Mg Tablet PO Not Given On Hold: 07/16/25 17:06 [email or web address] [facility] Radiology Results: ITS Impressions Venous Doppler Study 07/13/25 17:31 Impression: Negative for DVT. ADDENDUM: 07/14/25 0815 There is a small thrombus within the left posterior tibial vein with diminished flow and compression Head CT 07/13/25 17:39 IMPRESSION: 1. No acute intracranial hemorrhage. No mass effect. 2. Probable chronic ischemic white matter change. Lumbar Spine CT 07/13/25 17:46 Impression: No acute abnormality. Knee X-Ray 07/13/25 17:48 Impression: No acute fracture or malalignment. Head/Neck CTA 07/13/25 20:27 IMPRESSION: 1. Mild nonspecific cerebral white matter disease, which likely represents chronic small vessel ischemic disease. 2. No aneurysm or significant intracranial internal stenosis. 3. 0% stenosis of the proximal right internal carotid artery relative to normal distal artery lumen diameter (NASCET criteria). 4. 27% stenosis of the proximal left internal carotid artery relative to normal distal artery lumen diameter. 5. Moderate stenosis of proximal left vertebral artery. Abdomen/Pelvis CT 07/16/25 11:00 IMPRESSION: 1. No acute findings. Labs Labs: Laboratory Results - last 24 hr 07/20/25 05:27 PT 17.9 H INR 1.5 Quality VTE Prophylaxis VTE prophylaxis: mechanical ordered
[2025-07-20 07:36] LABS: Hematocrit 29.2 % (42.0-52.0); Hemoglobin 8.2 g/dL (14.0-18.0); Mean Corpuscular HGB Conc 28.1 g/dl (32-36); Mean Corpuscular Hemoglobin 22.5 pg (26-34); Mean Corpuscular Volume 80.0 fl (80-100); Platelet Count Result 221 k/mm3 (150-375); Red Blood Count 3.65 M/mm3 (4.6-6.20); White Blood Count 8.8 K/mm3 (4.5-10.0)
[2025-07-20 07:43] LABS: Alanine Aminotransferase 14 U/L (6-50); Albumin Level 3.3 g/dL (3.5-5.1); Alkaline Phosphatase 73 U/L (38-126); Anion Gap 6 mmol/L (4-12); Aspartate Amino Transferase 33 U/L (17-59); Bilirubin,Total 0.6 mg/dL (0.2-1.3); Blood Urea Nitrogen 21 mg/dL (9-20); Calcium 8.6 mg/dL (8.4-10.2); Carbon Dioxide 24 mmol/L (22-30); Chloride 106 mmol/L (98-107); Estimated CRCL calculation 46 ml/min; Estimated Glomerular Filt Rate 52; Glucose 100 mg/dL (65-110); Potassium 4.3 mmol/L (3.4-5.0); Sodium 136 mmol/L (137-145); Total Protein 6.4 g/dL (6.3-8.2)
[2025-07-20] MEDS: POTASSIUM CHLORIDE 20 MEQ ER TABLET PO (09:26)
[2025-07-20] MEDS: OMEGA 3 POLYUNSAT FATTY ACIDS 1 GM CAP PO (09:27)
[2025-07-20] MEDS: METOPROLOL SUCCINATE EXT REL 12.5 MG TABCR PO (09:27)
[2025-07-20] MEDS: ASPIRIN 81 MG ENTERIC TABLET PO (09:27)
[2025-07-20] MEDS: GABAPENTIN 100 MG CAPSULE PO ×3 (09:27→17:49)
[2025-07-20] MEDS: FERROUS SULFATE 325 MG TABLET PO ×2 (09:27→17:50)
[2025-07-20] MEDS: SOTALOL HCL 80 MG TABLET PO ×2 (09:28→20:38)
[2025-07-20] MEDS: PANTOPRAZOLE 40 MG TABLET PO (09:28)
[2025-07-20] MEDS: FUROSEMIDE 20 MG TABLET PO (09:28)
[2025-07-20] MEDS: NICOTINE (*PBKC) 21 MG PATCH 1 PATCH TRANSDERM (09:29)
--- NOTE | 2025-07-20 11:17 | PCNWS ---
Weekly nutritional screen. Patient is tolerating current diet with adequate intake. No weight loss reported. No nutritional needs at this time.
[2025-07-20] MEDS: ACETAMINOPHEN 325 MG TABLET 650 MG PO ×2 (12:59→20:37)
[2025-07-20] MEDS: BISACODYL 10 MG SUPPOSITORY RECTAL (13:17)
[2025-07-20] MEDS: dilTIAZem HCL CD 120 MG CAP.24HR PO (20:37)
[2025-07-20] MEDS: FINASTERIDE 5 MG TABLET PO (20:37)
[2025-07-20] MEDS: ATORVASTATIN 40 MG TABLET PO (20:37)
[2025-07-20] MEDS: SENNA/DOCUSATE SODIUM TABLET 1 TAB PO (20:37)
[2025-07-21] VITALS (8 sets, daily range): BP systolic 104–112; BP diastolic 53–58; PULSE 66–87; RESP 16–18; TEMP 36.4–36.5; O2SAT 97–99
[2025-07-21 05:49] LABS: Hematocrit 27.8 % (42.0-52.0); Hemoglobin 7.8 g/dL (14.0-18.0); Mean Corpuscular HGB Conc 28.1 g/dl (32-36); Mean Corpuscular Hemoglobin 22.6 pg (26-34); Mean Corpuscular Volume 80.6 fl (80-100); Platelet Count Result 203 k/mm3 (150-375); Red Blood Count 3.45 M/mm3 (4.6-6.20); White Blood Count 8.3 K/mm3 (4.5-10.0)
[2025-07-21 06:00] LABS: Alanine Aminotransferase 14 U/L (6-50); Albumin Level 3.2 g/dL (3.5-5.1); Alkaline Phosphatase 70 U/L (38-126); Anion Gap 2 mmol/L (4-12); Aspartate Amino Transferase 20 U/L (17-59); Bilirubin,Total 0.4 mg/dL (0.2-1.3); Blood Urea Nitrogen 22 mg/dL (9-20); Calcium 8.6 mg/dL (8.4-10.2); Carbon Dioxide 25 mmol/L (22-30); Chloride 107 mmol/L (98-107); Estimated CRCL calculation 41 ml/min; Estimated Glomerular Filt Rate 46; Glucose 97 mg/dL (65-110); INR 1.5; Potassium 4.2 mmol/L (3.4-5.0); Prothrombin Time 17.7 Seconds (11.1-14.7); Sodium 134 mmol/L (137-145); Total Protein 6.2 g/dL (6.3-8.2)
[2025-07-21] MEDS: LEVOTHYROXINE SODIUM 75 MCG TABLET PO (06:28)
[2025-07-21] MEDS: ASPIRIN 81 MG ENTERIC TABLET PO (08:16)
[2025-07-21] MEDS: FERROUS SULFATE 325 MG TABLET PO (08:16)
[2025-07-21] MEDS: NICOTINE (*PBKC) 21 MG PATCH 1 PATCH TRANSDERM (08:16)
[2025-07-21] MEDS: GABAPENTIN 100 MG CAPSULE PO ×2 (08:16→14:21)
[2025-07-21] MEDS: METOPROLOL SUCCINATE EXT REL 12.5 MG TABCR PO (08:16)
[2025-07-21] MEDS: FUROSEMIDE 20 MG TABLET PO (08:16)
[2025-07-21] MEDS: SOTALOL HCL 80 MG TABLET PO (08:17)
[2025-07-21] MEDS: OMEGA 3 POLYUNSAT FATTY ACIDS 1 GM CAP PO (08:17)
[2025-07-21] MEDS: PANTOPRAZOLE 40 MG TABLET PO (08:17)
[2025-07-21] MEDS: POTASSIUM CHLORIDE 20 MEQ ER TABLET PO (08:17)
[2025-07-21] MEDS: ACETAMINOPHEN 325 MG TABLET 650 MG PO ×2 (08:21→14:21)
--- NOTE | 2025-07-21 12:45 | P.DS_ITS ---
DS: Admitting Diagnosis Discharge Date 07/21 Admitting Diagnosis lower extremity pain and weakness DS: Discharge Diagnosis Discharge Diagnosis (1) Footdrop: Code(s): M21.379 - Foot drop, unspecified foot Status: Acute Assessment and Plan: Patient notes he has been having ongoing left knee pain for 20-30 years. States pain has worsened and he has developed foot drop which prompted him to come to the hospital. He states he has been having increased sciatica flares which have caused foot drop in the past. Patient reports he was seen by [facility] and a surgeon in [place] for surgical intervention few years ago and decided not to proceed - Mag and B12 WNL - Head CT: no acute intracranial hemorrhage, mass effect. probable chronic ischemic white matter change - Head/neck CTA: Mild nonspecific cerebral white matter disease, which likely represents chronic small vessel ischemic disease. No aneurysm or significant intracranial internal stenosis. No significant stenosis to the bilateral ICAs. Moderate stenosis of proximal left vertebral artery. 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 Care coordination working on placement. - Neurology consulted, appreciate assistance and recommendations EMG nerve conduction study as an outpatient MRI of the brain and spine, unable to obtain during hospitalization 2/2 pacemaker. Can be obtained outpatient. Continues to have weakened dorsal flexion with resistance but continues to have improvement with passive range of motion. Continue arthrosis. Awaiting placement per care coordination. (2) Anemia: Qualifiers: Anemia type: unspecified type Qualified Code(s): D64.9 - Anemia, unspecified Code(s): D64.9 - Anemia, unspecified Status: Acute Assessment and Plan: H and H is 7.7/ 27.2 on admission, hemoglobin on 12/09/2024 was normal. EGD and colonoscopy in 2018 were normal. H/H remains low but stable. Obtain stool for occult blood if possible Iron panel: Iron 20, TIBC 378, % sat 5. Ferritin 5.87. Consistent with iron deficiency. IV iron 200 mg x3 doses completed, remains on oral supplementation B12 and folate WNL GI consulted Discussed patient with GI Dr. Garcia who states that though INR has downtrended they will still plan for outpatient scopes. H/H remains lower than baseline but stable and uptrending. INR 1.5. CT abdomen/pelvis obtained to assess for other causes of anemia, unremarkable. Continue to hold warfarin at this time as patient is currently in sinus rhythm and concern for possible bleed. 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 Covarrubias is aware we are holding the warfarin at this time given on going anemia and is in agreement with this plan. Continue to monitor H/H on am labs. No signs of active bleeding. (3) PAF (paroxysmal atrial fibrillation): Code(s): I48.0 - Paroxysmal atrial fibrillation Status: Acute Assessment and Plan: Chronic, continue home medications s/p pacemaker - diltiazem 120 mg daily - sotalol 80mg BID - metoprolol 12.5 mg daily - holding Coumadin given ongoing anemia, patients primary truck body builder Dr. Araujo aware. SCD in place for DVT ppx. Tele again reviewed remains in a paced rhythm. Denies any chest pain/palpitations. (4) Dysphagia: Qualifiers: Dysphagia type: esophageal phase Qualified Code(s): R13.19 - Other dysphagia Code(s): R13.10 - Dysphagia, unspecified Status: Acute Assessment and Plan: Patient endorses intermittent nausea. Per family he has been having chronic nausea, belching and been unable to lay back after meals. Likely GERD. Continue protonix Patient to get outpatient egd per gi which will further assess Patient denies any nausea/vomiting. (5) Hypertensive heart disease without congestive heart failure: Code(s): I11.9 - Hypertensive heart disease without heart failure Status: Acute Assessment and Plan: Chronic continue home medications - diltiazem 120 mg daily - sotalol 80mg BID - lisinopril 5 mg daily - metoprolol 12.5 mg daily - Lasix 20 mg daily - Blood pressures again reviewed and remain stable, continue to monitor. (6) Pure hypercholesterolemia: Code(s): E78.00 - Pure hypercholesterolemia, unspecified Status: Acute Assessment and Plan: -continue with atorvastatin and monitor liver enzymes (7) Hypothyroidism: Code(s): E03.9 - Hypothyroidism, unspecified Status: Acute Assessment and Plan: - TSH WNL -continue with levothyroxine 75 mcg daily (8) DOMINICK (obstructive sleep apnea): Code(s): G47.33 - Obstructive sleep apnea (adult) (pediatric) Status: Acute Assessment and Plan: Continue with home settings for CPAP. DS: Summary Hospital Course Hospital Course: 84 year old male with past medical history of aortic stenosis, skin cancer, lumbar spinal stenosis, gerd, htn, hyperlipidemia, dominick on cpap, and afib presents to the hospital for lower extremity pain and weakness. Several problems were addressed: #Footdrop: Patient notes he has been having ongoing left knee pain for 20-30 years. States pain has worsened and he has developed foot drop which prompted him to come to the hospital. He states he has been having increased sciatica flares which have caused foot drop in the past. Patient reports he was seen by [facility] and a surgeon in [place] for surgical intervention few years ago and decided not to proceed - Mag and B12 WNL - Head CT: no acute intracranial hemorrhage, mass effect. probable chronic ischemic white matter change - Head/neck CTA: Mild nonspecific cerebral white matter disease, which likely represents chronic small vessel ischemic disease. No aneurysm or significant intracranial internal stenosis. No significant stenosis to the bilateral ICAs. Moderate stenosis of proximal left vertebral artery. 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 Care coordination working on placement. - Neurology consulted, appreciate assistance and recommendations EMG nerve conduction study as an outpatient MRI of the brain and spine, unable to obtain during hospitalization 2/2 pacemaker. Can be obtained outpatient. Continues to have weakened dorsal flexion with resistance but continues to have improvement with passive range of motion. Continue arthrosis. # Anemia: H and H is 7.7/ 27.2 on admission, hemoglobin on 12/09/2024 was normal. EGD and colonoscopy in 2018 were normal. H/H remains low but stable. Obtain stool for occult blood if possible Iron panel: Iron 20, TIBC 378, % sat 5. Ferritin 5.87. Consistent with iron deficiency. IV iron 200 mg x3 doses completed, remains on oral supplementation B12 and folate WNL GI consulted Discussed patient with GI Dr. Garcia who states that though INR has downtrended they will still plan for outpatient scopes. H/H remains lower than baseline but stable and uptrending. INR 1.5. PT WILL NEED A CLOSE F/U WITH HIS RESPIRATORY THERAPIST AND GI TO COORDINATE WHEN IT IS SAFE TO RESTART WARFARIN. CT abdomen/pelvis obtained to assess for other causes of anemia, unremarkable. Continue to hold warfarin at this time as patient is currently in sinus rhythm and concern for possible bleed. 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 Covarrubias is aware we are holding the warfarin at this time given on going anemia and is in agreement with this plan. Continue to monitor H/H on am labs. No signs of active bleeding. # afib Chronic, continue home medications s/p pacemaker - diltiazem 120 mg daily - sotalol 80mg BID - metoprolol 12.5 mg daily - holding Coumadin given ongoing anemia, patients primary truck body builder Dr. Araujo aware. SCD in place for DVT ppx. Tele again reviewed remains in a paced rhythm. Denies any chest pain/palpitations. Since hg remains low, continue to hold warfarin. # Dysphagia: Patient endorses intermittent nausea. Per family he has been having chronic nausea, belching and been unable to lay back after meals. Likely GERD. Continue protonix Patient to get outpatient egd per gi which will further assess Patient denies any nausea/vomiting. #Hypertensive heart disease without congestive heart failure: Chronic continue home medications - diltiazem 120 mg daily - sotalol 80mg BID - lisinopril 5 mg daily - metoprolol 12.5 mg daily - Lasix 20 mg daily - Blood pressures again reviewed and remain stable, continue to monitor. # Pure hypercholesterolemia: -continue with atorvastatin and monitor liver enzymes # Hypothyroidism: - TSH WNL -continue with levothyroxine 75 mcg daily #DOMINICK (obstructive sleep apnea) Continue with home settings for CPAP. Time Spent with Patient Time attestation: Total time spent providing and/or coordinating discharge services: Exam Narrative: AF HR 70 RR 18 SpO2 97 BP 103/55 General: male in no acute respiratory distress who is nontoxic appearing, sitting up in chair HEENT: Normocephalic. Atraumatic. Extraocular movement intact. Sclera clear and anicteric. Chest: Lungs are clear to auscultation bilaterally. CV: Heart was regular rate and rhythm. Abd: Abdomen was soft. Nontender. Nondistended. Positive bowel sounds. Ext: No clubbing, cyanosis, or edema. DP pulses bilaterally. Neuro: Patient is alert. Plantar flexion symmetrical bilaterally, weak dorsal flexion to the left with resistance. Passive dorsal flexion continues to improve. Speech is clear. Const: General: cooperative, healthy appearing, comfortable, no acute distress, well developed, awake, Physically active, average body habitus and well nourished Nutritional Appearance: average body habitus and well nourished Orientation/consciousness: oriented to person, oriented to place, oriented to time and patient oriented x3 Limitations: no limitations HENMT: Head: normal to inspection Ears: hearing grossly impaired Face/Nose/Sinus: Normal external nose present Eyes: General: appearance normal, both eyes and all related structures Alignment and Position: alignment normal Periorbital: periorbital findings normal Eyelids: eyelids normal Conjunctivae: conjunctivae normal Sclera: sclerae normal Cornea: corneas normal Pupils: Equal, round and reactive pupils present and Pupil accommodation reflex normal EOM: EOMs intact bilaterally Neck: Neck: normal visual inspection, full ROM, no lymphadenopathy, trachea midline and supple Chest: Chest palpation & inspection: normal inspection of the chest Resp: Effort & Inspection: normal respiratory effort Auscultation: clear to auscultation bilaterally Cardio: Palpation: normal PMI Rate: regular rate Rhythm: regular rhythm Heart sounds: S1 normal heart sound present and S2 normal heart sound present Peripheral pulses: Peripheral pulses 2+ throughout GI: Inspection: normal to inspection Auscultation: normal bowel sounds Rectal Exam: deferred : General: Yes no CVA tenderness Back/Spine/Pelvis: Back: no CVA tenderness Cervical Spine: cervical ROM normal Skin: General skin exam: normal color Lesions: no lesions Rashes: no rashes Trauma: no lacerations or abrasions Wounds: no wounds Hair: normal Nails: normal Neuro: General: oriented to person, oriented to place, oriented to time and patient oriented x3 Cranial nerves: Yes Equal, round and reactive pupils present and Yes Normal hearing present Cognition (Neuro): normal cognition Speech: normal speech Motor exam (neuro): Pronator motor function not present, No tremor noted, Motor fasciculations not present, Abnormal motor strength present and Other motor observations present (WEAK PEDAL PUSHES TO THE LEFT FOOT) Sensory Exam: normal sensation Extrem: General: normal to inspection Right upper extremity: normal to inspection and shoulder/upper arm Left upper extremity: normal to inspection and shoulder/upper arm Right lower extremity: normal to inspection Other: FOOTDROP TO LEFT FOOT Psych: Appearance: grossly normal Mental Status: mental status grossly normal Speech and movement: Normal speech and movement present Affect: normal affect Attitude: cooperative Thought process: Normal thought pr ocess present Insight: Good insight present (Psych) Judgement: Good judgement present (Psych) DS: Data Data Completed and Pending Labs on day of discharge: Labs from last 24 hours 07/21/25 07/20/25 05:26 14:07 WBC 8.3 RBC 3.45 L Hgb 7.8 L Hct 27.8 L MCV 80.6 MCH 22.6 L MCHC 28.1 L RDW 20.6 H Plt Count 203 MPV 10.4 PT 17.7 H INR 1.5 Sodium 134 L Potassium 4.2 Chloride 107 Carbon Dioxide 25 Anion Gap 2 L BUN 22 H Creatinine 1.47 H Estim Creat Clear Calc 41 Estimated GFR 46 L Glucose 97 Calcium 8.6 Total Bilirubin 0.4 AST 20 ALT 14 Alkaline Phosphatase 70 Total Protein 6.2 L Albumin 3.2 L Urine Total Protein Pending Urine Albumin (PEP) Pending U [id number] Pending U [id number] Pending U Beta Globulin Pending U Gamma Globulin Pending U Random M-Roel (%) Pending Discharge Plan Discharge Attending physician on discharge: Britton Cunha [place] Consulting providers: Edgar Orr; Lea Huang Discharging Clinician: Simona Salomon Patient Disposition: NH Skilled Nursing/Asst Living Activity: may shower Diet: heart healthy Discharge Instructions: Please note that your atorvastatin dose was increased to 40 mg daily and Continue aspirin 81 mg Neurology consulted and they recommended you to have EMG nerve conduction study as an outpatient and MRI of the brain and spine # Anemia: Hemoglobin is 7.7 on admission and continues to be stable. EGD and colonoscopy in 2018 were normal. Please note, since your hemoglobin remains on a lower side, we will hold your Coumadin for now. Please make sure your truck body builder and GI doctors are the ones directing you when to restart the therapy. Iron panel: Iron 20, TIBC 378, % sat 5. Ferritin 5.87 - consistent with iron deficiency. IV iron 200 mg x3 doses completed, remains on oral supplementation GI consulted- plan for outpatient scopes. Please f/u with GI. Patient Instructions: Antibiotic Form, Warfarin (By mouth), How to Stop Smoking (ED) Patient Language: Citizen Of [place] Stand Alone Forms: General Discharge Information Discharge Medications: New atorvastatin 40 mg Tablet 40 mg PO HS Qty: 30 0RF ferrous sulfate 325 mg (65 mg iron) Tablet,Delayed Release (Dr/Ec) 325 mg PO BID Qty: 30 0RF Continued furosemide [Lasix] 20 mg tablet 20 mg PO DAILY diltiazem HCl 120 mg capsule,extended release 24 hr 120 mg PO HS potassium chloride 20 mEq tablet extended release 20 meq PO DAILY sotalol 80 mg tablet 80 mg PO BID Rx Instructions: 80 mg PO take 1 tab by oral route 2 times every day; finasteride [Proscar] 5 mg tablet 5 mg PO HS metoprolol succinate 25 mg tablet extended release 24 hr 12.5 mg PO QAM omega-3 fatty acids [Fish Oil Concentrate] 1,000 mg capsule 1,000 mg PO DAILY gabapentin 100 mg capsule 100 mg PO TID esomeprazole magnesium 40 mg capsule,delayed release(DR/EC) 40 mg PO BID 90 Days Qty: 180 3RF aspirin [Adult Aspirin] 81 mg Tablet 81 mg PO DAILY lisinopril 5 mg tablet 5 mg PO QAM levothyroxine 75 mcg tablet 75 mcg PO DAILY Qty: 90 0RF Held warfarin [Coumadin] 4 mg tablet 4 mg PO .COMPLEX Hold Instructions: Resume on 08/11/25. hold until directed otherwise per cardiology and GI Rx Instructions: 4 mg PO 4 DAYS/WEEK(Sat, Sat, , Sat) 2mg 3 days per week(Saturday, Saturday, Saturday) Discontinued atorvastatin 20 mg tablet 20 mg PO HS Other Ambulatory Orders: CT brain wo con (Routine) Timeframe: 2 Weeks Location: Determined by Patient Ordered By: Edgar Orr Nerve Conduction Study EMG (Routine) Timeframe: 4 Weeks Location: Determined by Patient Ordered By: Edgar Orr Date of admission: 07/13/25 22:36 Primary Care Provider: Jose Eduardo Baugh Admitting Provider: Jas Hobbs Attending physician on admission: Jas Hobbs Condition: Stable Quality VTE Prophylaxis VTE prophylaxis: mechanical ordered Hospitalist MIPS Heart Failure (Exclusion) Patient has history of Heart Transplant or Left Ventricular Assistive Device?: No IF YES, STOP HERE Heart Failure (Qualifier) Patient has current or prior documentation of LVEF less than or equal to 40%, or mod/servere depressed LVSF?: No IF NO, STOP HERE
[2025-07-22 15:09] LABS: Albumin, U 21.6 % (.); Alpha-1-Globulin, U 4.6 % (.); Alpha-2-Globulin, U 19.8 % (.); Beta Globulin, U 31.4 % (.); Gamma Globulin, U 22.5 % (.)
== END 2025-07-21 15:22 | DRG 565 ==
LOC: ANHED 22:49 → ANH3MEDSUR 23:27 → ANH3MED 23:32
PROVIDERS: Nurse Practitioner; Registered Nurse; Student in an Organized Health Care Education/Training Program; Admitting Provider Internal Medicine; Emergency Provider Student in an Organized Health Care Education/Training Program; PCP Family Medicine; Visit Provider Nurse Practitioner
DX: M21.372 Foot drop, left foot (principal); I48.20 Chronic atrial fibrillation, unspecified; I67.82 Cerebral ischemia; E78.00 Pure hypercholesterolemia, unspecified; E03.9 Hypothyroidism, unspecified; K21.9 Gastro-esophageal reflux disease without esophagitis; I35.0 Nonrheumatic aortic (valve) stenosis; I36.1 Nonrheumatic tricuspid (valve) insufficiency; I65.02 Occlusion and stenosis of left vertebral artery; I65.22 Occlusion and stenosis of left carotid artery; I51.89 Other ill-defined heart diseases; I11.9 Hypertensive heart disease without heart failure; I27.20 Pulmonary hypertension, unspecified; D50.9 Iron deficiency anemia, unspecified; M25.562 Pain in left knee; M48.061 Spinal stenosis, lumbar region without neurogenic claudication; M11.262 Other chondrocalcinosis, left knee; M25.462 Effusion, left knee; K59.00 Constipation, unspecified; G47.33 Obstructive sleep apnea (adult) (pediatric); F17.211 Nicotine dependence, cigarettes, in remission; F10.90 Alcohol use, unspecified, uncomplicated; Z79.82 Long term (current) use of aspirin; Z87.19 Personal history of other diseases of the digestive system; Z86.0100 Personal history of colon polyps, unspecified; Z79.01 Long term (current) use of anticoagulants; Z99.89 Dependence on other enabling machines and devices; Z85.828 Personal history of other malignant neoplasm of skin; Z95.0 Presence of cardiac pacemaker; Z95.2 Presence of prosthetic heart valve
CPT/HCPCS: 36415; 70450; 70496; 70498; 72131; 73564; 74177; 80053; 81003; 82247; 82248; 82607; 82728; 82746; 83010; 83540; 83550; 83615; 83735; 84156; 84166; 84238; 84443; 84466; 85014; 85018; 85025; 85027; 85046; 85610; 85730; 86880; 93306; 93971; 94002; 96375; 97110; 97162; 97166; 97530; 97535; 99285; A9270; J1756; Q9967

== ENCOUNTER 2025-10-05 03:37 | Day surgery (SDC) | payer MEDICARE, SELFPAY ==
[2025-09-20 13:37] VITALS: BMI 28.3
--- NOTE | 2025-09-20 13:49 | PC.NURSE ---
Spoke with patient regarding medication Warfarin. Patient verbalizes understanding that the last dose is to be taken on 09/30/25 and the Endoscopist will instruct them when to restart after the procedure.
--- OUTSIDE RECORDS SUMMARY | 2025-10-05 03:39 | XMS_ITS | Encounter Summary ---
Author Organization [facility] Address [address] [place] [address] Care Team Providers Care Messenger Office Name Role Phone Jose Eduardo Baugh MD Primary Care Provider [phone] Reason for Visit * Reason Comments Anticoagulation Encounter Details Date Type Department Care Team (Late st Contact Info) Description 10/04/2025 Anti-coag visit [facility] At [facility] 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 Recheck INR 2 Weeks. Maribel 10/04/2025. Spoke with Patient *Colonoscopy 10/05 GN LEADER documented in this encounter Plan of Treatment Upcoming Encounters Date Type Department Care Team (Late st Contact Info) Description 11/11/2025 11:15 AM DESIGN LEADER Procedure visit [facility] EP AT [address] [place] [address] 11/12/2025 9:15 AM DESIGN LEADER Office Visit [facility] - [facility] [address] [facility] [address] [place] [address] David Cerna MD [address] [place] [address] [address] [place] [address] 01/04/2026 10:00 AM CDT Appointment [facility] Diagnostic Cardiology Services Jaden Honeycutt at [id number] [facility] [address] [place] [address] Yuval Hsieh MD [address] [place] [address] [address] [place] [address] 02/18/2026 10:15 AM CDT Office Visit [facility] At [address] [place] [address] Yuval Hsieh MD [address] [place] [address] [address] [place] [address] 04/12/2026 10:30 AM CDT Procedure visit [facility] EP AT [address] [place] [address] 04/12/2026 11:00 AM CDT Office Visit [facility] EP AT [facility] [address] [place] [id number] Anshul Guerrier, KWABENA [address] [place] [id number] documented as of this encounter Procedures Procedure Name Priority Date/Time Associated Diagnosis Comments PROTIME-INR Routine 10/04/2025 documented in this encounter Results * PROTIME-INR (10/04/2025) ABSTRACTED PROTIME EXTERNAL LAB ABSTRACTED INR 1.3 EXTERNAL LAB Blood 10/04/2025 us Historical Provider HEMATOLOGY ORDERABLES Final Result EXTERNAL LAB documented in this encounter Visit Diagnoses Not on filedocumented in this encounter Care Teams Messenger Office Relationship Specialty Start Date End Date Jose Eduardo Baugh MD PCP - General Family Practice 11/10/15 documented as of this encounter
--- OUTSIDE RECORDS SUMMARY | 2025-10-05 03:39 | XMS_ITS | Clinical Summary ---
Author Organization [facility] Address [address] [place] [address] Care Team Providers Care Manager Budget Name Role Phone Unavailable Primary Care Provider Unavailabl e Allergies Active Allergy Reactions Criticality Noted Date Comments Tetanus Toxoid Swelling 01/08/2023 Swelling in arm. Medications lisinopril (PRINIVIL) 5 MG tablet Take 1 tablet (5 mg total) by mouth daily. Active metoprolol succinate ER (TOPROL-XL) 25 MG 24 hr tablet Take 1 tablet (25 mg total) by mouth daily. Active sotalol (BETAPACE) 80 MG tablet Take 1 tablet (80 mg total) by mouth 2 (two) times daily. Active atorvastatin (LIPITOR) 20 MG tablet Take 1 tablet (20 mg total) by mouth nightly at bedtime. Active pantoprazole EC (PROTONIX) 40 MG tablet Take 1 tablet (40 mg total) by mouth daily. Active finasteride (PROSCAR) 5 MG tablet Take 1 tablet (5 mg total) by mouth daily. Active warfarin (COUMADIN) 4 MG tablet Take 1 tablet (4 mg total) by mouth daily. 4mg for 5 days, 2 mg 2 days per week Active gabapentin (NEURONTIN) 100 MG capsule Take 1 capsule (100 mg total) by mouth 2 (two) times a day. Active levothyroxine (SYNTHROID) 25 MCG tablet Take 1 tablet (25 mcg total) by mouth every morning. Active fluticasone propionate (FLONASE) 50 MCG/ACT nasal spray 1 spray by Nasal route as needed for Rhinitis. Active aspirin EC (ECOTRIN) 81 MG tablet Take 1 tablet (81 mg total) by mouth daily. Active fish oil (OMEGA-3 FATTY ACID) 1000 MG Cap capsule Take 1,200 mg by mouth daily. Active Active Problems No known active problems Social History Tobacco Use Types Packs/Day Years Used Date Smoking Tobacco: Every Day Cigarettes Smokeless Tobacco: Never Tobacco Cessation:Ready to Q uit: No; Counseling Given: Yes Alcohol Use Standard Drinks/Week Comments Not Currently 0 (1 standard drink = 0.6 oz pur e alcohol) Sex and Gender Information Value Date Recorded Sex Assigned at Not on file Legal Sex Male 2:59 PM CDT Gender Identity Not on file Sexual Orientation Not on file Last Filed Vital Signs Vital Sign Reading Time Taken Comments Blood Pressure 160/98 01/14/2023 12:57 PM CDT Pulse 70 01/14/2023 12:57 PM CDT Temperature 36.4 C (97.5 F) 01/14/2023 12:12 PM CDT Respiratory Rate 16 01/14/2023 12:57 PM CDT Oxygen Saturation 95% 01/14/2023 12:57 PM CDT Inhaled Oxygen Concentration - - Weight 115.7 kg (255 lb) 01/14/2023 9:20 AM CDT Height 193 cm (6' 4) 01/14/2023 9:20 AM CDT Body Mass Index 31.04 01/14/2023 9:20 AM CDT Plan of Treatment Health Maintenance Due Date Last Done Comments DTaP, Tdap and Td Vaccines (1 - Tdap) 1959 Annual Medicare Wellness Visit 2004 RSV Immunization or 60+ Years (1 - 1-dose 75+ series) 2014 Pneumococcal Vaccine: 50+ Years (2 of 2 - PPSV23, PCV20, or PCV21) 10/18/2015 08/23/2015 Zoster Vaccines (3 of 3) 08/26/2020 07/01/2020, 05/14 COVID-19 Vaccine (4 - season) 2025 07/05/2022, 02/08/2022, 07/14/2021 Influenza Adult (#1) 2025 07/24/2019, 06/18/2018, 06/20/2017, Additional history exists Hepatitis A Vaccines Aged Out No long er eligible based on patient's age to complete this topic Meningococcal B Vaccine Aged Out No l onger eligible based on patient's age to complete this topic Meningococcal Vaccine Aged Out No danielle zion eligible based on patient's age to complete this topic RSV Immunizations Under 20 Months Aged Out No longer eligible based on patient's age to complete this topic Medical Devices Implanted Type Area Box Toe Cutter Device Identifier Shelf Expiration Date Model / Serial / Lot Mesh Mesh Right: Inguinal Pacemaker Pacemaker Heart Description:[employer] Insurance MEDICARE Member Subscriber Plan / Payer (Ef fective for All Dates) Name:AbdirizakAntony Relation to Subscriber:Self Name:Antony Reveles Payer ID:[id number] (NAIC) Type:Not on file Address: [place] [id number] MEDICARE
--- OUTSIDE RECORDS SUMMARY | 2025-10-05 03:39 | XMS_ITS | Encounter Summary ---
Author Organization [facility] Address [address] [place] [address] Care Team Providers Care Logging Assistant Name Role Phone Jose Eduardo Baugh MD Primary Care Provider [phone] Encounter Details Date Type Department Care Team (Late Contact Info) Description 10/04/2025 Abstract [facility] - [address] [place] [address] Bonny Fuller, ORTHOPEDIC CAST SPECIALIST [address] [place] [address] Social History Tobacco Use Types Packs/Day Years [...] on file Legal Sex Male 5:48 AM PET CAREGIVER Gender Identity Not on file Sexual Orientation Not on file documented as of this encounter Plan of Treatment Upcoming Encounters Date Type Department Care Team (Late Contact Info) Description 11/11/2025 11:15 AM PET CAREGIVER Procedure visit [facility] AT [address] [place] [address] 11/12/2025 9:15 AM PET CAREGIVER Office Visit [facility] [address] [place] [address] David Cerna MD [address] [place] [address] [address] [place] [address] 01/04/2026 10:00 AM CDT Appointment [facility] Diagnostic Cardiology Services Jaden Honeycutt at [address] [address] [address] [facility] [address] [place] [address] Yuval Hsieh MD [address] [place] [address] [address] [place] [address] 02/18/2026 10:15 AM CDT Office Visit [facility] At [address] [place] [address] Yuval Hsieh MD [address] [place] [address] [address] [place] [address] 04/12/2026 10:30 AM CDT Procedure visit [facility] AT [address] [place] [address] 04/12/2026 11:00 AM CDT Office Visit [facility] AT [address] [place] [address] Anshul Guerrier DNP [address] [place] [address] [address] [place] [address] documented as of this encounter Visit Diagnoses Not on filedocumented in this encounter Care Teams Logging Assistant Relationship Specialty Start Date End Date Jose Eduardo Baugh MD PCP - General Family Practice 11/10/15 documented as of this encounter
--- OUTSIDE RECORDS SUMMARY | 2025-10-05 03:39 | XMS_ITS | Encounter Summary ---
Author Organization [facility] Address [address] [facility] [place] [address] Care Team Providers Care Lead Generator Name Role Phone Jose D Wyatt MD Primary Care Provider [phone] Encounter Details Date Type Department Care Team (Late st Contact Info) Description 08/26/2023 Lab Requisition [facility] - DermPath Lab [address] [facility] [place] [id number] Edward Gaming MD [address] [place] [address] Social History Tobacco Use Types Packs/Day Years Used Date Smoking Tobacco: Never Assessed Sex and Gender Information Value Date Recorded Sex Assigned at Not on file Legal 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 Male 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 Gender Identity Not on file Sexual Orientation Not on file documented as of this encounter Plan of Treatment Not on file documented as of this encounter Procedures Procedure Name Priority Date/Time Associated Diagnosis Comments DERMATOPATHOLOGY Routine 08/21/2023 12:0 0 AM MORTGAGE OR LOAN UNDERWRITER documented in this encounter Results * DERMATOPATHOLOGY (08/21/2023 12:00 AM MORTGAGE OR LOAN UNDERWRITER) Case Report Dermatopathology Report Case: [id number] Authorizing Provider: Edward Gaming MD Collected: 08/21/2023 12:00 AM Ordering Location: [facility] DermPath Lab Received: 08/26/2023 10:45 AM Pathologist: Ralph Jackson MD Specimen: Skin, dorsal left ulnar hand 3 3:58 PM [facility] Final Diagnosis Specimen A. SKIN, dorsal left ulnar hand: NEUROFIBROMA (D36.10) 3 3:58 PM [facility] at 1558 MORTGAGE OR LOAN UNDERWRITER Clinical History R/O BCC vs. Nevus 3 3:58 PM [facility] Gross Description Specimen A: Received is one formalin filled container labeled with the patient's name and designated dorsal left ulnar hand. The specimen consists of a shave biopsy measuring 7x6x1 mm. Jar 0. 3 3:58 PM [facility] Microscopic Description Specimen A. SKIN, dorsal left ulnar hand: Sections show a proliferation of spindled and S-shaped cells within the dermis. The stromal collagen is delicate and pale. 3 3:58 PM [facility] Disclaimer An external and internal positive and negative controls are appropriate for the histochemical, immunohistochemical and immunofluorescence stain(s) in this case (if any), except where stated explicitly. The performance characteristics of the stain(s) cited in this report were developed and its performance characteristic determined by the Dermatopathology Laboratory at [facility], directed by Dr. Malik Jackson. These tests need not be, and therefore are not, approved by the [place] Food and Drug Administration. The tests are used for clinical purposes. Billing Codes Specimen Charges Stain Charges 90056 1 3 3:58 PM [facility] Embedded Images 3 3:58 PM [facility] Pathology/Cytolog y TISSUE SPECIMEN FROM SKIN / Unknown 08/21/2023 08/26/2023 10:45 AM MORTGAGE OR LOAN UNDERWRITER Edward Gaming MD LAB - PATHOLOGY/CYTOLOGY ORD ERABLES Final Result DERMATOPATHOLOGY LABORATORY [facility] - Department of Dermatology [facility] Medicine [address] [place] [address], 3rd [place] [address], [facility] [phone] documented in this encounter Visit Diagnoses Not on filedocumented in this encounter Care Teams Lead Generator Relationship Specialty Start Date End Date Jose D Wyatt MD [address] [place] [address] PCP - General 06/27/18 documented as of this encounter
--- OUTSIDE RECORDS SUMMARY | 2025-10-05 03:39 | XMS_ITS | Encounter Summary ---
Author Organization [facility] Address [address] [place] [address] Care Team Providers Care Watch Hairspring Assembler Name Role Phone Jose D Wyatt MD Primary Care Provider Encounter Details Date Type Department Care Team (Late st Contact Info) Description 06/27/2018 Lab Requisition [facility] DermPath Lab [address] [facility] [place] [phone] Edward Gaming MD [address] [place] [address] Social History Tobacco Use Types Packs/Day Years Used Date Smoking Tobacco: Never Assessed Sex and Gender Information Value Date Recorded Sex Assigned at Not on file 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 Jar 0. 3:52 PM CDT DERMATOPATHOLOGY LABORATORY [...] characteristic determined by the Dermatopathology Laboratory at [facility]. These tests need not be, and therefore are not, approved by the [place] Food and Drug Administration. The tests are used for clinical purposes. Billing Codes Specimen Charges Stain Charges 51370 1 3:52 PM CDT DERMATOPATHOLOGY LABORATORY Embedded Images 3:52 PM CDT DERMATOPATHOLOGY LABORATORY Pathology/Cytolog y TISSUE SPECIMEN FROM SKIN / Unknown 06/26/2018 06/27/2018 11:57 AM CDT us Edward Gaming MD LAB - PATHOLOGY/CYTOLOGY ORD ERABLES Final Result DERMATOPATHOLOGY LABORATORY [facility] - Department of Dermatology [address] [facility], 5th [place] [address], [facility] [phone] documented in this encounter Visit Diagnoses Not on filedocumented in this encounter Care Teams Watch Hairspring Assembler Relationship Specialty Start Date End Date Jose D Wyatt MD [address] [place] [address] PCP - General 06/27/18 documented as of this encounter
--- OUTSIDE RECORDS SUMMARY | 2025-10-05 03:39 | XMS_ITS | Clinical Summary ---
Author Organization [facility] Address [address] [place] [address] Care Team Providers Care It Specialist Name Role Phone Jose D Wyatt MD Primary Care Provider Source Comments [facility],non-owned Affiliates and Associated Physician Practices is amultiple site organization consisting of ambulatory clinics and hospital sitesin [place], [place], [place] and [place]. This disclosure is being madepursuant to the Care Everywhere program and may not contain all information available regarding this patient. Last updated 18.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 Gender Identity Not on file Sexual Orientation [...] CALENDAR YEAR 2024 COVID-19 VACCINE (1 - 2024-2 6 season) 2025 INFLUENZA VACCINE (#1) 2025 HEPATITIS [...] Patient Date of Phone Billing Address Personal/Family [address] [place] [address] SELF PAY NO INSURANCE Member Subscriber Plan / Payer (Ef fective for All Dates) Name:Scarlett Reveles Member ID:Not on file Relation to Subscriber:Not on file Name:SCARLETT REVELES Subscriber ID:Not on file (Home) Address: [address] [place] [address] Payer ID:Not on file Group ID:Not on file Type:Self Pay Address: [facility] MANAGED MEDICARE ADV * Guarantor: SCARLETT REVELES Account Type Relation to Patient Date of Phone Billing Address Personal/Family [address] [place] [address] SELF PAY NO INSURANCE Member Subscriber Plan / Payer (Ef fective for All Dates) Name:Scarlett Reveles Member ID:Not on file Relation to Subscriber:Not on file Name:SCARLETT REVELES Subscriber ID:Not on file (Home) Address: [address] [place] [address] Payer ID:Not on file Group ID:Not on file Type:Self Pay Address: [facility] MANAGED MEDICARE ADV * Guarantor: SCARLETT REVELES Account Type Relation to Patient Date of Phone Billing Address Personal/Family [address] [place] [address] SELF PAY NO INSURANCE Member Subscriber Plan / Payer (Ef fective for All Dates) Name:Scarlett Reveles Member ID:Not on file Relation to Subscriber:Not on file Name:SCARLETT REVELES Subscriber ID:Not on file (Home) Address: [address] [place] [address] Payer ID:Not on file Group ID:Not on file Type:Self Pay Address: [facility] MANAGED MEDICARE ADV Member Subscriber Plan / Payer (Ef fective 2024-Present) Name:Scarlett Reveles Relation to Subscriber:Self Name:Scarlett Reveles Payer ID:[id number] (NAIC) Type:Medicare-Managed Care Address: [address] * Guarantor: SCARLETT REVELES Account Type Relation to Patient Date of Phone Billing Address Personal/Family [address] [place] [address] SELF PAY NO INSURANCE Member Subscriber Plan / Payer (Ef fective for All Dates) Name:Scarlett Reveles Member ID:Not on file Relation to Subscriber:Not on file Name:SCARLETT REVELES Subscriber ID:Not on file (Home) Address: [address] [place] [address] Payer ID:Not on file Group ID:Not on file Type:Self Pay Address: [facility] MANAGED MEDICARE ADV Member Subscriber Plan / Payer (Ef fective 2024-Present) Name:Scarlett Reveles Relation to Subscriber:Self Name:Scarlett Reveles Payer ID:[id number] (NAIC) Type:Medicare-Managed Care Address: [address] * Guarantor: SCARLETT REVELES Account Type Relation to Patient Date of Phone Billing Address Personal/Family [address] [place] [address] SELF PAY NO INSURANCE Member Subscriber Plan / Payer (Ef fective for All Dates) Name:Scarlett Reveles Member ID:Not on file Relation to Subscriber:Not on file Name:SCARLETT REVELES Subscriber ID:Not on file (Home) Address: [address] [place] [address] Payer ID:Not on file Group ID:Not on file Type:Self Pay Address: [facility] MANAGED MEDICARE ADV * Guarantor: SCARLETT REVELES Account Type Relation to Patient Date of Phone Billing Address Personal/Family [address] [place] [address] SELF PAY NO INSURANCE Member Subscriber Plan / Payer (Ef fective for All Dates) Name:Scarlett Reveles Member ID:Not on file Relation to Subscriber:Not on file Name:SCARLETT REVELES Subscriber ID:Not on file (Home) Address: [address] [place] [address] Payer ID:Not on file Group ID:Not on file Type:Self Pay Address: [facility] MANAGED MEDICARE ADV Care Teams It Specialist Relationship Specialty Start Date End Date Jose D Wyatt MD [address] [place] [address] PCP - General 06/27/18
--- OUTSIDE RECORDS SUMMARY | 2025-10-05 03:39 | XMS_ITS | Encounter Summary ---
Author Organization [facility] Address [address] [place] [address] Care Team Providers Care Soldering Machine Setter Name Role Phone Jose D Wyatt MD Primary Care Provider Encounter Details Date Type Department Care Team (Late st Contact Info) Description 06/17/2024 Lab Requisition [facility] - DermPath Lab [address] [facility] [place] [phone] Edward Gaming MD [address] [place] [address] Social History Tobacco Use Types Packs/Day Years Used Date Smoking Tobacco: Never Assessed Sex and Gender Information Value Date Recorded Sex Assigned at Not on file 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 Gender Identity Not on file Sexual Orientation Not on file documented as of this encounter Plan of Treatment Not on file documented as of this encounter Procedures Procedure Name Priority Date/Time Associated Diagnosis Comments DERMATOPATHOLOGY Routine 06/16/2024 12:0 0 AM CDT documented in this encounter Results * DERMATOPATHOLOGY (06/16/2024 12:00 AM CDT) Case Report Dermatopathology Report Case: [id number] Authorizing Provider: Edward Gaming MD Collected: 06/16/2024 12:00 AM Ordering Location: [facility] Physician [facility] - Received: 06/18/2024 06:43 AM DermPath Lab [...] characteristic determined by the Dermatopathology Laboratory at [facility], directed by Dr. Malik Jackson. These tests need not be, and therefore are not, approved by the [place] Food and Drug Administration. The tests are used for clinical purposes. Billing Codes Specimen Charges Stain Charges 79383 1 4:00 PM CDT DERMATOPATHOLOGY LABORATORY Embedded Images 4:00 PM CDT DERMATOPATHOLOGY LABORATORY Pathology/Cytolog y TISSUE SPECIMEN FROM SKIN / Unknown 06/16/2024 06/18/2024 6:43 AM CDT Edward Gaming MD LAB - PATHOLOGY/CYTOLOGY ORD ERABLES Final Result DERMATOPATHOLOGY LABORATORY [facility] - Department of Dermatology [facility] Medicine [address] [place] [address], [address] [phone] documented in this encounter Visit Diagnoses Not on filedocumented in this encounter Care Teams Soldering Machine Setter Relationship Specialty Start Date End Date Jose D Wyatt MD [address] [place] [id number] PCP - General 06/27/18 documented as of this encounter
--- OUTSIDE RECORDS SUMMARY | 2025-10-05 03:39 | XMS_ITS | Clinical Summary ---
Author Organization [facility] [address] Address [address] [place] [address] Care Team Providers Care Tankman Name Role Phone Jose Eduardo Baugh MD [...] on file Legal Sex Male 1:18 PM ADON Gender Identity Not on file Sexual Orientation Not on file Last Filed Vital Signs Vital Sign Reading Time Taken Comments Blood Pressure 123/80 10/17/2022 11:06 AM ADON Pulse 95 10/17/2022 11:06 AM ADON Temperature - - Respiratory Rate - - Oxygen Saturation - - Inhaled Oxygen Concentration - - Weight 120.7 kg (266 lb) 10/17/2022 11:06 AM ADON Height - - Body Mass Index - [...] 2, 06/21/2021, 06/17/2020, Additional history exists Insurance [facility] MEDICARE [facility] MEDIC[facility] Address: [facility] [address] [place] [address] Care Teams Tankman Relationship Specialty Start Date End Date Jose Eduardo Baugh MD [address] [place] [address] PCP - General Family Medicine 09/25/22
--- OUTSIDE RECORDS SUMMARY | 2025-10-05 03:39 | XMS_ITS | Encounter Summary ---
Author Organization [facility] Address [address] [facility] [place] [address] Care Team Providers Care Travel Counselor Name Role Phone Jose D Wyatt MD Primary Care Provider [phone] Encounter Details Date Type Department Care Team (Late st Contact Info) Description 03/16/2024 Lab Requisition [facility] - DermPath Lab [address] [facility] [place] [phone] Edward Gaming MD [address] [place] [address] Social History Tobacco Use Types Packs/Day Years Used Date Smoking Tobacco: Never Assessed Sex and Gender Information Value Date Recorded Sex Assigned at Not on file 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 Gender Identity Not on file Sexual Orientation Not on file documented as of this encounter Plan of Treatment Not on file documented as of this encounter Procedures Procedure Name Priority Date/Time Associated Diagnosis Comments DERMATOPATHOLOGY Routine 03/11/2024 3:33 AM CDT documented in this encounter Results * DERMATOPATHOLOGY (03/11/2024 3:33 AM CDT) Case Report Dermatopathology Report Case: [id number] Authorizing Provider: Edward Gaming MD Collected: 03/11/2024 03:33 AM Ordering Location: [facility] Physician [facility] - Received: 03/16/2024 10:06 AM DermPath Lab [...] of a curettage and desiccation biopsy measuring 72o12j84 mm. Jar 0. Specimen B: Received is one formalin filled container labeled with the patient's name and designated right ear helix mid rim. The specimen consists of a shave biopsy measuring 8x7x2 mm. Jar 0. Specimen C: Received is one formalin filled container labeled with the patient's name and designated left radial distal forearm. The specimen consists of a shave biopsy measuring 34t34z7 mm. Jar 0. 1:51 PM CDT DERMATOPATHOLOGY [...] characteristic determined by the Dermatopathology Laboratory at [facility], directed by Dr. Malik Jackson. These tests need not be, and therefore are not, approved by the [place] Food and Drug Administration. The tests are used for clinical purposes. Billing Codes Specimen Charges Stain Charges 78341 96807 39135 1 1 1 4 1:51 PM CDT [...] PATHOLOGY/CYTOLOGY ORD ERABLES Final Result DERMATOPATHOLOGY LABORATORY [facility] - Department of Dermatology [facility] Medicine [address] [place] [address], [address] [phone] documented in this encounter Visit Diagnoses Not on filedocumented in this encounter Care Teams Travel Counselor Relationship Specialty Start Date End Date Jose D Wyatt MD [address] [place] [address] PCP - General 06/27/18 documented as of this encounter
--- OUTSIDE RECORDS SUMMARY | 2025-10-05 03:39 | XMS_ITS | Clinical Summary ---
Author Organization [facility] Address [address] [place] [address] Phone Care Team Providers Care Fitness Plan Coordinator Name Role Phone Jose Eduardo Baugh MD Primary Care Provider [phone] Allergies Active Allergy Reactions Criticality Noted Date [...] 1 Capsule by mouth 2 times daily. 06/20/20 21 Active levothyroxine 50 mcg tablet Take 50 mcg by mouth daily. 10/08/20 22 Active esomeprazole (NexIUM) 20 mg Capsule, Delayed Release(E.C.) Take 40 mg by mouth daily before breakfast. Active amoxicillin (AMOXIL) 500 mg Tablet TAKE 4 TABLETS BY MOUTH 1 HOUR BEFORE PROCEDURE 08/12/20 24 Active lisinopriL (PRINIVIL) 5 mg tablet TAKE 1 TABLET BY MOUTH DAILY 90 Tablet 3 11/18/19 25 Active furosemide (LASIX) 20 mg tablet TAKE 1 TABLET BY MOUTH TWICE DAILY 180 Tablet 3 11/23/19 25 Active dilTIAZem (CARDIZEM CD, CARTIA XT) 120 mg Controlled Delivery 24 hour capsule TAKE 1 CAPSULE BY MOUTH DAILY 90 Capsule 3 02/17/20 25 Active warfarin (COUMADIN) 4 mg tablet TAKE ONE-HALF TABLET THREE DAYS A WEEK AND 1 TABLET FOUR DAYS A WEEK OR DIRECTED 75 Tablet 1 08/02/20 25 Active potassium CHLORIDE (K-DUR,KLOR-C ON M20) 20 mEq Extended Release tablet TAKE 1 TABLET(20 MEQ) BY MOUTH DAILY 90 Tablet 3 08/05/20 25 Active ferrous sulfate 325 mg (65 mg iron) tablet Take 325 mg by mouth daily. Active atorvastatin (LIPITOR) 20 mg tablet TAKE 1 TABLET BY MOUTH DAILY AT BEDTIME 90 Tablet 09/20/20 25 Active metoprolol succinate (TOPROL XL) 25 mg Extended Release 24 hour tablet TAKE 1 TABLET BY MOUTH ONCE DAILY 90 Tablet 09/20/20 25 Active sotaloL (BETAPACE) 80 mg tablet TAKE 1 TABLET BY MOUTH TWICE DAILY 180 Tablet 3 09/20/20 25 Active sotaloL (BETAPACE) 80 mg tablet TAKE 1 TABLET BY MOUTH TWICE DAILY 180 Tablet 3 11/11/19 25 025 Discontinued metoprolol succinate (TOPROL XL) 25 mg Extended Release 24 hour tablet TAKE 1 TABLET BY MOUTH ONCE DAILY 90 Tablet 3 11/11/19 25 025 Discontinued atorvastatin (LIPITOR) 20 mg tablet TAKE 1 TABLET BY MOUTH DAILY AT BEDTIME 90 Tablet 3 11/11/19 25 025 Discontinued Active Problems Patient Care Coordination No te Formatting of this note migh t be different from the original. [facility] - Dr. Maribel Araujo (Jaden) Yuval Hsieh MD--[facility] ([facility] @ ) Uses [email or web address] in [facility] [phone] Problem Noted Date Diagnosed Date Acute on [...] Encounters Date Type Department Care Team Description 10/04/2025 Abstract [facility] - [facility] [address] [place] [address] Bonny Fuller, [facility] 10/04/2025 Anti-coag visit [facility] At [address] [place] [address] Maribel Araujo MD 09/27/2025 Anti-coag visit [facility] At [address] [place] [address] Maribel Araujo MD 09/20/2025 Abstract [facility] - [facility] [address] [place] [address] Maribel Araujo MD 09/18/2025 Refill [facility] - [facility] [place] [address] [place] [address] Maribel Araujo MD 09/17/2025 Abstract [facility] At [address] [place] [address] Maribel Araujo MD 09/14/2025 Anti-coag visit [facility] At [address] [place] [address] Maribel Araujo MD 09/06/2025 Anti-coag visit [facility] At [address] [place] [address] Maribel Araujo MD 08/30/2025 Abstract [facility] - [place] [address] [place] [address] Maribel Araujo MD 08/23/2025 Anti-coag visit [facility] At [address] [place] [address] Maribel Araujo MD 08/16/2025 Abstract [facility] - [place] [address] [place] [address] Maribel Araujo MD 08/11/2025 Abstract [facility] At [address] [place] [address] Yuval Hsieh MD 08/09/2025 Anti-coag visit [facility] At [address] [place] [address] Maribel Araujo MD 08/09/2025 Cardiology Conference [facility] At [address] [place] [address] Ita Khan FNP 08/06/2025 11:00 AM CDT Office Visit [facility] At [address] [place] [address] Yuval Hsieh MD Benign hypertension (Primary Dx); S/P TAVR (transcatheter aortic valve replacement); Pacemaker; Paroxysmal atrial fibrillation (CMS/HCC); Paravalvular leak of prosthetic heart valve, subsequent encounter; Anemia, unspecified type 08/05/2025 Refill [facility] At [address] [place] [address] Maribel Araujo MD 08/02/2025 3:30 PM CDT Procedure visit [facility] AT [address] [place] [address] Sick sinus syndrome (CMS/HCC) (Primary Dx); Pacemaker 08/02/2025 Anti-coag visit [facility] At [address] [place] [address] Maribel Araujo MD 08/02/2025 Telephone [facility] At [address] [place] [address] Maribel Araujo MD INR - 1.2 07/31/2025 Refill [facility] - [facility] [place] [address] [address] [address] [place] [address] Maribel Araujo MD 2025 Anti-coag visit [facility] At [address] [place] [address] Maribel Araujo MD 07/16/2025 Telephone [facility] At [address] [place] [address] Maribel Araujo MD Medication Question 07/12/2025 Anti-coag visit [facility] At [address] [place] [address] Maribel Araujo MD from Last 3 Months [...] on file Legal Sex Male 5:48 AM RESPIRATORY PHYSICIAN Gender Identity Not on file Sexual Orientation Not on file Last Filed Vital Signs Vital Sign Reading Time Taken Comments Blood Pressure 132/52 08/06/2025 10:26 AM CDT Pulse 62 08/06/2025 10:26 AM CDT Temperature 36.7 C (98.1 F) 08/05/2024 4:55 AM CDT Respiratory Rate 15 08/05/2024 9:30 AM CDT Oxygen Saturation 99% 08/06/2025 10: 26 AM CDT Inhaled Oxygen Concentration - - Weight 106.1 kg (233 lb 12.8 oz) 2024 10:26 AM CDT Height 193 cm (6' 4) 08/06/2025 10:26 AM CDT Body Mass Index 28.46 08/06/2025 10:26 AM CDT Plan of Treatment Upcoming Encounters Date Type Department Care Team (Late st Contact Info) Description 11/11/2025 11:15 AM RESPIRATORY PHYSICIAN Procedure visit [facility] AT [address] [place] [address] 11/12/2025 9:15 AM RESPIRATORY PHYSICIAN Office Visit [facility] - [facility] [address] [address] [facility] [address] [place] [address] David Cerna MD [address] [place] [address] [address] [place] [address] 01/04/2026 10:[address] [facility] Cardiology Services [place] [place] [address] Yuval Hsieh MD [address] [place] [address] [address] [place] [address] 02/18/2026 10:15 AM CDT Office Visit [facility] At [address] [place] [address] Yuval Hsieh MD [address] [place] [address] [address] [place] [address] 04/12/2026 10:30 AM CDT Procedure visit [facility] AT [address] [place] [address] 04/12/2026 11:00 AM CDT Office Visit [facility] AT [address] [place] [address] Anshul Guerrier, KWABENA [address] [place] [address] [address] [place] [phone] Health Maintenance Due Date Last Done Comments DTAP/TDAP/TD VACCINES (1 - Tdap) 1959 PNEUMOCOCCAL VACCINE 50+ YEARS (1 of 2 - PCV) 07/28/19 58 07/31/2007 ZOSTER VACCINE (2 of 3) 07/26/2010 05/31/2010 RSV VACCINE (60+ or ) (1 - 1-dose 75+ series) 2014 Medicare Advantage ([place]) Prev entative Visit/Annual Wellness Visit 10/14/2024 INFLUENZA VACCINE (#1) 2025 07/31/2010 COLORECTAL SCREENING Discontinued 11/24/2014 Colorectal Cancer Screening Discontinued FIT-DNA Q 3 years Discontinued FIT/FOBT Q 1 year Discontinued Flex Sig/CT Colonography Q 5 years Discontinued Medical Devices Implanted Type Area Respiratory Therapy Technician Device Identifier Shelf Expiration Date Model / Serial / Lot Closure Perclose Prostyle Sut Mediate 29967-16 - [id number] Implanted:Qty: 1 on 08/04/2024 by Yuval Hsieh MD at [facility] Closure Device N/A: Groin KEE- VASC DEVICE [id number] 05/13/2026 13295-30 / / [id number] Sealant Mynx Vasc Closure 5fr Vcd [id number] - [id number] Implanted:Qty: 1 on 08/04/2024 by Yuval Hsieh MD at [facility] Closure Device N/A: Groin CORDIS [id number] 06/26/2026 [id number] / / [id number] Lead Capsurefix Novus Mri 52cm Endocardial Pacing 5076-52 - [id number] Implanted:Qty: 1 on 10/16/2023 at [facility] Lead Right: Heart [employer]- CRM - BULK BUY 06/07/2025 5076-52 / [id number] 4V / Dev Solara Mri Crtp W1tr03 - [id number] Implanted:Qty: 1 on 10/16/2023 at [facility] Pacemaker Left: Chest [employer]- CRM - BULK BUY 01/25/2025 [id number] / [id number] 1S / [id number] Aortic Thv 29mm [id number] - [id number] Implanted:Qty: 1 on 08/04/2024 by Yuval Hsieh MD at [facility] Valve N/A: Heart [employer] [id number] 02/04/2027 [id number] / [id number] / Procedures Procedure Name Priority Date/Time Associated Diagnosis Comments PROTIME-INR Routine 10/04/2025 PROTIME-INR Routine 09/27/2025 PROTIME-INR Routine 09/13/2025 PROTIME-INR Routine 09/06/2025 PROTIME-INR Routine 08/23/2025 PROTIME-INR Routine 08/09/2025 PROTIME-INR Routine 08/02/2025 WY REM INTERROG PM/LDLS PM/IDS <90 D TECH REVIEW Routine 07/31/2025 11:19 AM CDT Sick sinus syndrome (CMS/HCC) Pacemaker WY REM INTERROG PM/LDLS PM <90 D PHYS/QHP Routine 07/31/2025 11:19 AM CDT Sick sinus syndrome (CMS/HCC) Pacemaker POC PROTIME/INR Routine 2025 11:09 AM CDT POC PROTIME/INR Routine 07/12/2025 9:52 AM CDT from Last 3 Months Results * PROTIME-INR (10/04/2025) Only the most recent of7 resultswithin the time period is included. ABSTRACTED PROTIME EXTERNAL LAB ABSTRACTED INR 1.3 EXTERNAL LAB Blood 10/04/2025 us Historical Provider HEMATOLOGY ORDERABLES Final Result EXTERNAL LAB * WY REM INTERROG PM/LDLS PM <90 D PHYS/QHP, WY REM INTERROG PM/LDLS PM/IDS <90 D TECH REVIEW (07/31/2025 11:19 AM CDT) 07/31/2025 11:1 9 AM CDT Narrative INTERFACE SYSTEM - 08/02/2025 2:02 PM CDT Remote Carelink Transmission Appropriate dual chamber pacemaker function. 10/16/23 - the previous fractured RA lead was plugged into an IS-1 LV port to maintain closed circuit. Presenting Rhythm: ApVs Battery: 10.4 years FOOD SELECTOR < 0.1% Since 04/09/2025 No arrhythmias noted. Per Epic, Patient takes warfarin, sotalol, metoprolol, diltiazem, aspirin. Paperless letter sent 04/09/2024 Procedure Note Provider, Historical - 08/02/2025 Remote Carelink Transmission Appropriate dual chamber pacemaker function. 10/16/23 - the previous fractured RA lead was plugged into an IS-1 LV portto maintain closed circuit. Presenting Rhythm: ApVs Battery: 10.4 years FOOD SELECTOR < 0.1% Since 04/09/2025 No arrhythmias noted. Per Epic, Patient takes warfarin, sotalol, metoprolol, diltiazem,aspirin. Paperless letter sent 04/09/2024 Yandel Azevedo MD CARDIAC SERVICES ORDERABLES Edit ed Result - Final INTERFACE SYSTEM Refer to clinic/hospital department * POC PROTIME/INR (2025 11:09 AM CDT) Only the most recent of2 resultswithin the time period is included. 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
[2025-10-05 09:15] VITALS: BP 142/73; PULSE 69; RESP 18; TEMP 36.1; O2SAT 100
[2025-10-05] MEDS: LACTATED RINGERS 1,000 ML 150 ML IV CONT (09:27)
[2025-10-05] MEDS: GENTAMICIN 80MG/SOD CHL 50 ML 80 MG/50 ML BAG 100 MG IVPB (09:29)
--- NOTE | 2025-10-05 09:51 | WPDANESEPPF ---
Anes - Initial Pre Proc Eval Procedure: Operation Date: 10/05/25 10:30 Proposed Procedures p EGD & Diagnostic Colonoscopy - Tre Quintero MD Date/Time: 10/05/25 09:51 Surgeon: Tre Quintero MD Pre Op Diagnosis: Iron deficiency anemia, unspecified Patient Data Age: 85 Gender: M Height: 1.93 m Weight: 104.4 kg Last Vital Signs Temp 96.9 F L 10/05/25 09:15 Pulse 69 10/05/25 09:15 Resp 18 10/05/25 09:15 BP 142/73 H 10/05/25 09:15 Pulse Ox 100 10/05/25 09:15 O2 Del Method Room Air 10/05/25 09:15 Allergies Allergy/AdvReac Type Severity Reaction Status Date / Time Tetanus Vaccines and Toxoid Allergy Severe DIFFICULTY Verified 10/05/25 09:12 BREATHING/REDNESS/EXTREME SWELLING OF ARM Home Medications ?Medication ?Instructions ?Recorded ?Confirmed ?Type finasteride 5 mg tablet (Proscar) 5 mg PO HS 11/02/19 10/05/25 History metoprolol succinate 25 mg 12.5 mg PO QAM 11/02/19 10/05/25 History tablet,extended release 24 hr omega-3 fatty acids 1,000 mg 1,000 mg PO DAILY 11/02/19 10/05/25 History capsule (Fish Oil Concentrate) sotalol 80 mg tablet 80 mg PO BID 11/02/19 10/05/25 History warfarin 4 mg tablet (Coumadin) 4 mg PO .COMPLEX 09/06/20 10/05/25 History gabapentin 100 mg capsule 100 mg PO BID 07/04/21 10/05/25 History aspirin 81 mg tablet 81 mg PO DAILY 01/03/23 10/05/25 History lisinopril 5 mg tablet 5 mg PO QAM 01/03/23 10/05/25 History diltiazem HCl 120 mg capsule,24 120 mg PO HS 11/26/23 10/05/25 History hr,extended release furosemide 20 mg tablet (Lasix) 20 mg PO DAILY 11/26/23 10/05/25 History potassium chloride 20 mEq 20 meq PO DAILY 11/26/23 10/05/25 History tablet,extended release esomeprazole magnesium 40 mg 40 mg PO BID 90 days #180 caps 09/17/24 10/05/25 Rx capsule,delayed release levothyroxine 75 mcg tablet 75 mcg PO DAILY #90 tabs 08/02/25 10/05/25 Rx ferrous sulfate 325 mg (65 mg 325 mg PO DAILY #30 tabs 09/01/25 10/05/25 Rx iron) tablet,delayed release atorvastatin 40 mg tablet 20 mg PO HS 09/20/25 10/05/25 History Patient hx anesthesia problems: none Family hx anesthesia problems: none Results Review: All pre-operative results and documents have been reviewed as part of the pre-operative evaluation. [facility] Past Medical History Medical History Aortic stenosis Skin cancer Cholelithiasis Thickening of wall of gallbladder Biliary dyskinesia Enteritis Lumbar spinal stenosis jail (current) use of anticoagulants GERD (gastroesophageal reflux disease) HTN (hypertension) High cholesterol DOMINICK on CPAP A-fib History of blood transfusion RUQ abdominal pain Surgical History Surgical History History of transcatheter aortic valve replacement (TAVR) Status post surgical removal of malignant neoplasm of skin H/O hernia repair GI bleed S/P carpal tunnel release S/P cataract surgery S/P arthroscopy of right knee Family History Family History Father Family history of respiratory disorder Pneumonia Black lung disease Sibling Acute myocardial infarction Heart attack Mother Patient's mother is , Onset Age: 85 Sibling Heart disease Other Family history of cardiovascular disease Hypertension Social History Social History Smoking packs per day: 1 Smoking cigarettes per day: 20.0 Years smoked: 70 Smoking pack-years: 70.00 Smoking status: Current every day smoker Tobacco type: cigarettes Second hand tobacco smoke exposure: Yes Alcohol intake: current Alcohol use details: rare Substance use: never Substance use type: does not use Lack of Transportation: No Lack of Food: Never True Current Housing: I Have Housing Concerned About Future Housing: No Difficulty Paying Gas/Electric Bills: No Difficulty Paying for Meds: No Currently Unemployed: No Education: High School Diploma/GED Difficulty w/ Childcare or Family Care: No Living arrangements: alone Occupation/Education: retired Gender identity (if verbalized by the patient): Male Sexual Orientation (if Verbalized by the Patient): Straight or Heterosexual Spiritual care concerns: No Anes - Eval Final PreProcedure Day of Procedure 10/05/25 09:51 Patient weight: overweight Lungs: normal air movement and decreased breath sounds Airway: Mallampati scale class II Neurological: alert and oriented Last oral intake: >/= 8 hours ASA classification: IV Emergent: no Anesthetic plan: proceed Anesthesia type and monitoring: general GIVS and standard monitoring Results Review: All pre-operative results and documents have been reviewed as part of the pre-operative evaluation. Complicated hx and chart reviewed to the best of my ability. Anemia Had TAVR/pacemaker placed at [facility], long hx of smoking/DOMINICK. Informed Consent: The patient's anesthetic plan and its attendant risks and benefits were discussed with the patient/family/POA. Questions were solicited and answers provided to the satisfaction of the patient/family/POA.
[2025-10-05] MEDS: AMPICILLIN SODIUM 2 GM in SODIUM CHLORIDE 0.9% IV 100 ML 200 ML IVPB (09:53)
--- NOTE | 2025-10-05 10:07 | PM.HPGS ---
History of Present Illness History of Present Illness Consent: Risks, benefits, and alternatives have been discussed and questions answered. Patient agrees to proceed with procedure. Chief complaint: Iron deficiency anemia, unspecified Narrative: Antony Reveles is a 85 year old male with anemia, here for egd and colonoscopy- last colonoscopy 2014 with polyp Review of Systems Review of Systems: All systems reviewed & are unremarkable except as noted in HPI and below PMFSH Past Medical History Medical History Aortic stenosis Skin cancer Cholelithiasis Thickening of wall of gallbladder Biliary dyskinesia Enteritis Lumbar spinal stenosis senior care (current) use of anticoagulants GERD (gastroesophageal reflux disease) HTN (hypertension) High cholesterol DOMINICK on CPAP A-fib History of blood transfusion RUQ abdominal pain Surgical History Surgical History History of transcatheter aortic valve replacement (TAVR) Status post surgical removal of malignant neoplasm of skin H/O hernia repair GI bleed S/P carpal tunnel release S/P cataract surgery S/P arthroscopy of right knee Family History Family History Father Family history of respiratory disorder Pneumonia Black lung disease Sibling Acute myocardial infarction Heart attack Mother Patient's mother is , Onset Age: 85 Sibling Heart disease Other Family history of cardiovascular disease Hypertension Social History Social History Smoking packs per day: 1 Smoking cigarettes per day: 20.0 Years smoked: 70 Smoking pack-years: 70.00 Smoking status: Current every day smoker Tobacco type: cigarettes Second hand tobacco smoke exposure: Yes Alcohol intake: current Alcohol use details: rare Substance use: never Substance use type: does not use Lack of Transportation: No Lack of Food: Never True Current Housing: I Have Housing Concerned About Future Housing: No Difficulty Paying Gas/Electric Bills: No Difficulty Paying for Meds: No Currently Unemployed: No Education: High School Diploma/GED Difficulty w/ Childcare or Family Care: No Living arrangements: alone Occupation/Education: retired Gender identity (if verbalized by the patient): Male Sexual Orientation (if Verbalized by the Patient): Straight or Heterosexual Spiritual care concerns: No Meds Home Medications and Allergies Home Medications ?Medication ?Instructions ?Recorded ?Confirmed ?Type finasteride 5 mg tablet (Proscar) 5 mg PO HS 11/02/19 10/05/25 History metoprolol succinate 25 mg 12.5 mg PO QAM 11/02/19 10/05/25 History tablet,extended release 24 hr omega-3 fatty acids 1,000 mg 1,000 mg PO DAILY 11/02/19 10/05/25 History capsule (Fish Oil Concentrate) sotalol 80 mg tablet 80 mg PO BID 11/02/19 10/05/25 History warfarin 4 mg tablet (Coumadin) 4 mg PO .COMPLEX 09/06/20 10/05/25 History gabapentin 100 mg capsule 100 mg PO BID 07/04/21 10/05/25 History aspirin 81 mg tablet 81 mg PO DAILY 01/03/23 10/05/25 History lisinopril 5 mg tablet 5 mg PO QAM 01/03/23 10/05/25 History diltiazem HCl 120 mg capsule,24 120 mg PO HS 11/26/23 10/05/25 History hr,extended release furosemide 20 mg tablet (Lasix) 20 mg PO DAILY 11/26/23 10/05/25 History potassium chloride 20 mEq 20 meq PO DAILY 11/26/23 10/05/25 History tablet,extended release esomeprazole magnesium 40 mg 40 mg PO BID 90 days #180 caps 09/17/24 10/05/25 Rx capsule,delayed release levothyroxine 75 mcg tablet 75 mcg PO DAILY #90 tabs 08/02/25 10/05/25 Rx ferrous sulfate 325 mg (65 mg 325 mg PO DAILY #30 tabs 09/01/25 10/05/25 Rx iron) tablet,delayed release atorvastatin 40 mg tablet 20 mg PO HS 09/20/25 10/05/25 History Allergies Allergy/AdvReac Type Severity Reaction Status Date / Time Tetanus Vaccines and Toxoid Allergy Severe DIFFICULTY Verified 10/05/25 09:12 BREATHING/REDNESS/EXTREME SWELLING OF ARM Vital Signs Vital Signs - 24 hr 10/05/25 09:15 Temperature 96.9 F L Pulse Rate 69 Respiratory Rate 18 Blood Pressure 142/73 H Pulse Oximetry 100 Oxygen Delivery Room Air Exam Const: General: comfortable and no acute distress HENMT: Face/Nose/Sinus: Normal nares present Eyes: General: appearance normal, both eyes and all related structures Neck: Neck: no JVD Resp: Auscultation: clear to auscultation bilaterally GI: Inspection: non-distended GI Palp: Yes Soft to palpation Assessment and Plan Assessment and plan (1) Anemia: Qualifiers: Anemia type: unspecified type Qualified Code(s): D64.9 - Anemia, unspecified Code(s): D64.9 - Anemia, unspecified Status: Acute Assessment and Plan: egd and colonoscopy to see if gi source of anemia
[2025-10-05] MEDS: BENZOCAINE (*SP) 60 ML SPRAY CAN (HURRICAINE) 1 SPRAY MUCOUS MEM (10:14)
--- NOTE | 2025-10-05 10:23 | SUR.OPER ---
EGD: [id number] Colon: [id number]
--- NOTE | 2025-10-05 10:40 | S_PTH ---
PATIENT: Antony Reveles LOC: [facility] Beth#:[id number] AGE/SX: 85/M ROOM: RE10/05/[address]: Tre Quintero MD : 1940 BED: DIS: 10/05/2025 SPEC #: [id number] RECD: 10/05/25 11:00 STATUS: ROMERO ANDERSON #: [id number] JUAN: 10/05/25 10:[address]: Tre Quintero DEPT: [facility] Surgical RECD BY: Kisha Gordon ENTERED: 10/05/25 11:00 SP TYPE: Surgical OTHR DR: Jose Eduardo Baugh MD Tissues: A - Colon Polypectomy Procedures: Hematoxylin and Eosin Stain Gross and Microscopic Level 4
[2025-10-05 10:43] VITALS: BP 104/68; PULSE 72; RESP 21; O2SAT 100
[2025-10-05 10:53] VITALS: BP 121/76; PULSE 70; RESP 18; O2SAT 100
[2025-10-05 11:03] VITALS: BP 150/72; PULSE 70; RESP 20; O2SAT 100
== END 2025-10-05 11:17 | disposition home or self-care (01) ==
PROVIDERS: PCP Family Medicine; Referring Provider Internal Medicine Gastroenterology; Visit Provider Internal Medicine Gastroenterology
PROC: 0DJ08ZZ Inspection of Upper Intestinal Tract, Via Natural or Artificial Opening Endoscopic (ICD-10-PCS; CPT 45378; principal; 2025-10-05 10:30)
DX: D50.9 Iron deficiency anemia, unspecified (principal); Q27.33 Arteriovenous malformation of digestive system vessel; D12.3 Benign neoplasm of transverse colon; K64.8 Other hemorrhoids; F17.210 Nicotine dependence, cigarettes, uncomplicated
CPT/HCPCS: 45381; 45385; 45388; 43235; 88305; J0290; J1580; J2003; J2704; J7120